=== PATIENT | male | born 1955 | race Caucasian/White ===

== ENCOUNTER 2018-10-23 21:26 | Inpatient (IN) ==
[~2018-10-23 21:26] MED LIST: ASPIRIN 300 MG SUPP PR ONE
[2018-10-23] MEDS ORDERED: SODIUM CHLORIDE 0.9% 500 ML IV SCH (21:30)
[2018-10-23] MEDS ORDERED: AMIODARONE / D5W 360 MG/200 ML BAG IV SCH (21:30)
[2018-10-23 21:45] LABS: Basophils # (auto) 0.03 K/uL (0-0.2); Basophils % (auto) 0.2 %; Eosinophils # (auto) 0.11 K/uL (0-0.5); Eosinophils % (auto) 0.8 %; Hematocrit (blood only) 44.5 % (42-52); Hemoglobin 15.4 g/dL (14.0-18.0); Immature Granulocytes # (auto) 0.31 K/uL (0.00-0.02); Immature Granulocytes % (auto) 2.2 %; Lymphocytes # (auto) 3.13 K/uL (1.2-3.4); Lymphocytes % (auto) 22.6 %; Mean Corpuscular Hgb Conc 34.6 g/dL (32-36); Mean Corpuscular Volume 94.5 fL (80-100); Mean Platelet Volume 9.4 fL (7.4-10.4); Monocytes % (auto) 10.8 %; Neutrophils # (auto) 8.78 K/uL (1.4-6.5); Neutrophils % (auto) 63.4 %; Platelet Count 230 K/uL (130-400); RDW Coefficient of Variation 13.5 % (11.5-14.5); Red Blood Count 4.71 M/uL (4.7-6.1); White Blood Count 13.86 K/uL (4.8-10.8)
--- NOTE | 2018-10-23 21:46 | XRay Report ---
XR chest 1V portable CLINICAL HISTORY: 63 years-old Male presenting with Chest pain. TECHNIQUE: Portable upright AP view of the chest was obtained. COMPARISON: 09/18/2013. FINDINGS: Endotracheal tube terminates in the upper thoracic trachea at the level of the clavicular heads. Athe rosclerosis of the aortic arch. Cardiac silhouette normal in size. Calcified granuloma in the left up per lung again noted. Mild prominence of pulmonary vasculature. Vague opacity in the left perihilar r egion suggested. No pleural effusion or pneumothorax. Osseous structures normal. Upper abdomen normal . IMPRESSION: 1. Endotracheal tube positioned at the upper limits of acceptable. 2. Vague left perihilar infiltrate suggested. Attention on follow-up as developing pneumonia is not excluded. Electronically signed by: Natan Le M.D. 10/23/2018 9:45 PM
[2018-10-23 21:53] LABS: iSTAT Creatinine 1.1 mg/dl (0.6-1.3); iSTAT Hemoglobin 15.3 g/dl (14.0-18.0); iSTAT Ionized Calcium 1.13 mmol/l (1.12-1.32); iSTAT Potassium 4.1 mEq/L (3.3-5.0)
[2018-10-23] MEDS ORDERED: HEPARIN (PORCINE) 1000 UNIT/ML 10 ML (CATH LAB USE ONLY) ONE ×2 (21:53→23:26)
[2018-10-23] MEDS ORDERED: fentaNYL citrate 100 MCG/2 ML VIAL ONE ×3 (21:53→23:10)
[2018-10-23] MEDS ORDERED: MIDAZOLAM HCL 1 MG/ML 2ML VIAL ONE ×4 (21:53→23:10)
[2018-10-23 21:54] LABS: Partial Thromboplastin Ratio 0.9; Partial Thromboplastin Time 25.4 Seconds (21.0-31.0); Prothrombin Time 9.9 Seconds (9.0-12.0)
[2018-10-23] MEDS ORDERED: NOREPINEPHRINE BITARTRATE 1 MG/ML 4 ML VIAL (CATH LAB USE ONLY) ONE (22:01)
[2018-10-23 22:02] LABS: Alanine Aminotransferase 236 U/L (12-78); Albumin Level 3.4 gm/dl (3.4-5.0); Aspartate Aminotransferase 295 U/L (15-37); BUN Creatinine Ratio 8.2 (10-20); Blood Urea Nitrogen 11 mg/dl (7-18); Calcium 8.4 mg/dl (8.5-10.1); Carbon Dioxide 23 mmol/L (21-32); Chloride 108 mmol/L (98-107); Est GFR (African American) 65.9; Est GFR (Non-African American) 56.9; Glucose 230 mg/dl (70-99); Magnesium 2.2 mg/dl (1.8-2.4); Potassium 4.1 mmol/L (3.5-5.1); Sodium 141 mmol/L (136-145)
--- NOTE | 2018-10-23 22:10 | Emergency Department Note ---
Entered by Fariba Hernandes acting as a scribe for History of Present Illness General Chief complaint: Heart Alert Source: EMS Mode of arrival: EMS Limitations: other (HPI limited secondary to patient's altered mental status.) History of Present Illness Onset (ago): minute(s) ([employer]) Location: chest Pain Consistency: + constant Quality: + constant and + other (cardiac arrest) Treatments prior to arrival: other (4 mg Versed) The patient is a 63 year old male who presents to the ED with EMS complaining that he's in cardiac arrest, noting that it began [employer]. Per EMS, the patient was at work, and he "slumped over." EMS notes that he coworkers gave him 3 shocks of an AED and a bystander did CPR. EMS reports that, upon arrival, EMS defibrillated him once more. EMS notes that he was given 4mg of Versed [employer]. They note a history of asthma, stating that he had Azelastine and ProAir on him [employer]. EMS notes that he quit smoking one week ago. HPI limited secondary to patient's altered mental status. Home Medications Home Medications Medication Instructions Recorded Confirmed Type Ibuprofen Tab (ADVIL) 400 - 600 mg PO Q6H PRN #0 tab 06/28/13 History Allergies Allergy/AdvReac Type Severity Reaction Status Date / Time No Known Allergies Allergy Unverified 10/17/12 16:35 Past Med/Surg History Medical History Asthma High cholesterol (Chronic) Back pain (Acute) Back strain (Acute) Laceration of lower extremity (Acute) Social History Communication Ability: Effective Feels Safe at Home: Yes Smoking Status: Unknown if ever smoked Review of Systems See HPI for pertinent positives & negatives. Other (HPI limited secondary to patient's altered mental status.) Physical Exam Vital Signs Vital Signs - 24 hr 10/23/18 21:19 10/23/18 21:32 10/23/18 21:40 Temperature 36.3 C L Temperature Source Axillary Sepsis Action Taken by Nursing No Action Required End-Tidal CO2 17 20 Pulse Rate 90 96 H 95 H Pulse Rate from SpO2 Sensor 93 H 95 H Respiratory Rate 20 Blood Pressure 133/72 133/72 Blood Pressure Mean 92 92 Pulse Oximetry 100 100 Oxygen Delivery Method Ambu-Bag Oxygen Flow Rate 15 10/23/18 21:43 10/23/18 21:46 10/23/18 21:50 Temperature Temperature Source Sepsis Action Taken by Nursing End-Tidal CO2 20 21 22 Pulse Rate 90 85 82 Pulse Rate from SpO2 Sensor 90 83 83 Respiratory Rate Blood Pressure 112/73 116/57 L Blood Pressure Mean 86 76 Pulse Oximetry 100 100 100 Oxygen Delivery Method Oxygen Flow Rate 10/23/18 21:51 Temperature Temperature Source Sepsis Action Taken by Nursing End-Tidal CO2 26 Pulse Rate 83 Pulse Rate from SpO2 Sensor 83 Respiratory Rate Blood Pressure 104/57 L Blood Pressure Mean 72 Pulse Oximetry 100 Oxygen Delivery Method Oxygen Flow Rate GENERAL: Patient is intubated. He does not follow commands. EYES: The conjunctivae are clear. Pupils are mid size and reactive to light bilaterally. EARS, NOSE, MOUTH AND THROAT: Endotracheal tube was noted. NECK: The neck is nontender and supple. RESPIRATORY: No spontaneous respirations were noted. Patient is being bagged via endotracheal tube. Lung sounds are diminished throughout. CARDIOVASCULAR: Regular rate and rhythm was noted to auscultation. No definite murmur was noted. GASTROINTESTINAL: The abdomen is soft. Bowel sounds are present in all quadrants. Abdomen is nontender. MUSCULOSKELETAL/EXTREMITIES: There is no evidence of gross deformity. Full range of motion is noted in the hips and shoulders. SKIN: There is no obvious evidence of any rash. Pulses were symmetric. There is no significant pedal edema. NEUROLOGIC: GCS 6 E(1) V(1) M(4)-intubated Course 2125: The patient was evaluated in room B01. A complete history and physical exam was performed. 2141: I spoke with Dr. Haleigh Ryan, [facility] hospitalist, about the patients case. She will further evaluate the patient. 2144: I spoke with Dr. Tucker, [facility] pet crematory worker, about the patients case. 2152: I spoke with the patients family. They reported that he still smokes cigarettes. Consultations Consultation #1: I spoke with Dr. Haleigh Ryan, [facility] hospitalist, about the patients case. She will further evaluate the patient. Time: 21:42 Consultation #2: I spoke with Dr. Tucker, [facility] pet crematory worker, about the patients case. Time: 21:45 Administered Medications Amiodarone HCl/Dextrose (Nexterone / D5w) 360 mg in 200 mls @ 33.333 mls/hr IV .Q6H [facility] Stop: 10/24/18 03:29 Last Admin: 10/23/18 21:35 Dose: 1 mg/min, 33.3 mls/hr Documented by: [id number] Cosigned by: [id number] Discontinued Medications Aspirin (Aspirin) 300 mg UT ONE ONE Stop: 10/23/18 21:19 Last Admin: 10/23/18 21:30 Dose: 300 mg Documented by: [id number] Sodium Chloride (Nss) 500 mls @ 999 mls/hr IV .Q31M [facility] Stop: 10/23/18 22:00 Last Admin: 10/23/18 21:45 Dose: 999 mls/hr Documented by: [id number] Medical Decision Making Differential Diagnosis Etiologies such as shingles, musculoskeletal pain, pericarditis, myocarditis, cardiac ischemia, pericardial tamponade, pneumonia, pneumothorax, pleural effusion, hemothorax, pleurisy, aortic pathology, pulmonary embolism, intra- abdominal process, as well as others were considered. Medical Records Attestation: I reviewed the patient's medical records. Home Medications Current Medication List: was personally reviewed by me Laboratory Data Attestation: I reviewed the patient's lab results. Result diagrams: 10/23/18 21:36 10/23/18 21:36 Lab Results 10/23/18 10/23/18 10/23/18 Range/Units 21:36 21:36 21:36 WBC 13.86 H (4.8-10.8) K/uL RBC 4.71 (4.7-6.1) M/uL Hgb 15.4 (14.0-18.0) g/dL POC Hgb (14.0-18.0) g/dl Hct 44.5 (42-52) % POC Hct (42-52) % MCV 94.5 (80-100) fL MCH 32.7 (25-34) pg MCHC 34.6 (32-36) g/dL RDW Std Deviation 47.0 H (36.4-46.3) fL RDW Coeff of Anh 13.5 (11.5-14.5) % Plt Count 230 (130-400) K/uL MPV 9.4 (7.4-10.4) fL Immature Gran % (Auto) 2.2 % Neut % (Auto) 63.4 % Lymph % (Auto) 22.6 % [place] % (Auto) 10.8 % Eos % (Auto) 0.8 % Baso % (Auto) 0.2 % Immature Gran # (Auto) 0.31 H (0.00-0.02) K/uL Neut # (Auto) 8.78 H (1.4-6.5) K/uL Lymph # (Auto) 3.13 (1.2-3.4) K/uL [place] # (Auto) 1.50 H (0.11-0.59) K/uL Eos # (Auto) 0.11 (0-0.5) K/uL Baso # (Auto) 0.03 (0-0.2) K/uL PT 9.9 (9.0-12.0) Seconds INR 1.0 (0.9-1.1) APTT 25.4 (21.0-31.0) Seconds PTT Ratio 0.9 Activ Coag Time Kaolin (94-140) SECONDS POC pH (7.35-7.45) POC pCO2 (35-46) mmHg POC pO2 (80-95) mmHg POC HCO3 (19-24) gino/L POC Base Excess (-9-1.8) gino/L POC ABG O2 Sat (90-95) % POC Sodium (135-144) mEq/L Sodium 141 (136-145) mmol/L POC Potassium (3.3-5.0) mEq/L Potassium 4.1 (3.5-5.1) mmol/L POC Chloride (101-112) mEq/L Chloride 108 H (98-107) mmol/L Carbon Dioxide 23 (21-32) mmol/L POC Total CO2 (24-31) mEq/l Anion Gap 11.0 (3-11) POC Anion Gap (16-25) mmol/L POC BUN (7-18) mg/dl BUN 11 (7-18) mg/dl Creatinine 1.33 (0.6-1.4) mg/dl POC Creatinine (0.6-1.3) mg/dl Est Cr Clr Drug Dosing Not Reportable Est GFR ( Amer) 65.9 Est GFR (Non-Af Amer) 56.9 BUN/Creatinine Ratio 8.2 L (10-20) Glucose 230 H (70-99) mg/dl POC Glucose (other) (70-99) mg/dl Calcium 8.4 L (8.5-10.1) mg/dl POC Ioniz Calcium Jai (1.12-1.32) mmol/l Magnesium 2.2 (1.8-2.4) mg/dl Total Bilirubin 0.4 (0.2-1) mg/dl AST 295 H (15-37) U/L ALT 236 H (12-78) U/L Alkaline Phosphatase 86 (45-117) U/L Total Creatine Kinase 612 H (39-308) U/L CK-MB (CK-2) 50.6 H (0.5-3.6) ng/ml CK/CKMB % Calc 8.3 H (0-3.0) POC Troponin I (0-0.045) ng/ml Troponin I 9.410 H* (0-0.045) ng/ml Total Protein 6.8 (6.4-8.2) gm/dl Albumin 3.4 (3.4-5.0) gm/dl Globulin 3.4 (2.5-4.0) gm/dl Albumin/Globulin Ratio 1.0 (0.9-2) Lipase 160 (73-393) U/L TSH 7.800 H (0.300-4.500) uIu/ml Free T4 0.99 (0.8-1.6) ng/dl 10/23/18 10/23/18 10/23/18 Range/Units 21:39 21:39 22:27 WBC (4.8-10.8) K/uL RBC (4.7-6.1) M/uL Hgb (14.0-18.0) g/dL POC Hgb 15.3 (14.0-18.0) g/dl Hct (42-52) % POC Hct 45 (42-52) % MCV (80-100) fL MCH (25-34) pg MCHC (32-36) g/dL RDW Std Deviation (36.4-46.3) fL RDW Coeff of Anh (11.5-14.5) % Plt Count (130-400) K/uL MPV (7.4-10.4) fL Immature Gran % (Auto) % Neut % (Auto) % Lymph % (Auto) % [place] % (Auto) % Eos % (Auto) % Baso % (Auto) % Immature Gran # (Auto) (0.00-0.02) K/uL Neut # (Auto) (1.4-6.5) K/uL Lymph # (Auto) (1.2-3.4) K/uL [place] # (Auto) (0.11-0.59) K/uL Eos # (Auto) (0-0.5) K/uL Baso # (Auto) (0-0.2) K/uL PT (9.0-12.0) Seconds INR (0.9-1.1) APTT (21.0-31.0) Seconds PTT Ratio Activ Coag Time Kaolin 252 H (94-140) SECONDS POC pH (7.35-7.45) POC pCO2 (35-46) mmHg POC pO2 (80-95) mmHg POC HCO3 (19-24) gino/L POC Base Excess (-9-1.8) gino/L POC ABG O2 Sat (90-95) % POC Sodium 140 (135-144) mEq/L Sodium (136-145) mmol/L POC Potassium 4.1 (3.3-5.0) mEq/L Potassium (3.5-5.1) mmol/L POC Chloride 103 (101-112) mEq/L Chloride (98-107) mmol/L Carbon Dioxide (21-32) mmol/L POC Total CO2 22 L (24-31) mEq/l Anion Gap (3-11) POC Anion Gap 20.0 (16-25) mmol/L POC BUN 10 (7-18) mg/dl BUN (7-18) mg/dl Creatinine (0.6-1.4) mg/dl POC Creatinine 1.1 (0.6-1.3) mg/dl Est Cr Clr Drug Dosing Est GFR ( Amer) Est GFR (Non-Af Amer) BUN/Creatinine Ratio (10-20) Glucose (70-99) mg/dl POC Glucose (other) 236 H (70-99) mg/dl Calcium (8.5-10.1) mg/dl POC Ioniz Calcium Jai 1.13 (1.12-1.32) mmol/l Magnesium (1.8-2.4) mg/dl Total Bilirubin (0.2-1) mg/dl AST (15-37) U/L ALT (12-78) U/L Alkaline Phosphatase (45-117) U/L Total Creatine Kinase (39-308) U/L CK-MB (CK-2) (0.5-3.6) ng/ml CK/CKMB % Calc (0-3.0) POC Troponin I 6.01 H (0-0.045) ng/ml Troponin I (0-0.045) ng/ml Total Protein (6.4-8.2) gm/dl Albumin (3.4-5.0) gm/dl Globulin (2.5-4.0) gm/dl Albumin/Globulin Ratio (0.9-2) Lipase (73-393) U/L TSH (0.300-4.500) uIu/ml Free T4 (0.8-1.6) ng/dl 10/23/18 10/23/18 10/23/18 Range/Units 22:27 22:57 22:57 WBC (4.8-10.8) K/uL RBC (4.7-6.1) M/uL Hgb (14.0-18.0) g/dL POC Hgb (14.0-18.0) g/dl Hct (42-52) % POC Hct (42-52) % MCV (80-100) fL MCH (25-34) pg MCHC (32-36) g/dL RDW Std Deviation (36.4-46.3) fL RDW Coeff of Anh (11.5-14.5) % Plt Count (130-400) K/uL MPV (7.4-10.4) fL Immature Gran % (Auto) % Neut % (Auto) % Lymph % (Auto) % [place] % (Auto) % Eos % (Auto) % Baso % (Auto) % Immature Gran # (Auto) (0.00-0.02) K/uL Neut # (Auto) (1.4-6.5) K/uL Lymph # (Auto) (1.2-3.4) K/uL [place] # (Auto) (0.11-0.59) K/uL Eos # (Auto) (0-0.5) K/uL Baso # (Auto) (0-0.2) K/uL PT (9.0-12.0) Seconds INR (0.9-1.1) APTT (21.0-31.0) Seconds PTT Ratio Activ Coag Time Kaolin 208 H (94-140) SECONDS POC pH 7.23 L 7.35 (7.35-7.45) POC pCO2 45 41 (35-46) mmHg POC pO2 289 H 310 H (80-95) mmHg POC HCO3 19 23 (19-24) gino/L POC Base Excess -9.0 -3.0 (-9-1.8) gino/L POC ABG O2 Sat 100.0 H 100.0 H (90-95) % POC Sodium (135-144) mEq/L Sodium (136-145) mmol/L POC Potassium (3.3-5.0) mEq/L Potassium (3.5-5.1) mmol/L POC Chloride (101-112) mEq/L Chloride (98-107) mmol/L Carbon Dioxide (21-32) mmol/L POC Total CO2 20 L 24 (24-31) mEq/l Anion Gap (3-11) POC Anion Gap (16-25) mmol/L POC BUN (7-18) mg/dl BUN (7-18) mg/dl Creatinine (0.6-1.4) mg/dl POC Creatinine (0.6-1.3) mg/dl Est Cr Clr Drug Dosing Est GFR ( Amer) Est GFR (Non-Af Amer) BUN/Creatinine Ratio (10-20) Glucose (70-99) mg/dl POC Glucose (other) (70-99) mg/dl Calcium (8.5-10.1) mg/dl POC Ioniz Calcium Jai (1.12-1.32) mmol/l Magnesium (1.8-2.4) mg/dl Total Bilirubin (0.2-1) mg/dl AST (15-37) U/L ALT (12-78) U/L Alkaline Phosphatase (45-117) U/L Total Creatine Kinase (39-308) U/L CK-MB (CK-2) (0.5-3.6) ng/ml CK/CKMB % Calc (0-3.0) POC Troponin I (0-0.045) ng/ml Troponin I (0-0.045) ng/ml Total Protein (6.4-8.2) gm/dl Albumin (3.4-5.0) gm/dl Globulin (2.5-4.0) gm/dl Albumin/Globulin Ratio (0.9-2) Lipase (73-393) U/L TSH (0.300-4.500) uIu/ml Free T4 (0.8-1.6) ng/dl Imaging Data Radiologist's Impression: Radiology results as stated below per my review and the radiologist's interpretation: XR chest 1V portable CLINICAL HISTORY: 63 years-old Male presenting with Chest pain. TECHNIQUE: Portable upright AP view of the chest was obtained. COMPARISON: 09/18/2013. FINDINGS: Endotracheal tube terminates in the upper thoracic trachea at the level of the clavicular heads. Atherosclerosis of the aortic arch. Cardiac silhouette normal in size. Calcified granuloma in the left upper lung again noted. Mild prominence of pulmonary vasculature. Vague opacity in the left perihilar region suggested. No pleural effusion or pneumothorax. Osseous structures normal. Upper abdomen normal. IMPRESSION: 1. Endotracheal tube positioned at the upper limits of acceptable. 2. Vague left perihilar infiltrate suggested. Attention on follow-up as developing pneumonia is not excluded. Electronically signed by: Natan Le M.D. 10/23/2018 9:45 PM ECG Data Attestation: I personally reviewed and interpreted this ECG as follows: Indication: SOB/dyspnea Rate (beats per minute): 95 Rhythm: normal sinus Findings: + ST depression (inferior and lateral, consistent with inferior posterior VA) and + ST elevation (Inferior) Additional Comments: Pre hospital EKG: Sinus tachycardic, 102 beats per minute. Anterior and lateral ST depression noted. Inferior ST elevation. Likely inferior posterior VA. No previous for comparison. Blood Pressure Blood Pressure Findings: Low blood pressure Blood Pressure Disposition: further management by hospitalist MARILOU Narrative The patient is a 63-year-old male who presented to the emergency department after a cardiac arrest. The patient was at work when he started to have agonal respirations. This was recognized as a cardiac arrest by the patient's coworkers. He was immediately hooked up to the AED and 911 was called. The patient was received 3 shocks by the AED. He also received another shock with the BLS unit arrived. When the ALS unit arrived the patient was in an organized rhythm with tachycardia. He was noted to have a blood pressure as well as strong pulses in his extremities. At that time I was notified by the prehospital personnel because the patient had signs of STEMI on EKG. Heart alert was called at that time. Via the prehospital notification I did order amiodarone. The patient also received Versed because he was somewhat agitated and was not tolerating the intubation. The patient arrived in the emergency department. His initial twelve-lead EKG appeared to show a continuation of the STEMI. The patient received aspirin in the emergency department as well as continued amiodarone therapy. The patient received IV fluids. I discussed his case with the on-call insurance underwriter sales. He presented to the emergency department immediately. I discussed the patient's condition with his significant other as well as his daughter. I also discussed his case with the on-call [place] Hospitalist. They have agreed to evaluate the patient for further management and disposition after cardiac catheterization. The patient was not made a code arctic initially because he was showing some signs of higher brain activity. It is possible the patient may be a candidate for code Arctic after cardiac catheterization. I will defer this decision to the admitting team. Impression & Plan Cardiac arrest, Ventricular dysrhythmia, Respiratory arrest, Myocardial infarction Critical Care Time I have personally spent 35 minutes of critical care time in the direct management of this patient. This includes bedside care, interpretation of diagnostic studies, and testing, discussion with consultants, patient, and family members, and other required patient management activities. This 35 minutes is in excess of all separately billable procedures. Critical Care Time: Yes Total Critical Care Time: 35 Discharge Plan Visit Data *Final* Discharge Date/Time: 10/23/18 22:15 Chief Complaint: Heart Alert ED Provider: Germán Roman Discharge Problem: Cardiac arrest, Ventricular dysrhythmia, Respiratory arrest, Myocardial infarction Patient Disposition: Admitted As Inpatient Discharge Instructions Interventions: ED Discharge Assessment Last Done: 10/23/18 21:56 The scribe's documentation has been prepared under my direction and personally reviewed by me in its entirety. I confirm that the note above accurately reflects all work, treatment, procedures, and medical decision making performed by me.
[2018-10-23 22:17] LABS: Alkaline Phosphatase 86 U/L (45-117); Bilirubin,Total 0.4 mg/dl (0.2-1); Creatine Kinase 612 U/L (39-308); Creatine Kinase MB 50.6 ng/ml (0.5-3.6); Globulin 3.4 gm/dl (2.5-4.0); Total Protein 6.8 gm/dl (6.4-8.2)
[2018-10-23 22:30] LABS: T4 Free Thyroxine 0.99 ng/dl (0.8-1.6)
[2018-10-23] MEDS ORDERED: ICU PROTOCOL FOR HYPERGLYCEMIA PRN (23:12)
[2018-10-23 23:17] LABS: iSTAT Arterial Blood Gas HCO3 23 meg/L (19-24); iSTAT Arterial Blood Gas pCO2 41 mmHg (35-46); iSTAT Arterial Blood Gas pH 7.35 (7.35-7.45); iSTAT Carbon Dioxide 24 mEq/l (24-31)
[2018-10-23 23:17] LABS: iSTAT Arterial Blood Gas HCO3 19 meg/L (19-24); iSTAT Arterial Blood Gas pCO2 45 mmHg (35-46); iSTAT Arterial Blood Gas pH 7.23 (7.35-7.45); iSTAT Carbon Dioxide 20 mEq/l (24-31)
[2018-10-23] MEDS ORDERED: TICAGRELOR 90 MG TAB PO ONE (23:25)
[2018-10-23] MEDS ORDERED: NiCARDipine HCL INJ 2.5 MG/ML 10 ML AMP ONE (23:26)
[2018-10-23] MEDS ORDERED: SODIUM CHLORIDE 0.9% 1000ML 1,000 ML IV SCH (23:30)
--- NOTE | 2018-10-23 23:46 | Cardiology Consultation ---
Date of Consultation October 23, 2018 Assessment & Plan (1) Cardiac arrest: 2. Posterior STEMI/occluded distal circumflex 3. Mild non-culprit coronary artery disease Patient now post primary PCI for posterior STEMI with single drug-eluting stent placed from distal circumflex into OM 3. Post procedure hemodynamically and electrically stable. Nonpurposeful movements, not following commands. Admit to ICU Head CT pending, cooling catheter placed for therapeutic hypothermia Continue amiodarone infusion Trend troponin until peak, echocardiogram in the a.m. Load with 180 mg of ticagrelor when OG tube in place Continue DAPT for 1 year Start high intensity statin Start low-dose beta-jayshree as BP allows We will continue to follow. History of Present Illness Attending Physician: Filiberto Tucker MD History of Present Illness 63-year-old man without significant past medical history brought emergently to [facility] ED after cardiac arrest. Per report patient had witnessed arrest with bystander CPR and AED administered almost immediately. Reportedly had 3 AED shocks and 1 additional shock with BLS before ROSC. Remained unresponsive and was intubated by paramedics on arrival. Started on sedatives for nonpurposeful movement. EKG in the field showed subtle inferior ST elevations with ST depressions in V2 through V4. Heart alert activated from the field. Initially hypertensive upon arrival. Remained electrically stable on amiodarone in the ED. EKG again showed subtle inferior ST elevations and was taken emergently for cardiac cath. Patient found to have an occluded distal circumflex. Received a single drug- eluting stent from distal circumflex into OM 3 with good angiographic result. Remained hemodynamically stable off vasopressors. Nonpurposeful movement and continued on fentanyl/Versed. Cooling catheter placed via right common femoral vein. Allergies Allergy/AdvReac Type Severity Reaction Status Date / Time No Known Allergies Allergy Unverified 10/17/12 16:35 Home Medications Home Medications Medication Instructions Recorded Confirmed Type Ibuprofen Tab (ADVIL) 400 - 600 mg PO Q6H PRN #0 tab 06/28/13 History Patient History Medical History Asthma High cholesterol (Chronic) Back pain (Acute) Back strain (Acute) Laceration of lower extremity (Acute) No significant past surgical history Family History Other No significant family history Social History Preferred Language: German Communication Ability: Unable Beliefs That Will Affect Care: None Current Living Situation: Spouse Other Information That Helps Us Care for You: No Feels Safe at Home: Yes Smoking Status: Unknown if ever smoked Hx Alcohol Use: No Hx Substance Use: No Review of Systems Review of Systems: Unobtainable due to endotracheal tube Physical Exam Physical Exam: General: Intubated, sedated HEENT: Sclerae anicteric, mucous membranes moist Lungs: Clear to auscultation bilaterally, no rhonchi or wheezes Cardiac: Regular rate and rhythm, no murmurs. Abdomen: Soft, nontender, nondistended, positive bowel sounds. Extremities: Warm, well perfused, no edema. 2+ radial pulses Skin: No rashes or lesions. Neuro: Responds to pain, pupils equal and reactive, Otherwise nonpurposeful mo vements Results & Data Vital Signs (Past 12 Hours) Vital Signs Temp Pulse Resp BP Pulse Ox 10/23/18 21:51 83 104/57 L 100 10/23/18 21:50 82 100 10/23/18 21:46 85 116/57 L 100 10/23/18 21:43 90 112/73 100 10/23/18 21:40 95 H 10/23/18 21:32 96 H 133/72 100 10/23/18 21:19 36.3 C L 90 20 133/72 100
--- NOTE | 2018-10-23 23:58 | Cardiac Catheterization ---
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 Moderate caliber first diagonal without significant disease. Circumflex -30- 40% mid segment disease, 100% acute distal segment occlusion. Large OM1 without significant disease. RCA -dominant, moderate caliber, 50-60% eccentric mid RCA focal stenosis, distal luminal irregularities, very small PDA LVEDP -15 -- PCI -- Antithrombotic therapy: Heparin Procedure: Left main cannulated with EBU 3.5 guide Caustics Loader 50 wire passed across distal circumflex lesion into small left PLB Distal circumflex lesion predilated with 2.5 compliant balloon Whisper wire navigated into moderate caliber OM 3 Ostium of OM 3 dilated with 2.0 balloon Dilated distal circumflex and OM 3 stented with 2.5 x 18 mm Estrada drug-eluting stent Stent post-dilated with stent balloon IC vasodilators administered for spasm Post procedure CARMELITA 3 flow, stent well expanded with minimal residual stenosis and no apparent cardiac complications. Arterial Closure: TR band Summary: 1. Out of hospital cardiac arrest 2. Posterior STEMI/Occluded distal circumflex 3. Moderate non-culprit coronary artery disease -50 to 60% mid RCA 40% mid LAD 4. Normal intracardiac filling pressure 5. Successful PCI of distal circumflex and OM 3 with single drug-eluting stent (2.5 x 18 mm [place]). Recommendations: Admit to ICU for continued monitoring Targeted temperature management Load with ticagrelor 180 mg in ICU Continue dual-antiplatelet therapy for at least 1 year. 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 Cardiac Status Clinical evaluation leading to the procedure CAD Presenation: STEMI Anginal Classification: CCS IV Heart Failure: No Cardiogenic Shock within 24 Hours: No Cardiac Arrest within 24 Hours: Yes Imaging Studies Past 6 Months: No Stress Studies Past 6 Months: No Diagnostic Physicians Name: Filiberto Tucker MD Status: Emergency Closure Device Percutaneous Entry Location: Radial Closure Device: Radial Band Recommendations: PCI without planned CABG PCI Indication: Immediate PCI for STEMI First Noted: First EKG Lesion Segment Name: distal circumflex Culprit Artery: Yes Stenosis Prior to Rx (%): 100 Chronic Total Occlusion: No IVUS: No FFR: No Pre-Procedure CARMELITA Flow: 0 Previously Treated Lesion: No Lesion Complexity: Non-High/Non-C Lesion Length (mm): 12 Thrombus Present: Yes Bifurcation Lesion: Yes Guidewire Across Lesion: Stenosis Post-Procedure (%): 0 Post-Procedure CARMELITA Flow: 3 Devices(s) Deployed: Yes Yes Intraprocedure Events Significant Disection: No Perforation: No
[2018-10-24] MEDS ORDERED: PROPOFOL IV EMULSION 10 MG/ML 100 ML VIAL IV ONE (00:05)
[2018-10-24] MEDS ORDERED: ICU PROTOCOL FOR HYPERGLYCEMIA PRN (00:09)
[2018-10-24] MEDS ORDERED: PIPERACILL/TAZOBAC CONSULT ACTIVE PRN (00:10)
[2018-10-24] MEDS ORDERED: VANCOMYCIN CONSULT ACTIVE PRN (00:10)
[2018-10-24] MEDS: MIDAZOLAM HCL 125 MG/250 ML BAG IV SCH ×2 (00:30→23:04)
[2018-10-24] MEDS: fentaNYL DRIP 1,250 MCG/250 ML BAG IV SCH ×4 (00:30→23:04)
[2018-10-24] MEDS ORDERED: PIPERACILLIN/TAZOBACTAM 3.375 GM in DEXTROSE 5% 100 ML IV ONE (00:30)
[2018-10-24] MEDS ORDERED: VANCOMYCIN HCL 2,000 MG in SODIUM CHLORIDE 0.9% 500 ML IV ONE (00:30)
--- NOTE | 2018-10-24 00:43 | History & Physical Report ---
Date of Service October 24, 2018 Assessment & Plan (1) Cardiac arrest: 63yo male with history of HLP, Asthma presenting s/p cardiac arrest with ROSC, cath with occlusion of circumflex s/p KALA placement presently intubated/sedated and on cooling protocol 1. Neuro: patient with some decorticate posturing noted in ER and after cardiac cath. CT head negative. Presently intubated, sedated, not following commands. CT head with no acute intracranial abnormalities. Concern for anoxia given recent arrest -Cooling per protocol -Sedation and pain control -Paralyze if shivering continues 2. Pulm: Intubated and sedated. Adequate oxygenation and ventilation on current ventilator settings. History of asthma, patient not presently on medications. Active smoker. -CXR in AM -Nebs PRN 3. CV: s/p cardiac arrest with CPR and ROSC. S/p cardiac catheterization with placement of KALA to Cx. Bradycardia -Continue Amiodarone -Continue ASA -Continue Atorvastatin -Continue Brillinta -Dopamine 5mcg for bradycardia. Monitor for arrhythmia 4. GI: THIERNO -Protonix for prophylaxis while intubated 5. : [place] in place. Renal function intact, electrolytes and metabolic profile acceptable -Continue to monitor 6. Heme - patient with leukocytosis, most likely reactive. Patient with large amount of vomit, coarse breath sounds 7. ID - afebrile. Thick discharge from ETT -Empiric Vanc and Zosyn 8. Endocrine - HOMA (2) Asthma: (3) High cholesterol: History of Present Illness Chief Complaint: Cardiac arrest Primary Care Provider: Santiago Alcazar MD Luis Rudolph is a 63yo C male with history of HLP, asthma presenting as code heart. Per chart, patient was at work when he became blue and unresponsive, witnessed cardiac arrest. CPR was initiated in the field and patient was administered AED shock almost immediately with two subsequent shocks. EMS arrived and delivered an additional shock with ROSC. EKG with inferior ST elev ations and ST depressions in V2-V4. Patient intubated in the field by paramedics and sedated. Patient was transported to [facility] as a "Code Heart" and was taken to the lab aide upon arrival where he was found to have 100% occlusion of the distal circumflex. He had placement of KALA to distal circumflex to OM3. Patient following commands initially. Had cooling catheter placed via right CFV. Allergies Allergy/AdvReac Type Severity Reaction Status Date / Time No Known Allergies Allergy Unverified 10/17/12 16:35 Home Medications Home Medications Medication Instructions Recorded Confirmed Type Ibuprofen Tab (ADVIL) 400 - 600 mg PO Q6H PRN #0 tab 06/28/13 History Past Med/Surg History Medical History Asthma High cholesterol (Chronic) Back pain (Acute) Back strain (Acute) Laceration of lower extremity (Acute) No significant past surgical history Family History Other No significant family history Social History Preferred Language: Congolese Communication Ability: Effective Beliefs That Will Affect Care: None Current Living Situation: Spouse Other Information That Helps Us Care for You: No Feels Safe at Home: Yes Smoking Status: Unknown if ever smoked Hx Alcohol Use: No Hx Substance Use: No Review of Systems Review of Systems: Unobtainable due to endotracheal tube Physical Exam Physical Exam: General: patient intubated and sedated Skin: warm, dry, intact, no rashes or lesions HEENT: NC/AT, left pupil slightly larger, round/reactive, anicteric sclera, conjunctiva without injection, external ear normal to inspection and nontender, nares patent, moist mucus membranes, ETT in place, trachea midline, no LAD, no thyromegaly, no JVD Heart: +S1/S2, regular, tachycardic, no m/r/g Lungs: equal air entry bilaterally, no rales/rhonchi/wheezes Abd: +BS, soft, NT/ND, no masses/organomegaly/ascites Ext: warm, 2+ pulses in UE/LE bilaterally, no clubbing/cyanosis or edema Neuro: sedated, shivering, decorticate posturing noted on return from lab aide Results & Data Vital Signs (Past 12 Hours) Vital Signs Temp Pulse Resp BP Pulse Ox 10/23/18 23:40 98 H 16 100 10/23/18 23:35 87 31 H 94 10/23/18 21:51 83 104/57 L 100 10/23/18 21:50 82 100 10/23/18 21:46 85 116/57 L 100 10/23/18 21:43 90 112/73 100 10/23/18 21:40 95 H 10/23/18 21:32 96 H 133/72 100 10/23/18 21:19 36.3 C L 90 20 133/72 100 Laboratory Results Lab Results 10/23/18 10/23/18 10/23/18 Range/Units 21:36 21:36 21:36 WBC 13.86 H (4.8-10.8) K/uL RBC 4.71 (4.7-6.1) M/uL Hgb 15.4 (14.0-18.0) g/dL POC Hgb (14.0-18.0) g/dl Hct 44.5 (42-52) % POC Hct (42-52) % MCV 94.5 (80-100) fL MCH 32.7 (25-34) pg MCHC 34.6 (32-36) g/dL RDW Std Deviation 47.0 H (36.4-46.3) fL RDW Coeff of Anh 13.5 (11.5-14.5) % Plt Count 230 (130-400) K/uL MPV 9.4 (7.4-10.4) fL Immature Gran % (Auto) 2.2 % Neut % (Auto) 63.4 % Lymph % (Auto) 22.6 % [place] % (Auto) 10.8 % Eos % (Auto) 0.8 % Baso % (Auto) 0.2 % Immature Gran # (Auto) 0.31 H (0.00-0.02) K/uL Neut # (Auto) 8.78 H (1.4-6.5) K/uL Lymph # (Auto) 3.13 (1.2-3.4) K/uL [place] # (Auto) 1.50 H (0.11-0.59) K/uL Eos # (Auto) 0.11 (0-0.5) K/uL Baso # (Auto) 0.03 (0-0.2) K/uL PT 9.9 (9.0-12.0) Seconds INR 1.0 (0.9-1.1) APTT 25.4 (21.0-31.0) Seconds PTT Ratio 0.9 Activ Coag Time Kaolin (94-140) SECONDS POC pH (7.35-7.45) POC pCO2 (35-46) mmHg POC pO2 (80-95) mmHg POC HCO3 (19-24) gino/L POC Base Excess (-9-1.8) gino/L POC ABG O2 Sat (90-95) % POC Sodium (135-144) mEq/L Sodium 141 (136-145) mmol/L POC Potassium (3.3-5.0) mEq/L Potassium 4.1 (3.5-5.1) mmol/L POC Chloride (101-112) mEq/L Chloride 108 H (98-107) mmol/L Carbon Dioxide 23 (21-32) mmol/L POC Total CO2 (24-31) mEq/l Anion Gap 11.0 (3-11) POC Anion Gap (16-25) mmol/L POC BUN (7-18) mg/dl BUN 11 (7-18) mg/dl Creatinine 1.33 (0.6-1.4) mg/dl POC Creatinine (0.6-1.3) mg/dl Est Cr Clr Drug Dosing Not Reportable Est GFR ( Amer) 65.9 Est GFR (Non-Af Amer) 56.9 BUN/Creatinine Ratio 8.2 L (10-20) Glucose 230 H (70-99) mg/dl POC Glucose (other) (70-99) mg/dl Calcium 8.4 L (8.5-10.1) mg/dl POC Ioniz Calcium Jai (1.12-1.32) mmol/l Magnesium 2.2 (1.8-2.4) mg/dl Total Bilirubin 0.4 (0.2-1) mg/dl AST 295 H (15-37) U/L ALT 236 H (12-78) U/L Alkaline Phosphatase 86 (45-117) U/L Total Creatine Kinase 612 H (39-308) U/L CK-MB (CK-2) 50.6 H (0.5-3.6) ng/ml CK/CKMB % Calc 8.3 H (0-3.0) POC Troponin I (0-0.045) ng/ml Troponin I 9.410 H* (0-0.045) ng/ml Total Protein 6.8 (6.4-8.2) gm/dl Albumin 3.4 (3.4-5.0) gm/dl Globulin 3.4 (2.5-4.0) gm/dl Albumin/Globulin Ratio 1.0 (0.9-2) Lipase 160 (73-393) U/L TSH 7.800 H (0.300-4.500) uIu/ml Free T4 0.99 (0.8-1.6) ng/dl 10/23/18 10/23/18 10/23/18 Range/Units 21:39 21:39 22:27 WBC (4.8-10.8) K/uL RBC (4.7-6.1) M/uL Hgb (14.0-18.0) g/dL POC Hgb 15.3 (14.0-18.0) g/dl Hct (42-52) % POC Hct 45 (42-52) % MCV (80-100) fL MCH (25-34) pg MCHC (32-36) g/dL RDW Std Deviation (36.4-46.3) fL RDW Coeff of Anh (11.5-14.5) % Plt Count (130-400) K/uL MPV (7.4-10.4) fL Immature Gran % (Auto) % Neut % (Auto) % Lymph % (Auto) % [place] % (Auto) % Eos % (Auto) % Baso % (Auto) % Immature Gran # (Auto) (0.00-0.02) K/uL Neut # (Auto) (1.4-6.5) K/uL Lymph # (Auto) (1.2-3.4) K/uL [place] # (Auto) (0.11-0.59) K/uL Eos # (Auto) (0-0.5) K/uL Baso # (Auto) (0-0.2) K/uL PT (9.0-12.0) Seconds INR (0.9-1.1) APTT (21.0-31.0) Seconds PTT Ratio Activ Coag Time Kaolin 252 H (94-140) SECONDS POC pH (7.35-7.45) POC pCO2 (35-46) mmHg POC pO2 (80-95) mmHg POC HCO3 (19-24) gino/L POC Base Excess (-9-1.8) gino/L POC ABG O2 Sat (90-95) % POC Sodium 140 (135-144) mEq/L Sodium (136-145) mmol/L POC Potassium 4.1 (3.3-5.0) mEq/L Potassium (3.5-5.1) mmol/L POC Chloride 103 (101-112) mEq/L Chloride (98-107) mmol/L Carbon Dioxide (21-32) mmol/L POC Total CO2 22 L (24-31) mEq/l Anion Gap (3-11) POC Anion Gap 20.0 (16-25) mmol/L POC BUN 10 (7-18) mg/dl BUN (7-18) mg/dl Creatinine (0.6-1.4) mg/dl POC Creatinine 1.1 (0.6-1.3) mg/dl Est Cr Clr Drug Dosing Est GFR ( Amer) Est GFR (Non-Af Amer) BUN/Creatinine Ratio (10-20) Glucose (70-99) mg/dl POC Glucose (other) 236 H (70-99) mg/dl Calcium (8.5-10.1) mg/dl POC Ioniz Calcium Jai 1.13 (1.12-1.32) mmol/l Magnesium (1.8-2.4) mg/dl Total Bilirubin (0.2-1) mg/dl AST (15-37) U/L ALT (12-78) U/L Alkaline Phosphatase (45-117) U/L Total Creatine Kinase (39-308) U/L CK-MB (CK-2) (0.5-3.6) ng/ml CK/CKMB % Calc (0-3.0) POC Troponin I 6.01 H (0-0.045) ng/ml Troponin I (0-0.045) ng/ml Total Protein (6.4-8.2) gm/dl Albumin (3.4-5.0) gm/dl Globulin (2.5-4.0) gm/dl Albumin/Globulin Ratio (0.9-2) Lipase (73-393) U/L TSH (0.300-4.500) uIu/ml Free T4 (0.8-1.6) ng/dl 10/23/18 10/23/18 10/23/18 Range/Units 22:27 22:57 22:57 WBC (4.8-10.8) K/uL RBC (4.7-6.1) M/uL Hgb (14.0-18.0) g/dL POC Hgb (14.0-18.0) g/dl Hct (42-52) % POC Hct (42-52) % MCV (80-100) fL MCH (25-34) pg MCHC (32-36) g/dL RDW Std Deviation (36.4-46.3) fL RDW Coeff of Anh (11.5-14.5) % Plt Count (130-400) K/uL MPV (7.4-10.4) fL Immature Gran % (Auto) % Neut % (Auto) % Lymph % (Auto) % [place] % (Auto) % Eos % (Auto) % Baso % (Auto) % Immature Gran # (Auto) (0.00-0.02) K/uL Neut # (Auto) (1.4-6.5) K/uL Lymph # (Auto) (1.2-3.4) K/uL [place] # (Auto) (0.11-0.59) K/uL Eos # (Auto) (0-0.5) K/uL Baso # (Auto) (0-0.2) K/uL PT (9.0-12.0) Seconds INR (0.9-1.1) APTT (21.0-31.0) Seconds PTT Ratio Activ Coag Time Kaolin 208 H (94-140) SECONDS POC pH 7.23 L 7.35 (7.35-7.45) POC pCO2 45 41 (35-46) mmHg POC pO2 289 H 310 H (80-95) mmHg POC HCO3 19 23 (19-24) gino/L POC Base Excess -9.0 -3.0 (-9-1.8) gino/L POC ABG O2 Sat 100.0 H 100.0 H (90-95) % POC Sodium (135-144) mEq/L Sodium (136-145) mmol/L POC Potassium (3.3-5.0) mEq/L Potassium (3.5-5.1) mmol/L POC Chloride (101-112) mEq/L Chloride (98-107) mmol/L Carbon Dioxide (21-32) mmol/L POC Total CO2 20 L 24 (24-31) mEq/l Anion Gap (3-11) POC Anion Gap (16-25) mmol/L POC BUN (7-18) mg/dl BUN (7-18) mg/dl Creatinine (0.6-1.4) mg/dl POC Creatinine (0.6-1.3) mg/dl Est Cr Clr Drug Dosing Est GFR ( Amer) Est GFR (Non-Af Amer) BUN/Creatinine Ratio (10-20) Glucose (70-99) mg/dl POC Glucose (other) (70-99) mg/dl Calcium (8.5-10.1) mg/dl POC Ioniz Calcium Jai (1.12-1.32) mmol/l Magnesium (1.8-2.4) mg/dl Total Bilirubin (0.2-1) mg/dl AST (15-37) U/L ALT (12-78) U/L Alkaline Phosphatase (45-117) U/L Total Creatine Kinase (39-308) U/L CK-MB (CK-2) (0.5-3.6) ng/ml CK/CKMB % Calc (0-3.0) POC Troponin I (0-0.045) ng/ml Troponin I (0-0.045) ng/ml Total Protein (6.4-8.2) gm/dl Albumin (3.4-5.0) gm/dl Globulin (2.5-4.0) gm/dl Albumin/Globulin Ratio (0.9-2) Lipase (73-393) U/L TSH (0.300-4.500) uIu/ml Free T4 (0.8-1.6) ng/dl Diagnostic Findings CT Head - no acute intracranial abnormality Code Status & VTE Plan Code Status FULL VTE Prophylaxis Plan VTE Prophylaxis will be ordered: Yes Critical Care Time Critical Care Time: Yes Total Critical Care Time: 75
[2018-10-24 01:26] LABS: iSTAT Arterial Blood Gas HCO3 21 meg/L (19-24); iSTAT Arterial Blood Gas pCO2 45 mmHg (35-46); iSTAT Arterial Blood Gas pH 7.28 (7.35-7.45); iSTAT Carbon Dioxide 22 mEq/l (24-31); iSTAT FiO2 60 %; iSTAT Site Art Line
[2018-10-24] MEDS: CISATRACURIUM BESYLATE 40 MG in 0.9 % SODIUM CHLORIDE 80 ML IV SCH ×2 (01:37→05:10)
[2018-10-24] MEDS ORDERED: TICAGRELOR 90 MG TAB PO ONE (02:30)
[2018-10-24] MEDS: AMIODARONE / D5W 360 MG/200 ML BAG IV SCH ×3 (03:10→07:24)
[2018-10-24] MEDS ORDERED: DOPamine 400MG / 250ML D5W IV ONE (03:44)
[2018-10-24] MEDS ORDERED: DOPAMINE / D5W 400 MG/250 ML BAG IV SCH (03:45)
[2018-10-24 03:50] LABS: Partial Thromboplastin Time 28.1 Seconds (21.0-31.0); Prothrombin Time 10.3 Seconds (9.0-12.0)
[2018-10-24] MEDS ORDERED: ALBUTEROL 0.083% NEBU SOLN 3 ML VIAL INH PRN (04:25)
[2018-10-24 05:15] LABS: Basophils # (auto) 0.01 K/uL (0-0.2); Basophils % (auto) 0.1 %; Eosinophils # (auto) 0.01 K/uL (0-0.5); Eosinophils % (auto) 0.1 %; Hematocrit (blood only) 44.5 % (42-52); Hemoglobin 15.6 g/dL (14.0-18.0); Immature Granulocytes % (auto) 0.6 %; Lymphocytes # (auto) 0.83 K/uL (1.2-3.4); Mean Corpuscular Hgb Conc 35.1 g/dL (32-36); Mean Corpuscular Volume 92.7 fL (80-100); Mean Platelet Volume 9.4 fL (7.4-10.4); Monocytes # (auto) 1.48 K/uL (0.11-0.59); Monocytes % (auto) 8.8 %; Neutrophils # (auto) 14.33 K/uL (1.4-6.5); Neutrophils % (auto) 85.4 %; Platelet Count 175 K/uL (130-400); RDW Coefficient of Variation 13.6 % (11.5-14.5); RDW Standard Deviation 46.8 fL (36.4-46.3); White Blood Count 16.76 K/uL (4.8-10.8)
[2018-10-24] MEDS ORDERED: MODERATE STRESS LEVEL ONE (05:38)
[2018-10-24] MEDS ORDERED: INSULIN REGULAR 250 UNITS in SODIUM CHLORIDE 0.9% 247.5 ML IV SCH (05:45)
[2018-10-24] MEDS ORDERED: GLUCAGON FOR INJ 1 MG VIAL IM PRN (06:00)
[2018-10-24] MEDS ORDERED: NovoLIN-R BOLUS FROM BAG IV ONE (06:00)
[2018-10-24] MEDS ORDERED: CARBOHYDRATES FOR HYPOGLYCEMIA PO PRN (06:00)
[2018-10-24] MEDS ORDERED: GLUCOSE 10 TABS/TUBE PO PRN (06:00)
[2018-10-24] MEDS ORDERED: GLUCOSE 40% GEL 15 GM TUBE PO PRN (06:00)
[2018-10-24 06:10] LABS: BUN Creatinine Ratio 12.3 (10-20); Creatinine Clr Calc Pharmacy 86.1 ml/min; Est GFR (African American) 106.2; Est GFR (Non-African American) 91.6; Magnesium 2.1 mg/dl (1.8-2.4); Potassium 4.3 mmol/L (3.5-5.1); Troponin I 58.2 ng/ml (0-0.045)
[2018-10-24] MEDS: PIPERACILLIN/TAZOBACTAM 3.375 GM in DEXTROSE 5% 100 ML IV SCH ×3 (06:10→21:34)
--- NOTE | 2018-10-24 06:26 | Critical Care Consultation ---
Date of Consultation October 24, 2018 Assessment & Plan (1) Cardiac arrest: Reason Critically Ill: 63-year-old male status post cardiac arrest with return of spontaneous circulation PLAN: Neuro: Therapeutic hypothermia protocol -Achieved goal temp at 5 AM October 24 Resp: Acute respiratory failure secondary to cardiac arrest -Wean ventilator as tolerated Tobacco smoker Possible aspiration pneumonitis -Minimal vent settings CV: Cardiac arrest Status post cardiac stenting Coronary artery disease Hyperlipidemia -Brilinta, metoprolol Fluids/Renal: Mild hyperchloremia -Accurate I's and O's ID: IV Zosyn for possible aspiration GI/Nutrition: N.p.o. Heme: Leukocytosis DVT prophylaxis: Lovenox Endocrine: ICU hyperglycemia protocol Blood sugars within normal limits Vascular access: Arterial line, therapeutic hypothermia catheter Code Status: Full code I discussed the case on multidisciplinary rounds I updated the family. I have personally spent 45 minutes of critical care time in the direct management of this patient. This is a life/limb threatening event. This includes time spent evaluating patient, direct bedside care, chart review, placing orders, interpretation of diagnostic studies, discussion with consultants, patient, and/or family members regarding treatment decisions, as well as other required patient management activities. This time is exclusive of all separately billable procedures, and teaching time and separate from and in addition to any other critical care service time. Present on Admission?: No (2) Asthma: Present on Admission?: Yes (3) High cholesterol: Present on Admission?: Yes (4) Smoker: Present on Admission?: Yes (5) Hypothermia, induced: Present on Admission?: No (6) CAD (coronary artery disease), [place] coronary artery: Present on Admission?: Yes (7) S/P cardiac catheterization: Present on Admission?: No (8) Stented coronary artery: Present on Admission?: No History of Present Illness Attending Physician: Natali Ryan DO History is obtained from prior records. 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 Patient ultimately went to cardiac [employer] and had PCI. Patient was started on cooling catheter for greater than 30 minutes of unresponsiveness not following complex commands. He has had no overnight events. Allergies Allergy/AdvReac Type Severity Reaction Status Date / Time No Known Allergies Allergy Unverified 10/17/12 16:35 Home Medications Home Medications Medication Instructions Recorded Confirmed Type Ibuprofen Tab (ADVIL) 400 - 600 mg PO Q6H PRN #0 tab 06/28/13 History Patient History Medical History Asthma Back pain (Acute) Back strain (Acute) Laceration of lower extremity (Acute) No significant past surgical history Family History Other No significant family history Social History Preferred Language: Amharic Communication Ability: Unable Beliefs That Will Affect Care: None Current Living Situation: Spouse Other Information That Helps Us Care for You: No Feels Safe at Home: Yes Smoking Status: Unknown if ever smoked Hx Alcohol Use: No Hx Substance Use: No Review of Systems Review of Systems: Unobtainable due to endotracheal tube Physical Exam Physical Exam: General: Middle-age male appears his stated age I have reviewed the recorded vital signs Neurological: RASS score: 4, GCS 3 TP under neuromuscular blockade, Moves all 4 extremities, Psychological: Unable to follow commands secondary to neuromuscular blockade Eyes: Pupils are equal, round and reactive to light, anicteric sclera. S ymmetrical lids. HENT: Oropharynx obscured by endotracheal tube, mucous membranes are moist. Neck: Supple. Symmetric. trachea midline. No thyromegaly. Cardiovascular: Normal peripheral perfusion. Distal pulses and capillary refill intact. No JVD. Respiratory: Respirations are non-labored, no accessory muscle use. Breath sounds are equal. Gastrointestinal: Soft. Non-distended. Lymphatic: No cervical lymphadenopathy. Musculoskeletal: No deformity. No clubbing nor cyanosis. Results & Data Vital Signs (Past 12 Hours) Vital Signs Temp Temp Pulse Pulse Resp BP BP 10/24/18 06:00 32.5 C L 52 L 16 10/24/18 05:35 49 L 10/24/18 05:00 32.6 C L 51 L 16 10/24/18 04:00 33.6 C L 58 L 10/24/18 03:00 35.2 C L 52 L 10/24/18 02:00 36.9 C 77 18 10/24/18 01:45 89 32 H 10/24/18 01:00 37.1 C 94 H 31 H 10/23/18 23:40 98 H 16 10/23/18 23:35 87 31 H 10/23/18 23:30 36.8 C 88 32 H 156/64 H 10/23/18 21:51 83 104/57 L 10/23/18 21:50 82 10/23/18 21:46 85 116/57 L 10/23/18 21:43 90 112/73 10/23/18 21:40 95 H 10/23/18 21:32 96 H 133/72 10/23/18 21:19 36.3 C L 90 20 133/72 BP BP BP Pulse Ox 10/24/18 06:00 161/60 H 150/68 H 100 10/24/18 05:35 97 10/24/18 05:00 160/63 H 133/67 100 10/24/18 04:00 169/82 H 151/71 H 100 10/24/18 03:00 152/66 H 137/71 100 10/24/18 02:00 134/62 134/75 100 10/24/18 01:45 94 10/24/18 01:00 118/79 193/74 H 97 10/23/18 23:40 100 10/23/18 23:35 94 10/23/18 23:30 97 10/23/18 21:51 100 10/23/18 21:50 100 10/23/18 21:46 100 10/23/18 21:43 100 10/23/18 21:40 10/23/18 21:32 100 10/23/18 21:19 100 Laboratory Results 10/24/18 10/24/18 10/24/18 Range/Units 19:55 19:42 19:42 WBC (4.8-10.8) K/uL RBC (4.7-6.1) M/uL Hgb (14.0-18.0) g/dL POC Hgb (14.0-18.0) g/dl Hct (42-52) % POC Hct (42-52) % MCV (80-100) fL MCH (25-34) pg MCHC (32-36) g/dL RDW Std Deviation (36.4-46.3) fL RDW Coeff of Anh (11.5-14.5) % Plt Count (130-400) K/uL MPV (7.4-10.4) fL Immature Gran % (Auto) % Neut % (Auto) % Lymph % (Auto) % Kern % (Auto) % Eos % (Auto) % Baso % (Auto) % Immature Gran # (Auto) (0.00-0.02) K/uL Neut # (Auto) (1.4-6.5) K/uL Lymph # (Auto) (1.2-3.4) K/uL Kern # (Auto) (0.11-0.59) K/uL Eos # (Auto) (0-0.5) K/uL Baso # (Auto) (0-0.2) K/uL PT 10.3 (9.0-12.0) Seconds INR 1.0 (0.9-1.1) APTT 31.7 H (21.0-31.0) Seconds PTT Ratio 1.2 Activ Coag Time Kaolin (94-140) SECONDS Sample Site POC pH (7.35-7.45) POC pCO2 (35-46) mmHg POC pO2 (80-95) mmHg POC HCO3 (19-24) gino/L POC Base Excess (-9-1.8) gino/L POC ABG O2 Sat (90-95) % Doroteo Test O2 Delivery Device POC O2 Rate Minute Ventilation POC FiO2 % Tidal Volume PEEP POC Sodium (135-144) mEq/L Sodium (136-145) mmol/L POC Potassium (3.3-5.0) mEq/L Potassium (3.5-5.1) mmol/L POC Chloride (101-112) mEq/L Chloride (98-107) mmol/L Carbon Dioxide (21-32) mmol/L POC Total CO2 (24-31) mEq/l Anion Gap (3-11) POC Anion Gap (16-25) mmol/L POC BUN (7-18) mg/dl BUN (7-18) mg/dl Creatinine (0.6-1.4) mg/dl POC Creatinine (0.6-1.3) mg/dl Est Cr Clr Drug Dosing Est GFR ( Amer) Est GFR (Non-Af Amer) BUN/Creatinine Ratio (10-20) Glucose (70-99) mg/dl POC Glucose (70-99) POC Glucose (other) 94 (70-99) mg/dl Estimat Average Glucose mg/dl Hemoglobin A1c (4.5-5.6) % Lactate (0.4-2.0) mmol/L Calcium (8.5-10.1) mg/dl POC Ioniz Calcium Jai (1.12-1.32) mmol/l Ionized Calcium (1.12-1.32) mmol/L Magnesium (1.8-2.4) mg/dl Total Bilirubin (0.2-1) mg/dl AST (15-37) U/L ALT (12-78) U/L Alkaline Phosphatase (45-117) U/L Total Creatine Kinase (39-308) U/L CK-MB (CK-2) (0.5-3.6) ng/ml CK/CKMB % Calc (0-3.0) POC Troponin I (0-0.045) ng/ml Troponin I (0-0.045) ng/ml Total Protein (6.4-8.2) gm/dl Albumin (3.4-5.0) gm/dl Globulin (2.5-4.0) gm/dl Albumin/Globulin Ratio (0.9-2) Triglycerides (0-150) mg/dl Cholesterol (0-200) mg/dl LDL Cholesterol, Calc mg/dl VLDL Cholesterol, Calc mg/dl HDL Cholesterol mg/dl Cholesterol/HDL Ratio Lipase (73-393) U/L TSH (0.300-4.500) uIu/ml Free T4 (0.8-1.6) ng/dl Urine Color Urine Appearance (Clear) Urine pH (4.5-7.5) Ur Specific [place] (1.000-1.030) Urine Protein (Negative) Urine Glucose (UA) (Negative) Urine Ketones (Negative) Urine Blood (Negative) Urine Nitrite (Negative) Urine Bilirubin (Negative) Urine Urobilinogen (Negative) Ur Leukocyte Esterase (Negative) Urine WBC (Auto) (0-5) /hpf Urine RBC (Auto) (0-4) /hpf U Hyaline Cast (Auto) (0-5) /lpf U Epithel Cells (Auto) (0-5) /lpf Urine Bacteria (Auto) (Negative) Nasal Screen MRSA (PCR) (Negative) Hepatitis C Ab Screen (Neg) 10/24/18 10/24/18 10/24/18 Range/Units 19:42 16:53 15:38 WBC (4.8-10.8) K/uL RBC (4.7-6.1) M/uL Hgb (14.0-18.0) g/dL POC Hgb (14.0-18.0) g/dl Hct (42-52) % POC Hct (42-52) % MCV (80-100) fL MCH (25-34) pg MCHC (32-36) g/dL RDW Std Deviation (36.4-46.3) fL RDW Coeff of Anh (11.5-14.5) % Plt Count (130-400) K/uL MPV (7.4-10.4) fL Immature Gran % (Auto) % Neut % (Auto) % Lymph % (Auto) % Kern % (Auto) % Eos % (Auto) % Baso % (Auto) % Immature Gran # (Auto) (0.00-0.02) K/uL Neut # (Auto) (1.4-6.5) K/uL Lymph # (Auto) (1.2-3.4) K/uL Kern # (Auto) (0.11-0.59) K/uL Eos # (Auto) (0-0.5) K/uL Baso # (Auto) (0-0.2) K/uL PT (9.0-12.0) Seconds INR (0.9-1.1) APTT (21.0-31.0) Seconds PTT Ratio Activ Coag Time Kaolin (94-140) SECONDS Sample Site Art Line POC pH 7.25 L (7.35-7.45) POC pCO2 52 H (35-46) mmHg POC pO2 160 H (80-95) mmHg POC HCO3 23 (19-24) gino/L POC Base Excess -4.0 (-9-1.8) gino/L POC ABG O2 Sat 99.0 H (90-95) % Doroteo Test NA O2 Delivery Device Ventilator POC O2 Rate 16 Minute Ventilation 12.1 POC FiO2 % Tidal Volume 500 PEEP 5 POC Sodium (135-144) mEq/L Sodium 141 (136-145) mmol/L POC Potassium (3.3-5.0) mEq/L Potassium (3.5-5.1) mmol/L POC Chloride (101-112) mEq/L Chloride 111 H (98-107) mmol/L Carbon Dioxide 23 (21-32) mmol/L POC Total CO2 24 (24-31) mEq/l Anion Gap 7.0 (3-11) POC Anion Gap (16-25) mmol/L POC BUN (7-18) mg/dl BUN 15 (7-18) mg/dl Creatinine 1.15 (0.6-1.4) mg/dl POC Creatinine (0.6-1.3) mg/dl Est Cr Clr Drug Dosing 66.6 Est GFR ( Amer) 78.6 Est GFR (Non-Af Amer) 67.8 BUN/Creatinine Ratio 13.3 (10-20) Glucose 91 (70-99) mg/dl POC Glucose (70-99) POC Glucose (other) (70-99) mg/dl Estimat Average Glucose mg/dl Hemoglobin A1c (4.5-5.6) % Lactate (0.4-2.0) mmol/L Calcium 8.1 L (8.5-10.1) mg/dl POC Ioniz Calcium Jai (1.12-1.32) mmol/l Ionized Calcium 1.04 L (1.12-1.32) mmol/L Magnesium (1.8-2.4) mg/dl Total Bilirubin (0.2-1) mg/dl AST (15-37) U/L ALT (12-78) U/L Alkaline Phosphatase (45-117) U/L Total Creatine Kinase (39-308) U/L CK-MB (CK-2) (0.5-3.6) ng/ml CK/CKMB % Calc (0-3.0) POC Troponin I (0-0.045) ng/ml Troponin I (0-0.045) ng/ml Total Protein (6.4-8.2) gm/dl Albumin (3.4-5.0) gm/dl Globulin (2.5-4.0) gm/dl Albumin/Globulin Ratio (0.9-2) Triglycerides (0-150) mg/dl Cholesterol (0-200) mg/dl LDL Cholesterol, Calc mg/dl VLDL Cholesterol, Calc mg/dl HDL Cholesterol mg/dl Cholesterol/HDL Ratio Lipase (73-393) U/L TSH (0.300-4.500) uIu/ml Free T4 (0.8-1.6) ng/dl Urine Color Urine Appearance (Clear) Urine pH (4.5-7.5) Ur Specific [place] (1.000-1.030) Urine Protein (Negative) Urine Glucose (UA) (Negative) Urine Ketones (Negative) Urine Blood (Negative) Urine Nitrite (Negative) Urine Bilirubin (Negative) Urine Urobilinogen (Negative) Ur Leukocyte Esterase (Negative) Urine WBC (Auto) (0-5) /hpf Urine RBC (Auto) (0-4) /hpf U Hyaline Cast (Auto) (0-5) /lpf U Epithel Cells (Auto) (0-5) /lpf Urine Bacteria (Auto) (Negative) Nasal Screen MRSA (PCR) (Negative) Hepatitis C Ab Screen (Neg) 10/24/18 10/24/18 10/24/18 Range/Units 15:38 13:24 13:18 WBC (4.8-10.8) K/uL RBC (4.7-6.1) M/uL Hgb (14.0-18.0) g/dL POC Hgb (14.0-18.0) g/dl Hct (42-52) % POC Hct (42-52) % MCV (80-100) fL MCH (25-34) pg MCHC (32-36) g/dL RDW Std Deviation (36.4-46.3) fL RDW Coeff of Anh (11.5-14.5) % Plt Count (130-400) K/uL MPV (7.4-10.4) fL Immature Gran % (Auto) % Neut % (Auto) % Lymph % (Auto) % Kern % (Auto) % Eos % (Auto) % Baso % (Auto) % Immature Gran # (Auto) (0.00-0.02) K/uL Neut # (Auto) (1.4-6.5) K/uL Lymph # (Auto) (1.2-3.4) K/uL Kern # (Auto) (0.11-0.59) K/uL Eos # (Auto) (0-0.5) K/uL Baso # (Auto) (0-0.2) K/uL PT (9.0-12.0) Seconds INR (0.9-1.1) APTT (21.0-31.0) Seconds PTT Ratio Activ Coag Time Kaolin (94-140) SECONDS Sample Site Art Line POC pH 7.28 L (7.35-7.45) POC pCO2 51 H (35-46) mmHg POC pO2 196 H (80-95) mmHg POC HCO3 24 (19-24) gino/L POC Base Excess -3.0 (-9-1.8) gino/L POC ABG O2 Sat 100.0 H (90-95) % Doroteo Test NA O2 Delivery Device Ventilator POC O2 Rate 16 Minute Ventilation 9.8 POC FiO2 60 % Tidal Volume 500 PEEP 5 POC Sodium (135-144) mEq/L Sodium (136-145) mmol/L POC Potassium (3.3-5.0) mEq/L Potassium (3.5-5.1) mmol/L POC Chloride (101-112) mEq/L Chloride (98-107) mmol/L Carbon Dioxide (21-32) mmol/L POC Total CO2 25 (24-31) mEq/l Anion Gap (3-11) POC Anion Gap (16-25) mmol/L POC BUN (7-18) mg/dl BUN (7-18) mg/dl Creatinine (0.6-1.4) mg/dl POC Creatinine (0.6-1.3) mg/dl Est Cr Clr Drug Dosing Est GFR ( Amer) Est GFR (Non-Af Amer) BUN/Creatinine Ratio (10-20) Glucose (70-99) mg/dl POC Glucose (70-99) POC Glucose (other) 80 (70-99) mg/dl Estimat Average Glucose mg/dl Hemoglobin A1c (4.5-5.6) % Lactate 0.9 (0.4-2.0) mmol/L Calcium (8.5-10.1) mg/dl POC Ioniz Calcium Jai (1.12-1.32) mmol/l Ionized Calcium (1.12-1.32) mmol/L Magnesium (1.8-2.4) mg/dl Total Bilirubin (0.2-1) mg/dl AST (15-37) U/L ALT (12-78) U/L Alkaline Phosphatase (45-117) U/L Total Creatine Kinase (39-308) U/L CK-MB (CK-2) (0.5-3.6) ng/ml CK/CKMB % Calc (0-3.0) POC Troponin I (0-0.045) ng/ml Troponin I (0-0.045) ng/ml Total Protein (6.4-8.2) gm/dl Albumin (3.4-5.0) gm/dl Globulin (2.5-4.0) gm/dl Albumin/Globulin Ratio (0.9-2) Triglycerides (0-150) mg/dl Cholesterol (0-200) mg/dl LDL Cholesterol, Calc mg/dl VLDL Cholesterol, Calc mg/dl HDL Cholesterol mg/dl Cholesterol/HDL Ratio Lipase (73-393) U/L TSH (0.300-4.500) uIu/ml Free T4 (0.8-1.6) ng/dl Urine Color Urine Appearance (Clear) Urine pH (4.5-7.5) Ur Specific [place] (1.000-1.030) Urine Protein (Negative) Urine Glucose (UA) (Negative) Urine Ketones (Negative) Urine Blood (Negative) Urine Nitrite (Negative) Urine Bilirubin (Negative) Urine Urobilinogen (Negative) Ur Leukocyte Esterase (Negative) Urine WBC (Auto) (0-5) /hpf Urine RBC (Auto) (0-4) /hpf U Hyaline Cast (Auto) (0-5) /lpf U Epithel Cells (Auto) (0-5) /lpf Urine Bacteria (Auto) (Negative) Nasal Screen MRSA (PCR) (Negative) Hepatitis C Ab Screen (Neg) 10/24/18 10/24/18 10/24/18 Range/Units 13:02 12:29 12:25 WBC (4.8-10.8) K/uL RBC (4.7-6.1) M/uL Hgb (14.0-18.0) g/dL POC Hgb (14.0-18.0) g/dl Hct (42-52) % POC Hct (42-52) % MCV (80-100) fL MCH (25-34) pg MCHC (32-36) g/dL RDW Std Deviation (36.4-46.3) fL RDW Coeff of Anh (11.5-14.5) % Plt Count (130-400) K/uL MPV (7.4-10.4) fL Immature Gran % (Auto) % Neut % (Auto) % Lymph % (Auto) % Kern % (Auto) % Eos % (Auto) % Baso % (Auto) % Immature Gran # (Auto) (0.00-0.02) K/uL Neut # (Auto) (1.4-6.5) K/uL Lymph # (Auto) (1.2-3.4) K/uL Kern # (Auto) (0.11-0.59) K/uL Eos # (Auto) (0-0.5) K/uL Baso # (Auto) (0-0.2) K/uL PT (9.0-12.0) Seconds INR (0.9-1.1) APTT (21.0-31.0) Seconds PTT Ratio Activ Coag Time Kaolin (94-140) SECONDS Sample Site POC pH (7.35-7.45) POC pCO2 (35-46) mmHg POC pO2 (80-95) mmHg POC HCO3 (19-24) gino/L POC Base Excess (-9-1.8) gino/L POC ABG O2 Sat (90-95) % Doroteo Test O2 Delivery Device POC O2 Rate Minute Ventilation POC FiO2 % Tidal Volume PEEP POC Sodium (135-144) mEq/L Sodium (136-145) mmol/L POC Potassium (3.3-5.0) mEq/L Potassium (3.5-5.1) mmol/L POC Chloride (101-112) mEq/L Chloride (98-107) mmol/L Carbon Dioxide (21-32) mmol/L POC Total CO2 (24-31) mEq/l Anion Gap (3-11) POC Anion Gap (16-25) mmol/L POC BUN (7-18) mg/dl BUN (7-18) mg/dl Creatinine (0.6-1.4) mg/dl POC Creatinine (0.6-1.3) mg/dl Est Cr Clr Drug Dosing Est GFR ( Amer) Est GFR (Non-Af Amer) BUN/Creatinine Ratio (10-20) Glucose (70-99) mg/dl POC Glucose 72 81 79 (70-99) POC Glucose (other) (70-99) mg/dl Estimat Average Glucose mg/dl Hemoglobin A1c (4.5-5.6) % Lactate (0.4-2.0) mmol/L Calcium (8.5-10.1) mg/dl POC Ioniz Calcium Jai (1.12-1.32) mmol/l Ionized Calcium (1.12-1.32) mmol/L Magnesium (1.8-2.4) mg/dl Total Bilirubin (0.2-1) mg/dl AST (15-37) U/L ALT (12-78) U/L Alkaline Phosphatase (45-117) U/L Total Creatine Kinase (39-308) U/L CK-MB (CK-2) (0.5-3.6) ng/ml CK/CKMB % Calc (0-3.0) POC Troponin I (0-0.045) ng/ml Troponin I (0-0.045) ng/ml Total Protein (6.4-8.2) gm/dl Albumin (3.4-5.0) gm/dl Globulin (2.5-4.0) gm/dl Albumin/Globulin Ratio (0.9-2) Triglycerides (0-150) mg/dl Cholesterol (0-200) mg/dl LDL Cholesterol, Calc mg/dl VLDL Cholesterol, Calc mg/dl HDL Cholesterol mg/dl Cholesterol/HDL Ratio Lipase (73-393) U/L TSH (0.300-4.500) uIu/ml Free T4 (0.8-1.6) ng/dl Urine Color Urine Appearance (Clear) Urine pH (4.5-7.5) Ur Specific [place] (1.000-1.030) Urine Protein (Negative) Urine Glucose (UA) (Negative) Urine Ketones (Negative) Urine Blood (Negative) Urine Nitrite (Negative) Urine Bilirubin (Negative) Urine Urobilinogen (Negative) Ur Leukocyte Esterase (Negative) Urine WBC (Auto) (0-5) /hpf Urine RBC (Auto) (0-4) /hpf U Hyaline Cast (Auto) (0-5) /lpf U Epithel Cells (Auto) (0-5) /lpf Urine Bacteria (Auto) (Negative) Nasal Screen MRSA (PCR) (Negative) Hepatitis C Ab Screen (Neg) 10/24/18 10/24/18 10/24/18 Range/Units 12:22 12:05 11:14 WBC (4.8-10.8) K/uL RBC (4.7-6.1) M/uL Hgb (14.0-18.0) g/dL POC Hgb (14.0-18.0) g/dl Hct (42-52) % POC Hct (42-52) % MCV (80-100) fL MCH (25-34) pg MCHC (32-36) g/dL RDW Std Deviation (36.4-46.3) fL RDW Coeff of Anh (11.5-14.5) % Plt Count (130-400) K/uL MPV (7.4-10.4) fL Immature Gran % (Auto) % Neut % (Auto) % Lymph % (Auto) % [place]ern % (Auto) % Eos % (Auto) % Baso % (Auto) % Immature Gran # (Auto) (0.00-0.02) K/uL Neut # (Auto) (1.4-6.5) K/uL Lymph # (Auto) (1.2-3.4) K/uL Kern # (Auto) (0.11-0.59) K/uL Eos # (Auto) (0-0.5) K/uL Baso # (Auto) (0-0.2) K/uL PT (9.0-12.0) Seconds INR (0.9-1.1) APTT (21.0-31.0) Seconds PTT Ratio Activ Coag Time Kaolin (94-140) SECONDS Sample Site POC pH (7.35-7.45) POC pCO2 (35-46) mmHg POC pO2 (80-95) mmHg POC HCO3 (19-24) gino/L POC Base Excess (-9-1.8) gino/L POC ABG O2 Sat (90-95) % Doroteo Test O2 Delivery Device POC O2 Rate Minute Ventilation POC FiO2 % Tidal Volume PEEP POC Sodium (135-144) mEq/L Sodium 140 (136-145) mmol/L POC Potassium (3.3-5.0) mEq/L Potassium 3.9 (3.5-5.1) mmol/L POC Chloride (101-112) mEq/L Chloride 111 H (98-107) mmol/L Carbon Dioxide 23 (21-32) mmol/L POC Total CO2 (24-31) mEq/l Anion Gap 6.0 (3-11) POC Anion Gap (16-25) mmol/L POC BUN (7-18) mg/dl BUN 12 (7-18) mg/dl Creatinine 1.07 (0.6-1.4) mg/dl POC Creatinine (0.6-1.3) mg/dl Est Cr Clr Drug Dosing 71.6 Est GFR ( Amer) 85.8 Est GFR (Non-Af Amer) 74.0 BUN/Creatinine Ratio 11.0 (10-20) Glucose 116 H (70-99) mg/dl POC Glucose 60 L* 95 (70-99) POC Glucose (other) (70-99) mg/dl Estimat Average Glucose mg/dl Hemoglobin A1c (4.5-5.6) % Lactate (0.4-2.0) mmol/L Calcium 8.2 L (8.5-10.1) mg/dl POC Ioniz Calcium Jai (1.12-1.32) mmol/l Ionized Calcium (1.12-1.32) mmol/L Magnesium 2.3 (1.8-2.4) mg/dl Total Bilirubin (0.2-1) mg/dl AST (15-37) U/L ALT (12-78) U/L Alkaline Phosphatase (45-117) U/L Total Creatine Kinase (39-308) U/L CK-MB (CK-2) (0.5-3.6) ng/ml CK/CKMB % Calc (0-3.0) POC Troponin I (0-0.045) ng/ml Troponin I 31.700 H* (0-0.045) ng/ml Total Protein (6.4-8.2) gm/dl Albumin (3.4-5.0) gm/dl Globulin (2.5-4.0) gm/dl Albumin/Globulin Ratio (0.9-2) Triglycerides (0-150) mg/dl Cholesterol (0-200) mg/dl LDL Cholesterol, Calc mg/dl VLDL Cholesterol, Calc mg/dl HDL Cholesterol mg/dl Cholesterol/HDL Ratio Lipase (73-393) U/L TSH (0.300-4.500) uIu/ml Free T4 (0.8-1.6) ng/dl Urine Color Urine Appearance (Clear) Urine pH (4.5-7.5) Ur Specific [place] (1.000-1.030) Urine Protein (Negative) Urine Glucose (UA) (Negative) Urine Ketones (Negative) Urine Blood (Negative) Urine Nitrite (Negative) Urine Bilirubin (Negative) Urine Urobilinogen (Negative) Ur Leukocyte Esterase (Negative) Urine WBC (Auto) (0-5) /hpf Urine RBC (Auto) (0-4) /hpf U Hyaline Cast (Auto) (0-5) /lpf U Epithel Cells (Auto) (0-5) /lpf Urine Bacteria (Auto) (Negative) Nasal Screen MRSA (PCR) (Negative) Hepatitis C Ab Screen (Neg) 10/24/18 10/24/18 10/24/18 Range/Units 11:00 10:02 09:15 WBC (4.8-10.8) K/uL RBC (4.7-6.1) M/uL Hgb (14.0-18.0) g/dL POC Hgb (14.0-18.0) g/dl Hct (42-52) % POC Hct (42-52) % MCV (80-100) fL MCH (25-34) pg MCHC (32-36) g/dL RDW Std Deviation (36.4-46.3) fL RDW Coeff of Anh (11.5-14.5) % Plt Count (130-400) K/uL MPV (7.4-10.4) fL Immature Gran % (Auto) % Neut % (Auto) % Lymph % (Auto) % Kern % (Auto) % Eos % (Auto) % Baso % (Auto) % Immature Gran # (Auto) (0.00-0.02) K/uL Neut # (Auto) (1.4-6.5) K/uL Lymph # (Auto) (1.2-3.4) K/uL Kern # (Auto) (0.11-0.59) K/uL Eos # (Auto) (0-0.5) K/uL Baso # (Auto) (0-0.2) K/uL PT (9.0-12.0) Seconds INR (0.9-1.1) APTT (21.0-31.0) Seconds PTT Ratio Activ Coag Time Kaolin (94-140) SECONDS Sample Site POC pH (7.35-7.45) POC pCO2 (35-46) mmHg POC pO2 (80-95) mmHg POC HCO3 (19-24) gino/L POC Base Excess (-9-1.8) gino/L POC ABG O2 Sat (90-95) % Doroteo Test O2 Delivery Device POC O2 Rate Minute Ventilation POC FiO2 % Tidal Volume PEEP POC Sodium (135-144) mEq/L Sodium (136-145) mmol/L POC Potassium (3.3-5.0) mEq/L Potassium (3.5-5.1) mmol/L POC Chloride (101-112) mEq/L Chloride (98-107) mmol/L Carbon Dioxide (21-32) mmol/L POC Total CO2 (24-31) mEq/l Anion Gap (3-11) POC Anion Gap (16-25) mmol/L POC BUN (7-18) mg/dl BUN (7-18) mg/dl Creatinine (0.6-1.4) mg/dl POC Creatinine (0.6-1.3) mg/dl Est Cr Clr Drug Dosing Est GFR ( Amer) Est GFR (Non-Af Amer) BUN/Creatinine Ratio (10-20) Glucose (70-99) mg/dl POC Glucose (70-99) POC Glucose (other) 140 H 180 H (70-99) mg/dl Estimat Average Glucose mg/dl Hemoglobin A1c (4.5-5.6) % Lactate (0.4-2.0) mmol/L Calcium (8.5-10.1) mg/dl POC Ioniz Calcium Jai (1.12-1.32) mmol/l Ionized Calcium (1.12-1.32) mmol/L Magnesium (1.8-2.4) mg/dl Total Bilirubin (0.2-1) mg/dl AST (15-37) U/L ALT (12-78) U/L Alkaline Phosphatase (45-117) U/L Total Creatine Kinase (39-308) U/L CK-MB (CK-2) (0.5-3.6) ng/ml CK/CKMB % Calc (0-3.0) POC Troponin I (0-0.045) ng/ml Troponin I (0-0.045) ng/ml Total Protein (6.4-8.2) gm/dl Albumin (3.4-5.0) gm/dl Globulin (2.5-4.0) gm/dl Albumin/Globulin Ratio (0.9-2) Triglycerides (0-150) mg/dl Cholesterol (0-200) mg/dl LDL Cholesterol, Calc mg/dl VLDL Cholesterol, Calc mg/dl HDL Cholesterol mg/dl Cholesterol/HDL Ratio Lipase (73-393) U/L TSH (0.300-4.500) uIu/ml Free T4 (0.8-1.6) ng/dl Urine Color Yellow Urine Appearance Clear (Clear) Urine pH 6.5 (4.5-7.5) Ur Specific [place] 1.021 (1.000-1.030) Urine Protein Negative (Negative) Urine Glucose (UA) 3+ H (Negative) Urine Ketones Trace H (Negative) Urine Blood 2+ H (Negative) Urine Nitrite Negative (Negative) Urine Bilirubin Negative (Negative) Urine Urobilinogen Negative (Negative) Ur Leukocyte Esterase Negative (Negative) Urine WBC (Auto) 1-5 (0-5) /hpf Urine RBC (Auto) 5-10 H (0-4) /hpf U Hyaline Cast (Auto) 0 (0-5) /lpf U Epithel Cells (Auto) 5-10 H (0-5) /lpf Urine Bacteria (Auto) Negative (Negative) Nasal Screen MRSA (PCR) (Negative) Hepatitis C Ab Screen (Neg) 10/24/18 10/24/18 10/24/18 Range/Units 09:13 09:13 09:04 WBC (4.8-10.8) K/uL RBC (4.7-6.1) M/uL Hgb (14.0-18.0) g/dL POC Hgb (14.0-18.0) g/dl Hct (42-52) % POC Hct (42-52) % MCV (80-100) fL MCH (25-34) pg MCHC (32-36) g/dL RDW Std Deviation (36.4-46.3) fL RDW Coeff of Anh (11.5-14.5) % Plt Count (130-400) K/uL MPV (7.4-10.4) fL Immature Gran % (Auto) % Neut % (Auto) % Lymph % (Auto) % Kern % (Auto) % Eos % (Auto) % Baso % (Auto) % Immature Gran # (Auto) (0.00-0.02) K/uL Neut # (Auto) (1.4-6.5) K/uL Lymph # (Auto) (1.2-3.4) K/uL Kern # (Auto) (0.11-0.59) K/uL Eos # (Auto) (0-0.5) K/uL Baso # (Auto) (0-0.2) K/uL PT 10.1 (9.0-12.0) Seconds INR 1.0 (0.9-1.1) APTT 28.4 (21.0-31.0) Seconds PTT Ratio 1.0 Activ Coag Time Kaolin (94-140) SECONDS Sample Site POC pH (7.35-7.45) POC pCO2 (35-46) mmHg POC pO2 (80-95) mmHg POC HCO3 (19-24) gino/L POC Base Excess (-9-1.8) gino/L POC ABG O2 Sat (90-95) % [place] Test O2 Delivery Device POC O2 Rate Minute Ventilation POC FiO2 % Tidal Volume PEEP POC Sodium (135-144) mEq/L Sodium (136-145) mmol/L POC Potassium (3.3-5.0) mEq/L Potassium (3.5-5.1) mmol/L POC Chloride (101-112) mEq/L Chloride (98-107) mmol/L Carbon Dioxide (21-32) mmol/L POC Total CO2 (24-31) mEq/l Anion Gap (3-11) POC Anion Gap (16-25) mmol/L POC BUN (7-18) mg/dl BUN (7-18) mg/dl Creatinine (0.6-1.4) mg/dl POC Creatinine (0.6-1.3) mg/dl Est Cr Clr Drug Dosing Est GFR ( Amer) Est GFR (Non-Af Amer) BUN/Creatinine Ratio (10-20) Glucose (70-99) mg/dl POC Glucose (70-99) POC Glucose (other) 191 H (70-99) mg/dl Estimat Average Glucose mg/dl Hemoglobin A1c (4.5-5.6) % Lactate (0.4-2.0) mmol/L Calcium (8.5-10.1) mg/dl POC Ioniz Calcium Jai (1.12-1.32) mmol/l Ionized Calcium 1.04 L (1.12-1.32) mmol/L Magnesium (1.8-2.4) mg/dl Total Bilirubin (0.2-1) mg/dl AST (15-37) U/L ALT (12-78) U/L Alkaline Phosphatase (45-117) U/L Total Creatine Kinase (39-308) U/L CK-MB (CK-2) (0.5-3.6) ng/ml CK/CKMB % Calc (0-3.0) POC Troponin I (0-0.045) ng/ml Troponin I (0-0.045) ng/ml Total Protein (6.4-8.2) gm/dl Albumin (3.4-5.0) gm/dl Globulin (2.5-4.0) gm/dl Albumin/Globulin Ratio (0.9-2) Triglycerides (0-150) mg/dl Cholesterol (0-200) mg/dl LDL Cholesterol, Calc mg/dl VLDL Cholesterol, Calc mg/dl HDL Cholesterol mg/dl Cholesterol/HDL Ratio Lipase (73-393) U/L TSH (0.300-4.500) uIu/ml Free T4 (0.8-1.6) ng/dl Urine Color Urine Appearance (Clear) Urine pH (4.5-7.5) Ur Specific [place] (1.000-1.030) Urine Protein (Negative) Urine Glucose (UA) (Negative) Urine Ketones (Negative) Urine Blood (Negative) Urine Nitrite (Negative) Urine Bilirubin (Negative) Urine Urobilinogen (Negative) Ur Leukocyte Esterase (Negative) Urine WBC (Auto) (0-5) /hpf Urine RBC (Auto) (0-4) /hpf U Hyaline Cast (Auto) (0-5) /lpf U Epithel Cells (Auto) (0-5) /lpf Urine Bacteria (Auto) (Negative) Nasal Screen MRSA (PCR) (Negative) Hepatitis C Ab Screen (Neg) 10/24/18 10/24/18 10/24/18 Range/Units 08:05 07:15 06:14 WBC (4.8-10.8) K/uL RBC (4.7-6.1) M/uL Hgb (14.0-18.0) g/dL POC Hgb (14.0-18.0) g/dl Hct (42-52) % POC Hct (42-52) % MCV (80-100) fL MCH (25-34) pg MCHC (32-36) g/dL RDW Std Deviation (36.4-46.3) fL RDW Coeff of Anh (11.5-14.5) % Plt Count (130-400) K/uL MPV (7.4-10.4) fL Immature Gran % (Auto) % Neut % (Auto) % Lymph % (Auto) % Kern % (Auto) % Eos % (Auto) % Baso % (Auto) % Immature Gran # (Auto) (0.00-0.02) K/uL Neut # (Auto) (1.4-6.5) K/uL Lymph # (Auto) (1.2-3.4) K/uL Kern # (Auto) (0.11-0.59) K/uL Eos # (Auto) (0-0.5) K/uL Baso # (Auto) (0-0.2) K/uL PT (9.0-12.0) Seconds INR (0.9-1.1) APTT (21.0-31.0) Seconds PTT Ratio Activ Coag Time Kaolin (94-140) SECONDS Sample Site Art Line POC pH 7.29 L (7.35-7.45) POC pCO2 42 (35-46) mmHg POC pO2 88 (80-95) mmHg POC HCO3 20 (19-24) gino/L POC Base Excess -7.0 (-9-1.8) gino/L POC ABG O2 Sat 96.0 H (90-95) % Doroteo Test NA O2 Delivery Device Ventilator POC O2 Rate 16 Minute Ventilation 8.9 POC FiO2 60 % Tidal Volume 500 PEEP 5 POC Sodium (135-144) mEq/L Sodium (136-145) mmol/L POC Potassium (3.3-5.0) mEq/L Potassium (3.5-5.1) mmol/L POC Chloride (101-112) mEq/L Chloride (98-107) mmol/L Carbon Dioxide (21-32) mmol/L POC Total CO2 21 L (24-31) mEq/l Anion Gap (3-11) POC Anion Gap (16-25) mmol/L POC BUN (7-18) mg/dl BUN (7-18) mg/dl Creatinine (0.6-1.4) mg/dl POC Creatinine (0.6-1.3) mg/dl Est Cr Clr Drug Dosing Est GFR ( Amer) Est GFR (Non-Af Amer) BUN/Creatinine Ratio (10-20) Glucose (70-99) mg/dl POC Glucose (70-99) POC Glucose (other) 190 H 197 H (70-99) mg/dl Estimat Average Glucose mg/dl Hemoglobin A1c (4.5-5.6) % Lactate (0.4-2.0) mmol/L Calcium (8.5-10.1) mg/dl POC Ioniz Calcium Jai (1.12-1.32) mmol/l Ionized Calcium (1.12-1.32) mmol/L Magnesium (1.8-2.4) mg/dl Total Bilirubin (0.2-1) mg/dl AST (15-37) U/L ALT (12-78) U/L Alkaline Phosphatase (45-117) U/L Total Creatine Kinase (39-308) U/L CK-MB (CK-2) (0.5-3.6) ng/ml CK/CKMB % Calc (0-3.0) POC Troponin I (0-0.045) ng/ml Troponin I (0-0.045) ng/ml Total Protein (6.4-8.2) gm/dl Albumin (3.4-5.0) gm/dl Globulin (2.5-4.0) gm/dl Albumin/Globulin Ratio (0.9-2) Triglycerides (0-150) mg/dl Cholesterol (0-200) mg/dl LDL Cholesterol, Calc mg/dl VLDL Cholesterol, Calc mg/dl HDL Cholesterol mg/dl Cholesterol/HDL Ratio Lipase (73-393) U/L TSH (0.300-4.500) uIu/ml Free T4 (0.8-1.6) ng/dl Urine Color Urine Appearance (Clear) Urine pH (4.5-7.5) Ur Specific [place] (1.000-1.030) Urine Protein (Negative) Urine Glucose (UA) (Negative) Urine Ketones (Negative) Urine Blood (Negative) Urine Nitrite (Negative) Urine Bilirubin (Negative) Urine Urobilinogen (Negative) Ur Leukocyte Esterase (Negative) Urine WBC (Auto) (0-5) /hpf Urine RBC (Auto) (0-4) /hpf U Hyaline Cast (Auto) (0-5) /lpf U Epithel Cells (Auto) (0-5) /lpf Urine Bacteria (Auto) (Negative) Nasal Screen MRSA (PCR) (Negative) Hepatitis C Ab Screen (Neg) 10/24/18 10/24/18 10/24/18 Range/Units 05:31 05:03 05:03 WBC (4.8-10.8) K/uL RBC (4.7-6.1) M/uL Hgb (14.0-18.0) g/dL POC Hgb (14.0-18.0) g/dl Hct (42-52) % POC Hct (42-52) % MCV (80-100) fL MCH (25-34) pg MCHC (32-36) g/dL RDW Std Deviation (36.4-46.3) fL RDW Coeff of Anh (11.5-14.5) % Plt Count (130-400) K/uL MPV (7.4-10.4) fL Immature Gran % (Auto) % Neut % (Auto) % Lymph % (Auto) % Kern % (Auto) % Eos % (Auto) % Baso % (Auto) % Immature Gran # (Auto) (0.00-0.02) K/uL Neut # (Auto) (1.4-6.5) K/uL Lymph # (Auto) (1.2-3.4) K/uL Kern # (Auto) (0.11-0.59) K/uL Eos # (Auto) (0-0.5) K/uL Baso # (Auto) (0-0.2) K/uL PT (9.0-12.0) Seconds INR (0.9-1.1) APTT (21.0-31.0) Seconds PTT Ratio Activ Coag Time Kaolin (94-140) SECONDS Sample Site POC pH (7.35-7.45) POC pCO2 (35-46) mmHg POC pO2 (80-95) mmHg POC HCO3 (19-24) gino/L POC Base Excess (-9-1.8) gino/L POC ABG O2 Sat (90-95) % Doroteo Test O2 Delivery Device POC O2 Rate Minute Ventilation POC FiO2 % Tidal Volume PEEP POC Sodium (135-144) mEq/L Sodium 139 (136-145) mmol/L POC Potassium (3.3-5.0) mEq/L Potassium 4.3 (3.5-5.1) mmol/L POC Chloride (101-112) mEq/L Chloride 110 H (98-107) mmol/L Carbon Dioxide 23 (21-32) mmol/L POC Total CO2 (24-31) mEq/l Anion Gap 6.0 (3-11) POC Anion Gap (16-25) mmol/L POC BUN (7-18) mg/dl BUN 11 (7-18) mg/dl Creatinine 0.89 D (0.6-1.4) mg/dl POC Creatinine (0.6-1.3) mg/dl Est Cr Clr Drug Dosing 86.1 Est GFR ( Amer) 106.2 Est GFR (Non-Af Amer) 91.6 BUN/Creatinine Ratio 12.3 (10-20) Glucose 203 H (70-99) mg/dl POC Glucose (70-99) POC Glucose (other) 214 H (70-99) mg/dl Estimat Average Glucose mg/dl Hemoglobin A1c (4.5-5.6) % Lactate (0.4-2.0) mmol/L Calcium 8.0 L (8.5-10.1) mg/dl POC Ioniz Calcium Jai (1.12-1.32) mmol/l Ionized Calcium (1.12-1.32) mmol/L Magnesium 2.1 (1.8-2.4) mg/dl Total Bilirubin (0.2-1) mg/dl AST (15-37) U/L ALT (12-78) U/L Alkaline Phosphatase (45-117) U/L Total Creatine Kinase (39-308) U/L CK-MB (CK-2) (0.5-3.6) ng/ml CK/CKMB % Calc (0-3.0) POC Troponin I (0-0.045) ng/ml Troponin I 58.200 H* (0-0.045) ng/ml Total Protein (6.4-8.2) gm/dl Albumin (3.4-5.0) gm/dl Globulin (2.5-4.0) gm/dl Albumin/Globulin Ratio (0.9-2) Triglycerides 80 (0-150) mg/dl Cholesterol 193 (0-200) mg/dl LDL Cholesterol, Calc 131 mg/dl VLDL Cholesterol, Calc 16 mg/dl HDL Cholesterol 46 mg/dl Cholesterol/HDL Ratio 4 Lipase (73-393) U/L TSH (0.300-4.500) uIu/ml Free T4 (0.8-1.6) ng/dl Urine Color Urine Appearance (Clear) Urine pH (4.5-7.5) Ur Specific [place] (1.000-1.030) Urine Protein (Negative) Urine Glucose (UA) (Negative) Urine Ketones (Negative) Urine Blood (Negative) Urine Nitrite (Negative) Urine Bilirubin (Negative) Urine Urobilinogen (Negative) Ur Leukocyte Esterase (Negative) Urine WBC (Auto) (0-5) /hpf Urine RBC (Auto) (0-4) /hpf U Hyaline Cast (Auto) (0-5) /lpf U Epithel Cells (Auto) (0-5) /lpf Urine Bacteria (Auto) (Negative) Nasal Screen MRSA (PCR) (Negative) Hepatitis C Ab Screen Neg (Neg) 10/24/18 10/24/18 10/24/18 Range/Units 05:03 05:03 03:22 WBC 16.76 H (4.8-10.8) K/uL RBC 4.80 (4.7-6.1) M/uL Hgb 15.6 (14.0-18.0) g/dL POC Hgb (14.0-18.0) g/dl Hct 44.5 (42-52) % POC Hct (42-52) % MCV 92.7 (80-100) fL MCH 32.5 (25-34) pg MCHC 35.1 (32-36) g/dL RDW Std Deviation 46.8 H (36.4-46.3) fL RDW Coeff of Anh 13.6 (11.5-14.5) % Plt Count 175 (130-400) K/uL MPV 9.4 (7.4-10.4) fL Immature Gran % (Auto) 0.6 % Neut % (Auto) 85.4 % Lymph % (Auto) 5.0 % Kern % (Auto) 8.8 % Eos % (Auto) 0.1 % Baso % (Auto) 0.1 % Immature Gran # (Auto) 0.10 H (0.00-0.02) K/uL Neut # (Auto) 14.33 H (1.4-6.5) K/uL Lymph # (Auto) 0.83 L (1.2-3.4) K/uL Kern # (Auto) 1.48 H (0.11-0.59) K/uL Eos # (Auto) 0.01 (0-0.5) K/uL Baso # (Auto) 0.01 (0-0.2) K/uL PT (9.0-12.0) Seconds INR (0.9-1.1) APTT (21.0-31.0) Seconds PTT Ratio Activ Coag Time Kaolin (94-140) SECONDS Sample Site POC pH (7.35-7.45) POC pCO2 (35-46) mmHg POC pO2 (80-95) mmHg POC HCO3 (19-24) gino/L POC Base Excess (-9-1.8) gino/L POC ABG O2 Sat (90-95) % Doroteo Test O2 Delivery Device POC O2 Rate Minute Ventilation POC FiO2 % Tidal Volume PEEP POC Sodium (135-144) mEq/L Sodium (136-145) mmol/L POC Potassium (3.3-5.0) mEq/L Potassium (3.5-5.1) mmol/L POC Chloride (101-112) mEq/L Chloride (98-107) mmol/L Carbon Dioxide (21-32) mmol/L POC Total CO2 (24-31) mEq/l Anion Gap (3-11) POC Anion Gap (16-25) mmol/L POC BUN (7-18) mg/dl BUN (7-18) mg/dl Creatinine (0.6-1.4) mg/dl POC Creatinine (0.6-1.3) mg/dl Est Cr Clr Drug Dosing Est GFR ( Amer) Est GFR (Non-Af Amer) BUN/Creatinine Ratio (10-20) Glucose (70-99) mg/dl POC Glucose (70-99) POC Glucose (other) (70-99) mg/dl Estimat Average Glucose 120 mg/dl Hemoglobin A1c 5.8 H (4.5-5.6) % Lactate (0.4-2.0) mmol/L Calcium (8.5-10.1) mg/dl POC Ioniz Calcium Jai (1.12-1.32) mmol/l Ionized Calcium 1.03 L (1.12-1.32) mmol/L Magnesium (1.8-2.4) mg/dl Total Bilirubin (0.2-1) mg/dl AST (15-37) U/L ALT (12-78) U/L Alkaline Phosphatase (45-117) U/L Total Creatine Kinase (39-308) U/L CK-MB (CK-2) (0.5-3.6) ng/ml CK/CKMB % Calc (0-3.0) POC Troponin I (0-0.045) ng/ml Troponin I (0-0.045) ng/ml Total Protein (6.4-8.2) gm/dl Albumin (3.4-5.0) gm/dl Globulin (2.5-4.0) gm/dl Albumin/Globulin Ratio (0.9-2) Triglycerides (0-150) mg/dl Cholesterol (0-200) mg/dl LDL Cholesterol, Calc mg/dl VLDL Cholesterol, Calc mg/dl HDL Cholesterol mg/dl Cholesterol/HDL Ratio Lipase (73-393) U/L TSH (0.300-4.500) uIu/ml Free T4 (0.8-1.6) ng/dl Urine Color Urine Appearance (Clear) Urine pH (4.5-7.5) Ur Specific [place] (1.000-1.030) Urine Protein (Negative) Urine Glucose (UA) (Negative) Urine Ketones (Negative) Urine Blood (Negative) Urine Nitrite (Negative) Urine Bilirubin (Negative) Urine Urobilinogen (Negative) Ur Leukocyte Esterase (Negative) Urine WBC (Auto) (0-5) /hpf Urine RBC (Auto) (0-4) /hpf U Hyaline Cast (Auto) (0-5) /lpf U Epithel Cells (Auto) (0-5) /lpf Urine Bacteria (Auto) (Negative) Nasal Screen MRSA (PCR) (Negative) Hepatitis C Ab Screen (Neg) 10/24/18 10/24/18 10/24/18 Range/Units 03:22 03:10 01:12 WBC (4.8-10.8) K/uL RBC (4.7-6.1) M/uL Hgb (14.0-18.0) g/dL POC Hgb (14.0-18.0) g/dl Hct (42-52) % POC Hct (42-52) % MCV (80-100) fL MCH (25-34) pg MCHC (32-36) g/dL RDW Std Deviation (36.4-46.3) fL RDW Coeff of Anh (11.5-14.5) % Plt Count (130-400) K/uL MPV (7.4-10.4) fL Immature Gran % (Auto) % Neut % (Auto) % Lymph % (Auto) % Kern % (Auto) % Eos % (Auto) % Baso % (Auto) % Immature Gran # (Auto) (0.00-0.02) K/uL Neut # (Auto) (1.4-6.5) K/uL Lymph # (Auto) (1.2-3.4) K/uL Kern # (Auto) (0.11-0.59) K/uL Eos # (Auto) (0-0.5) K/uL Baso # (Auto) (0-0.2) K/uL PT 10.3 (9.0-12.0) Seconds INR 1.0 (0.9-1.1) APTT 28.1 (21.0-31.0) Seconds PTT Ratio 1.0 Activ Coag Time Kaolin (94-140) SECONDS Sample Site Art Line POC pH 7.28 L (7.35-7.45) POC pCO2 45 (35-46) mmHg POC pO2 75 L (80-95) mmHg POC HCO3 21 (19-24) gino/L POC Base Excess -6.0 (-9-1.8) gino/L POC ABG O2 Sat 93.0 (90-95) % Doroteo Test NA O2 Delivery Device Ventilator POC O2 Rate 16 Minute Ventilation 28.0 POC FiO2 60 % Tidal Volume 500 PEEP 5 POC Sodium (135-144) mEq/L Sodium (136-145) mmol/L POC Potassium (3.3-5.0) mEq/L Potassium (3.5-5.1) mmol/L POC Chloride (101-112) mEq/L Chloride (98-107) mmol/L Carbon Dioxide (21-32) mmol/L POC Total CO2 22 L (24-31) mEq/l Anion Gap (3-11) POC Anion Gap (16-25) mmol/L POC BUN (7-18) mg/dl BUN (7-18) mg/dl Creatinine (0.6-1.4) mg/dl POC Creatinine (0.6-1.3) mg/dl Est Cr Clr Drug Dosing Est GFR ( Amer) Est GFR (Non-Af Amer) BUN/Creatinine Ratio (10-20) Glucose (70-99) mg/dl POC Glucose (70-99) POC Glucose (other) (70-99) mg/dl Estimat Average Glucose mg/dl Hemoglobin A1c (4.5-5.6) % Lactate (0.4-2.0) mmol/L Calcium (8.5-10.1) mg/dl POC Ioniz Calcium Jai (1.12-1.32) mmol/l Ionized Calcium (1.12-1.32) mmol/L Magnesium (1.8-2.4) mg/dl Total Bilirubin (0.2-1) mg/dl AST (15-37) U/L ALT (12-78) U/L Alkaline Phosphatase (45-117) U/L Total Creatine Kinase (39-308) U/L CK-MB (CK-2) (0.5-3.6) ng/ml CK/CKMB % Calc (0-3.0) POC Troponin I (0-0.045) ng/ml Troponin I (0-0.045) ng/ml Total Protein (6.4-8.2) gm/dl Albumin (3.4-5.0) gm/dl Globulin (2.5-4.0) gm/dl Albumin/Globulin Ratio (0.9-2) Triglycerides (0-150) mg/dl Cholesterol (0-200) mg/dl LDL Cholesterol, Calc mg/dl VLDL Cholesterol, Calc mg/dl HDL Cholesterol mg/dl Cholesterol/HDL Ratio Lipase (73-393) U/L TSH (0.300-4.500) uIu/ml Free T4 (0.8-1.6) ng/dl Urine Color Urine Appearance (Clear) Urine pH (4.5-7.5) Ur Specific [place] (1.000-1.030) Urine Protein (Negative) Urine Glucose (UA) (Negative) Urine Ketones (Negative) Urine Blood (Negative) Urine Nitrite (Negative) Urine Bilirubin (Negative) Urine Urobilinogen (Negative) Ur Leukocyte Esterase (Negative) Urine WBC (Auto) (0-5) /hpf Urine RBC (Auto) (0-4) /hpf U Hyaline Cast (Auto) (0-5) /lpf U Epithel Cells (Auto) (0-5) /lpf Urine Bacteria (Auto) (Negative) Nasal Screen MRSA (PCR) Negative (Negative) Hepatitis C Ab Screen (Neg) 10/23/18 10/23/18 10/23/18 Range/Units 22:57 22:57 22:27 WBC (4.8-10.8) K/uL RBC (4.7-6.1) M/uL Hgb (14.0-18.0) g/dL POC Hgb (14.0-18.0) g/dl Hct (42-52) % POC Hct (42-52) % MCV (80-100) fL MCH (25-34) pg MCHC (32-36) g/dL RDW Std Deviation (36.4-46.3) fL RDW Coeff of Anh (11.5-14.5) % Plt Count (130-400) K/uL MPV (7.4-10.4) fL Immature Gran % (Auto) % Neut % (Auto) % Lymph % (Auto) % Kern % (Auto) % Eos % (Auto) % Baso % (Auto) % Immature Gran # (Auto) (0.00-0.02) K/uL Neut # (Auto) (1.4-6.5) K/uL Lymph # (Auto) (1.2-3.4) K/uL Kern # (Auto) (0.11-0.59) K/uL Eos # (Auto) (0-0.5) K/uL Baso # (Auto) (0-0.2) K/uL PT (9.0-12.0) Seconds INR (0.9-1.1) APTT (21.0-31.0) Seconds PTT Ratio Activ Coag Time Kaolin 208 H (94-140) SECONDS Sample Site POC pH 7.35 7.23 L (7.35-7.45) POC pCO2 41 45 (35-46) mmHg POC pO2 310 H 289 H (80-95) mmHg POC HCO3 23 19 (19-24) gino/L POC Base Excess -3.0 -9.0 (-9-1.8) gino/L POC ABG O2 Sat 100.0 H 100.0 H (90-95) % Doroteo Test O2 Delivery Device POC O2 Rate Minute Ventilation POC FiO2 % Tidal Volume PEEP POC Sodium (135-144) mEq/L Sodium (136-145) mmol/L POC Potassium (3.3-5.0) mEq/L Potassium (3.5-5.1) mmol/L POC Chloride (101-112) mEq/L Chloride (98-107) mmol/L Carbon Dioxide (21-32) mmol/L POC Total CO2 24 20 L (24-31) mEq/l Anion Gap (3-11) POC Anion Gap (16-25) mmol/L POC BUN (7-18) mg/dl BUN (7-18) mg/dl Creatinine (0.6-1.4) mg/dl POC Creatinine (0.6-1.3) mg/dl Est Cr Clr Drug Dosing Est GFR ( Amer) Est GFR (Non-Af Amer) BUN/Creatinine Ratio (10-20) Glucose (70-99) mg/dl POC Glucose (70-99) POC Glucose (other) (70-99) mg/dl Estimat Average Glucose mg/dl Hemoglobin A1c (4.5-5.6) % Lactate (0.4-2.0) mmol/L Calcium (8.5-10.1) mg/dl POC Ioniz Calcium Jai (1.12-1.32) mmol/l Ionized Calcium (1.12-1.32) mmol/L Magnesium (1.8-2.4) mg/dl Total Bilirubin (0.2-1) mg/dl AST (15-37) U/L ALT (12-78) U/L Alkaline Phosphatase (45-117) U/L Total Creatine Kinase (39-308) U/L CK-MB (CK-2) (0.5-3.6) ng/ml CK/CKMB % Calc (0-3.0) POC Troponin I (0-0.045) ng/ml Troponin I (0-0.045) ng/ml Total Protein (6.4-8.2) gm/dl Albumin (3.4-5.0) gm/dl Globulin (2.5-4.0) gm/dl Albumin/Globulin Ratio (0.9-2) Triglycerides (0-150) mg/dl Cholesterol (0-200) mg/dl LDL Cholesterol, Calc mg/dl VLDL Cholesterol, Calc mg/dl HDL Cholesterol mg/dl Cholesterol/HDL Ratio Lipase (73-393) U/L TSH (0.300-4.500) uIu/ml Free T4 (0.8-1.6) ng/dl Urine Color Urine Appearance (Clear) Urine pH (4.5-7.5) Ur Specific [place] (1.000-1.030) Urine Protein (Negative) Urine Glucose (UA) (Negative) Urine Ketones (Negative) Urine Blood (Negative) Urine Nitrite (Negative) Urine Bilirubin (Negative) Urine Urobilinogen (Negative) Ur Leukocyte Esterase (Negative) Urine WBC (Auto) (0-5) /hpf Urine RBC (Auto) (0-4) /hpf U Hyaline Cast (Auto) (0-5) /lpf U Epithel Cells (Auto) (0-5) /lpf Urine Bacteria (Auto) (Negative) Nasal Screen MRSA (PCR) (Negative) Hepatitis C Ab Screen (Neg) 10/23/18 10/23/18 10/23/18 Range/Units 22:27 21:39 21:39 WBC (4.8-10.8) K/uL RBC (4.7-6.1) M/uL Hgb (14.0-18.0) g/dL POC Hgb 15.3 (14.0-18.0) g/dl Hct (42-52) % POC Hct 45 (42-52) % MCV (80-100) fL MCH (25-34) pg MCHC (32-36) g/dL RDW Std Deviation (36.4-46.3) fL RDW Coeff of Anh (11.5-14.5) % Plt Count (130-400) K/uL MPV (7.4-10.4) fL Immature Gran % (Auto) % Neut % (Auto) % Lymph % (Auto) % Kern % (Auto) % Eos % (Auto) % Baso % (Auto) % Immature Gran # (Auto) (0.00-0.02) K/uL Neut # (Auto) (1.4-6.5) K/uL Lymph # (Auto) (1.2-3.4) K/uL Kern # (Auto) (0.11-0.59) K/uL Eos # (Auto) (0-0.5) K/uL Baso # (Auto) (0-0.2) K/uL PT (9.0-12.0) Seconds INR (0.9-1.1) APTT (21.0-31.0) Seconds PTT Ratio Activ Coag Time Kaolin 252 H (94-140) SECONDS Sample Site POC pH (7.35-7.45) POC pCO2 (35-46) mmHg POC pO2 (80-95) mmHg POC HCO3 (19-24) gino/L POC Base Excess (-9-1.8) gino/L POC ABG O2 Sat (90-95) % Doroteo Test O2 Delivery Device POC O2 Rate Minute Ventilation POC FiO2 % Tidal Volume PEEP POC Sodium 140 (135-144) mEq/L Sodium (136-145) mmol/L POC Potassium 4.1 (3.3-5.0) mEq/L Potassium (3.5-5.1) mmol/L POC Chloride 103 (101-112) mEq/L Chloride (98-107) mmol/L Carbon Dioxide (21-32) mmol/L POC Total CO2 22 L (24-31) mEq/l Anion Gap (3-11) POC Anion Gap 20.0 (16-25) mmol/L POC BUN 10 (7-18) mg/dl BUN (7-18) mg/dl Creatinine (0.6-1.4) mg/dl POC Creatinine 1.1 (0.6-1.3) mg/dl Est Cr Clr Drug Dosing Est GFR ( Amer) Est GFR (Non-Af Amer) BUN/Creatinine Ratio (10-20) Glucose (70-99) mg/dl POC Glucose (70-99) POC Glucose (other) 236 H (70-99) mg/dl Estimat Average Glucose mg/dl Hemoglobin A1c (4.5-5.6) % Lactate (0.4-2.0) mmol/L Calcium (8.5-10.1) mg/dl POC Ioniz Calcium Jai 1.13 (1.12-1.32) mmol/l Ionized Calcium (1.12-1.32) mmol/L Magnesium (1.8-2.4) mg/dl Total Bilirubin (0.2-1) mg/dl AST (15-37) U/L ALT (12-78) U/L Alkaline Phosphatase (45-117) U/L Total Creatine Kinase (39-308) U/L CK-MB (CK-2) (0.5-3.6) ng/ml CK/CKMB % Calc (0-3.0) POC Troponin I 6.01 H (0-0.045) ng/ml Troponin I (0-0.045) ng/ml Total Protein (6.4-8.2) gm/dl Albumin (3.4-5.0) gm/dl Globulin (2.5-4.0) gm/dl Albumin/Globulin Ratio (0.9-2) Triglycerides (0-150) mg/dl Cholesterol (0-200) mg/dl LDL Cholesterol, Calc mg/dl VLDL Cholesterol, Calc mg/dl HDL Cholesterol mg/dl Cholesterol/HDL Ratio Lipase (73-393) U/L TSH (0.300-4.500) uIu/ml Free T4 (0.8-1.6) ng/dl Urine Color Urine Appearance (Clear) Urine pH (4.5-7.5) Ur Specific [place] (1.000-1.030) Urine Protein (Negative) Urine Glucose (UA) (Negative) Urine Ketones (Negative) Urine Blood (Negative) Urine Nitrite (Negative) Urine Bilirubin (Negative) Urine Urobilinogen (Negative) Ur Leukocyte Esterase (Negative) Urine WBC (Auto) (0-5) /hpf Urine RBC (Auto) (0-4) /hpf U Hyaline Cast (Auto) (0-5) /lpf U Epithel Cells (Auto) (0-5) /lpf Urine Bacteria (Auto) (Negative) Nasal Screen MRSA (PCR) (Negative) Hepatitis C Ab Screen (Neg) 10/23/18 10/23/18 10/23/18 Range/Units 21:36 21:36 21:36 WBC 13.86 H (4.8-10.8) K/uL RBC 4.71 (4.7-6.1) M/uL Hgb 15.4 (14.0-18.0) g/dL POC Hgb (14.0-18.0) g/dl Hct 44.5 (42-52) % POC Hct (42-52) % MCV 94.5 (80-100) fL MCH 32.7 (25-34) pg MCHC 34.6 (32-36) g/dL RDW Std Deviation 47.0 H (36.4-46.3) fL RDW Coeff of Anh 13.5 (11.5-14.5) % Plt Count 230 (130-400) K/uL MPV 9.4 (7.4-10.4) fL Immature Gran % (Auto) 2.2 % Neut % (Auto) 63.4 % Lymph % (Auto) 22.6 % Kern % (Auto) 10.8 % Eos % (Auto) 0.8 % Baso % (Auto) 0.2 % Immature Gran # (Auto) 0.31 H (0.00-0.02) K/uL Neut # (Auto) 8.78 H (1.4-6.5) K/uL Lymph # (Auto) 3.13 (1.2-3.4) K/uL Kern # (Auto) 1.50 H (0.11-0.59) K/uL Eos # (Auto) 0.11 (0-0.5) K/uL Baso # (Auto) 0.03 (0-0.2) K/uL PT 9.9 (9.0-12.0) Seconds INR 1.0 (0.9-1.1) APTT 25.4 (21.0-31.0) Seconds PTT Ratio 0.9 Activ Coag Time Kaolin (94-140) SECONDS Sample Site POC pH (7.35-7.45) POC pCO2 (35-46) mmHg POC pO2 (80-95) mmHg POC HCO3 (19-24) gino/L POC Base Excess (-9-1.8) gino/L POC ABG O2 Sat (90-95) % [place] Test O2 Delivery Device POC O2 Rate Minute Ventilation POC FiO2 % Tidal Volume PEEP POC Sodium (135-144) mEq/L Sodium 141 (136-145) mmol/L POC Potassium (3.3-5.0) mEq/L Potassium 4.1 (3.5-5.1) mmol/L POC Chloride (101-112) mEq/L Chloride 108 H (98-107) mmol/L Carbon Dioxide 23 (21-32) mmol/L POC Total CO2 (24-31) mEq/l Anion Gap 11.0 (3-11) POC Anion Gap (16-25) mmol/L POC BUN (7-18) mg/dl BUN 11 (7-18) mg/dl Creatinine 1.33 (0.6-1.4) mg/dl POC Creatinine (0.6-1.3) mg/dl Est Cr Clr Drug Dosing Not Reportable Est GFR ( Amer) 65.9 Est GFR (Non-Af Amer) 56.9 BUN/Creatinine Ratio 8.2 L (10-20) Glucose 230 H (70-99) mg/dl POC Glucose (70-99) POC Glucose (other) (70-99) mg/dl Estimat Average Glucose mg/dl Hemoglobin A1c (4.5-5.6) % Lactate (0.4-2.0) mmol/L Calcium 8.4 L (8.5-10.1) mg/dl POC Ioniz Calcium Jai (1.12-1.32) mmol/l Ionized Calcium (1.12-1.32) mmol/L Magnesium 2.2 (1.8-2.4) mg/dl Total Bilirubin 0.4 (0.2-1) mg/dl AST 295 H (15-37) U/L ALT 236 H (12-78) U/L Alkaline Phosphatase 86 (45-117) U/L Total Creatine Kinase 612 H (39-308) U/L CK-MB (CK-2) 50.6 H (0.5-3.6) ng/ml CK/CKMB % Calc 8.3 H (0-3.0) POC Troponin I (0-0.045) ng/ml Troponin I 9.410 H* (0-0.045) ng/ml Total Protein 6.8 (6.4-8.2) gm/dl Albumin 3.4 (3.4-5.0) gm/dl Globulin 3.4 (2.5-4.0) gm/dl Albumin/Globulin Ratio 1.0 (0.9-2) Triglycerides (0-150) mg/dl Cholesterol (0-200) mg/dl LDL Cholesterol, Calc mg/dl VLDL Cholesterol, Calc mg/dl HDL Cholesterol mg/dl Cholesterol/HDL Ratio Lipase 160 (73-393) U/L TSH 7.800 H (0.300-4.500) uIu/ml Free T4 0.99 (0.8-1.6) ng/dl Urine Color Urine Appearance (Clear) Urine pH (4.5-7.5) Ur Specific [place] (1.000-1.030) Urine Protein (Negative) Urine Glucose (UA) (Negative) Urine Ketones (Negative) Urine Blood (Negative) Urine Nitrite (Negative) Urine Bilirubin (Negative) Urine Urobilinogen (Negative) Ur Leukocyte Esterase (Negative) Urine WBC (Auto) (0-5) /hpf Urine RBC (Auto) (0-4) /hpf U Hyaline Cast (Auto) (0-5) /lpf U Epithel Cells (Auto) (0-5) /lpf Urine Bacteria (Auto) (Negative) Nasal Screen MRSA (PCR) (Negative) Hepatitis C Ab Screen (Neg) Diagnostic Findings I have reviewed the chest x-ray dated November 23, 2018 8 AM Critical Care Time Critical Care Time: Yes Total Critical Care Time: 45
[2018-10-24 06:28] LABS: iSTAT Arterial Blood Gas HCO3 20 meg/L (19-24); iSTAT Arterial Blood Gas pCO2 42 mmHg (35-46); iSTAT Arterial Blood Gas pH 7.29 (7.35-7.45); iSTAT Carbon Dioxide 21 mEq/l (24-31); iSTAT FiO2 60 %; iSTAT Site Art Line
[2018-10-24 06:29] LABS: Estimated Average Glucose 120 mg/dl; Hemoglobin A1C 5.8 % (4.5-5.6)
--- NOTE | 2018-10-24 07:06 | CT Scan Report ---
CT SCAN OF THE BRAIN WITHOUT IV CONTRAST CLINICAL HISTORY: Unresponsive. Status post cardiac arrest. COMPARISON STUDY: No priors. TECHNIQUE: Unenhanced axial CT scan of the brain is performed from the vertex to the skull base. A d ose lowering technique was utilized adhering to the principles of ALARA. There is residual IV contras t throughout the intracranial vasculature. CT DOSE: 614.27 mGy.cm FINDINGS: Brain parenchyma: The brain parenchyma is normal in appearance. There is no hemorrhage, mass effect, or evidence of acute territorial ischemia by CT criteria. Note that the presence of residual IV contr ast degraded assessment for hemorrhage. De La Garza-white matter differentiation is preserved. No extra-axia l fluid collection is seen. Ventricles, sulci, cisterns: Normal in configuration. Intracranial vasculature: There is atherosclerotic calcification of the cavernous carotid and vertebr al arteries. Calvarium: Unremarkable. Sinuses and mastoids: Trace mucosal thickening is seen within the maxillary antra, the frontal sinuse s, and the sphenoid sinuses. Moderate mucosal thickening is noted throughout the ethmoid sinuses. The mastoid air cells are well pneumatized. Layering fluid is noted in the pharynx. Orbits: The bony orbits are grossly intact. IMPRESSION: There is no hemorrhage, mass effect, or evidence of acute territorial ischemia by CT agusto nassar. Electronically signed by: Nicholas Pinto M.D. 10/24/2018 7:04 AM
--- NOTE | 2018-10-24 08:23 | XRay Report ---
XR chest 1V portable HISTORY: intubation COMPARISON: Chest 10/23/2018. FINDINGS: The endotracheal tube terminates 6.6 cm from the ovidio. Nasogastric tube terminate below t he diaphragm. The tip is not included on this study. No pneumothorax. No pleural effusions. The right lung is clear. Left basilar linear densities are noted. The left upper lung zone remains clear. Slig ht volume loss within the left hemithorax. IMPRESSION: 1. Satisfactory support line placement. 2. Left lower lobe densities with slight volume loss within the left hemithorax. This may represent p artial collapse of the left lower lobe. Follow-up recommended. Electronically signed by: Tyron Lynch M.D. 10/24/2018 8:22 AM
--- NOTE | 2018-10-24 08:35 | Hospitalist Progress Note ---
Date of Service October 24, 2018 Assessment & Plan (1) Cardiac arrest: This patient is a 63yo male with history of HLP, Asthma presenting s/p cardiac arrest with ROSC, cath with occlusion of circumflex s/p KALA placement presently intubated/sedated and continues on cooling protocol 1. Neuro: patient with some decorticate posturing noted in ER and after cardiac cath. CT head negative. Presently intubated, sedated, not following commands. CT head with no acute intracranial abnormalities. Concern for anoxia given recent arrest -Continue cooling per protocol and will begin rewarming at 0500 tomorrow -Continue sedation and pain control 2. Pulm: Intubated and sedated. Adequate oxygenation and ventilation on current ventilator settings. History of asthma, patient not presently on medications. Active smoker. -CXR with possible left lower lobe collapse Oxygenating well on FiO2 40 -Nebs PRN -Follow chest x-ray Continue albuterol nebs as needed -On Zosyn in case of aspiration pneumonia 3. CV: s/p cardiac arrest with CPR and ROSC. S/p cardiac catheterization with placement of KALA to Cx. Bradycardia improved but remains somewhat due to cooling - Amiodarone has been discontinued -Continue ASA -Continue Atorvastatin, LDL 131 -Continue Brillinta -With lower blood pressures and decreased urine output today, started on levo fed -Appreciate groundman management, appreciate cardiology management Echocardiogram with preserved LV function, severe hypokinesis of inferolateral wall 4. GI: THIERNO -Pepcid twice daily IV for prophylaxis while intubated 5. : Victoria in place urine output decreasing. Renal function intact, electrolytes and metabolic profile acceptable -Continue to monitor 6. Heme - patient with leukocytosis, most likely reactive but could be aspiration pneumonia. Patient with large amount of vomit, coarse breath sounds -Continue Zosyn as above -Follow CBC 7. ID - afebrile. Thick discharge from ETT previously -Continue empiric Zosyn -Follow blood cultures-no growth to date 8. Endocrine -on ICU hyperglycemia protocol, insulin as needed, hemoglobin A1c 5.8% DVT prophylaxis-Lovenox 40 mg SQ daily Disposition-remain in ICU (2) Asthma: (3) High cholesterol: Subjective Patient sedated, intubated, and in cooling protocol. RN reports urine output dropped off this afternoon and Levophed was started for low blood pressures. Review of Systems Review of Systems: Unobtainable due to endotracheal tube and Unobtainable due to reduced consciousness Physical Exam Constitutional: WD/WN, vitals as above (Sedated, intubated) + ill appearing ENMT: Ears: no external ear abnormality Neck: trachea midline, no thyromegaly Respiratory: Auscultation: lungs clear to auscultation bilaterally Intubated on ventilator Cardiovascular: RRR, no murmur, no edema Musculoskeletal: Extremities: extremities normal to inspection; no cyanosis and no clubbing Skin: no rashes, warm and dry Neurologic: + not awake Results & Data Vital Signs (Past 12 Hours) Vital Signs Temp Temp Pulse Pulse Resp BP BP 10/24/18 08:00 32.6 C L 49 L 16 10/24/18 07:35 48 L 16 10/24/18 07:00 32.5 C L 49 L 16 10/24/18 06:00 32.5 C L 52 L 16 10/24/18 05:35 49 L 16 10/24/18 05:00 32.6 C L 51 L 16 10/24/18 04:00 33.6 C L 58 L 16 10/24/18 03:00 35.2 C L 52 L 16 10/24/18 02:00 36.9 C 77 18 10/24/18 01:45 89 32 H 10/24/18 01:00 37.1 C 94 H 31 H 10/23/18 23:40 98 H 16 10/23/18 23:35 87 31 H 10/23/18 23:30 36.8 C 88 32 H 156/64 H 10/23/18 21:51 83 104/57 L 10/23/18 21:50 82 10/23/18 21:46 85 116/57 L 10/23/18 21:43 90 112/73 10/23/18 21:40 95 H 10/23/18 21:32 96 H 133/72 10/23/18 21:19 36.3 C L 90 20 133/72 BP BP BP Pulse Ox 10/24/18 08:00 145/57 H 123/61 97 10/24/18 07:35 97 10/24/18 07:00 141/57 H 140/67 100 10/24/18 06:00 161/60 H 150/68 H 100 10/24/18 05:35 97 10/24/18 05:00 160/63 H 133/67 100 10/24/18 04:00 169/82 H 151/71 H 100 10/24/18 03:00 152/66 H 137/71 100 10/24/18 02:00 134/62 134/75 100 10/24/18 01:45 94 10/24/18 01:00 118/79 193/74 H 97 10/23/18 23:40 100 10/23/18 23:35 94 10/23/18 23:30 97 10/23/18 21:51 100 10/23/18 21:50 10/23/18 21:46 100 10/23/18 21:43 10/23/18 21:40 10/23/18 21:32 100 10/23/18 21:19 100 Laboratory Results 10/24/18 10/24/18 10/24/18 Range/Units 19:42 19:42 19:42 WBC (4.8-10.8) K/uL RBC (4.7-6.1) M/uL Hgb (14.0-18.0) g/dL POC Hgb (14.0-18.0) g/dl Hct (42-52) % POC Hct (42-52) % MCV (80-100) fL MCH (25-34) pg MCHC (32-36) g/dL RDW Std Deviation (36.4-46.3) fL RDW Coeff of Anh (11.5-14.5) % Plt Count (130-400) K/uL MPV (7.4-10.4) fL Immature Gran % (Auto) % Neut % (Auto) % Lymph % (Auto) % [facility] % (Auto) % Eos % (Auto) % Baso % (Auto) % Immature Gran # (Auto) (0.00-0.02) K/uL Neut # (Auto) (1.4-6.5) K/uL Lymph # (Auto) (1.2-3.4) K/uL [facility] # (Auto) (0.11-0.59) K/uL Eos # (Auto) (0-0.5) K/uL Baso # (Auto) (0-0.2) K/uL PT 10.3 (9.0-12.0) Seconds INR 1.0 (0.9-1.1) APTT 31.7 H (21.0-31.0) Seconds PTT Ratio 1.2 Activ Coag Time Kaolin (94-140) SECONDS Sample Site POC pH (7.35-7.45) POC pCO2 (35-46) mmHg POC pO2 (80-95) mmHg POC HCO3 (19-24) gino/L POC Base Excess (-9-1.8) gino/L POC ABG O2 Sat (90-95) % Doroteo Test O2 Delivery Device POC O2 Rate Minute Ventilation POC FiO2 % Tidal Volume PEEP POC Sodium (135-144) mEq/L Sodium 141 (136-145) mmol/L POC Potassium (3.3-5.0) mEq/L Potassium (3.5-5.1) mmol/L POC Chloride (101-112) mEq/L Chloride 111 H (98-107) mmol/L Carbon Dioxide 23 (21-32) mmol/L POC Total CO2 (24-31) mEq/l Anion Gap 7.0 (3-11) POC Anion Gap (16-25) mmol/L POC BUN (7-18) mg/dl BUN 15 (7-18) mg/dl Creatinine 1.15 (0.6-1.4) mg/dl POC Creatinine (0.6-1.3) mg/dl Est Cr Clr Drug Dosing 66.6 Est GFR ( Amer) 78.6 Est GFR (Non-Af Amer) 67.8 BUN/Creatinine Ratio 13.3 (10-20) Glucose 91 (70-99) mg/dl POC Glucose (70-99) POC Glucose (other) (70-99) mg/dl Estimat Average Glucose mg/dl Hemoglobin A1c (4.5-5.6) % Lactate (0.4-2.0) mmol/L Calcium 8.1 L (8.5-10.1) mg/dl POC Ioniz Calcium Jai (1.12-1.32) mmol/l Ionized Calcium (1.12-1.32) mmol/L Magnesium (1.8-2.4) mg/dl Total Bilirubin (0.2-1) mg/dl AST (15-37) U/L ALT (12-78) U/L Alkaline Phosphatase (45-117) U/L Total Creatine Kinase (39-308) U/L CK-MB (CK-2) (0.5-3.6) ng/ml CK/CKMB % Calc (0-3.0) POC Troponin I (0-0.045) ng/ml Troponin I (0-0.045) ng/ml Total Protein (6.4-8.2) gm/dl Albumin (3.4-5.0) gm/dl Globulin (2.5-4.0) gm/dl Albumin/Globulin Ratio (0.9-2) Triglycerides (0-150) mg/dl Cholesterol (0-200) mg/dl LDL Cholesterol, Calc mg/dl VLDL Cholesterol, Calc mg/dl HDL Cholesterol mg/dl Cholesterol/HDL Ratio Lipase (73-393) U/L TSH (0.300-4.500) uIu/ml Free T4 (0.8-1.6) ng/dl Urine Color Urine Appearance (Clear) Urine pH (4.5-7.5) Ur Specific [place] (1.000-1.030) Urine Protein (Negative) Urine Glucose (UA) (Negative) Urine Ketones (Negative) Urine Blood (Negative) Urine Nitrite (Negative) Urine Bilirubin (Negative) Urine Urobilinogen (Negative) Ur Leukocyte Esterase (Negative) Urine WBC (Auto) (0-5) /hpf Urine RBC (Auto) (0-4) /hpf U Hyaline Cast (Auto) (0-5) /lpf U Epithel Cells (Auto) (0-5) /lpf Urine Bacteria (Auto) (Negative) Nasal Screen MRSA (PCR) (Negative) Hepatitis C Ab Screen (Neg) 10/24/18 10/24/18 10/24/18 Range/Units 16:53 15:38 15:38 WBC (4.8-10.8) K/uL RBC (4.7-6.1) M/uL Hgb (14.0-18.0) g/dL POC Hgb (14.0-18.0) g/dl Hct (42-52) % POC Hct (42-52) % MCV (80-100) fL MCH (25-34) pg MCHC (32-36) g/dL RDW Std Deviation (36.4-46.3) fL RDW Coeff of Anh (11.5-14.5) % Plt Count (130-400) K/uL MPV (7.4-10.4) fL Immature Gran % (Auto) % Neut % (Auto) % Lymph % (Auto) % [facility] % (Auto) % Eos % (Auto) % Baso % (Auto) % Immature Gran # (Auto) (0.00-0.02) K/uL Neut # (Auto) (1.4-6.5) K/uL Lymph # (Auto) (1.2-3.4) K/uL [facility] # (Auto) (0.11-0.59) K/uL Eos # (Auto) (0-0.5) K/uL Baso # (Auto) (0-0.2) K/uL PT (9.0-12.0) Seconds INR (0.9-1.1) APTT (21.0-31.0) Seconds PTT Ratio Activ Coag Time Kaolin (94-140) SECONDS Sample Site Art Line POC pH 7.25 L (7.35-7.45) POC pCO2 52 H (35-46) mmHg POC pO2 160 H (80-95) mmHg POC HCO3 23 (19-24) gino/L POC Base Excess -4.0 (-9-1.8) gino/L POC ABG O2 Sat 99.0 H (90-95) % Doroteo Test NA O2 Delivery Device Ventilator POC O2 Rate 16 Minute Ventilation 12.1 POC FiO2 % Tidal Volume 500 PEEP 5 POC Sodium (135-144) mEq/L Sodium (136-145) mmol/L POC Potassium (3.3-5.0) mEq/L Potassium (3.5-5.1) mmol/L POC Chloride (101-112) mEq/L Chloride (98-107) mmol/L Carbon Dioxide (21-32) mmol/L POC Total CO2 24 (24-31) mEq/l Anion Gap (3-11) POC Anion Gap (16-25) mmol/L POC BUN (7-18) mg/dl BUN (7-18) mg/dl Creatinine (0.6-1.4) mg/dl POC Creatinine (0.6-1.3) mg/dl Est Cr Clr Drug Dosing Est GFR ( Amer) Est GFR (Non-Af Amer) BUN/Creatinine Ratio (10-20) Glucose (70-99) mg/dl POC Glucose (70-99) POC Glucose (other) (70-99) mg/dl Estimat Average Glucose mg/dl Hemoglobin A1c (4.5-5.6) % Lactate 0.9 (0.4-2.0) mmol/L Calcium (8.5-10.1) mg/dl POC Ioniz Calcium Jai (1.12-1.32) mmol/l Ionized Calcium 1.04 L (1.12-1.32) mmol/L Magnesium (1.8-2.4) mg/dl Total Bilirubin (0.2-1) mg/dl AST (15-37) U/L ALT (12-78) U/L Alkaline Phosphatase (45-117) U/L Total Creatine Kinase (39-308) U/L CK-MB (CK-2) (0.5-3.6) ng/ml CK/CKMB % Calc (0-3.0) POC Troponin I (0-0.045) ng/ml Troponin I (0-0.045) ng/ml Total Protein (6.4-8.2) gm/dl Albumin (3.4-5.0) gm/dl Globulin (2.5-4.0) gm/dl Albumin/Globulin Ratio (0.9-2) Triglycerides (0-150) mg/dl Cholesterol (0-200) mg/dl LDL Cholesterol, Calc mg/dl VLDL Cholesterol, Calc mg/dl HDL Cholesterol mg/dl Cholesterol/HDL Ratio Lipase (73-393) U/L TSH (0.300-4.500) uIu/ml Free T4 (0.8-1.6) ng/dl Urine Color Urine Appearance (Clear) Urine pH (4.5-7.5) Ur Specific [place] (1.000-1.030) Urine Protein (Negative) Urine Glucose (UA) (Negative) Urine Ketones (Negative) Urine Blood (Negative) Urine Nitrite (Negative) Urine Bilirubin (Negative) Urine Urobilinogen (Negative) Ur Leukocyte Esterase (Negative) Urine WBC (Auto) (0-5) /hpf Urine RBC (Auto) (0-4) /hpf U Hyaline Cast (Auto) (0-5) /lpf U Epithel Cells (Auto) (0-5) /lpf Urine Bacteria (Auto) (Negative) Nasal Screen MRSA (PCR) (Negative) Hepatitis C Ab Screen (Neg) 10/24/18 10/24/18 10/24/18 Range/Units 13:24 13:18 13:02 WBC (4.8-10.8) K/uL RBC (4.7-6.1) M/uL Hgb (14.0-18.0) g/dL POC Hgb (14.0-18.0) g/dl Hct (42-52) % POC Hct (42-52) % MCV (80-100) fL MCH (25-34) pg MCHC (32-36) g/dL RDW Std Deviation (36.4-46.3) fL RDW Coeff of Anh (11.5-14.5) % Plt Count (130-400) K/uL MPV (7.4-10.4) fL Immature Gran % (Auto) % Neut % (Auto) % Lymph % (Auto) % [facility] % (Auto) % Eos % (Auto) % Baso % (Auto) % Immature Gran # (Auto) (0.00-0.02) K/uL Neut # (Auto) (1.4-6.5) K/uL Lymph # (Auto) (1.2-3.4) K/uL [facility] # (Auto) (0.11-0.59) K/uL Eos # (Auto) (0-0.5) K/uL Baso # (Auto) (0-0.2) K/uL PT (9.0-12.0) Seconds INR (0.9-1.1) APTT (21.0-31.0) Seconds PTT Ratio Activ Coag Time Kaolin (94-140) SECONDS Sample Site Art Line POC pH 7.28 L (7.35-7.45) POC pCO2 51 H (35-46) mmHg POC pO2 196 H (80-95) mmHg POC HCO3 24 (19-24) gino/L POC Base Excess -3.0 (-9-1.8) gino/L POC ABG O2 Sat 100.0 H (90-95) % Doroteo Test NA O2 Delivery Device Ventilator POC O2 Rate 16 Minute Ventilation 9.8 POC FiO2 60 % Tidal Volume 500 PEEP 5 POC Sodium (135-144) mEq/L Sodium (136-145) mmol/L POC Potassium (3.3-5.0) mEq/L Potassium (3.5-5.1) mmol/L POC Chloride (101-112) mEq/L Chloride (98-107) mmol/L Carbon Dioxide (21-32) mmol/L POC Total CO2 25 (24-31) mEq/l Anion Gap (3-11) POC Anion Gap (16-25) mmol/L POC BUN (7-18) mg/dl BUN (7-18) mg/dl Creatinine (0.6-1.4) mg/dl POC Creatinine (0.6-1.3) mg/dl Est Cr Clr Drug Dosing Est GFR ( Amer) Est GFR (Non-Af Amer) BUN/Creatinine Ratio (10-20) Glucose (70-99) mg/dl POC Glucose 72 (70-99) POC Glucose (other) 80 (70-99) mg/dl Estimat Average Glucose mg/dl Hemoglobin A1c (4.5-5.6) % Lactate (0.4-2.0) mmol/L Calcium (8.5-10.1) mg/dl POC Ioniz Calcium Jai (1.12-1.32) mmol/l Ionized Calcium (1.12-1.32) mmol/L Magnesium (1.8-2.4) mg/dl Total Bilirubin (0.2-1) mg/dl AST (15-37) U/L ALT (12-78) U/L Alkaline Phosphatase (45-117) U/L Total Creatine Kinase (39-308) U/L CK-MB (CK-2) (0.5-3.6) ng/ml CK/CKMB % Calc (0-3.0) POC Troponin I (0-0.045) ng/ml Troponin I (0-0.045) ng/ml Total Protein (6.4-8.2) gm/dl Albumin (3.4-5.0) gm/dl Globulin (2.5-4.0) gm/dl Albumin/Globulin Ratio (0.9-2) Triglycerides (0-150) mg/dl Cholesterol (0-200) mg/dl LDL Cholesterol, Calc mg/dl VLDL Cholesterol, Calc mg/dl HDL Cholesterol mg/dl Cholesterol/HDL Ratio Lipase (73-393) U/L TSH (0.300-4.500) uIu/ml Free T4 (0.8-1.6) ng/dl Urine Color Urine Appearance (Clear) Urine pH (4.5-7.5) Ur Specific [place] (1.000-1.030) Urine Protein (Negative) Urine Glucose (UA) (Negative) Urine Ketones (Negative) Urine Blood (Negative) Urine Nitrite (Negative) Urine Bilirubin (Negative) Urine Urobilinogen (Negative) Ur Leukocyte Esterase (Negative) Urine WBC (Auto) (0-5) /hpf Urine RBC (Auto) (0-4) /hpf U Hyaline Cast (Auto) (0-5) /lpf U Epithel Cells (Auto) (0-5) /lpf Urine Bacteria (Auto) (Negative) Nasal Screen MRSA (PCR) (Negative) Hepatitis C Ab Screen (Neg) 10/24/18 10/24/18 10/24/18 Range/Units 12:29 12:25 12:22 WBC (4.8-10.8) K/uL RBC (4.7-6.1) M/uL Hgb (14.0-18.0) g/dL POC Hgb (14.0-18.0) g/dl Hct (42-52) % POC Hct (42-52) % MCV (80-100) fL MCH (25-34) pg MCHC (32-36) g/dL RDW Std Deviation (36.4-46.3) fL RDW Coeff of Anh (11.5-14.5) % Plt Count (130-400) K/uL MPV (7.4-10.4) fL Immature Gran % (Auto) % Neut % (Auto) % Lymph % (Auto) % [facility] % (Auto) % Eos % (Auto) % Baso % (Auto) % Immature Gran # (Auto) (0.00-0.02) K/uL Neut # (Auto) (1.4-6.5) K/uL Lymph # (Auto) (1.2-3.4) K/uL [facility] # (Auto) (0.11-0.59) K/uL Eos # (Auto) (0-0.5) K/uL Baso # (Auto) (0-0.2) K/uL PT (9.0-12.0) Seconds INR (0.9-1.1) APTT (21.0-31.0) Seconds PTT Ratio Activ Coag Time Kaolin (94-140) SECONDS Sample Site POC pH (7.35-7.45) POC pCO2 (35-46) mmHg POC pO2 (80-95) mmHg POC HCO3 (19-24) gino/L POC Base Excess (-9-1.8) gino/L POC ABG O2 Sat (90-95) % Doroteo Test O2 Delivery Device POC O2 Rate Minute Ventilation POC FiO2 % Tidal Volume PEEP POC Sodium (135-144) mEq/L Sodium (136-145) mmol/L POC Potassium (3.3-5.0) mEq/L Potassium (3.5-5.1) mmol/L POC Chloride (101-112) mEq/L Chloride (98-107) mmol/L Carbon Dioxide (21-32) mmol/L POC Total CO2 (24-31) mEq/l Anion Gap (3-11) POC Anion Gap (16-25) mmol/L POC BUN (7-18) mg/dl BUN (7-18) mg/dl Creatinine (0.6-1.4) mg/dl POC Creatinine (0.6-1.3) mg/dl Est Cr Clr Drug Dosing Est GFR ( Amer) Est GFR (Non-Af Amer) BUN/Creatinine Ratio (10-20) Glucose (70-99) mg/dl POC Glucose 81 79 60 L* (70-99) POC Glucose (other) (70-99) mg/dl Estimat Average Glucose mg/dl Hemoglobin A1c (4.5-5.6) % Lactate (0.4-2.0) mmol/L Calcium (8.5-10.1) mg/dl POC Ioniz Calcium Jai (1.12-1.32) mmol/l Ionized Calcium (1.12-1.32) mmol/L Magnesium (1.8-2.4) mg/dl Total Bilirubin (0.2-1) mg/dl AST (15-37) U/L ALT (12-78) U/L Alkaline Phosphatase (45-117) U/L Total Creatine Kinase (39-308) U/L CK-MB (CK-2) (0.5-3.6) ng/ml CK/CKMB % Calc (0-3.0) POC Troponin I (0-0.045) ng/ml Troponin I (0-0.045) ng/ml Total Protein (6.4-8.2) gm/dl Albumin (3.4-5.0) gm/dl Globulin (2.5-4.0) gm/dl Albumin/Globulin Ratio (0.9-2) Triglycerides (0-150) mg/dl Cholesterol (0-200) mg/dl LDL Cholesterol, Calc mg/dl VLDL Cholesterol, Calc mg/dl HDL Cholesterol mg/dl Cholesterol/HDL Ratio Lipase (73-393) U/L TSH (0.300-4.500) uIu/ml Free T4 (0.8-1.6) ng/dl Urine Color Urine Appearance (Clear) Urine pH (4.5-7.5) Ur Specific [place] (1.000-1.030) Urine Protein (Negative) Urine Glucose (UA) (Negative) Urine Ketones (Negative) Urine Blood (Negative) Urine Nitrite (Negative) Urine Bilirubin (Negative) Urine Urobilinogen (Negative) Ur Leukocyte Esterase (Negative) Urine WBC (Auto) (0-5) /hpf Urine RBC (Auto) (0-4) /hpf U Hyaline Cast (Auto) (0-5) /lpf U Epithel Cells (Auto) (0-5) /lpf Urine Bacteria (Auto) (Negative) Nasal Screen MRSA (PCR) (Negative) Hepatitis C Ab Screen (Neg) 10/24/18 10/24/18 10/24/18 Range/Units 12:05 11:14 11:00 WBC (4.8-10.8) K/uL RBC (4.7-6.1) M/uL Hgb (14.0-18.0) g/dL POC Hgb (14.0-18.0) g/dl Hct (42-52) % POC Hct (42-52) % MCV (80-100) fL MCH (25-34) pg MCHC (32-36) g/dL RDW Std Deviation (36.4-46.3) fL RDW Coeff of Anh (11.5-14.5) % Plt Count (130-400) K/uL MPV (7.4-10.4) fL Immature Gran % (Auto) % Neut % (Auto) % Lymph % (Auto) % [facility] % (Auto) % Eos % (Auto) % Baso % (Auto) % Immature Gran # (Auto) (0.00-0.02) K/uL Neut # (Auto) (1.4-6.5) K/uL Lymph # (Auto) (1.2-3.4) K/uL [facility] # (Auto) (0.11-0.59) K/uL Eos # (Auto) (0-0.5) K/uL Baso # (Auto) (0-0.2) K/uL PT (9.0-12.0) Seconds INR (0.9-1.1) APTT (21.0-31.0) Seconds PTT Ratio Activ Coag Time Kaolin (94-140) SECONDS Sample Site POC pH (7.35-7.45) POC pCO2 (35-46) mmHg POC pO2 (80-95) mmHg POC HCO3 (19-24) gino/L POC Base Excess (-9-1.8) gino/L POC ABG O2 Sat (90-95) % Doroteo Test O2 Delivery Device POC O2 Rate Minute Ventilation POC FiO2 % Tidal Volume PEEP POC Sodium (135-144) mEq/L Sodium 140 (136-145) mmol/L POC Potassium (3.3-5.0) mEq/L Potassium 3.9 (3.5-5.1) mmol/L POC Chloride (101-112) mEq/L Chloride 111 H (98-107) mmol/L Carbon Dioxide 23 (21-32) mmol/L POC Total CO2 (24-31) mEq/l Anion Gap 6.0 (3-11) POC Anion Gap (16-25) mmol/L POC BUN (7-18) mg/dl BUN 12 (7-18) mg/dl Creatinine 1.07 (0.6-1.4) mg/dl POC Creatinine (0.6-1.3) mg/dl Est Cr Clr Drug Dosing 71.6 Est GFR ( Amer) 85.8 Est GFR (Non-Af Amer) 74.0 BUN/Creatinine Ratio 11.0 (10-20) Glucose 116 H (70-99) mg/dl POC Glucose 95 (70-99) POC Glucose (other) 140 H (70-99) mg/dl Estimat Average Glucose mg/dl Hemoglobin A1c (4.5-5.6) % Lactate (0.4-2.0) mmol/L Calcium 8.2 L (8.5-10.1) mg/dl POC Ioniz Calcium Jai (1.12-1.32) mmol/l Ionized Calcium (1.12-1.32) mmol/L Magnesium 2.3 (1.8-2.4) mg/dl Total Bilirubin (0.2-1) mg/dl AST (15-37) U/L ALT (12-78) U/L Alkaline Phosphatase (45-117) U/L Total Creatine Kinase (39-308) U/L CK-MB (CK-2) (0.5-3.6) ng/ml CK/CKMB % Calc (0-3.0) POC Troponin I (0-0.045) ng/ml Troponin I 31.700 H* (0-0.045) ng/ml Total Protein (6.4-8.2) gm/dl Albumin (3.4-5.0) gm/dl Globulin (2.5-4.0) gm/dl Albumin/Globulin Ratio (0.9-2) Triglycerides (0-150) mg/dl Cholesterol (0-200) mg/dl LDL Cholesterol, Calc mg/dl VLDL Cholesterol, Calc mg/dl HDL Cholesterol mg/dl Cholesterol/HDL Ratio Lipase (73-393) U/L TSH (0.300-4.500) uIu/ml Free T4 (0.8-1.6) ng/dl Urine Color Urine Appearance (Clear) Urine pH (4.5-7.5) Ur Specific [place] (1.000-1.030) Urine Protein (Negative) Urine Glucose (UA) (Negative) Urine Ketones (Negative) Urine Blood (Negative) Urine Nitrite (Negative) Urine Bilirubin (Negative) Urine Urobilinogen (Negative) Ur Leukocyte Esterase (Negative) Urine WBC (Auto) (0-5) /hpf Urine RBC (Auto) (0-4) /hpf U Hyaline Cast (Auto) (0-5) /lpf U Epithel Cells (Auto) (0-5) /lpf Urine Bacteria (Auto) (Negative) Nasal Screen MRSA (PCR) (Negative) Hepatitis C Ab Screen (Neg) 10/24/18 10/24/18 10/24/18 Range/Units 10:02 09:15 09:13 WBC (4.8-10.8) K/uL RBC (4.7-6.1) M/uL Hgb (14.0-18.0) g/dL POC Hgb (14.0-18.0) g/dl Hct (42-52) % POC Hct (42-52) % MCV (80-100) fL MCH (25-34) pg MCHC (32-36) g/dL RDW Std Deviation (36.4-46.3) fL RDW Coeff of Anh (11.5-14.5) % Plt Count (130-400) K/uL MPV (7.4-10.4) fL Immature Gran % (Auto) % Neut % (Auto) % Lymph % (Auto) % [facility] % (Auto) % Eos % (Auto) % Baso % (Auto) % Immature Gran # (Auto) (0.00-0.02) K/uL Neut # (Auto) (1.4-6.5) K/uL Lymph # (Auto) (1.2-3.4) K/uL [facility] # (Auto) (0.11-0.59) K/uL Eos # (Auto) (0-0.5) K/uL Baso # (Auto) (0-0.2) K/uL PT (9.0-12.0) Seconds INR (0.9-1.1) APTT (21.0-31.0) Seconds PTT Ratio Activ Coag Time Kaolin (94-140) SECONDS Sample Site POC pH (7.35-7.45) POC pCO2 (35-46) mmHg POC pO2 (80-95) mmHg POC HCO3 (19-24) gino/L POC Base Excess (-9-1.8) gino/L POC ABG O2 Sat (90-95) % Doroteo Test O2 Delivery Device POC O2 Rate Minute Ventilation POC FiO2 % Tidal Volume PEEP POC Sodium (135-144) mEq/L Sodium (136-145) mmol/L POC Potassium (3.3-5.0) mEq/L Potassium (3.5-5.1) mmol/L POC Chloride (101-112) mEq/L Chloride (98-107) mmol/L Carbon Dioxide (21-32) mmol/L POC Total CO2 (24-31) mEq/l Anion Gap (3-11) POC Anion Gap (16-25) mmol/L POC BUN (7-18) mg/dl BUN (7-18) mg/dl Creatinine (0.6-1.4) mg/dl POC Creatinine (0.6-1.3) mg/dl Est Cr Clr Drug Dosing Est GFR ( Amer) Est GFR (Non-Af Amer) BUN/Creatinine Ratio (10-20) Glucose (70-99) mg/dl POC Glucose (70-99) POC Glucose (other) 180 H (70-99) mg/dl Estimat Average Glucose mg/dl Hemoglobin A1c (4.5-5.6) % Lactate (0.4-2.0) mmol/L Calcium (8.5-10.1) mg/dl POC Ioniz Calcium Jai (1.12-1.32) mmol/l Ionized Calcium 1.04 L (1.12-1.32) mmol/L Magnesium (1.8-2.4) mg/dl Total Bilirubin (0.2-1) mg/dl AST (15-37) U/L ALT (12-78) U/L Alkaline Phosphatase (45-117) U/L Total Creatine Kinase (39-308) U/L CK-MB (CK-2) (0.5-3.6) ng/ml CK/CKMB % Calc (0-3.0) POC Troponin I (0-0.045) ng/ml Troponin I (0-0.045) ng/ml Total Protein (6.4-8.2) gm/dl Albumin (3.4-5.0) gm/dl Globulin (2.5-4.0) gm/dl Albumin/Globulin Ratio (0.9-2) Triglycerides (0-150) mg/dl Cholesterol (0-200) mg/dl LDL Cholesterol, Calc mg/dl VLDL Cholesterol, Calc mg/dl HDL Cholesterol mg/dl Cholesterol/HDL Ratio Lipase (73-393) U/L TSH (0.300-4.500) uIu/ml Free T4 (0.8-1.6) ng/dl Urine Color Yellow Urine Appearance Clear (Clear) Urine pH 6.5 (4.5-7.5) Ur Specific [place] 1.021 (1.000-1.030) Urine Protein Negative (Negative) Urine Glucose (UA) 3+ H (Negative) Urine Ketones Trace H (Negative) Urine Blood 2+ H (Negative) Urine Nitrite Negative (Negative) Urine Bilirubin Negative (Negative) Urine Urobilinogen Negative (Negative) Ur Leukocyte Esterase Negative (Negative) Urine WBC (Auto) 1-5 (0-5) /hpf Urine RBC (Auto) 5-10 H (0-4) /hpf U Hyaline Cast (Auto) 0 (0-5) /lpf U Epithel Cells (Auto) 5-10 H (0-5) /lpf Urine Bacteria (Auto) Negative (Negative) Nasal Screen MRSA (PCR) (Negative) Hepatitis C Ab Screen (Neg) 10/24/18 10/24/18 10/24/18 Range/Units 09:13 09:04 08:05 WBC (4.8-10.8) K/uL RBC (4.7-6.1) M/uL Hgb (14.0-18.0) g/dL POC Hgb (14.0-18.0) g/dl Hct (42-52) % POC Hct (42-52) % MCV (80-100) fL MCH (25-34) pg MCHC (32-36) g/dL RDW Std Deviation (36.4-46.3) fL RDW Coeff of Anh (11.5-14.5) % Plt Count (130-400) K/uL MPV (7.4-10.4) fL Immature Gran % (Auto) % Neut % (Auto) % Lymph % (Auto) % [facility] % (Auto) % Eos % (Auto) % Baso % (Auto) % Immature Gran # (Auto) (0.00-0.02) K/uL Neut # (Auto) (1.4-6.5) K/uL Lymph # (Auto) (1.2-3.4) K/uL [facility] # (Auto) (0.11-0.59) K/uL Eos # (Auto) (0-0.5) K/uL Baso # (Auto) (0-0.2) K/uL PT 10.1 (9.0-12.0) Seconds INR 1.0 (0.9-1.1) APTT 28.4 (21.0-31.0) Seconds PTT Ratio 1.0 Activ Coag Time Kaolin (94-140) SECONDS Sample Site POC pH (7.35-7.45) POC pCO2 (35-46) mmHg POC pO2 (80-95) mmHg POC HCO3 (19-24) gino/L POC Base Excess (-9-1.8) gino/L POC ABG O2 Sat (90-95) % [place]o Test O2 Delivery Device POC O2 Rate Minute Ventilation POC FiO2 % [place] Volume PEEP POC Sodium (135-144) mEq/L Sodium (136-145) mmol/L POC Potassium (3.3-5.0) mEq/L Potassium (3.5-5.1) mmol/L POC Chloride (101-112) mEq/L Chloride (98-107) mmol/L Carbon Dioxide (21-32) mmol/L POC Total CO2 (24-31) mEq/l Anion Gap (3-11) POC Anion Gap (16-25) mmol/L POC BUN (7-18) mg/dl BUN (7-18) mg/dl Creatinine (0.6-1.4) mg/dl POC Creatinine (0.6-1.3) mg/dl Est Cr Clr Drug Dosing Est GFR ( Amer) Est GFR (Non-Af Amer) BUN/Creatinine Ratio (10-20) Glucose (70-99) mg/dl POC Glucose (70-99) POC Glucose (other) 191 H 190 H (70-99) mg/dl Estimat Average Glucose mg/dl Hemoglobin A1c (4.5-5.6) % Lactate (0.4-2.0) mmol/L Calcium (8.5-10.1) mg/dl POC Ioniz Calcium Jai (1.12-1.32) mmol/l Ionized Calcium (1.12-1.32) mmol/L Magnesium (1.8-2.4) mg/dl Total Bilirubin (0.2-1) mg/dl AST (15-37) U/L ALT (12-78) U/L Alkaline Phosphatase (45-117) U/L Total Creatine Kinase (39-308) U/L CK-MB (CK-2) (0.5-3.6) ng/ml CK/CKMB % Calc (0-3.0) POC Troponin I (0-0.045) ng/ml Troponin I (0-0.045) ng/ml Total Protein (6.4-8.2) gm/dl Albumin (3.4-5.0) gm/dl Globulin (2.5-4.0) gm/dl Albumin/Globulin Ratio (0.9-2) Triglycerides (0-150) mg/dl Cholesterol (0-200) mg/dl LDL Cholesterol, Calc mg/dl VLDL Cholesterol, Calc mg/dl HDL Cholesterol mg/dl Cholesterol/HDL Ratio Lipase (73-393) U/L TSH (0.300-4.500) uIu/ml Free T4 (0.8-1.6) ng/dl Urine Color Urine Appearance (Clear) Urine pH (4.5-7.5) Ur Specific [place] (1.000-1.030) Urine Protein (Negative) Urine Glucose (UA) (Negative) Urine Ketones (Negative) Urine Blood (Negative) Urine Nitrite (Negative) Urine Bilirubin (Negative) Urine Urobilinogen (Negative) Ur Leukocyte Esterase (Negative) Urine WBC (Auto) (0-5) /hpf Urine RBC (Auto) (0-4) /hpf U Hyaline Cast (Auto) (0-5) /lpf U Epithel Cells (Auto) (0-5) /lpf Urine Bacteria (Auto) (Negative) Nasal Screen MRSA (PCR) (Negative) Hepatitis C Ab Screen (Neg) 10/24/18 10/24/18 10/24/18 Range/Units 07:15 06:14 05:31 WBC (4.8-10.8) K/uL RBC (4.7-6.1) M/uL Hgb (14.0-18.0) g/dL POC Hgb (14.0-18.0) g/dl Hct (42-52) % POC Hct (42-52) % MCV (80-100) fL MCH (25-34) pg MCHC (32-36) g/dL RDW Std Deviation (36.4-46.3) fL RDW Coeff of Anh (11.5-14.5) % Plt Count (130-400) K/uL MPV (7.4-10.4) fL Immature Gran % (Auto) % Neut % (Auto) % Lymph % (Auto) % [facility] % (Auto) % Eos % (Auto) % Baso % (Auto) % Immature Gran # (Auto) (0.00-0.02) K/uL Neut # (Auto) (1.4-6.5) K/uL Lymph # (Auto) (1.2-3.4) K/uL [facility] # (Auto) (0.11-0.59) K/uL Eos # (Auto) (0-0.5) K/uL Baso # (Auto) (0-0.2) K/uL PT (9.0-12.0) Seconds INR (0.9-1.1) APTT (21.0-31.0) Seconds PTT Ratio Activ Coag Time Kaolin (94-140) SECONDS Sample Site Art Line POC pH 7.29 L (7.35-7.45) POC pCO2 42 (35-46) mmHg POC pO2 88 (80-95) mmHg POC HCO3 20 (19-24) gino/L POC Base Excess -7.0 (-9-1.8) gino/L POC ABG O2 Sat 96.0 H (90-95) % Doroteo Test NA O2 Delivery Device Ventilator POC O2 Rate 16 Minute Ventilation 8.9 POC FiO2 60 % Tidal Volume 500 PEEP 5 POC Sodium (135-144) mEq/L Sodium (136-145) mmol/L POC Potassium (3.3-5.0) mEq/L Potassium (3.5-5.1) mmol/L POC Chloride (101-112) mEq/L Chloride (98-107) mmol/L Carbon Dioxide (21-32) mmol/L POC Total CO2 21 L (24-31) mEq/l Anion Gap (3-11) POC Anion Gap (16-25) mmol/L POC BUN (7-18) mg/dl BUN (7-18) mg/dl Creatinine (0.6-1.4) mg/dl POC Creatinine (0.6-1.3) mg/dl Est Cr Clr Drug Dosing Est GFR ( Amer) Est GFR (Non-Af Amer) BUN/Creatinine Ratio (10-20) Glucose (70-99) mg/dl POC Glucose (70-99) POC Glucose (other) 197 H 214 H (70-99) mg/dl Estimat Average Glucose mg/dl Hemoglobin A1c (4.5-5.6) % Lactate (0.4-2.0) mmol/L Calcium (8.5-10.1) mg/dl POC Ioniz Calcium Jai (1.12-1.32) mmol/l Ionized Calcium (1.12-1.32) mmol/L Magnesium (1.8-2.4) mg/dl Total Bilirubin (0.2-1) mg/dl AST (15-37) U/L ALT (12-78) U/L Alkaline Phosphatase (45-117) U/L Total Creatine Kinase (39-308) U/L CK-MB (CK-2) (0.5-3.6) ng/ml CK/CKMB % Calc (0-3.0) POC Troponin I (0-0.045) ng/ml Troponin I (0-0.045) ng/ml Total Protein (6.4-8.2) gm/dl Albumin (3.4-5.0) gm/dl Globulin (2.5-4.0) gm/dl Albumin/Globulin Ratio (0.9-2) Triglycerides (0-150) mg/dl Cholesterol (0-200) mg/dl LDL Cholesterol, Calc mg/dl VLDL Cholesterol, Calc mg/dl HDL Cholesterol mg/dl Cholesterol/HDL Ratio Lipase (73-393) U/L TSH (0.300-4.500) uIu/ml Free T4 (0.8-1.6) ng/dl Urine Color Urine Appearance (Clear) Urine pH (4.5-7.5) Ur Specific [place] (1.000-1.030) Urine Protein (Negative) Urine Glucose (UA) (Negative) Urine Ketones (Negative) Urine Blood (Negative) Urine Nitrite (Negative) Urine Bilirubin (Negative) Urine Urobilinogen (Negative) Ur Leukocyte Esterase (Negative) Urine WBC (Auto) (0-5) /hpf Urine RBC (Auto) (0-4) /hpf U Hyaline Cast (Auto) (0-5) /lpf U Epithel Cells (Auto) (0-5) /lpf Urine Bacteria (Auto) (Negative) Nasal Screen MRSA (PCR) (Negative) Hepatitis C Ab Screen (Neg) 10/24/18 10/24/18 10/24/18 Range/Units 05:03 05:03 05:03 WBC (4.8-10.8) K/uL RBC (4.7-6.1) M/uL Hgb (14.0-18.0) g/dL POC Hgb (14.0-18.0) g/dl Hct (42-52) % POC Hct (42-52) % MCV (80-100) fL MCH (25-34) pg MCHC (32-36) g/dL RDW Std Deviation (36.4-46.3) fL RDW Coeff of Anh (11.5-14.5) % Plt Count (130-400) K/uL MPV (7.4-10.4) fL Immature Gran % (Auto) % Neut % (Auto) % Lymph % (Auto) % [facility] % (Auto) % Eos % (Auto) % Baso % (Auto) % Immature Gran # (Auto) (0.00-0.02) K/uL Neut # (Auto) (1.4-6.5) K/uL Lymph # (Auto) (1.2-3.4) K/uL [facility] # (Auto) (0.11-0.59) K/uL Eos # (Auto) (0-0.5) K/uL Baso # (Auto) (0-0.2) K/uL PT (9.0-12.0) Seconds INR (0.9-1.1) APTT (21.0-31.0) Seconds PTT Ratio Activ Coag Time Kaolin (94-140) SECONDS Sample Site POC pH (7.35-7.45) POC pCO2 (35-46) mmHg POC pO2 (80-95) mmHg POC HCO3 (19-24) gino/L POC Base Excess (-9-1.8) gino/L POC ABG O2 Sat (90-95) % [place] Test O2 Delivery Device POC O2 Rate Minute Ventilation POC FiO2 % Tidal Volume PEEP POC Sodium (135-144) mEq/L Sodium 139 (136-145) mmol/L POC Potassium (3.3-5.0) mEq/L Potassium 4.3 (3.5-5.1) mmol/L POC Chloride (101-112) mEq/L Chloride 110 H (98-107) mmol/L Carbon Dioxide 23 (21-32) mmol/L POC Total CO2 (24-31) mEq/l Anion Gap 6.0 (3-11) POC Anion Gap (16-25) mmol/L POC BUN (7-18) mg/dl BUN 11 (7-18) mg/dl Creatinine 0.89 D (0.6-1.4) mg/dl POC Creatinine (0.6-1.3) mg/dl Est Cr Clr Drug Dosing 86.1 Est GFR ( Amer) 106.2 Est GFR (Non-Af Amer) 91.6 BUN/Creatinine Ratio 12.3 (10-20) Glucose 203 H (70-99) mg/dl POC Glucose (70-99) POC Glucose (other) (70-99) mg/dl Estimat Average Glucose 120 mg/dl Hemoglobin A1c 5.8 H (4.5-5.6) % Lactate (0.4-2.0) mmol/L Calcium 8.0 L (8.5-10.1) mg/dl POC Ioniz Calcium Jai (1.12-1.32) mmol/l Ionized Calcium (1.12-1.32) mmol/L Magnesium 2.1 (1.8-2.4) mg/dl Total Bilirubin (0.2-1) mg/dl AST (15-37) U/L ALT (12-78) U/L Alkaline Phosphatase (45-117) U/L Total Creatine Kinase (39-308) U/L CK-MB (CK-2) (0.5-3.6) ng/ml CK/CKMB % Calc (0-3.0) POC Troponin I (0-0.045) ng/ml Troponin I 58.200 H* (0-0.045) ng/ml Total Protein (6.4-8.2) gm/dl Albumin (3.4-5.0) gm/dl Globulin (2.5-4.0) gm/dl Albumin/Globulin Ratio (0.9-2) Triglycerides 80 (0-150) mg/dl Cholesterol 193 (0-200) mg/dl LDL Cholesterol, Calc 131 mg/dl VLDL Cholesterol, Calc 16 mg/dl HDL Cholesterol 46 mg/dl Cholesterol/HDL Ratio 4 Lipase (73-393) U/L TSH (0.300-4.500) uIu/ml Free T4 (0.8-1.6) ng/dl Urine Color Urine Appearance (Clear) Urine pH (4.5-7.5) Ur Specific [place] (1.000-1.030) Urine Protein (Negative) Urine Glucose (UA) (Negative) Urine Ketones (Negative) Urine Blood (Negative) Urine Nitrite (Negative) Urine Bilirubin (Negative) Urine Urobilinogen (Negative) Ur Leukocyte Esterase (Negative) Urine WBC (Auto) (0-5) /hpf Urine RBC (Auto) (0-4) /hpf U Hyaline Cast (Auto) (0-5) /lpf U Epithel Cells (Auto) (0-5) /lpf Urine Bacteria (Auto) (Negative) Nasal Screen MRSA (PCR) (Negative) Hepatitis C Ab Screen Neg (Neg) 10/24/18 10/24/18 10/24/18 Range/Units 05:03 03:22 03:22 WBC 16.76 H (4.8-10.8) K/uL RBC 4.80 (4.7-6.1) M/uL Hgb 15.6 (14.0-18.0) g/dL POC Hgb (14.0-18.0) g/dl Hct 44.5 (42-52) % POC Hct (42-52) % MCV 92.7 (80-100) fL MCH 32.5 (25-34) pg MCHC 35.1 (32-36) g/dL RDW Std Deviation 46.8 H (36.4-46.3) fL RDW Coeff of Anh 13.6 (11.5-14.5) % Plt Count 175 (130-400) K/uL MPV 9.4 (7.4-10.4) fL Immature Gran % (Auto) 0.6 % Neut % (Auto) 85.4 % Lymph % (Auto) 5.0 % [facility] % (Auto) 8.8 % Eos % (Auto) 0.1 % Baso % (Auto) 0.1 % Immature Gran # (Auto) 0.10 H (0.00-0.02) K/uL Neut # (Auto) 14.33 H (1.4-6.5) K/uL Lymph # (Auto) 0.83 L (1.2-3.4) K/uL [facility] # (Auto) 1.48 H (0.11-0.59) K/uL Eos # (Auto) 0.01 (0-0.5) K/uL Baso # (Auto) 0.01 (0-0.2) K/uL PT 10.3 (9.0-12.0) Seconds INR 1.0 (0.9-1.1) APTT 28.1 (21.0-31.0) Seconds PTT Ratio 1.0 Activ Coag Time Kaolin (94-140) SECONDS Sample Site POC pH (7.35-7.45) POC pCO2 (35-46) mmHg POC pO2 (80-95) mmHg POC HCO3 (19-24) gino/L POC Base Excess (-9-1.8) gino/L POC ABG O2 Sat (90-95) % [place] Test O2 Delivery Device POC O2 Rate Minute Ventilation POC FiO2 % [place]idal Volume PEEP POC Sodium (135-144) mEq/L Sodium (136-145) mmol/L POC Potassium (3.3-5.0) mEq/L Potassium (3.5-5.1) mmol/L POC Chloride (101-112) mEq/L Chloride (98-107) mmol/L Carbon Dioxide (21-32) mmol/L POC Total CO2 (24-31) mEq/l Anion Gap (3-11) POC Anion Gap (16-25) mmol/L POC BUN (7-18) mg/dl BUN (7-18) mg/dl Creatinine (0.6-1.4) mg/dl POC Creatinine (0.6-1.3) mg/dl Est Cr Clr Drug Dosing Est GFR ( Amer) Est GFR (Non-Af Amer) BUN/Creatinine Ratio (10-20) Glucose (70-99) mg/dl POC Glucose (70-99) POC Glucose (other) (70-99) mg/dl Estimat Average Glucose mg/dl Hemoglobin A1c (4.5-5.6) % Lactate (0.4-2.0) mmol/L Calcium (8.5-10.1) mg/dl POC Ioniz Calcium Jai (1.12-1.32) mmol/l Ionized Calcium 1.03 L (1.12-1.32) mmol/L Magnesium (1.8-2.4) mg/dl Total Bilirubin (0.2-1) mg/dl AST (15-37) U/L ALT (12-78) U/L Alkaline Phosphatase (45-117) U/L Total Creatine Kinase (39-308) U/L CK-MB (CK-2) (0.5-3.6) ng/ml CK/CKMB % Calc (0-3.0) POC Troponin I (0-0.045) ng/ml Troponin I (0-0.045) ng/ml Total Protein (6.4-8.2) gm/dl Albumin (3.4-5.0) gm/dl Globulin (2.5-4.0) gm/dl Albumin/Globulin Ratio (0.9-2) Triglycerides (0-150) mg/dl Cholesterol (0-200) mg/dl LDL Cholesterol, Calc mg/dl VLDL Cholesterol, Calc mg/dl HDL Cholesterol mg/dl Cholesterol/HDL Ratio Lipase (73-393) U/L TSH (0.300-4.500) uIu/ml Free T4 (0.8-1.6) ng/dl Urine Color Urine Appearance (Clear) Urine pH (4.5-7.5) Ur Specific [place] (1.000-1.030) Urine Protein (Negative) Urine Glucose (UA) (Negative) Urine Ketones (Negative) Urine Blood (Negative) Urine Nitrite (Negative) Urine Bilirubin (Negative) Urine Urobilinogen (Negative) Ur Leukocyte Esterase (Negative) Urine WBC (Auto) (0-5) /hpf Urine RBC (Auto) (0-4) /hpf U Hyaline Cast (Auto) (0-5) /lpf U Epithel Cells (Auto) (0-5) /lpf Urine Bacteria (Auto) (Negative) Nasal Screen MRSA (PCR) (Negative) Hepatitis C Ab Screen (Neg) 10/24/18 10/24/18 10/23/18 Range/Units 03:10 01:12 22:57 WBC (4.8-10.8) K/uL RBC (4.7-6.1) M/uL Hgb (14.0-18.0) g/dL POC Hgb (14.0-18.0) g/dl Hct (42-52) % POC Hct (42-52) % MCV (80-100) fL MCH (25-34) pg MCHC (32-36) g/dL RDW Std Deviation (36.4-46.3) fL RDW Coeff of Anh (11.5-14.5) % Plt Count (130-400) K/uL MPV (7.4-10.4) fL Immature Gran % (Auto) % Neut % (Auto) % Lymph % (Auto) % [facility] % (Auto) % Eos % (Auto) % Baso % (Auto) % Immature Gran # (Auto) (0.00-0.02) K/uL Neut # (Auto) (1.4-6.5) K/uL Lymph # (Auto) (1.2-3.4) K/uL [facility] # (Auto) (0.11-0.59) K/uL Eos # (Auto) (0-0.5) K/uL Baso # (Auto) (0-0.2) K/uL PT (9.0-12.0) Seconds INR (0.9-1.1) APTT (21.0-31.0) Seconds PTT Ratio Activ Coag Time Kaolin (94-140) SECONDS Sample Site Art Line POC pH 7.28 L 7.35 (7.35-7.45) POC pCO2 45 41 (35-46) mmHg POC pO2 75 L 310 H (80-95) mmHg POC HCO3 21 23 (19-24) gino/L POC Base Excess -6.0 -3.0 (-9-1.8) gino/L POC ABG O2 Sat 93.0 100.0 H (90-95) % [place] Test NA O2 Delivery Device Ventilator POC O2 Rate 16 Minute Ventilation 28.0 POC FiO2 60 % [place] Volume 500 PEEP 5 POC Sodium (135-144) mEq/L Sodium (136-145) mmol/L POC Potassium (3.3-5.0) mEq/L Potassium (3.5-5.1) mmol/L POC Chloride (101-112) mEq/L Chloride (98-107) mmol/L Carbon Dioxide (21-32) mmol/L POC Total CO2 22 L 24 (24-31) mEq/l Anion Gap (3-11) POC Anion Gap (16-25) mmol/L POC BUN (7-18) mg/dl BUN (7-18) mg/dl Creatinine (0.6-1.4) mg/dl POC Creatinine (0.6-1.3) mg/dl Est Cr Clr Drug Dosing Est GFR ( Amer) Est GFR (Non-Af Amer) BUN/Creatinine Ratio (10-20) Glucose (70-99) mg/dl POC Glucose (70-99) POC Glucose (other) (70-99) mg/dl Estimat Average Glucose mg/dl Hemoglobin A1c (4.5-5.6) % Lactate (0.4-2.0) mmol/L Calcium (8.5-10.1) mg/dl POC Ioniz Calcium Jai (1.12-1.32) mmol/l Ionized Calcium (1.12-1.32) mmol/L Magnesium (1.8-2.4) mg/dl Total Bilirubin (0.2-1) mg/dl AST (15-37) U/L ALT (12-78) U/L Alkaline Phosphatase (45-117) U/L Total Creatine Kinase (39-308) U/L CK-MB (CK-2) (0.5-3.6) ng/ml CK/CKMB % Calc (0-3.0) POC Troponin I (0-0.045) ng/ml Troponin I (0-0.045) ng/ml Total Protein (6.4-8.2) gm/dl Albumin (3.4-5.0) gm/dl Globulin (2.5-4.0) gm/dl Albumin/Globulin Ratio (0.9-2) Triglycerides (0-150) mg/dl Cholesterol (0-200) mg/dl LDL Cholesterol, Calc mg/dl VLDL Cholesterol, Calc mg/dl HDL Cholesterol mg/dl Cholesterol/HDL Ratio Lipase (73-393) U/L TSH (0.300-4.500) uIu/ml Free T4 (0.8-1.6) ng/dl Urine Color Urine Appearance (Clear) Urine pH (4.5-7.5) Ur Specific [place] (1.000-1.030) Urine Protein (Negative) Urine Glucose (UA) (Negative) Urine Ketones (Negative) Urine Blood (Negative) Urine Nitrite (Negative) Urine Bilirubin (Negative) Urine Urobilinogen (Negative) Ur Leukocyte Esterase (Negative) Urine WBC (Auto) (0-5) /hpf Urine RBC (Auto) (0-4) /hpf U Hyaline Cast (Auto) (0-5) /lpf U Epithel Cells (Auto) (0-5) /lpf Urine Bacteria (Auto) (Negative) Nasal Screen MRSA (PCR) Negative (Negative) Hepatitis C Ab Screen (Neg) 10/23/18 10/23/18 10/23/18 Range/Units 22:57 22:27 22:27 WBC (4.8-10.8) K/uL RBC (4.7-6.1) M/uL Hgb (14.0-18.0) g/dL POC Hgb (14.0-18.0) g/dl Hct (42-52) % POC Hct (42-52) % MCV (80-100) fL MCH (25-34) pg MCHC (32-36) g/dL RDW Std Deviation (36.4-46.3) fL RDW Coeff of Anh (11.5-14.5) % Plt Count (130-400) K/uL MPV (7.4-10.4) fL Immature Gran % (Auto) % Neut % (Auto) % Lymph % (Auto) % [facility] % (Auto) % Eos % (Auto) % Baso % (Auto) % Immature Gran # (Auto) (0.00-0.02) K/uL Neut # (Auto) (1.4-6.5) K/uL Lymph # (Auto) (1.2-3.4) K/uL [facility] # (Auto) (0.11-0.59) K/uL Eos # (Auto) (0-0.5) K/uL Baso # (Auto) (0-0.2) K/uL PT (9.0-12.0) Seconds INR (0.9-1.1) APTT (21.0-31.0) Seconds PTT Ratio Activ Coag Time Kaolin 208 H 252 H (94-140) SECONDS Sample Site POC pH 7.23 L (7.35-7.45) POC pCO2 45 (35-46) mmHg POC pO2 289 H (80-95) mmHg POC HCO3 19 (19-24) gino/L POC Base Excess -9.0 (-9-1.8) gino/L POC ABG O2 Sat 100.0 H (90-95) % [place] Test O2 Delivery Device POC O2 Rate Minute Ventilation POC FiO2 % Tidal Volume PEEP POC Sodium (135-144) mEq/L Sodium (136-145) mmol/L POC Potassium (3.3-5.0) mEq/L Potassium (3.5-5.1) mmol/L POC Chloride (101-112) mEq/L Chloride (98-107) mmol/L Carbon Dioxide (21-32) mmol/L POC Total CO2 20 L (24-31) mEq/l Anion Gap (3-11) POC Anion Gap (16-25) mmol/L POC BUN (7-18) mg/dl BUN (7-18) mg/dl Creatinine (0.6-1.4) mg/dl POC Creatinine (0.6-1.3) mg/dl Est Cr Clr Drug Dosing Est GFR ( Amer) Est GFR (Non-Af Amer) BUN/Creatinine Ratio (10-20) Glucose (70-99) mg/dl POC Glucose (70-99) POC Glucose (other) (70-99) mg/dl Estimat Average Glucose mg/dl Hemoglobin A1c (4.5-5.6) % Lactate (0.4-2.0) mmol/L Calcium (8.5-10.1) mg/dl POC Ioniz Calcium Jai (1.12-1.32) mmol/l Ionized Calcium (1.12-1.32) mmol/L Magnesium (1.8-2.4) mg/dl Total Bilirubin (0.2-1) mg/dl AST (15-37) U/L ALT (12-78) U/L Alkaline Phosphatase (45-117) U/L Total Creatine Kinase (39-308) U/L CK-MB (CK-2) (0.5-3.6) ng/ml CK/CKMB % Calc (0-3.0) POC Troponin I (0-0.045) ng/ml Troponin I (0-0.045) ng/ml Total Protein (6.4-8.2) gm/dl Albumin (3.4-5.0) gm/dl Globulin (2.5-4.0) gm/dl Albumin/Globulin Ratio (0.9-2) Triglycerides (0-150) mg/dl Cholesterol (0-200) mg/dl LDL Cholesterol, Calc mg/dl VLDL Cholesterol, Calc mg/dl HDL Cholesterol mg/dl Cholesterol/HDL Ratio Lipase (73-393) U/L TSH (0.300-4.500) uIu/ml Free T4 (0.8-1.6) ng/dl Urine Color Urine Appearance (Clear) Urine pH (4.5-7.5) Ur Specific [place] (1.000-1.030) Urine Protein (Negative) Urine Glucose (UA) (Negative) Urine Ketones (Negative) Urine Blood (Negative) Urine Nitrite (Negative) Urine Bilirubin (Negative) Urine Urobilinogen (Negative) Ur Leukocyte Esterase (Negative) Urine WBC (Auto) (0-5) /hpf Urine RBC (Auto) (0-4) /hpf U Hyaline Cast (Auto) (0-5) /lpf U Epithel Cells (Auto) (0-5) /lpf Urine Bacteria (Auto) (Negative) Nasal Screen MRSA (PCR) (Negative) Hepatitis C Ab Screen (Neg) 10/23/18 10/23/18 10/23/18 Range/Units 21:39 21:39 21:36 WBC (4.8-10.8) K/uL RBC (4.7-6.1) M/uL Hgb (14.0-18.0) g/dL POC Hgb 15.3 (14.0-18.0) g/dl Hct (42-52) % POC Hct 45 (42-52) % MCV (80-100) fL MCH (25-34) pg MCHC (32-36) g/dL RDW Std Deviation (36.4-46.3) fL RDW Coeff of Anh (11.5-14.5) % Plt Count (130-400) K/uL MPV (7.4-10.4) fL Immature Gran % (Auto) % Neut % (Auto) % Lymph % (Auto) % [facility] % (Auto) % Eos % (Auto) % Baso % (Auto) % Immature Gran # (Auto) (0.00-0.02) K/uL Neut # (Auto) (1.4-6.5) K/uL Lymph # (Auto) (1.2-3.4) K/uL [facility] # (Auto) (0.11-0.59) K/uL Eos # (Auto) (0-0.5) K/uL Baso # (Auto) (0-0.2) K/uL PT (9.0-12.0) Seconds INR (0.9-1.1) APTT (21.0-31.0) Seconds PTT Ratio Activ Coag Time Kaolin (94-140) SECONDS Sample Site POC pH (7.35-7.45) POC pCO2 (35-46) mmHg POC pO2 (80-95) mmHg POC HCO3 (19-24) gino/L POC Base Excess (-9-1.8) gino/L POC ABG O2 Sat (90-95) % [place] Test O2 Delivery Device POC O2 Rate Minute Ventilation POC FiO2 % [place]idal Volume PEEP POC Sodium 140 (135-144) mEq/L Sodium 141 (136-145) mmol/L POC Potassium 4.1 (3.3-5.0) mEq/L Potassium 4.1 (3.5-5.1) mmol/L POC Chloride 103 (101-112) mEq/L Chloride 108 H (98-107) mmol/L Carbon Dioxide 23 (21-32) mmol/L POC Total CO2 22 L (24-31) mEq/l Anion Gap 11.0 (3-11) POC Anion Gap 20.0 (16-25) mmol/L POC BUN 10 (7-18) mg/dl BUN 11 (7-18) mg/dl Creatinine 1.33 (0.6-1.4) mg/dl POC Creatinine 1.1 (0.6-1.3) mg/dl Est Cr Clr Drug Dosing Not Reportable Est GFR ( Amer) 65.9 Est GFR (Non-Af Amer) 56.9 BUN/Creatinine Ratio 8.2 L (10-20) Glucose 230 H (70-99) mg/dl POC Glucose (70-99) POC Glucose (other) 236 H (70-99) mg/dl Estimat Average Glucose mg/dl Hemoglobin A1c (4.5-5.6) % Lactate (0.4-2.0) mmol/L Calcium 8.4 L (8.5-10.1) mg/dl POC Ioniz Calcium Jai 1.13 (1.12-1.32) mmol/l Ionized Calcium (1.12-1.32) mmol/L Magnesium 2.2 (1.8-2.4) mg/dl Total Bilirubin 0.4 (0.2-1) mg/dl AST 295 H (15-37) U/L ALT 236 H (12-78) U/L Alkaline Phosphatase 86 (45-117) U/L Total Creatine Kinase 612 H (39-308) U/L CK-MB (CK-2) 50.6 H (0.5-3.6) ng/ml CK/CKMB % Calc 8.3 H (0-3.0) POC Troponin I 6.01 H (0-0.045) ng/ml Troponin I 9.410 H* (0-0.045) ng/ml Total Protein 6.8 (6.4-8.2) gm/dl Albumin 3.4 (3.4-5.0) gm/dl Globulin 3.4 (2.5-4.0) gm/dl Albumin/Globulin Ratio 1.0 (0.9-2) Triglycerides (0-150) mg/dl Cholesterol (0-200) mg/dl LDL Cholesterol, Calc mg/dl VLDL Cholesterol, Calc mg/dl HDL Cholesterol mg/dl Cholesterol/HDL Ratio Lipase 160 (73-393) U/L TSH 7.800 H (0.300-4.500) uIu/ml Free T4 0.99 (0.8-1.6) ng/dl Urine Color Urine Appearance (Clear) Urine pH (4.5-7.5) Ur Specific [place] (1.000-1.030) Urine Protein (Negative) Urine Glucose (UA) (Negative) Urine Ketones (Negative) Urine Blood (Negative) Urine Nitrite (Negative) Urine Bilirubin (Negative) Urine Urobilinogen (Negative) Ur Leukocyte Esterase (Negative) Urine WBC (Auto) (0-5) /hpf Urine RBC (Auto) (0-4) /hpf U Hyaline Cast (Auto) (0-5) /lpf U Epithel Cells (Auto) (0-5) /lpf Urine Bacteria (Auto) (Negative) Nasal Screen MRSA (PCR) (Negative) Hepatitis C Ab Screen (Neg) 10/23/18 10/23/18 Range/Units 21:36 21:36 WBC 13.86 H (4.8-10.8) K/uL RBC 4.71 (4.7-6.1) M/uL Hgb 15.4 (14.0-18.0) g/dL POC Hgb (14.0-18.0) g/dl Hct 44.5 (42-52) % POC Hct (42-52) % MCV 94.5 (80-100) fL MCH 32.7 (25-34) pg MCHC 34.6 (32-36) g/dL RDW Std Deviation 47.0 H (36.4-46.3) fL RDW Coeff of Anh 13.5 (11.5-14.5) % Plt Count 230 (130-400) K/uL MPV 9.4 (7.4-10.4) fL Immature Gran % (Auto) 2.2 % Neut % (Auto) 63.4 % Lymph % (Auto) 22.6 % [facility] % (Auto) 10.8 % Eos % (Auto) 0.8 % Baso % (Auto) 0.2 % Immature Gran # (Auto) 0.31 H (0.00-0.02) K/uL Neut # (Auto) 8.78 H (1.4-6.5) K/uL Lymph # (Auto) 3.13 (1.2-3.4) K/uL [facility] # (Auto) 1.50 H (0.11-0.59) K/uL Eos # (Auto) 0.11 (0-0.5) K/uL Baso # (Auto) 0.03 (0-0.2) K/uL PT 9.9 (9.0-12.0) Seconds INR 1.0 (0.9-1.1) APTT 25.4 (21.0-31.0) Seconds PTT Ratio 0.9 Activ Coag Time Kaolin (94-140) SECONDS Sample Site POC pH (7.35-7.45) POC pCO2 (35-46) mmHg POC pO2 (80-95) mmHg POC HCO3 (19-24) gino/L POC Base Excess (-9-1.8) gino/L POC ABG O2 Sat (90-95) % [place] Test O2 Delivery Device POC O2 Rate Minute Ventilation POC FiO2 % [place] Volume PEEP POC Sodium (135-144) mEq/L Sodium (136-145) mmol/L POC Potassium (3.3-5.0) mEq/L Potassium (3.5-5.1) mmol/L POC Chloride (101-112) mEq/L Chloride (98-107) mmol/L Carbon Dioxide (21-32) mmol/L POC Total CO2 (24-31) mEq/l Anion Gap (3-11) POC Anion Gap (16-25) mmol/L POC BUN (7-18) mg/dl BUN (7-18) mg/dl Creatinine (0.6-1.4) mg/dl POC Creatinine (0.6-1.3) mg/dl Est Cr Clr Drug Dosing Est GFR ( Amer) Est GFR (Non-Af Amer) BUN/Creatinine Ratio (10-20) Glucose (70-99) mg/dl POC Glucose (70-99) POC Glucose (other) (70-99) mg/dl Estimat Average Glucose mg/dl Hemoglobin A1c (4.5-5.6) % Lactate (0.4-2.0) mmol/L Calcium (8.5-10.1) mg/dl POC Ioniz Calcium Jai (1.12-1.32) mmol/l Ionized Calcium (1.12-1.32) mmol/L Magnesium (1.8-2.4) mg/dl Total Bilirubin (0.2-1) mg/dl AST (15-37) U/L ALT (12-78) U/L Alkaline Phosphatase (45-117) U/L Total Creatine Kinase (39-308) U/L CK-MB (CK-2) (0.5-3.6) ng/ml CK/CKMB % Calc (0-3.0) POC Troponin I (0-0.045) ng/ml Troponin I (0-0.045) ng/ml Total Protein (6.4-8.2) gm/dl Albumin (3.4-5.0) gm/dl Globulin (2.5-4.0) gm/dl Albumin/Globulin Ratio (0.9-2) Triglycerides (0-150) mg/dl Cholesterol (0-200) mg/dl LDL Cholesterol, Calc mg/dl VLDL Cholesterol, Calc mg/dl HDL Cholesterol mg/dl Cholesterol/HDL Ratio Lipase (73-393) U/L TSH (0.300-4.500) uIu/ml Free T4 (0.8-1.6) ng/dl Urine Color Urine Appearance (Clear) Urine pH (4.5-7.5) Ur Specific [place] (1.000-1.030) Urine Protein (Negative) Urine Glucose (UA) (Negative) Urine Ketones (Negative) Urine Blood (Negative) Urine Nitrite (Negative) Urine Bilirubin (Negative) Urine Urobilinogen (Negative) Ur Leukocyte Esterase (Negative) Urine WBC (Auto) (0-5) /hpf Urine RBC (Auto) (0-4) /hpf U Hyaline Cast (Auto) (0-5) /lpf U Epithel Cells (Auto) (0-5) /lpf Urine Bacteria (Auto) (Negative) Nasal Screen MRSA (PCR) (Negative) Hepatitis C Ab Screen (Neg) Diagnostic Findings XR chest 1V portable HISTORY: intubation COMPARISON: Chest 10/23/2018. FINDINGS: The endotracheal tube terminates 6.6 cm from the ovidio. Nasogastric tube terminate below the diaphragm. The tip is not included on this study. No pneumothorax. No pleural effusions. The right lung is clear. Left basilar linear densities are noted. The left upper lung zone remains clear. Slight volume loss within the left hemithorax. IMPRESSION: 1. Satisfactory support line placement. 2. Left lower lobe densities with slight volume loss within the left hemithorax. This may represent partial collapse of the left lower lobe. Follow-up recommended.
[2018-10-24] MEDS ORDERED: ASPIRIN 81 MG ECTAB PO SCH (09:00)
[2018-10-24] MEDS ORDERED: PANTOprazole 40 MG TAB PO SCH (09:00)
[2018-10-24] MEDS: ASPIRIN 81 MG CHEW PO SCH (09:23)
[2018-10-24] MEDS: ATORVASTATIN 40 MG TAB PO SCH (09:24)
[2018-10-24] MEDS: INSULIN ASPART 100 UNITS/ML 3 ML PEN SC SCH ×3 (09:24→13:29)
[2018-10-24] MEDS: TICAGRELOR 90 MG TAB PO SCH ×2 (09:31→21:35)
[2018-10-24] MEDS: ENOXAPARIN INJ 40 MG/0.4 ML SYR SQ SCH (09:40)
[2018-10-24 09:50] LABS: Appearance Urine Clear (Clear); Bacteria Urine Automated Negative (Negative); Bilirubin Urine Negative (Negative); Blood Urine 2+ (Negative); Cast Urine Automated 0 /lpf (0-5); Color Urine Yellow; Glucose Urine UA 3+ (Negative); Ketones Urine Trace (Negative); Leukocyte Esterase Urine Negative (Negative); Nitrite Urine Negative (Negative); Protein Urine Negative (Negative); Specific Gravity Urine 1.021 (1.000-1.030); Urobilinogen Urine Negative (Negative); pH Urine 6.5 (4.5-7.5)
[2018-10-24 10:00] LABS: Partial Thromboplastin Time 28.4 Seconds (21.0-31.0); Prothrombin Time 10.1 Seconds (9.0-12.0)
[2018-10-24] MEDS ORDERED: PANTOprazole 40 MG in SYRINGE 0 ML IV SCH (11:00)
[2018-10-24 11:47] LABS: Calcium 8.2 mg/dl (8.5-10.1); Creatinine Clr Calc Pharmacy 71.6 ml/min; Est GFR (African American) 85.8; Magnesium 2.3 mg/dl (1.8-2.4); Potassium 3.9 mmol/L (3.5-5.1)
[2018-10-24 11:56] LABS: Troponin I 31.7 ng/ml (0-0.045)
[2018-10-24] MEDS ORDERED: MEPERIDINE HCL 25 MG/ML CARP IV ONE (12:11)
[2018-10-24] MEDS ORDERED: MEPERIDINE HCL 25 MG/ML CARP ONE (12:16)
[2018-10-24] MEDS: DEXTROSE 50% 50 ML SYRINGE IV PRN (13:27)
[2018-10-24 13:31] LABS: iSTAT Arterial Blood Gas HCO3 24 meg/L (19-24); iSTAT Arterial Blood Gas pCO2 51 mmHg (35-46); iSTAT Arterial Blood Gas pH 7.28 (7.35-7.45); iSTAT Carbon Dioxide 25 mEq/l (24-31); iSTAT FiO2 60 %; iSTAT Site Art Line
[2018-10-24] MEDS: NOREPINEPHRINE BIT INJ 8 MG in DEXTROSE 5% 500 ML IV SCH (15:06)
--- NOTE | 2018-10-24 17:01 | Cardiology Progress Note ---
Date of Service October 24, 2018 Assessment & Plan (1) Cardiac arrest: 2. Posterior STEMI/occluded distal circumflex 3. Mild to moderate non-culprit coronary artery disease 4. Preserved LV function with inferolateral wall motion abnormality 5. Sinus/junctional bradycardia Hemodynamically stable on minimal vasopressors while targeted temperature management ongoing Electrically stable No signs of heart failure on exam, borderline CVP Renal function stable with good urine output Troponin has peaked and LV function preserved on echo. From a cardiac standpoint continued supportive care during therapeutic hypothermia. Continue DAPT with aspirin, Brilinta. On high intensity statin. Start low-dose beta-jayshree when BP allows. Subjective - Continued therapeutic hypothermia - Sinus bradycardia/junctional escape rhythm overnight started on dopamine - paralytics overnight, since discontinued. - Dopamine weaned off this morning. Mild relative hypotension and started on levophed - no tachyarrhythmias on tele - troponin peaked at 58 - Preserved LV function echo with inferolateral hypokinesis Review of Systems Review of Systems: Unobtainable due to endotracheal tube Physical Exam Physical Exam: General: Intubated, sedated, paralyzed HEENT: Sclerae anicteric Lungs: Clear to auscultation bilaterally, no rales or wheezes Cardiac: Regular rate and rhythm, no murmurs. Abdomen: Soft, nontender, nondistended Extremities: No edema. Right radial artery access site without ecchymosis/hematoma and pulse intact. Cooling catheter, arterial line without erythema/ecchymosis Skin: No rashes or lesions. Results & Data Vital Signs (Past 12 Hours) Vital Signs Temp Pulse Resp BP BP BP Pulse Ox 10/24/18 15:54 64 18 100 10/24/18 15:00 32.8 C L 66 17 81/51 L 103/55 L 100 10/24/18 14:00 32.8 C L 67 17 83/52 L 110/62 100 10/24/18 13:25 70 18 99 10/24/18 13:00 32.7 C L 72 20 80/57 L 105/72 100 10/24/18 12:02 108/99 100 10/24/18 12:00 32.9 C L 77 20 89/53 L 108/99 100 10/24/18 11:00 32.7 C L 65 20 124/52 L 124/68 98 10/24/18 10:51 62 18 100 10/24/18 10:00 32.6 C L 44 L 16 127/50 L 119/60 100 10/24/18 09:00 32.5 C L 47 L 16 149/57 H 139/68 98 10/24/18 08:00 32.6 C L 49 L 16 145/57 H 123/61 97 10/24/18 07:35 48 L 16 97 10/24/18 07:00 32.5 C L 49 L 16 141/57 H 140/67 100 10/24/18 06:00 32.5 C L 52 L 16 161/60 H 150/68 H 100 10/24/18 05:35 49 L 16 97 10/24/18 05:00 32.6 C L 51 L 16 160/63 H 133/67 100
[2018-10-24 17:08] LABS: iSTAT Arterial Blood Gas HCO3 23 meg/L (19-24); iSTAT Arterial Blood Gas pCO2 52 mmHg (35-46); iSTAT Arterial Blood Gas pH 7.25 (7.35-7.45); iSTAT Carbon Dioxide 24 mEq/l (24-31); iSTAT Site Art Line
[2018-10-24 20:05] LABS: Partial Thromboplastin Ratio 1.2; Partial Thromboplastin Time 31.7 Seconds (21.0-31.0); Prothrombin Time 10.3 Seconds (9.0-12.0)
[2018-10-24 20:23] LABS: BUN Creatinine Ratio 13.3 (10-20); Calcium 8.1 mg/dl (8.5-10.1); Creatinine Clr Calc Pharmacy 66.6 ml/min; Est GFR (African American) 78.6; Est GFR (Non-African American) 67.8
[2018-10-24 21:26] LABS: Potassium 4.8 mmol/L (3.5-5.1)
[2018-10-25 02:22] LABS: iSTAT Arterial Blood Gas HCO3 21 meg/L (19-24); iSTAT Arterial Blood Gas pCO2 45 mmHg (35-46); iSTAT Arterial Blood Gas pH 7.28 (7.35-7.45); iSTAT Carbon Dioxide 23 mEq/l (24-31); iSTAT Site Art Line
[2018-10-25 02:26] LABS: Partial Thromboplastin Ratio 1.1; Partial Thromboplastin Time 30.2 Seconds (21.0-31.0); Prothrombin Time 10.3 Seconds (9.0-12.0)
[2018-10-25 02:29] LABS: BUN Creatinine Ratio 15.4 (10-20); Creatinine Clr Calc Pharmacy 63.8 ml/min; Est GFR (African American) 74.7; Est GFR (Non-African American) 64.4; Magnesium 1.9 mg/dl (1.8-2.4)
[2018-10-25] MEDS: PIPERACILLIN/TAZOBACTAM 3.375 GM in DEXTROSE 5% 100 ML IV SCH ×3 (05:27→21:29)
--- NOTE | 2018-10-25 05:43 | Critical Care Progress Note ---
Date of Service October 25, 2018 Assessment & Plan (1) Cardiac arrest: Reason Critically Ill: 63-year-old male status post cardiac arrest with return of spontaneous circulation PLAN: Neuro: Therapeutic hypothermia protocol -Achieved goal temp at 5 AM October 24 - Finished rewarming at 5 pm tonight - Will possibly get brain imaging tomorrow to evaluate for any ischemic damage. - Will continue to monitor mental status and try to wean ventilatory support as tolerated. Resp: Acute respiratory failure secondary to cardiac arrest -Wean ventilator as tolerated Tobacco smoker Possible aspiration pneumonitis -Minimal vent settings will try to extubate tomorrow CV: Cardiac arrest Status post cardiac stenting Coronary artery disease Hyperlipidemia -Brilinta, metoprolol Echo with preserved ejection fraction Still requiring pressor use norepi at .05 microgram per kg per minute, will wean as tolerated: weaned to off Will continue to check EKG's and clinical status. Fluids/Renal: Mild hyperchloremia -Accurate I's and O's ID: IV Zosyn for possible aspiration GI/Nutrition: peptamen at [facility] Heme: Leukocytosis On ticagrelor and aspirin No evidence of bleeding, hemoglobin stable Will recheck CBC tomorrow DVT prophylaxis: Lovenox Endocrine: ICU hyperglycemia protocol Blood sugars within normal limits Vascular access: Arterial line, therapeutic hypothermia catheter Code Status: Full code Supervising Physician Co-Signing Physician Notes Dr. Marcelo was resident physician during care of patient. I separately evaluated patient for [place] portions of the history and the exam. I was present during the critical portion of medical decision making, and I discussed the case with the resident. I generally agree with the findings and plan. I have personally spent 40 minutes of critical care time in the direct management of this patient. This is a life/limb threatening event. This includes time spent evaluating patient, direct bedside care, chart review, placing orders, interpretation of diagnostic studies, discussion with consultants, patient, and/or family members regarding treatment decisions, as well as other required patient management activities. This time is exclusive of all separately billable procedures, and teaching time and separate from and in addition to any other critical care service time. attempt to wean and extubate tomorrow MRI this evening Subjective Mr. Rudolhp remains sedated and intubated. He will finish his rewarming at 5 pm this afternoon. No family currently present Review of Systems Review of Systems: Unobtainable due to cognitive status and Unobtainable due to endotracheal tube Physical Exam Constitutional: + ill appearing (intubated and nonresponsive) and comfortable; no acute distress and + uncooperative ENMT: Ears: no external ear abnormality Neck: trachea midline, no thyromegaly Respiratory: Auscultation: lungs clear to auscultation bilaterally Intubated On ventilator Cardiovascular: RRR, no murmur, no edema Gastrointestinal (Abdomen): Percussion/Palpation: abdomen soft Musculoskeletal: Extremities: extremities normal to inspection; no cyanosis and no clubbing Skin: no rashes, warm and dry Neurologic: + not awake Results & Data Vital Signs (Past 12 Hours) Vital Signs Temp Temp Pulse Resp BP BP Pulse Ox 10/25/18 05:00 32.8 C L 32.8 C L 62 22 88/48 L 112/61 97 10/25/18 04:00 32.9 C L 32.9 C L 60 22 88/41 L 101/64 97 10/25/18 03:00 33.6 C L 33.6 C L 70 22 91/48 L 112/74 97 10/25/18 02:00 34.1 C L 34.1 C L 79 102/51 L 118/72 99 10/25/18 01:00 34 C L 34 C L 82 22 115/54 L 141/65 H 99 10/25/18 00:52 82 23 97 10/25/18 00:00 33.7 C L 33.8 C L 74 24 100/48 L 119/73 98 10/24/18 23:00 33.4 C L 33.4 C L 67 21 94/47 L 114/79 95 10/24/18 22:30 65 21 98 10/24/18 22:00 33.3 C L 33.3 C L 65 21 87/46 L 119/59 L 97 10/24/18 21:00 33 C L 33 C L 65 97/55 L 123/74 97 10/24/18 20:00 32.9 C L 33 C L 63 19 89/48 L 118/66 99 10/24/18 19:30 62 18 98 10/24/18 19:00 32.8 C L 32.9 C L 61 21 87/53 L 112/70 100 10/24/18 18:00 32.9 C L 32.9 C L 59 L 18 83/51 L 104/68 95 Critical Care Time Critical Care Time: Yes Total Critical Care Time: 40 Resident Activity Tracking Resident Involvement: Resident Care Provided Care Provided: Adult [facility] Medicine
[2018-10-25] MEDS: fentaNYL DRIP 1,250 MCG/250 ML BAG IV SCH ×2 (07:46→16:14)
[2018-10-25] MEDS: ASPIRIN 81 MG CHEW PO SCH (07:47)
[2018-10-25] MEDS: FAMOTIDINE 20 MG in SYRINGE 3 ML IV SCH ×2 (07:47→21:29)
[2018-10-25] MEDS: ATORVASTATIN 40 MG TAB PO SCH (07:48)
[2018-10-25] MEDS: TICAGRELOR 90 MG TAB PO SCH ×2 (07:48→21:23)
[2018-10-25] MEDS: ENOXAPARIN INJ 40 MG/0.4 ML SYR SQ SCH (07:49)
[2018-10-25 08:15] LABS: iSTAT Arterial Blood Gas HCO3 21 meg/L (19-24); iSTAT Arterial Blood Gas pCO2 46 mmHg (35-46); iSTAT Arterial Blood Gas pH 7.26 (7.35-7.45); iSTAT Carbon Dioxide 22 mEq/l (24-31); iSTAT Site Art Line
[2018-10-25 08:39] LABS: Partial Thromboplastin Ratio 1.2; Partial Thromboplastin Time 33.1 Seconds (21.0-31.0); Prothrombin Time 10.5 Seconds (9.0-12.0)
[2018-10-25 09:02] LABS: BUN Creatinine Ratio 19.4 (10-20); Calcium 8.3 mg/dl (8.5-10.1); Creatinine Clr Calc Pharmacy 70.9 ml/min; Est GFR (African American) 84.8; Est GFR (Non-African American) 73.2; Potassium 3.4 mmol/L (3.5-5.1)
--- NOTE | 2018-10-25 11:41 | Cardiology Progress Note ---
Date of Service October 25, 2018 Assessment & Plan (1) Cardiac arrest: He underwent hypothermia protocol and is currently being Re warmed. Cardiac arrest likely secondary to ventricular arrhythmia in the setting of circumflex STEMI. Renal function remains good. Hopefully neurologic function i s intact. Continue to monitor closely. No ventricular arrhythmia noted overnight or so far today. (2) STEMI (ST elevation myocardial infarction): LV systolic function remains normal with inferolateral wall motion abnormality on echo. He is status post circumflex PCI. Continue aspirin 81 mg daily indefinitely. Continue Brilinta. Continue high-intensity statin therapy. (3) CAD (coronary artery disease), [place] coronary artery: Continue medical therapy following PCI of circumflex. Continue aspirin 81 mg daily indefinitely. Continue Brilinta for at least 1 year. Continue high- intensity statin therapy. Beta-jayshree recommended if/when blood pressure and heart rate improve and he is able to be weaned from pressor support. Would also consider DOUGLAS-inhibitor if blood pressure allows in the future. (4) Stented coronary artery: Anti-platelet therapy as above. (5) Dyslipidemia, goal to be determined: Continue high-intensity statin therapy. LDL was elevated and he now has documented CAD. (6) Disposition: Cardiology will continue to follow. Plan of care communicated with Dr. Vann of the primary hospitalist service. Subjective He remains sedated and intubated on mechanical ventilation. Norepinephrine has been weaned in remains on low dose, 0.05 micrograms/kilogram per minute. He has begun the rewarming process and is on pace to be completed with this process by approximately 5:00 p.m. this afternoon. His is present at the bedside. We discussed his cardiac issues, presentation, and overall plan of care. Review of systems: Unobtainable due to sedated, intubated state. Physical Exam Physical Exam: Gen.: No acute distress. Sedated on mechanical ventilator. Neck: No appreciable JVD. Cardiac: Regular. Normal S1-S2. No murmurs, rubs, or gallops. Pulmonary: Clear to auscultation bilaterally without wheezes, rales, or rhonchi. Abdomen: Soft, nontender, nondistended, with hypoactive bowel sounds. No bruits noted. Extremities: No edema or cyanosis. Right radial cath site is clean, dry, and intact without erythema or discharge. 1+ right radial pulse. Results & Data Vital Signs (Past 12 Hours) Vital Signs Temp Temp Pulse Resp BP BP Pulse Ox 10/25/18 11:00 33.7 C L 33.7 C L 60 87/41 L 104/66 98 10/25/18 10:00 33.5 C L 33.5 C L 59 L 16 82/42 L 102/63 99 10/25/18 09:00 33.2 C L 33.2 C L 58 L 16 82/43 L 109/69 97 10/25/18 08:23 63 16 98 10/25/18 08:00 59 L 19 87/45 L 111/67 10/25/18 07:00 62 22 85/46 L 110/69 97 10/25/18 06:00 32.5 C L 32.5 C L 60 22 87/47 L 109/73 97 10/25/18 05:12 62 22 96 10/25/18 05:00 32.8 C L 32.8 C L 62 22 88/48 L 112/61 97 10/25/18 04:00 32.9 C L 32.9 C L 60 22 88/41 L 101/64 97 10/25/18 03:00 33.6 C L 33.6 C L 70 22 91/48 L 112/74 97 10/25/18 02:00 34.1 C L 34.1 C L 79 102/51 L 118/72 99 10/25/18 01:00 34 C L 34 C L 82 22 115/54 L 141/65 H 99 10/25/18 00:52 82 23 97 10/25/18 00:00 33.7 C L 33.8 C L 74 24 100/48 L 119/73 98 Intake & Output 10/23/18 10/24/18 10/25/18 10/26/18 06:59 06:59 06:59 06:59 Intake Total 1575.076 / 0411.624 6817.729 / 2068.729 554.113 / 554.113 Output Total 1265 / 1465 1717 / 1717 145 / 145 Balance 310.076 / 110.076 351.729 / 351.729 409.113 / 409.113 Weight 75 kg 74.8 kg Laboratory Results Laboratory Results - last 24 hr 0610/24/18 10/24/18 11:14 12:05 12:22 PT INR APTT PTT Ratio Sample Site POC pH POC pCO2 POC pO2 POC HCO3 POC Total CO2 POC Base Excess POC ABG O2 Sat [place] Test O2 Delivery Device POC O2 Rate Minute Ventilation POC FiO2 Tidal Volume PEEP Sodium 140 Potassium 3.9 Chloride 111 H Carbon Dioxide 23 Anion Gap 6.0 BUN 12 Creatinine 1.07 Est Cr Clr Drug Dosing 71.6 Est GFR ( Amer) 85.8 Est GFR (Non-Af Amer) 74.0 BUN/Creatinine Ratio 11.0 Glucose 116 H POC Glucose 95 60 L* POC Glucose (other) Lactate Calcium 8.2 L Ionized Calcium Magnesium 2.3 Troponin I 31.700 H* Specimen Hemolysis Blood Type Antibody Screen 10/24/18 10/24/18 10/24/18 12:25 12:29 13:02 PT INR APTT PTT Ratio Sample Site POC pH POC pCO2 POC pO2 POC HCO3 POC Total CO2 POC Base Excess POC ABG O2 Sat [place] Test O2 Delivery Device POC O2 Rate Minute Ventilation POC FiO2 Tidal Volume PEEP Sodium Potassium Chloride Carbon Dioxide Anion Gap BUN Creatinine Est Cr Clr Drug Dosing Est GFR ( Amer) Est GFR (Non-Af Amer) BUN/Creatinine Ratio Glucose POC Glucose 79 81 72 POC Glucose (other) Lactate Calcium Ionized Calcium Magnesium Troponin I Specimen Hemolysis Blood Type Antibody Screen 10/24/18 10/24/18 10/24/18 13:18 13:24 15:38 PT INR APTT PTT Ratio Sample Site Art Line POC pH 7.28 L POC pCO2 51 H POC pO2 196 H POC HCO3 24 POC Total CO2 25 POC Base Excess -3.0 POC ABG O2 Sat 100.0 H [place] Test NA O2 Delivery Device Ventilator POC O2 Rate 16 Minute Ventilation 9.8 POC FiO2 60 Tidal Volume 500 PEEP 5 Sodium Potassium Chloride Carbon Dioxide Anion Gap BUN Creatinine Est Cr Clr Drug Dosing Est GFR ( Amer) Est GFR (Non-Af Amer) BUN/Creatinine Ratio Glucose POC Glucose POC Glucose (other) 80 Lactate 0.9 Calcium Ionized Calcium Magnesium Troponin I Specimen Hemolysis Blood Type Antibody Screen 10/24/18 10/24/18 10/24/18 15:38 16:53 19:42 PT INR APTT PTT Ratio Sample Site Art Line POC pH 7.25 L POC pCO2 52 H POC pO2 160 H POC HCO3 23 POC Total CO2 24 POC Base Excess -4.0 POC ABG O2 Sat 99.0 H [place] Test NA O2 Delivery Device Ventilator POC O2 Rate 16 Minute Ventilation 12.1 POC FiO2 Tidal Volume 500 PEEP 5 Sodium 141 Potassium Chloride 111 H Carbon Dioxide 23 Anion Gap 7.0 BUN 15 Creatinine 1.15 Est Cr Clr Drug Dosing 66.6 Est GFR ( Amer) 78.6 Est GFR (Non-Af Amer) 67.8 BUN/Creatinine Ratio 13.3 Glucose 91 POC Glucose POC Glucose (other) Lactate Calcium 8.1 L Ionized Calcium 1.04 L Magnesium Troponin I Specimen Hemolysis Blood Type Antibody Screen 10/24/18 10/24/18 10/24/18 19:42 19:42 19:55 PT 10.3 INR 1.0 APTT 31.7 H PTT Ratio 1.2 Sample Site POC pH POC pCO2 POC pO2 POC HCO3 POC Total CO2 POC Base Excess POC ABG O2 Sat [place] Test O2 Delivery Device POC O2 Rate Minute Ventilation POC FiO2 Tidal Volume PEEP Sodium Potassium Chloride Carbon Dioxide Anion Gap BUN Creatinine Est Cr Clr Drug Dosing Est GFR ( Amer) Est GFR (Non-Af Amer) BUN/Creatinine Ratio Glucose POC Glucose POC Glucose (other) 94 Lactate Calcium Ionized Calcium Magnesium Troponin I Specimen Hemolysis Blood Type Antibody Screen 10/24/18 10/24/18 10/25/18 20:59 22:01 00:13 PT INR APTT PTT Ratio Sample Site POC pH POC pCO2 POC pO2 POC HCO3 POC Total CO2 POC Base Excess POC ABG O2 Sat [place] Test O2 Delivery Device POC O2 Rate Minute Ventilation POC FiO2 Tidal Volume PEEP Sodium Potassium 4.8 D Chloride Carbon Dioxide Anion Gap BUN Creatinine Est Cr Clr Drug Dosing Est GFR ( Amer) Est GFR (Non-Af Amer) BUN/Creatinine Ratio Glucose POC Glucose POC Glucose (other) 87 Lactate Calcium Ionized Calcium Magnesium 2.0 Troponin I Specimen Hemolysis Blood Type B Positive Antibody Screen NEGATIVE 10/25/18 10/25/18 10/25/18 01:51 01:51 01:51 PT 10.3 INR 1.0 APTT 30.2 PTT Ratio 1.1 Sample Site POC pH POC pCO2 POC pO2 POC HCO3 POC Total CO2 POC Base Excess POC ABG O2 Sat [place] Test O2 Delivery Device POC O2 Rate Minute Ventilation POC FiO2 Tidal Volume PEEP Sodium 140 Potassium 4.0 D Chloride 108 H Carbon Dioxide 24 Anion Gap 8.0 BUN 18 Creatinine 1.20 Est Cr Clr Drug Dosing 63.8 Est GFR ( Amer) 74.7 Est GFR (Non-Af Amer) 64.4 BUN/Creatinine Ratio 15.4 Glucose 82 POC Glucose POC Glucose (other) Lactate Calcium 8.0 L Ionized Calcium 1.01 L Magnesium 1.9 Troponin I Specimen Hemolysis Blood Type Antibody Screen 10/25/18 10/25/18 10/25/18 02:09 05:24 07:55 PT INR APTT PTT Ratio Sample Site Art Line Art Line POC pH 7.28 L 7.26 L POC pCO2 45 46 POC pO2 123 H 99 H POC HCO3 21 21 POC Total CO2 23 L 22 L POC Base Excess -6.0 -6.0 POC ABG O2 Sat 98.0 H 97.0 H [place] Test NA NA O2 Delivery Device Ventilator Ventilator POC O2 Rate 22 16 Minute Ventilation 14.4 9 POC FiO2 Tidal Volume 500 500 PEEP 5 5 Sodium Potassium Chloride Carbon Dioxide Anion Gap BUN Creatinine Est Cr Clr Drug Dosing Est GFR ( Amer) Est GFR (Non-Af Amer) BUN/Creatinine Ratio Glucose POC Glucose POC Glucose (other) 96 Lactate Calcium Ionized Calcium Magnesium Troponin I Specimen Hemolysis Blood Type Antibody Screen 10/25/18 10/25/18 10/25/18 08:01 08:08 08:08 PT 10.5 INR 1.0 APTT 33.1 H PTT Ratio 1.2 Sample Site POC pH POC pCO2 POC pO2 POC HCO3 POC Total CO2 POC Base Excess POC ABG O2 Sat [place] Test O2 Delivery Device POC O2 Rate Minute Ventilation POC FiO2 Tidal Volume PEEP Sodium 141 Potassium 3.4 L Chloride 108 H Carbon Dioxide 22 Anion Gap 11.0 BUN 21 H Creatinine 1.08 Est Cr Clr Drug Dosing 70.9 Est GFR ( Amer) 84.8 Est GFR (Non-Af Amer) 73.2 BUN/Creatinine Ratio 19.4 Glucose 103 H POC Glucose POC Glucose (other) 105 H Lactate Calcium 8.3 L Ionized Calcium Magnesium 2.0 Troponin I Specimen Hemolysis Blood Type Antibody Screen 10/25/18 08:08 PT INR APTT PTT Ratio Sample Site POC pH POC pCO2 POC pO2 POC HCO3 POC Total CO2 POC Base Excess POC ABG O2 Sat [place] Test O2 Delivery Device POC O2 Rate Minute Ventilation POC FiO2 Tidal Volume PEEP Sodium Potassium Chloride Carbon Dioxide Anion Gap BUN Creatinine Est Cr Clr Drug Dosing Est GFR ( Amer) Est GFR (Non-Af Amer) BUN/Creatinine Ratio Glucose POC Glucose POC Glucose (other) Lactate Calcium Ionized Calcium 1.07 L Magnesium Troponin I Specimen Hemolysis Blood Type Antibody Screen Diagnostic Findings Telemetry personally reviewed: Sinus rhythm. No ventricular arrhythmia. ECGs personally reviewed: ECG 10/25/2018 at 12:17 a.m.: Artifact. Sinus rhythm 80 bpm. Prolonged QT. ECG 10/25/2018 at 4:31 a.m.: Sinus rhythm 62 bpm. Prolonged QT. ECG 10/25/2018 at 7:45 a.m.: Sinus rhythm with first-degree AV block. Prolonged QT. Medications Administered Current Inpatient Medications Albuterol (Ventolin 0.083% 2.5mg/3ml) 2.5 mg INH Q2H PRN PRN Reason: SOB/WHEEZE Stop: 11/23/18 04:24 Aspirin (Aspirin Chew) 81 mg PO [facility] Stop: 11/23/18 08:59 Last Admin: 10/25/18 07:47 Dose: 81 mg Documented by: Atorvastatin Calcium (Lipitor) 80 mg PO [facility] Stop: 11/23/18 08:59 Last Admin: 10/25/18 07:48 Dose: 80 mg Documented by: Dextrose (Dextrose 50%) 25 - 50 ml IV UD PRN; Protocol PRN Reason: Hypoglycemia Protocol Stop: 11/23/18 05:59 Last Admin: 10/24/18 13:27 Dose: 25 ml Documented by: Enoxaparin Sodium (Lovenox) 40 mg SQ [facility] Stop: 11/23/18 08:59 Last Admin: 10/25/18 07:49 Dose: 40 mg Documented by: Glucagon (Glucagen) 1 mg IM UD PRN; Protocol PRN Reason: Hypoglycemia Protocol Stop: 11/23/18 05:59 Glucose (Glucose 40%) 15 - 30 gm PO UD PRN; Protocol PRN Reason: Hypoglycemia Protocol Stop: 11/23/18 05:59 Glucose (Dex4 Glucose) 4 - 8 tabs PO UD PRN; Protocol PRN Reason: Hypoglycemia Protocol Stop: 11/23/18 05:59 Fentanyl Citrate (Fentanyl Drip) 1,250 mcg in 250 mls @ 30 mls/hr IV .[id number] [facility]; Protocol Stop: 11/07/18 00:14 Last Admin: 10/25/18 07:46 Dose: 150 mcg/hr, 30 mls/hr Documented by: Piperacillin Sod/Tazobactam (Sod 3.375 gm/ Dextrose) 115 mls @ 28.75 mls/hr IV Q8H [facility]; Protocol Stop: 10/31/18 05:59 Last Infusion: 10/25/18 09:30 Dose: Infused Documented by: Midazolam HCl (Versed) 125 mg in 250 mls @ 20 mls/hr IV .[id number] [facility]; Protocol Stop: 11/23/18 00:14 Last Titration: 10/25/18 07:16 Dose: 10 mg/hr, 20 mls/hr Documented by: Cisatracurium Besylate 40 mg/ (Sodium Chloride) 100 mls @ 0 mls/hr IV .Q0M [facility]; Protocol Stop: 11/23/18 01:29 Last Titration: 10/24/18 09:30 Dose: 0 mcg/kg/min, 0 mls/hr Documented by: Dopamine HCl/Dextrose (Dopamine / D5w) 400 mg in 250 mls @ 0 mls/hr IV .Q0M [facility]; Protocol Stop: 11/23/18 03:44 Last Titration: 10/24/18 11:10 Dose: 0 mcg/kg/min, 0 mls/hr Documented by: Norepinephrine Bitartrate 8 mg (/ Dextrose) 508 mls @ 14.29 mls/hr IV .Q24H [facility]; Protocol Stop: 11/23/18 14:44 Last Titration: 10/25/18 07:16 Dose: 0.05 mcg/kg/min, 14.3 mls/hr Documented by: Famotidine 20 mg/ Syringe 5 mls @ 2.5 mls/min IV BID [facility] Stop: 11/24/18 08:59 Last Admin: 10/25/18 07:47 Dose: 2.5 mls/min Documented by: Miscellaneous (Icu Protocol For Hyperglycemia) 1 ea N/A PRN PRN; Protocol PRN Reason: Hyperglycemia Protocol Stop: 10/25/18 23:11 Miscellaneous (Carbohydrates For Hypoglycemia) 15 - 30 gm PO PRN PRN PRN Reason: Hypoglycemia Treatment Stop: 11/23/18 05:59 Miscellaneous Information (Consult) 1 ea N/A UD PRN PRN Reason: Consult Stop: 11/23/18 00:09 Ticagrelor (Brilinta) 90 mg PO BID [facility] Stop: 11/23/18 10:29 Last Admin: 10/25/18 07:48 Dose: 90 mg Documented by:
[2018-10-25] MEDS: MIDAZOLAM HCL 125 MG/250 ML BAG IV SCH (11:58)
[2018-10-25 14:34] LABS: Potassium 3.7 mmol/L (3.5-5.1)
[2018-10-25 14:37] LABS: BUN Creatinine Ratio 16.9 (10-20); Creatinine Clr Calc Pharmacy 69.6 ml/min; Est GFR (African American) 82.9; Est GFR (Non-African American) 71.6; Magnesium 1.9 mg/dl (1.8-2.4)
[2018-10-25 14:40] LABS: INR 1.1 (0.9-1.1); Partial Thromboplastin Ratio 1.5; Partial Thromboplastin Time 40.2 Seconds (21.0-31.0); Prothrombin Time 10.8 Seconds (9.0-12.0)
--- NOTE | 2018-10-25 15:45 | Hospitalist Progress Note ---
Date of Service October 25, 2018 Assessment & Plan (1) Cardiac arrest: This patient is a 63yo male with history of HLP, Asthma presenting s/p cardiac arrest with ROSC, cath with occlusion of circumflex s/p KALA placement presently intubated/sedated and continues on cooling protocol 1. Neuro: patient with some decorticate posturing noted in ER and after cardiac cath. CT head negative. Presently intubated, not following commands. CT head with no acute intracranial abnormalities. Concern for anoxia given recent arrest continue sedation with Fentanyl, Versed, paralytic -completed cooling per protocol rewarming started at 0500 today 2. Pulm: Intubated and sedated. Adequate oxygenation and ventilation on current ventilator settings. History of asthma, patient not presently on medications. Active smoker. -CXR with possible left lower lobe collapse continues to oxygenate well on FiO2 40 -Nebs PRN -Follow chest x-ray Continue albuterol nebs as needed -On Zosyn in case of aspiration pneumonia 3. CV: s/p cardiac arrest with CPR and ROSC. S/p cardiac catheterization with placement of KALA to Cx. Bradycardia improved but remains somewhat due to cooling - Amiodarone has been discontinued -Continue ASA -Continue Atorvastatin, LDL 131 -Continue Brillinta -With lower blood pressures, continue on Levophed, Dopamine added -Appreciate welt cutter management, appreciate cardiology management Echocardiogram with preserved LV function, severe hypokinesis of inferolateral wall per cardiology, would want to add beta jayshree once blood pressure allows 4. GI: THIERNO -Pepcid twice daily IV for prophylaxis while intubated 5. : Victoria in place, Cr and electrolytes stable - repeat BMP tomorrow 6. Heme - patient with leukocytosis, most likely reactive but could be aspiration pneumonia. Patient with large amount of vomit, coarse breath sounds -Continue Zosyn as above - was kept cool and rewarming just began so unsure if he would have been febrile or not 7. ID - afebrile. Thick discharge from ETT previously -Continue empiric Zosyn -Follow blood cultures-no growth to date 8. Endocrine -on ICU hyperglycemia protocol, insulin as needed, hemoglobin A1c 5.8% DVT prophylaxis-Lovenox 40 mg SQ daily Disposition-remain in ICU (2) Asthma: (3) High cholesterol: (4) Dyslipidemia, goal to be determined: (5) STEMI (ST elevation myocardial infarction): (6) Stented coronary artery: (7) Hypothermia, induced: (8) Smoker: Subjective patient remains intubated, sedated rewarming process started this morning at 5am could not complete a review of systems discussed with patient's RN, no major issues over night reviewed labs, Cr and electrolytes stable Review of Systems Review of Systems: Unobtainable due to endotracheal tube and Unobtainable due to reduced consciousness Physical Exam Constitutional: + ill appearing, + altered mental status (sedated on vent) and + mechanically ventilated Neck: trachea midline, no thyromegaly Respiratory: normal respiratory effort, lungs clear to auscultation Cardiovascular: RRR, no murmur, no edema Gastrointestinal (Abdomen): normal bowel sounds, soft, nontender, no hepatosplenomegaly Musculoskeletal: Head/Neck/Chest: normocephalic and head atraumatic Extremities: extremities normal to inspection; no cyanosis and no clubbing Skin: no rashes, warm and dry Neurologic: could not complete a full neurologic evaluation Lymphatic: no cervical or axillary lymphadenopathy Results & Data Vital Signs (Past 12 Hours) Vital Signs Temp Temp Pulse Resp BP BP Pulse Ox 10/25/18 15:00 34.7 C L 34.7 C L 62 16 92/45 L 120/64 95 10/25/18 14:00 34.2 C L 34.2 C L 68 16 99/47 L 108/67 98 10/25/18 13:45 70 15 98 10/25/18 13:00 34.2 C L 34.2 C L 68 16 93/45 L 112/68 98 10/25/18 12:00 33.9 C L 33.9 C L 63 16 87/44 L 108/69 98 10/25/18 11:42 61 16 96 10/25/18 11:00 33.7 C L 33.7 C L 60 87/41 L 104/66 98 10/25/18 10:00 33.5 C L 33.5 C L 59 L 16 82/42 L 102/63 99 10/25/18 09:00 33.2 C L 33.2 C L 58 L 16 82/43 L 109/69 97 10/25/18 08:23 63 16 98 10/25/18 08:00 59 L 19 87/45 L 111/67 10/25/18 07:00 62 22 85/46 L 110/69 97 10/25/18 06:00 32.5 C L 32.5 C L 60 22 87/47 L 109/73 97 10/25/18 05:12 62 22 96 10/25/18 05:00 32.8 C L 32.8 C L 62 22 88/48 L 112/61 97 10/25/18 04:00 32.9 C L 32.9 C L 60 22 88/41 L 101/64 97 Laboratory Results Laboratory Results - last 24 hr 10/24/18 10/24/18 10/24/18 12:22 12:25 12:29 PT INR APTT PTT Ratio Sample Site POC pH POC pCO2 POC pO2 POC HCO3 POC Total CO2 POC Base Excess POC ABG O2 Sat Doroteo Test O2 Delivery Device POC O2 Rate Minute Ventilation Tidal Volume PEEP Sodium Potassium Chloride Carbon Dioxide Anion Gap BUN Creatinine Est Cr Clr Drug Dosing Est GFR ( Amer) Est GFR (Non-Af Amer) BUN/Creatinine Ratio Glucose POC Glucose 60 L* 79 81 POC Glucose (other) Lactate Calcium Ionized Calcium Magnesium Specimen Hemolysis Blood Type Antibody Screen 10/24/18 10/24/18 10/24/18 13:02 15:38 15:38 PT INR APTT PTT Ratio Sample Site POC pH POC pCO2 POC pO2 POC HCO3 POC Total CO2 POC Base Excess POC ABG O2 Sat Doroteo Test O2 Delivery Device POC O2 Rate Minute Ventilation Tidal Volume PEEP Sodium Potassium Chloride Carbon Dioxide Anion Gap BUN Creatinine Est Cr Clr Drug Dosing Est GFR ( Amer) Est GFR (Non-Af Amer) BUN/Creatinine Ratio Glucose POC Glucose 72 POC Glucose (other) Lactate 0.9 Calcium Ionized Calcium 1.04 L Magnesium Specimen Hemolysis Blood Type Antibody Screen 10/24/18 10/24/18 10/24/18 16:53 19:42 19:42 PT 10.3 INR 1.0 APTT 31.7 H PTT Ratio 1.2 Sample Site Art Line POC pH 7.25 L POC pCO2 52 H POC pO2 160 H POC HCO3 23 POC Total CO2 24 POC Base Excess -4.0 POC ABG O2 Sat 99.0 H Doroteo Test NA O2 Delivery Device Ventilator POC O2 Rate 16 Minute Ventilation 12.1 Tidal Volume 500 PEEP 5 Sodium 141 Potassium Chloride 111 H Carbon Dioxide 23 Anion Gap 7.0 BUN 15 Creatinine 1.15 Est Cr Clr Drug Dosing 66.6 Est GFR ( Amer) 78.6 Est GFR (Non-Af Amer) 67.8 BUN/Creatinine Ratio 13.3 Glucose 91 POC Glucose POC Glucose (other) Lactate Calcium 8.1 L Ionized Calcium Magnesium Specimen Hemolysis Blood Type Antibody Screen 10/24/18 10/24/18 10/24/18 19:42 19:55 20:59 PT INR APTT PTT Ratio Sample Site POC pH POC pCO2 POC pO2 POC HCO3 POC Total CO2 POC Base Excess POC ABG O2 Sat Doroteo Test O2 Delivery Device POC O2 Rate Minute Ventilation Tidal Volume PEEP Sodium Potassium 4.8 D Chloride Carbon Dioxide Anion Gap BUN Creatinine Est Cr Clr Drug Dosing Est GFR ( Amer) Est GFR (Non-Af Amer) BUN/Creatinine Ratio Glucose POC Glucose POC Glucose (other) 94 Lactate Calcium Ionized Calcium Magnesium 2.0 Specimen Hemolysis Blood Type Antibody Screen 10/24/18 10/25/18 10/25/18 22:01 00:13 01:51 PT 10.3 INR 1.0 APTT 30.2 PTT Ratio 1.1 Sample Site POC pH POC pCO2 POC pO2 POC HCO3 POC Total CO2 POC Base Excess POC ABG O2 Sat Doroteo Test O2 Delivery Device POC O2 Rate Minute Ventilation Tidal Volume PEEP Sodium Potassium Chloride Carbon Dioxide Anion Gap BUN Creatinine Est Cr Clr Drug Dosing Est GFR ( Amer) Est GFR (Non-Af Amer) BUN/Creatinine Ratio Glucose POC Glucose POC Glucose (other) 87 Lactate Calcium Ionized Calcium Magnesium Specimen Hemolysis Blood Type B Positive Antibody Screen NEGATIVE 10/25/18 10/25/18 10/25/18 01:51 01:51 02:09 PT INR APTT PTT Ratio Sample Site Art Line POC pH 7.28 L POC pCO2 45 POC pO2 123 H POC HCO3 21 POC Total CO2 23 L POC Base Excess -6.0 POC ABG O2 Sat 98.0 H Doroteo Test NA O2 Delivery Device Ventilator POC O2 Rate 22 Minute Ventilation 14.4 Tidal Volume 500 PEEP 5 Sodium 140 Potassium 4.0 D Chloride 108 H Carbon Dioxide 24 Anion Gap 8.0 BUN 18 Creatinine 1.20 Est Cr Clr Drug Dosing 63.8 Est GFR ( Amer) 74.7 Est GFR (Non-Af Amer) 64.4 BUN/Creatinine Ratio 15.4 Glucose 82 POC Glucose POC Glucose (other) Lactate Calcium 8.0 L Ionized Calcium 1.01 L Magnesium 1.9 Specimen Hemolysis Blood Type Antibody Screen 10/25/18 10/25/18 10/25/18 05:24 07:55 08:01 PT INR APTT PTT Ratio Sample Site Art Line POC pH 7.26 L POC pCO2 46 POC pO2 99 H POC HCO3 21 POC Total CO2 22 L POC Base Excess -6.0 POC ABG O2 Sat 97.0 H Doroteo Test NA O2 Delivery Device Ventilator POC O2 Rate 16 Minute Ventilation 9 Tidal Volume 500 PEEP 5 Sodium Potassium Chloride Carbon Dioxide Anion Gap BUN Creatinine Est Cr Clr Drug Dosing Est GFR ( Amer) Est GFR (Non-Af Amer) BUN/Creatinine Ratio Glucose POC Glucose POC Glucose (other) 96 105 H Lactate Calcium Ionized Calcium Magnesium Specimen Hemolysis Blood Type Antibody Screen 10/25/18 10/25/18 10/25/18 08:08 08:08 08:08 PT 10.5 INR 1.0 APTT 33.1 H PTT Ratio 1.2 Sample Site POC pH POC pCO2 POC pO2 POC HCO3 POC Total CO2 POC Base Excess POC ABG O2 Sat Doroteo Test O2 Delivery Device POC O2 Rate Minute Ventilation Tidal Volume PEEP Sodium 141 Potassium 3.4 L Chloride 108 H Carbon Dioxide 22 Anion Gap 11.0 BUN 21 H Creatinine 1.08 Est Cr Clr Drug Dosing 70.9 Est GFR ( Amer) 84.8 Est GFR (Non-Af Amer) 73.2 BUN/Creatinine Ratio 19.4 Glucose 103 H POC Glucose POC Glucose (other) Lactate Calcium 8.3 L Ionized Calcium 1.07 L Magnesium 2.0 Specimen Hemolysis Blood Type Antibody Screen 10/25/18 10/25/18 10/25/18 12:14 13:53 13:53 PT 10.8 INR 1.1 APTT 40.2 H PTT Ratio 1.5 Sample Site POC pH POC pCO2 POC pO2 POC HCO3 POC Total CO2 POC Base Excess POC ABG O2 Sat Doroteo Test O2 Delivery Device POC O2 Rate Minute Ventilation Tidal Volume PEEP Sodium 140 Potassium 3.7 Chloride 109 H Carbon Dioxide 26 Anion Gap 5.0 BUN 19 H Creatinine 1.10 Est Cr Clr Drug Dosing 69.6 Est GFR ( Amer) 82.9 Est GFR (Non-Af Amer) 71.6 BUN/Creatinine Ratio 16.9 Glucose 95 POC Glucose POC Glucose (other) 107 H Lactate Calcium 8.0 L Ionized Calcium Magnesium 1.9 Specimen Hemolysis Blood Type Antibody Screen 10/25/18 13:53 PT INR APTT PTT Ratio Sample Site POC pH POC pCO2 POC pO2 POC HCO3 POC Total CO2 POC Base Excess POC ABG O2 Sat [place]oteo Test O2 Delivery Device POC O2 Rate Minute Ventilation Tidal Volume PEEP Sodium Potassium Chloride Carbon Dioxide Anion Gap BUN Creatinine Est Cr Clr Drug Dosing Est GFR ( Amer) Est GFR (Non-Af Amer) BUN/Creatinine Ratio Glucose POC Glucose POC Glucose (other) Lactate Calcium Ionized Calcium 1.08 L Magnesium Specimen Hemolysis Blood Type Antibody Screen Medications Administered Current Inpatient Medications Albuterol (Ventolin 0.083% 2.5mg/3ml) 2.5 mg INH Q2H PRN PRN Reason: SOB/WHEEZE Stop: 11/23/18 04:24 Aspirin (Aspirin Chew) 81 mg PO [facility] Stop: 11/23/18 08:59 Last Admin: 10/25/18 07:47 Dose: 81 mg Documented by: Atorvastatin Calcium (Lipitor) 80 mg PO [facility] Stop: 11/23/18 08:59 Last Admin: 10/25/18 07:48 Dose: 80 mg Documented by: Dextrose (Dextrose 50%) 25 - 50 ml IV UD PRN; Protocol PRN Reason: Hypoglycemia Protocol Stop: 11/23/18 05:59 Last Admin: 10/24/18 13:27 Dose: 25 ml Documented by: Enoxaparin Sodium (Lovenox) 40 mg SQ [facility] Stop: 11/23/18 08:59 Last Admin: 10/25/18 07:49 Dose: 40 mg Documented by: Glucagon (Glucagen) 1 mg IM UD PRN; Protocol PRN Reason: Hypoglycemia Protocol Stop: 11/23/18 05:59 Glucose (Glucose 40%) 15 - 30 gm PO UD PRN; Protocol PRN Reason: Hypoglycemia Protocol Stop: 11/23/18 05:59 Glucose (Dex4 Glucose) 4 - 8 tabs PO UD PRN; Protocol PRN Reason: Hypoglycemia Protocol Stop: 11/23/18 05:59 Fentanyl Citrate (Fentanyl Drip) 1,250 mcg in 250 mls @ 30 mls/hr IV .[id number] [facility]; Protocol Stop: 11/07/18 00:14 Last Admin: 10/25/18 07:46 Dose: 150 mcg/hr, 30 mls/hr Documented by: Piperacillin Sod/Tazobactam (Sod 3.375 gm/ Dextrose) 115 mls @ 28.75 mls/hr IV Q8H [facility]; Protocol Stop: 10/31/18 05:59 Last Admin: 10/25/18 14:18 Dose: 28.8 mls/hr Documented by: Midazolam HCl (Versed) 125 mg in 250 mls @ 20 mls/hr IV .[id number] [facility]; Protocol Stop: 11/23/18 00:14 Last Admin: 10/25/18 11:58 Dose: 10 mg/hr, 20 mls/hr Documented by: Cisatracurium Besylate 40 mg/ (Sodium Chloride) 100 mls @ 0 mls/hr IV .Q0M [facility]; Protocol Stop: 11/23/18 01:29 Last Titration: 10/24/18 09:30 Dose: 0 mcg/kg/min, 0 mls/hr Documented by: Dopamine HCl/Dextrose (Dopamine / D5w) 400 mg in 250 mls @ 0 mls/hr IV .Q0M [facility]; Protocol Stop: 11/23/18 03:44 Last Titration: 10/24/18 11:10 Dose: 0 mcg/kg/min, 0 mls/hr Documented by: Norepinephrine Bitartrate 8 mg (/ Dextrose) 508 mls @ 14.29 mls/hr IV .Q24H [facility]; Protocol Stop: 11/23/18 14:44 Last Titration: 10/25/18 07:16 Dose: 0.05 mcg/kg/min, 14.3 mls/hr Documented by: Famotidine 20 mg/ Syringe 5 mls @ 2.5 mls/min IV BID [facility] Stop: 11/24/18 08:59 Last Admin: 10/25/18 07:47 Dose: 2.5 mls/min Documented by: Miscellaneous ([facility] Protocol For Hyperglycemia) 1 ea N/A PRN PRN; Protocol PRN Reason: Hyperglycemia Protocol Stop: 10/25/18 23:11 Miscellaneous (Carbohydrates For Hypoglycemia) 15 - 30 gm PO PRN PRN PRN Reason: Hypoglycemia Treatment Stop: 11/23/18 05:59 Miscellaneous Information (Consult) 1 ea N/A UD PRN PRN Reason: Consult Stop: 11/23/18 00:09 Ticagrelor (Brilinta) 90 mg PO BID [facility] Stop: 11/23/18 10:29 Last Admin: 10/25/18 07:48 Dose: 90 mg Documented by:
[2018-10-25] MEDS: NOREPINEPHRINE BIT INJ 8 MG in DEXTROSE 5% 500 ML IV SCH (16:14)
[2018-10-25 16:33] LABS: iSTAT Arterial Blood Gas HCO3 22 meg/L (19-24); iSTAT Arterial Blood Gas pCO2 45 mmHg (35-46); iSTAT Carbon Dioxide 23 mEq/l (24-31); iSTAT Site Art Line
[2018-10-25] MEDS ORDERED: MEPERIDINE HCL 25 MG/ML CARP IV PRN (18:01)
[2018-10-25] MEDS: DEXTROSE 50% 50 ML SYRINGE IV PRN ×2 (19:46→23:58)
[2018-10-25 20:38] LABS: Partial Thromboplastin Ratio 1.3; Prothrombin Time 10.5 Seconds (9.0-12.0)
[2018-10-25 20:42] LABS: BUN Creatinine Ratio 16.9 (10-20); Creatinine Clr Calc Pharmacy 64.9 ml/min; Est GFR (African American) 76.2; Est GFR (Non-African American) 65.7; Magnesium 1.9 mg/dl (1.8-2.4)
--- NOTE | 2018-10-25 21:16 | XRay Report ---
XR chest 1V portable CLINICAL HISTORY: 63 years-old Male presenting with Concern for pneumonia. TECHNIQUE: Portable upright AP view of the chest was obtained. COMPARISON: 10/24/2018. FINDINGS: Endotracheal tube terminates in the mid thoracic trachea over 6 cm from the ovidio. Nasogastric tube descends below the diaphragm. Atherosclerosis of aortic arch. Cardiac silhouette top normal in size. Left retrocardiac opacity suggested. No large effusion or pneumothorax. Osseous structures normal. IMPRESSION: 1. Appropriately positioned tubes. 2. Left lower lobe atelectasis suggested. Continued follow-up recommended. This may relate to mucous plugging. Electronically signed by: Natan Le M.D. 10/25/2018 9:15 PM
[2018-10-25] MEDS: PEPTAMEN 1.5 CAL 1,000 ML BAG PO SCH (21:25)
[2018-10-25] MEDS: METOPROLOL TARTRATE 25 MG TAB PO SCH (21:39)
[2018-10-26] MEDS: fentaNYL DRIP 1,250 MCG/250 ML BAG IV SCH (01:08)
[2018-10-26] MEDS: MIDAZOLAM HCL 125 MG/250 ML BAG IV SCH (01:09)
[2018-10-26 04:50] LABS: Basophils # (auto) 0.02 K/uL (0-0.2); Basophils % (auto) 0.1 %; Eosinophils # (auto) 0.05 K/uL (0-0.5); Eosinophils % (auto) 0.4 %; Hematocrit (blood only) 39.7 % (42-52); Hemoglobin 13.6 g/dL (14.0-18.0); Immature Granulocytes # (auto) 0.03 K/uL (0.00-0.02); Immature Granulocytes % (auto) 0.2 %; Lymphocytes # (auto) 1.45 K/uL (1.2-3.4); Lymphocytes % (auto) 10.4 %; Mean Corpuscular Hgb Conc 34.3 g/dL (32-36); Mean Corpuscular Volume 93.6 fL (80-100); Mean Platelet Volume 9.9 fL (7.4-10.4); Monocytes # (auto) 0.93 K/uL (0.11-0.59); Monocytes % (auto) 6.7 %; Neutrophils % (auto) 82.2 %; Platelet Count 155 K/uL (130-400); RDW Coefficient of Variation 14.1 % (11.5-14.5); RDW Standard Deviation 48.5 fL (36.4-46.3); Red Blood Count 4.24 M/uL (4.7-6.1); White Blood Count 13.88 K/uL (4.8-10.8)
[2018-10-26 04:55] LABS: HCO3 ABG 22 mmol/L (19-24); Oxygen Saturation ABG 95.6 % (90-95); PCO2 ABG 44 mmHg (35-46); PO2 ABG 82 mm/Hg (80-95); pH ABG 7.33 (7.35-7.45)
[2018-10-26 04:56] LABS: Allen Test Pos (Pos)
[2018-10-26 04:59] LABS: Prothrombin Time 10.7 Seconds (9.0-12.0)
[2018-10-26 05:14] LABS: Albumin Level 2.7 gm/dl (3.4-5.0); BUN Creatinine Ratio 18.9 (10-20); Calcium 7.9 mg/dl (8.5-10.1); Creatinine Clr Calc Pharmacy 72.3 ml/min; Est GFR (African American) 86.8; Est GFR (Non-African American) 74.8; Potassium 4.2 mmol/L (3.5-5.1)
[2018-10-26 05:17] LABS: Albumin Globulin Ratio 0.8 (0.9-2); Bilirubin,Total 0.5 mg/dl (0.2-1); Globulin 3.3 gm/dl (2.5-4.0)
[2018-10-26] MEDS: PIPERACILLIN/TAZOBACTAM 3.375 GM in DEXTROSE 5% 100 ML IV SCH (05:54)
--- NOTE | 2018-10-26 06:58 | XRay Report ---
XR chest 1V portable HISTORY: 63 years-old Male Cardiac Arrest acute cardiac arrest COMPARISON: Chest radiograph 10/25/2018 TECHNIQUE: Portable AP view of the chest FINDINGS: Endotracheal tube overlies the midline, 6.6 cm superior to the ovidio. Enteric tube courses below the diaphragm outside the [id number]. Cardiomediastinal and hilar silhouettes appear unchanged. Calci fication the thoracic aortic arch. No pneumothorax, large pleural effusion or overt pulmonary edema. Slightly progressed subsegmental bibasilar opacities. Degenerative changes of the shoulders and spine . Calcified granuloma of the left upper lung. IMPRESSION: 1. Stable positioning of endotracheal and enteric tubes. 2. No pneumothorax. 3. Slightly progressed subsegmental bibasilar opacities suggestive of probable atelectasis. The above report was generated using voice recognition software. It may contain grammatical, syntax o r spelling errors. Electronically signed by: Freddy Donnelly M.D. 10/26/2018 6:57 AM
[2018-10-26] MEDS: ASPIRIN 81 MG CHEW PO SCH (07:43)
[2018-10-26] MEDS: METOPROLOL TARTRATE 25 MG TAB PO SCH ×2 (07:43→19:25)
[2018-10-26] MEDS: ATORVASTATIN 40 MG TAB PO SCH (07:43)
[2018-10-26] MEDS: TICAGRELOR 90 MG TAB PO SCH ×2 (07:43→19:26)
[2018-10-26] MEDS: ENOXAPARIN INJ 40 MG/0.4 ML SYR SQ SCH (07:44)
[2018-10-26] MEDS: FAMOTIDINE 20 MG in SYRINGE 3 ML IV SCH ×2 (07:45→19:26)
--- NOTE | 2018-10-26 09:28 | Procedure Note ---
EEG Procedure Note Date of Service October 26, 2018 Start / End Times Start Time: 702 End Time: [address] Marcelo History Patient is a 63-year-old post cardiac arrest, in the Re warming phase is code acrtic. Home Medication List Home Medications Medication Instructions Recorded Confirmed Type Ibuprofen Tab (ADVIL) 400 - 600 mg PO Q6H PRN #0 tab 06/28/13 History Inpatient Medication List Aspirin ([facility]in Chew) [facility] [place] [facility] [place]: 11/23/18 08:59 Last Admin: 10/26/18 07:43 Dose: 81 mg Documented by: [id number] Admin: 10/25/18 07:47 Dose: 81 mg Documented by: [id number] Admin: 10/24/18 09:23 Dose: 81 mg Documented by: [id number] Atorvastatin Calcium (Lipitor) [address] [facility] Stop: 11/23/18 08:59 Last Admin: 10/26/18 07:43 Dose: 80 mg Documented by: [id number] Admin: 10/25/18 07:48 Dose: 80 mg Documented by: [id number] Admin: 10/24/18 09:24 Dose: 80 mg Documented by: [id number] Dextrose (Dextrose 50%) 25 - 50 ml IV UD PRN; Protocol PRN Reason: Hypoglycemia Protocol Stop: 11/23/18 05:59 Last Admin: 10/25/18 23:58 Dose: 25 ml Documented by: [id number] Admin: 10/25/18 19:46 Dose: 25 ml Documented by: [id number] Admin: 10/24/18 13:27 Dose: 25 ml Documented by: [id number] Enoxaparin Sodium (Lovenox) 40 mg [facility] [place]: 11/23/18 08:59 Last Admin: 10/26/18 07:44 Dose: 40 mg Documented by: [id number] Admin: 10/25/18 07:49 Dose: 40 mg Documented by: [id number] Admin: 10/24/18 09:40 Dose: 40 mg Documented by: [id number] Enteral Nutritional Formula (Peptamen 1.5) 1,000 ml PO UD [facility]; Protocol Stop: 11/24/18 20:59 Last Admin: 10/25/18 21:25 Dose: 1,000 ml Documented by: [id number] Fentanyl Citrate (Fentanyl Drip) 1,250 mcg in 250 mls @ 0 mls/hr IV .Q0M [facility]; Protocol Stop: 11/07/18 00:14 Last Titration: 10/26/18 08:03 Dose: 0 mcg/hr, 0 mls/hr Documented by: [id number] Titration: 10/26/18 07:42 Dose: 50 mcg/hr, 10 mls/hr Documented by: [id number] Titration: 10/26/18 06:00 Dose: 100 mcg/hr, 20 mls/hr Documented by: [id number] Titration: 10/26/18 05:00 Dose: 125 mcg/hr, 25 mls/hr Documented by: [id number] Admin: 10/26/18 01:08 Dose: 150 mcg/hr, 30 mls/hr Documented by: [id number] Cosigned by: [id number] Titration: 10/26/18 00:34 Dose: 150 mcg/hr, 30 mls/hr Documented by: [id number] Cosigned by: [id number] Admin: 10/25/18 16:14 Dose: 150 mcg/hr, 30 mls/hr Documented by: [id number] Cosigned by: [id number] Titration: 10/25/18 16:06 Dose: 150 mcg/hr, 30 mls/hr Documented by: [id number] Cosigned by: [id number] Admin: 10/25/18 07:46 Dose: 150 mcg/hr, 30 mls/hr Documented by: [id number] Cosigned by: [id number] Titration: 10/25/18 07:39 Dose: 150 mcg/hr, 30 mls/hr Documented by: [id number] Cosigned by: [id number] Titration: 10/25/18 07:16 Dose: 150 mcg/hr, 30 mls/hr Documented by: [id number] Cosigned by: [id number] Titration: 10/25/18 00:30 Dose: 150 mcg/hr, 30 mls/hr Documented by: [id number] Admin: 10/24/18 23:04 Dose: 125 mcg/hr, 25 mls/hr Documented by: [id number] Cosigned by: [id number] Titration: 10/24/18 22:27 Dose: 125 mcg/hr, 25 mls/hr Documented by: [id number] Cosigned by: [id number] Titration: 10/24/18 21:00 Dose: 125 mcg/hr, 25 mls/hr Documented by: [id number] Titration: 10/24/18 19:13 Dose: 100 mcg/hr, 20 mls/hr Documented by: [id number] Cosigned by: [id number] Titration: 10/24/18 16:43 Dose: 100 mcg/hr, 20 mls/hr Documented by: [id number] Titration: 10/24/18 16:00 Dose: 125 mcg/hr, 25 mls/hr Documented by: [id number] Admin: 10/24/18 13:29 Dose: Not Given Documented by: [id number] Admin: 10/24/18 12:19 Dose: 150 mcg/hr, 30 mls/hr Documented by: [id number] Cosigned by: [id number] Titration: 10/24/18 12:19 Dose: 125 mcg/hr, 25 mls/hr Documented by: [id number] Cosigned by: [id number] Titration: 10/24/18 11:30 Dose: 125 mcg/hr, 25 mls/hr Documented by: [id number] Cosigned by: [id number] Titration: 10/24/18 06:59 Dose: 100 mcg/hr, 20 mls/hr Documented by: [id number] Cosigned by: [id number] Titration: 10/24/18 04:00 Dose: 75 mcg/hr, 15 mls/hr Documented by: [id number] Titration: 10/24/18 01:42 Dose: 100 mcg/hr, 20 mls/hr Documented by: [id number] Admin: 10/24/18 00:30 Dose: 50 mcg/hr, 10 mls/hr Documented by: [id number] Cosigned by: [id number] Piperacillin Sod/Tazobactam (Sod 3.375 gm/ Dextrose) 115 mls @ 28.75 mls/hr IV Q8H [facility]; Protocol Stop: 10/31/18 05:59 Last Admin: 10/26/18 05:54 Dose: 28.8 mls/hr Documented by: [id number] Infusion: 10/26/18 01:30 Dose: 0 mls/hr Documented by: [id number] Admin: 10/25/18 21:29 Dose: 28.8 mls/hr Documented by: [id number] Infusion: 10/25/18 18:23 Dose: 0 mls/hr Documented by: [id number] Admin: 10/25/18 14:18 Dose: 28.8 mls/hr Documented by: [id number] Infusion: 10/25/18 09:30 Dose: 0 mls/hr Documented by: [id number] Admin: 10/25/18 05:27 Dose: 28.8 mls/hr Documented by: [id number] Infusion: 10/25/18 01:34 Dose: 0 mls/hr Documented by: [id number] Admin: 10/24/18 21:34 Dose: 28.8 mls/hr Documented by: [id number] Infusion: 10/24/18 17:11 Dose: 0 mls/hr Documented by: [id number] Admin: 10/24/18 13:31 Dose: 28.8 mls/hr Documented by: [id number] Infusion: 10/24/18 09:40 Dose: 0 mls/hr Documented by: [id number] Admin: 10/24/18 06:10 Dose: 28.8 mls/hr Documented by: [id number] Midazolam HCl (Versed) 125 mg in 250 mls @ 0 mls/hr IV .Q0M [facility]; Protocol Stop: 11/23/18 00:14 Last Titration: 10/26/18 08:03 Dose: 0 mg/hr, 0 mls/hr Documented by: [id number] Titration: 10/26/18 06:00 Dose: 6 mg/hr, 12 mls/hr Documented by: [id number] Titration: 10/26/18 05:00 Dose: 8 mg/hr, 16 mls/hr Documented by: [id number] Admin: 10/26/18 01:09 Dose: 10 mg/hr, 20 mls/hr Documented by: [id number] Cosigned by: [id number] Titration: 10/26/18 00:28 Dose: 10 mg/hr, 20 mls/hr Documented by: [id number] Cosigned by: [id number] Admin: 10/25/18 11:58 Dose: 10 mg/hr, 20 mls/hr Documented by: [id number] Cosigned by: [id number] Titration: 10/25/18 11:52 Dose: 10 mg/hr, 20 mls/hr Documented by: [id number] Cosigned by: [id number] Titration: 10/25/18 07:16 Dose: 10 mg/hr, 20 mls/hr Documented by: [id number] Cosigned by: [id number] Titration: 10/25/18 00:30 Dose: 10 mg/hr, 20 mls/hr Documented by: [id number] Admin: 10/24/18 23:04 Dose: 8 mg/hr, 16 mls/hr Documented by: [id number] Cosigned by: [id number] Titration: 10/24/18 23:04 Dose: 8 mg/hr, 16 mls/hr Documented by: [id number] Cosigned by: [id number] Titration: 10/24/18 21:00 Dose: 8 mg/hr, 16 mls/hr Documented by: [id number] Titration: 10/24/18 19:13 Dose: 6 mg/hr, 12 mls/hr Documented by: [id number] Cosigned by: [id number] Titration: 10/24/18 12:35 Dose: 6 mg/hr, 12 mls/hr Documented by: [id number] Titration: 10/24/18 11:15 Dose: 5 mg/hr, 10 mls/hr Documented by: [id number] Titration: 10/24/18 06:59 Dose: 4 mg/hr, 8 mls/hr Documented by: [id number] Cosigned by: [id number] Titration: 10/24/18 04:00 Dose: 3 mg/hr, 6 mls/hr Documented by: [id number] Titration: 10/24/18 01:42 Dose: 4 mg/hr, 8 mls/hr Documented by: [id number] Titration: 10/24/18 00:42 Dose: 2 mg/hr, 4 mls/hr Documented by: [id number] Admin: 10/24/18 00:30 Dose: 1 mg/hr, 2 mls/hr Documented by: [id number] Cosigned by: [id number] Cisatracurium Besylate 40 mg/ (Sodium Chloride) 100 mls @ 0 mls/hr IV .Q0M [facility]; Protocol Stop: 11/23/18 01:29 Last Titration: 10/24/18 09:30 Dose: 0 mcg/kg/min, 0 mls/hr Documented by: [id number] Titration: 10/24/18 06:59 Dose: 1 mcg/kg/min, 12.5 mls/hr Documented by: [id number] Cosigned by: [id number] Admin: 10/24/18 05:10 Dose: 2 mcg/kg/min, 25.1 mls/hr Documented by: [id number] Cosigned by: [id number] Titration: 10/24/18 04:54 Dose: 2.5 mcg/kg/min, 31.4 mls/hr Documented by: [id number] Cosigned by: [id number] Titration: 10/24/18 04:00 Dose: 2.5 mcg/kg/min, 31.4 mls/hr Documented by: [id number] Titration: 10/24/18 02:54 Dose: 3 mcg/kg/min, 37.6 mls/hr Documented by: [id number] Titration: 10/24/18 02:22 Dose: 2.5 mcg/kg/min, 31.4 mls/hr Documented by: [id number] Titration: 10/24/18 02:00 Dose: 2 mcg/kg/min, 25.1 mls/hr Documented by: [id number] Admin: 10/24/18 01:37 Dose: 1 mcg/kg/min, 12.5 mls/hr Documented by: [id number] Cosigned by: [id number] Dopamine HCl/Dextrose (Dopamine / D5w) 400 mg in 250 mls @ 0 mls/hr IV .Q0M [facility]; Protocol Stop: 11/23/18 03:44 Last Titration: 10/24/18 11:10 Dose: 0 mcg/kg/min, 0 mls/hr Documented by: [id number] Titration: 10/24/18 10:45 Dose: 2.5 mcg/kg/min, 7.8 mls/hr Documented by: [id number] Titration: 10/24/18 10:09 Dose: 5 mcg/kg/min, 15.7 mls/hr Documented by: [id number] Titration: 10/24/18 09:25 Dose: 7.5 mcg/kg/min, 23.5 mls/hr Documented by: [id number] Titration: 10/24/18 08:10 Dose: 10 mcg/kg/min, 31.4 mls/hr Documented by: [id number] Titration: 10/24/18 06:59 Dose: 7.5 mcg/kg/min, 23.5 mls/hr Documented by: [id number] Cosigned by: [id number] Titration: 10/24/18 05:11 Dose: 7.5 mcg/kg/min, 23.5 mls/hr Documented by: [id number] Admin: 10/24/18 03:51 Dose: 5 mcg/kg/min, 15.7 mls/hr Documented by: [id number] Cosigned by: [id number] Norepinephrine Bitartrate 8 mg (/ Dextrose) 508 mls @ 14.29 mls/hr IV .Q24H [facility]; Protocol Stop: 11/23/18 14:44 Last Admin: 10/25/18 16:14 Dose: 0.05 mcg/kg/min, 14.3 mls/hr Documented by: [id number] Cosigned by: [id number] Titration: 10/25/18 16:14 Dose: 0.05 mcg/kg/min, 14.3 mls/hr Documented by: [id number] Cosigned by: [id number] Titration: 10/25/18 07:16 Dose: 0.05 mcg/kg/min, 14.3 mls/hr Documented by: [id number] Cosigned by: [id number] Titration: 10/25/18 01:00 Dose: 0.05 mcg/kg/min, 14.3 mls/hr Documented by: [id number] Titration: 10/24/18 19:13 Dose: 0.07 mcg/kg/min, 20 mls/hr Documented by: [id number] Cosigned by: [id number] Titration: 10/24/18 17:11 Dose: 0.07 mcg/kg/min, 20 mls/hr Documented by: [id number] Admin: 10/24/18 15:06 Dose: 0.05 mcg/kg/min, 14.3 mls/hr Documented by: [id number] Cosigned by: [id number] Famotidine 20 mg/ Syringe 5 mls @ 2.5 mls/min IV BID [facility] Stop: 11/24/18 08:59 Last Admin: 10/26/18 07:45 Dose: 2.5 mls/min Documented by: [id number] Admin: 10/25/18 21:29 Dose: 2.5 mls/min Documented by: [id number] Admin: 10/25/18 07:47 Dose: 2.5 mls/min Documented by: [id number] Meperidine HCl (Demerol) 25 mg IV Q6H PRN PRN Reason: SHIVERING Stop: 11/08/18 18:00 Last Admin: 10/25/18 18:13 Dose: 25 mg Documented by: [id number] Metoprolol Tartrate (Lopressor) 25 mg PO BID [facility] Stop: 11/24/18 20:59 Last Admin: 10/26/18 07:43 Dose: 25 mg Documented by: [id number] Admin: 10/25/18 21:39 Dose: 25 mg Documented by: [id number] Ticagrelor (Brilinta) 90 mg PO BID [facility] Stop: 11/23/18 10:29 Last Admin: 10/26/18 07:43 Dose: 90 mg Documented by: [id number] Admin: 10/25/18 21:23 Dose: 90 mg Documented by: [id number] Admin: 10/25/18 07:48 Dose: 90 mg Documented by: [id number] Admin: 10/24/18 21:35 Dose: 90 mg Documented by: [id number] Admin: 10/24/18 09:31 Dose: 90 mg Documented by: [id number] Discontinued Medications Aspirin (Aspirin) 300 mg IA ONE ONE Stop: 10/23/18 21:19 Last Admin: 10/23/18 21:30 Dose: 300 mg Documented by: [id number] Dopamine HCl/Dextrose (Dopamine / D5w) Confirm Administered Dose 400 mg IV .STK- MED ONE Stop: 10/24/18 03:45 Last Admin: 10/24/18 03:52 Dose: Not Given Documented by: [id number] Fentanyl Citrate (Fentanyl Citrate) Confirm Administered Dose 100 mcg .ROUTE .STK-MED ONE Stop: 10/23/18 21:54 Last Admin: 10/24/18 00:32 Dose: Not Given Documented by: [id number] Fentanyl Citrate (Fentanyl Citrate) Confirm Administered Dose 100 mcg .ROUTE .STK-MED ONE Stop: 10/23/18 22:49 Last Admin: 10/24/18 00:33 Dose: Not Given Documented by: [id number] Fentanyl Citrate (Fentanyl Citrate) Confirm Administered Dose 100 mcg .ROUTE .STK-MED ONE Stop: 10/23/18 23:11 Last Admin: 10/24/18 00:33 Dose: Not Given Documented by: [id number] Heparin Sodium (Porcine) (Heparin Iv Bolus ([place] Use Only)) Confirm Administered Dose 10,000 units .ROUTE .STK-MED ONE Stop: 10/23/18 21:54 Last Admin: 10/24/18 00:32 Dose: Not Given Documented by: [id number] Heparin Sodium (Porcine) (Heparin Iv Bolus ([place] Use Only)) Confirm Administered Dose 10,000 units .ROUTE .STK-MED ONE Stop: 10/23/18 23:27 Last Admin: 10/24/18 00:33 Dose: Not Given Documented by: [id number] Amiodarone HCl/Dextrose (Nexterone / D5w) 360 mg in 200 mls @ 33.333 mls/hr IV .Q6H [facility] Stop: 10/24/18 03:29 Last Infusion: 10/24/18 07:31 Dose: 0 mg/min, 0 mls/hr Documented by: [id number] Cosigned by: [id number] Admin: 10/23/18 21:35 Dose: 1 mg/min, 33.3 mls/hr Documented by: [id number] Cosigned by: [id number] Sodium Chloride (Nss) 500 mls @ 999 mls/hr IV .Q31M [facility] Stop: 10/23/18 22:00 Last Infusion: 10/23/18 23:00 Dose: 0 mls/hr Documented by: [id number] Admin: 10/23/18 21:45 Dose: 999 mls/hr Documented by: [id number] Amiodarone HCl/Dextrose (Nexterone / D5w) 360 mg in 200 mls @ 33.333 mls/hr IV .Q6H [facility] Stop: 11/22/18 02:59 Last Infusion: 10/24/18 10:10 Dose: 0 mg/min, 0 mls/hr Documented by: [id number] Cosigned by: [id number] Admin: 10/24/18 07:24 Dose: Not Given Documented by: [id number] Admin: 10/24/18 07:24 Dose: Not Given Documented by: [id number] Admin: 10/24/18 07:24 Dose: Not Given Documented by: [id number] Admin: 10/24/18 07:23 Dose: Not Given Documented by: [id number] Admin: 10/24/18 07:23 Dose: Not Given Documented by: [id number] Infusion: 10/24/18 06:59 Dose: 0 mg/min, 0 mls/hr Documented by: [id number] Cosigned by: [id number] Infusion: 10/24/18 05:09 Dose: 0 mg/min, 0 mls/hr Documented by: [id number] Cosigned by: [id number] Admin: 10/24/18 03:10 Dose: 1 mg/min, 33.3 mls/hr Documented by: [id number] Cosigned by: [id number] Sodium Chloride (Nss 1000ml) 1,000 mls @ 100 mls/hr IV .Q10H [facility] Stop: 10/24/18 09:29 Last Admin: 10/24/18 02:55 Dose: Not Given Documented by: [id number] Vancomycin HCl 2,000 mg/ (Sodium Chloride) 540 mls @ 200 mls/hr IV ONE ONE; Protocol Stop: 10/24/18 03:11 Last Infusion: 10/24/18 04:20 Dose: 0 mls/hr Documented by: [id number] Admin: 10/24/18 01:36 Dose: 200 mls/hr Documented by: [id number] Piperacillin Sod/Tazobactam (Sod 3.375 gm/ Dextrose) 115 mls @ 230 mls/hr IV NOW ONE; Protocol Stop: 10/24/18 00:59 Last Infusion: 10/24/18 02:05 Dose: 0 mls/hr Documented by: [id number] Admin: 10/24/18 01:35 Dose: 230 mls/hr Documented by: [id number] Pantoprazole Sodium 40 mg/ (Syringe) 10 mls @ 5 mls/min IV DAILY@1100 [facility] Stop: 11/23/18 10:59 Last Admin: 10/24/18 09:31 Dose: 5 mls/min Documented by: [id number] Insulin Human Regular 250 (units/ Sodium Chloride) 250 mls @ 0 mls/hr IV .Q0M [facility]; Protocol Stop: 11/23/18 05:44 Last Titration: 10/24/18 14:00 Dose: 0 units/hr, 0 mls/hr Documented by: [id number] Cosigned by: [id number] Titration: 10/24/18 12:00 Dose: 0 units/hr, 0 mls/hr Documented by: [id number] Cosigned by: [id number] Titration: 10/24/18 11:00 Dose: 2 units/hr, 2 mls/hr Documented by: [id number] Cosigned by: [id number] Titration: 10/24/18 10:00 Dose: 2.5 units/hr, 2.5 mls/hr Documented by: [id number] Cosigned by: [id number] Titration: 10/24/18 09:30 Dose: 2.5 units/hr, 2.5 mls/hr Documented by: [id number] Cosigned by: [id number] Titration: 10/24/18 06:59 Dose: 2.1 units/hr, 2.1 mls/hr Documented by: [id number] Cosigned by: [id number] Admin: 10/24/18 06:09 Dose: 2.1 units/hr, 2.1 mls/hr Documented by: [id number] Cosigned by: [id number] Insulin Aspart (Novolog Flexpen) 0 units [facility] Stop: 11/23/18 08:59 Last Admin: 10/24/18 13:29 Dose: Not Given Documented by: [id number] Cosigned by: [id number] Admin: 10/24/18 10:10 Dose: Not Given Documented by: [id number] Cosigned by: [id number] Admin: 10/24/18 09:24 Dose: Not Given Documented by: [id number] Cosigned by: [id number] Insulin Human Regular (Novolin R Bolus From Bag) 2 units IV ONE ONE Stop: 10/24/18 06:01 Last Admin: 10/24/18 06:10 Dose: 2 units Documented by: [id number] Cosigned by: [id number] Meperidine HCl (Demerol) Confirm Administered Dose 25 mg .ROUTE .STK-MED ONE Stop: 10/24/18 12:17 Last Admin: 10/24/18 12:32 Dose: 25 mg Documented by: [id number] Midazolam HCl (Versed) Confirm Administered Dose 2 mg .ROUTE .STK-MED ONE Stop: 10/23/18 21:54 Last Admin: 10/24/18 00:32 Dose: Not Given Documented by: [id number] Midazolam HCl (Versed) Confirm Administered Dose 2 mg .ROUTE .STK-MED ONE Stop: 10/23/18 22:03 Last Admin: 10/24/18 00:32 Dose: Not Given Documented by: [id number] Midazolam HCl (Versed) Confirm Administered Dose 2 mg .ROUTE .STK-MED ONE Stop: 10/23/18 22:49 Last Admin: 10/24/18 00:33 Dose: Not Given Documented by: [id number] Midazolam HCl (Versed) Confirm Administered Dose 2 mg .ROUTE .STK-MED ONE Stop: 10/23/18 23:11 Last Admin: 10/24/18 00:33 Dose: Not Given Documented by: [id number] Nicardipine HCl (Cardene) Confirm Administered Dose 25 mg .ROUTE .STK-MED ONE Stop: 10/23/18 23:27 Last Admin: 10/24/18 00:33 Dose: Not Given Documented by: [id number] Norepinephrine Bitartrate (Levophed ([place] Use Only)) Confirm Administered Dose 8 mg .ROUTE .STK-MED ONE Stop: 10/23/18 22:02 Last Admin: 10/24/18 00:32 Dose: Not Given Documented by: [id number] Propofol (Diprivan) Confirm Administered Dose 1,000 mg IV .STK-MED ONE Stop: 10/24/18 00:06 Last Admin: 10/24/18 03:11 Dose: Not Given Documented by: [id number] Ticagrelor (Brilinta) 180 mg PO ONE ONE Stop: 10/23/18 23:26 Last Admin: 10/24/18 02:29 Dose: 180 mg Documented by: [id number] Ticagrelor (Brilinta) Confirm Administered Dose 180 mg PO .STK-MED ONE Stop: 10/24/18 02:31 Last Admin: 10/24/18 03:11 Dose: Not Given Documented by: [id number] Description This is a 21 electrode EEG with a single channel dedicated to limited EKG. The electrodes were placed in accordance with the International 10-20 system. Interpretation The predominant background activity consists of an irregular 5-6 Hz activity, of up to 30 mV in amplitude,seen symmetrically distributed over the posterior head regions bilaterally, spreading anteriorly into all head regions.. This activity had no attenuation with alerting procedures. Photic stimulation was not performed. Hyperventilation was not performed in this bedside ICU EEG. A moderate amount of muscle artifact activity contaminated the recording, and during interpretation from time to time diffusely in various head regions but not to any significant degree overall. Throughout the waking portion of the recording, no focal abnormalities or potentially epileptogenic discharges were seen. In summary, this EEG was abnormal showing relatively low amplitude moderately slow activity diffusely in all head regions. There were no potentially epileptogenic discharges or focal abnormalities seen. Clinical Correlation The abscence of potentially epileptogenic activity does not exclude a seizure disorder, since interictally, EEGs can be normal. Clinical correlation is required. Background activity is moderately slowed, in general, consistent with a moderate encephalopathy, which could be due to a wide variety of causes, including hypoxic.
--- NOTE | 2018-10-26 11:31 | Critical Care Progress Note ---
Date of Service October 26, 2018 Assessment & Plan (1) Cardiac arrest: Reason Critically Ill: 63-year-old male status post cardiac arrest with return of spontaneous circulation PLAN: Neuro: Therapeutic hypothermia protocol: Completed 24 hours and rewarming phase -Intermittently following complex commands Resp: Acute respiratory failure secondary to cardiac arrest -weaning ventilator -Transition to SIMV Tobacco smoker Possible aspiration pneumonitis -Anticipate extubation next 24 hours CV: Cardiac arrest Status post cardiac stenting Coronary artery disease Hyperlipidemia -Brilinta, metoprolol Echo with preserved ejection fraction Off vasoactive's greater than 24 hours Fluids/Renal: Increasing tube feeding -Goal 60 mL continuous ID: Discontinuing Zosyn today Heme: Leukocytosis On ticagrelor and aspirin No evidence of bleeding, hemoglobin stable DVT prophylaxis: Lovenox Endocrine: ICU hyperglycemia protocol Blood sugars within normal limits Vascular access: Arterial line, therapeutic hypothermia catheter Code Status: Full code Holding MRI today, patient continuing to improve, I feel it more prudent to hold sedation then obtain neuroimaging at this time. I have personally spent 40 minutes of critical care time in the direct management of this patient. This is a life/limb threatening event. This includes time spent evaluating patient, direct bedside care, chart review, placing orders, interpretation of diagnostic studies, discussion with consultants, patient, and/or family members regarding treatment decisions, as well as other required patient management activities. This time is exclusive of all separately billable procedures, and teaching time and separate from and in addition to any other critical care service time. Subjective No overnight events Review of Systems Review of Systems: Unobtainable due to endotracheal tube Physical Exam Physical Exam: General: Glascow Coma Scale: Eyes: 4, Verbal 1T, Motor 6, Total 11 T Intermittently following commands Skin: Warm, dry, Head: Atraumatic Ears, nose, mouth and throat: airway obscured by endotracheal tube Cardiovascular: Normal peripheral perfusion Respiratory: no respiratory distress Gastrointestinal: Non distended Musculoskeletal: No deformity Results & Data Vital Signs (Past 12 Hours) Vital Signs Temp Temp Temp Pulse Pulse Resp BP 10/26/18 10:29 74 10 L 10/26/18 10:00 37.1 C 70 16 115/51 L 10/26/18 08:00 37.1 C 83 16 106/50 L 10/26/18 07:58 90 18 10/26/18 06:00 37.1 C 90 16 110/49 L 10/26/18 05:48 87 18 10/26/18 05:00 37.1 C 87 18 107/47 L 10/26/18 04:00 37.1 C 91 H 17 105/48 L 10/26/18 03:00 37.1 C 91 H 16 104/48 L 10/26/18 02:30 92 H 18 10/26/18 02:00 37.1 C 90 18 110/48 L 10/26/18 01:00 37.2 C 89 18 109/50 L 10/26/18 00:00 37 C 37 C 88 17 105/48 L 10/25/18 23:43 90 19 BP Pulse Ox 10/26/18 10:29 97 10/26/18 10:00 148/74 H 97 10/26/18 08:00 126/78 98 10/26/18 07:58 97 10/26/18 06:00 117/79 96 10/26/18 05:48 96 10/26/18 05:00 126/78 96 10/26/18 04:00 109/73 96 10/26/18 03:00 122/72 96 10/26/18 02:30 96 10/26/18 02:00 119/74 96 10/26/18 01:00 125/72 96 10/26/18 00:00 110/74 94 10/25/18 23:43 95 Laboratory Results 10/26/18 10/26/18 10/26/18 Range/Units 04:38 04:38 04:38 WBC 13.88 H (4.8-10.8) K/uL RBC 4.24 L (4.7-6.1) M/uL Hgb 13.6 L (14.0-18.0) g/dL Hct 39.7 L (42-52) % MCV 93.6 (80-100) fL MCH 32.1 (25-34) pg MCHC 34.3 (32-36) g/dL RDW Std Deviation 48.5 H (36.4-46.3) fL RDW Coeff of Ahn 14.1 (11.5-14.5) % Plt Count 155 (130-400) K/uL MPV 9.9 (7.4-10.4) fL Immature Gran % (Auto) 0.2 % Neut % (Auto) 82.2 % Lymph % (Auto) 10.4 % Dickson % (Auto) 6.7 % Eos % (Auto) 0.4 % Baso % (Auto) 0.1 % Immature Gran # (Auto) 0.03 H (0.00-0.02) K/uL Neut # (Auto) 11.40 H (1.4-6.5) K/uL Lymph # (Auto) 1.45 (1.2-3.4) K/uL Dickson # (Auto) 0.93 H (0.11-0.59) K/uL Eos # (Auto) 0.05 (0-0.5) K/uL Baso # (Auto) 0.02 (0-0.2) K/uL PT (9.0-12.0) Seconds INR (0.9-1.1) APTT (21.0-31.0) Seconds PTT Ratio Sample Site POC pH (7.35-7.45) POC pCO2 (35-46) mmHg POC pO2 (80-95) mmHg POC HCO3 (19-24) gino/L POC Total CO2 (24-31) mEq/l POC Base Excess (-9-1.8) gino/L ABG pH 7.33 L (7.35-7.45) ABG pCO2 44 (35-46) mmHg ABG pO2 82 (80-95) mm/Hg ABG HCO3 22 (19-24) mmol/L POC ABG O2 Sat (90-95) % ABG O2 Saturation 95.6 H (90-95) % ABG Base Excess -3.7 (-9-1.8) mEq/L [place] Test Pos Barometric Pressure 736.5 mm/Hg Oxygen Given FiO2 35% O2 Delivery Device POC O2 Rate Minute Ventilation Tidal Volume PEEP Sodium 139 (136-145) mmol/L Potassium 4.2 (3.5-5.1) mmol/L Chloride 110 H (98-107) mmol/L Carbon Dioxide 23 (21-32) mmol/L Anion Gap 6.0 (3-11) BUN 20 H (7-18) mg/dl Creatinine 1.06 (0.6-1.4) mg/dl Est Cr Clr Drug Dosing 72.3 ml/min Est GFR ( Amer) 86.8 Est GFR (Non-Af Amer) 74.8 BUN/Creatinine Ratio 18.9 (10-20) Glucose 76 (70-99) mg/dl POC Glucose (70-99) POC Glucose (other) (70-99) mg/dl Calcium 7.9 L (8.5-10.1) mg/dl Ionized Calcium (1.12-1.32) mmol/L Magnesium (1.8-2.4) mg/dl Total Bilirubin 0.5 (0.2-1) mg/dl AST 178 H (15-37) U/L ALT 136 H (12-78) U/L Alkaline Phosphatase 65 (45-117) U/L Total Protein 6.0 L (6.4-8.2) gm/dl Albumin 2.7 L (3.4-5.0) gm/dl Globulin 3.3 (2.5-4.0) gm/dl Albumin/Globulin Ratio 0.8 L (0.9-2) 10/26/18 10/26/18 10/26/18 Range/Units 04:38 04:08 00:16 WBC (4.8-10.8) K/uL RBC (4.7-6.1) M/uL Hgb (14.0-18.0) g/dL Hct (42-52) % MCV (80-100) fL MCH (25-34) pg MCHC (32-36) g/dL RDW Std Deviation (36.4-46.3) fL RDW Coeff of Anh (11.5-14.5) % Plt Count (130-400) K/uL MPV (7.4-10.4) fL Immature Gran % (Auto) % Neut % (Auto) % Lymph % (Auto) % Dickson % (Auto) % Eos % (Auto) % Baso % (Auto) % Immature Gran # (Auto) (0.00-0.02) K/uL Neut # (Auto) (1.4-6.5) K/uL Lymph # (Auto) (1.2-3.4) K/uL Dickson # (Auto) (0.11-0.59) K/uL Eos # (Auto) (0-0.5) K/uL Baso # (Auto) (0-0.2) K/uL PT 10.7 (9.0-12.0) Seconds INR 1.0 (0.9-1.1) APTT (21.0-31.0) Seconds PTT Ratio Sample Site POC pH (7.35-7.45) POC pCO2 (35-46) mmHg POC pO2 (80-95) mmHg POC HCO3 (19-24) gino/L POC Total CO2 (24-31) mEq/l POC Base Excess (-9-1.8) gino/L ABG pH (7.35-7.45) ABG pCO2 (35-46) mmHg ABG pO2 (80-95) mm/Hg ABG HCO3 (19-24) mmol/L POC ABG O2 Sat (90-95) % ABG O2 Saturation (90-95) % ABG Base Excess (-9-1.8) mEq/L [place] Test Barometric Pressure mm/Hg Oxygen Given O2 Delivery Device POC O2 Rate Minute Ventilation Tidal Volume PEEP Sodium (136-145) mmol/L Potassium (3.5-5.1) mmol/L Chloride (98-107) mmol/L Carbon Dioxide (21-32) mmol/L Anion Gap (3-11) BUN (7-18) mg/dl Creatinine (0.6-1.4) mg/dl Est Cr Clr Drug Dosing ml/min Est GFR ( Amer) Est GFR (Non-Af Amer) BUN/Creatinine Ratio (10-20) Glucose (70-99) mg/dl POC Glucose 82 120 H (70-99) POC Glucose (other) (70-99) mg/dl Calcium (8.5-10.1) mg/dl Ionized Calcium (1.12-1.32) mmol/L Magnesium (1.8-2.4) mg/dl Total Bilirubin (0.2-1) mg/dl AST (15-37) U/L ALT (12-78) U/L Alkaline Phosphatase (45-117) U/L Total Protein (6.4-8.2) gm/dl Albumin (3.4-5.0) gm/dl Globulin (2.5-4.0) gm/dl Albumin/Globulin Ratio (0.9-2) 10/26/18 10/25/18 10/25/18 Range/Units 00:14 23:55 23:53 WBC (4.8-10.8) K/uL RBC (4.7-6.1) M/uL Hgb (14.0-18.0) g/dL Hct (42-52) % MCV (80-100) fL MCH (25-34) pg MCHC (32-36) g/dL RDW Std Deviation (36.4-46.3) fL RDW Coeff of Anh (11.5-14.5) % Plt Count (130-400) K/uL MPV (7.4-10.4) fL Immature Gran % (Auto) % Neut % (Auto) % Lymph % (Auto) % Dickson % (Auto) % Eos % (Auto) % Baso % (Auto) % Immature Gran # (Auto) (0.00-0.02) K/uL Neut # (Auto) (1.4-6.5) K/uL Lymph # (Auto) (1.2-3.4) K/uL Dickson # (Auto) (0.11-0.59) K/uL Eos # (Auto) (0-0.5) K/uL Baso # (Auto) (0-0.2) K/uL PT (9.0-12.0) Seconds INR (0.9-1.1) APTT (21.0-31.0) Seconds PTT Ratio Sample Site POC pH (7.35-7.45) POC pCO2 (35-46) mmHg POC pO2 (80-95) mmHg POC HCO3 (19-24) gino/L POC Total CO2 (24-31) mEq/l POC Base Excess (-9-1.8) gino/L ABG pH (7.35-7.45) ABG pCO2 (35-46) mmHg ABG pO2 (80-95) mm/Hg ABG HCO3 (19-24) mmol/L POC ABG O2 Sat (90-95) % ABG O2 Saturation (90-95) % ABG Base Excess (-9-1.8) mEq/L [place] Test Barometric Pressure mm/Hg Oxygen Given O2 Delivery Device POC O2 Rate Minute Ventilation Tidal Volume PEEP Sodium (136-145) mmol/L Potassium (3.5-5.1) mmol/L Chloride (98-107) mmol/L Carbon Dioxide (21-32) mmol/L Anion Gap (3-11) BUN (7-18) mg/dl Creatinine (0.6-1.4) mg/dl Est Cr Clr Drug Dosing ml/min Est GFR ( Amer) Est GFR (Non-Af Amer) BUN/Creatinine Ratio (10-20) Glucose (70-99) mg/dl POC Glucose 57 L* 68 L* 38 L* (70-99) POC Glucose (other) (70-99) mg/dl Calcium (8.5-10.1) mg/dl Ionized Calcium (1.12-1.32) mmol/L Magnesium (1.8-2.4) mg/dl Total Bilirubin (0.2-1) mg/dl AST (15-37) U/L ALT (12-78) U/L Alkaline Phosphatase (45-117) U/L Total Protein (6.4-8.2) gm/dl Albumin (3.4-5.0) gm/dl Globulin (2.5-4.0) gm/dl Albumin/Globulin Ratio (0.9-2) 10/25/18 10/25/18 10/25/18 Range/Units 20:03 19:56 19:56 WBC (4.8-10.8) K/uL RBC (4.7-6.1) M/uL Hgb (14.0-18.0) g/dL Hct (42-52) % MCV (80-100) fL MCH (25-34) pg MCHC (32-36) g/dL RDW Std Deviation (36.4-46.3) fL RDW Coeff of Anh (11.5-14.5) % Plt Count (130-400) K/uL MPV (7.4-10.4) fL Immature Gran % (Auto) % Neut % (Auto) % Lymph % (Auto) % Dickson % (Auto) % Eos % (Auto) % Baso % (Auto) % Immature Gran # (Auto) (0.00-0.02) K/uL Neut # (Auto) (1.4-6.5) K/uL Lymph # (Auto) (1.2-3.4) K/uL Dickson # (Auto) (0.11-0.59) K/uL Eos # (Auto) (0-0.5) K/uL Baso # (Auto) (0-0.2) K/uL PT (9.0-12.0) Seconds INR (0.9-1.1) APTT (21.0-31.0) Seconds PTT Ratio Sample Site POC pH (7.35-7.45) POC pCO2 (35-46) mmHg POC pO2 (80-95) mmHg POC HCO3 (19-24) gino/L POC Total CO2 (24-31) mEq/l POC Base Excess (-9-1.8) gino/L ABG pH (7.35-7.45) ABG pCO2 (35-46) mmHg ABG pO2 (80-95) mm/Hg ABG HCO3 (19-24) mmol/L POC ABG O2 Sat (90-95) % ABG O2 Saturation (90-95) % ABG Base Excess (-9-1.8) mEq/L [place] Test Barometric Pressure mm/Hg Oxygen Given O2 Delivery Device POC O2 Rate Minute Ventilation Tidal Volume PEEP Sodium 139 (136-145) mmol/L Potassium 4.0 (3.5-5.1) mmol/L Chloride 107 (98-107) mmol/L Carbon Dioxide 25 (21-32) mmol/L Anion Gap 7.0 (3-11) BUN 20 H (7-18) mg/dl Creatinine 1.18 (0.6-1.4) mg/dl Est Cr Clr Drug Dosing 64.9 ml/min Est GFR ( Amer) 76.2 Est GFR (Non-Af Amer) 65.7 BUN/Creatinine Ratio 16.9 (10-20) Glucose 138 H (70-99) mg/dl POC Glucose 73 (70-99) POC Glucose (other) (70-99) mg/dl Calcium 8.0 L (8.5-10.1) mg/dl Ionized Calcium 1.11 L (1.12-1.32) mmol/L Magnesium 1.9 (1.8-2.4) mg/dl Total Bilirubin (0.2-1) mg/dl AST (15-37) U/L ALT (12-78) U/L Alkaline Phosphatase (45-117) U/L Total Protein (6.4-8.2) gm/dl Albumin (3.4-5.0) gm/dl Globulin (2.5-4.0) gm/dl Albumin/Globulin Ratio (0.9-2) 10/25/18 10/25/18 10/25/18 Range/Units 19:56 19:43 19:42 WBC (4.8-10.8) K/uL RBC (4.7-6.1) M/uL Hgb (14.0-18.0) g/dL Hct (42-52) % MCV (80-100) fL MCH (25-34) pg MCHC (32-36) g/dL RDW Std Deviation (36.4-46.3) fL RDW Coeff of Anh (11.5-14.5) % Plt Count (130-400) K/uL MPV (7.4-10.4) fL Immature Gran % (Auto) % Neut % (Auto) % Lymph % (Auto) % Dickson % (Auto) % Eos % (Auto) % Baso % (Auto) % Immature Gran # (Auto) (0.00-0.02) K/uL Neut # (Auto) (1.4-6.5) K/uL Lymph # (Auto) (1.2-3.4) K/uL Dickson # (Auto) (0.11-0.59) K/uL Eos # (Auto) (0-0.5) K/uL Baso # (Auto) (0-0.2) K/uL PT 10.5 (9.0-12.0) Seconds INR 1.0 (0.9-1.1) APTT 34.0 H (21.0-31.0) Seconds PTT Ratio 1.3 Sample Site POC pH (7.35-7.45) POC pCO2 (35-46) mmHg POC pO2 (80-95) mmHg POC HCO3 (19-24) gino/L POC Total CO2 (24-31) mEq/l POC Base Excess (-9-1.8) gino/L ABG pH (7.35-7.45) ABG pCO2 (35-46) mmHg ABG pO2 (80-95) mm/Hg ABG HCO3 (19-24) mmol/L POC ABG O2 Sat (90-95) % ABG O2 Saturation (90-95) % ABG Base Excess (-9-1.8) mEq/L [place] Test Barometric Pressure mm/Hg Oxygen Given O2 Delivery Device POC O2 Rate Minute Ventilation Tidal Volume PEEP Sodium (136-145) mmol/L Potassium (3.5-5.1) mmol/L Chloride (98-107) mmol/L Carbon Dioxide (21-32) mmol/L Anion Gap (3-11) BUN (7-18) mg/dl Creatinine (0.6-1.4) mg/dl Est Cr Clr Drug Dosing ml/min Est GFR ( Amer) Est GFR (Non-Af Amer) BUN/Creatinine Ratio (10-20) Glucose (70-99) mg/dl POC Glucose 60 L* 61 L* (70-99) POC Glucose (other) (70-99) mg/dl Calcium (8.5-10.1) mg/dl Ionized Calcium (1.12-1.32) mmol/L Magnesium (1.8-2.4) mg/dl Total Bilirubin (0.2-1) mg/dl AST (15-37) U/L ALT (12-78) U/L Alkaline Phosphatase (45-117) U/L Total Protein (6.4-8.2) gm/dl Albumin (3.4-5.0) gm/dl Globulin (2.5-4.0) gm/dl Albumin/Globulin Ratio (0.9-2) 10/25/18 10/25/18 10/25/18 Range/Units 16:08 16:02 13:53 WBC (4.8-10.8) K/uL RBC (4.7-6.1) M/uL Hgb (14.0-18.0) g/dL Hct (42-52) % MCV (80-100) fL MCH (25-34) pg MCHC (32-36) g/dL RDW Std Deviation (36.4-46.3) fL RDW Coeff of Anh (11.5-14.5) % Plt Count (130-400) K/uL MPV (7.4-10.4) fL Immature Gran % (Auto) % Neut % (Auto) % Lymph % (Auto) % Dickson % (Auto) % Eos % (Auto) % Baso % (Auto) % Immature Gran # (Auto) (0.00-0.02) K/uL Neut # (Auto) (1.4-6.5) K/uL Lymph # (Auto) (1.2-3.4) K/uL Dickson # (Auto) (0.11-0.59) K/uL Eos # (Auto) (0-0.5) K/uL Baso # (Auto) (0-0.2) K/uL PT (9.0-12.0) Seconds INR (0.9-1.1) APTT (21.0-31.0) Seconds PTT Ratio Sample Site Art Line POC pH 7.30 L (7.35-7.45) POC pCO2 45 (35-46) mmHg POC pO2 89 (80-95) mmHg POC HCO3 22 (19-24) gino/L POC Total CO2 23 L (24-31) mEq/l POC Base Excess -5.0 (-9-1.8) gino/L ABG pH (7.35-7.45) ABG pCO2 (35-46) mmHg ABG pO2 (80-95) mm/Hg ABG HCO3 (19-24) mmol/L POC ABG O2 Sat 96.0 H (90-95) % ABG O2 Saturation (90-95) % ABG Base Excess (-9-1.8) mEq/L [place] Test NA Barometric Pressure mm/Hg Oxygen Given O2 Delivery Device Ventilator POC O2 Rate 16 Minute Ventilation 9.1 Tidal Volume 500 PEEP 5 Sodium (136-145) mmol/L Potassium (3.5-5.1) mmol/L Chloride (98-107) mmol/L Carbon Dioxide (21-32) mmol/L Anion Gap (3-11) BUN (7-18) mg/dl Creatinine (0.6-1.4) mg/dl Est Cr Clr Drug Dosing ml/min Est GFR ( Amer) Est GFR (Non-Af Amer) BUN/Creatinine Ratio (10-20) Glucose (70-99) mg/dl POC Glucose (70-99) POC Glucose (other) 95 (70-99) mg/dl Calcium (8.5-10.1) mg/dl Ionized Calcium 1.08 L (1.12-1.32) mmol/L Magnesium (1.8-2.4) mg/dl Total Bilirubin (0.2-1) mg/dl AST (15-37) U/L ALT (12-78) U/L Alkaline Phosphatase (45-117) U/L Total Protein (6.4-8.2) gm/dl Albumin (3.4-5.0) gm/dl Globulin (2.5-4.0) gm/dl Albumin/Globulin Ratio (0.9-2) 10/25/18 10/25/18 10/25/18 Range/Units 13:53 13:53 12:14 WBC (4.8-10.8) K/uL RBC (4.7-6.1) M/uL Hgb (14.0-18.0) g/dL Hct (42-52) % MCV (80-100) fL MCH (25-34) pg MCHC (32-36) g/dL RDW Std Deviation (36.4-46.3) fL RDW Coeff of Anh (11.5-14.5) % Plt Count (130-400) K/uL MPV (7.4-10.4) fL Immature Gran % (Auto) % Neut % (Auto) % Lymph % (Auto) % Dickson % (Auto) % Eos % (Auto) % Baso % (Auto) % Immature Gran # (Auto) (0.00-0.02) K/uL Neut # (Auto) (1.4-6.5) K/uL Lymph # (Auto) (1.2-3.4) K/uL Dickson # (Auto) (0.11-0.59) K/uL Eos # (Auto) (0-0.5) K/uL Baso # (Auto) (0-0.2) K/uL PT 10.8 (9.0-12.0) Seconds INR 1.1 (0.9-1.1) APTT 40.2 H (21.0-31.0) Seconds PTT Ratio 1.5 Sample Site POC pH (7.35-7.45) POC pCO2 (35-46) mmHg POC pO2 (80-95) mmHg POC HCO3 (19-24) gino/L POC Total CO2 (24-31) mEq/l POC Base Excess (-9-1.8) gino/L ABG pH (7.35-7.45) ABG pCO2 (35-46) mmHg ABG pO2 (80-95) mm/Hg ABG HCO3 (19-24) mmol/L POC ABG O2 Sat (90-95) % ABG O2 Saturation (90-95) % ABG Base Excess (-9-1.8) mEq/L [place] Test Barometric Pressure mm/Hg Oxygen Given O2 Delivery Device POC O2 Rate Minute Ventilation Tidal Volume PEEP Sodium 140 (136-145) mmol/L Potassium 3.7 (3.5-5.1) mmol/L Chloride 109 H (98-107) mmol/L Carbon Dioxide 26 (21-32) mmol/L Anion Gap 5.0 (3-11) BUN 19 H (7-18) mg/dl Creatinine 1.10 (0.6-1.4) mg/dl Est Cr Clr Drug Dosing 69.6 ml/min Est GFR ( Amer) 82.9 Est GFR (Non-Af Amer) 71.6 BUN/Creatinine Ratio 16.9 (10-20) Glucose 95 (70-99) mg/dl POC Glucose (70-99) POC Glucose (other) 107 H (70-99) mg/dl Calcium 8.0 L (8.5-10.1) mg/dl Ionized Calcium (1.12-1.32) mmol/L Magnesium 1.9 (1.8-2.4) mg/dl Total Bilirubin (0.2-1) mg/dl AST (15-37) U/L ALT (12-78) U/L Alkaline Phosphatase (45-117) U/L Total Protein (6.4-8.2) gm/dl Albumin (3.4-5.0) gm/dl Globulin (2.5-4.0) gm/dl Albumin/Globulin Ratio (0.9-2) Diagnostic Findings I have reviewed the chest x-ray dated October 26, 2018 Critical Care Time Critical Care Time: Yes Total Critical Care Time: 40
[2018-10-26] MEDS: DEXTROSE 50% 50 ML SYRINGE IV PRN (11:47)
--- NOTE | 2018-10-26 11:51 | Cardiology Progress Note ---
Date of Service October 26, 2018 Assessment & Plan (1) Cardiac arrest: He underwent hypothermia protocol and is now warmed. Cardiac arrest likely secondary to ventricular arrhythmia in the setting of circumflex STEMI. Renal function remains good. Neurologically, he appears to be improving thr oughout the morning. . Continue to monitor closely. No ventricular arrhythmia noted on telemetry. (2) STEMI (ST elevation myocardial infarction): LV systolic function remains normal with inferolateral wall motion abnormality on echo. He is status post circumflex PCI. Continue aspirin 81 mg daily indefinitely. Continue Brilinta. Continue high-intensity statin therapy. Tolerating low-dose beta-jayshree. Can titrate as able. Recommend DOUGLAS- inhibitor within the next day or so if blood pressure remains stable. (3) CAD (coronary artery disease), [place] coronary artery: Continue medical therapy following PCI of circumflex. Continue aspirin 81 mg daily indefinitely. Continue Brilinta for at least 1 year. Continue high- intensity statin therapy. Tolerating low-dose beta-jayshree. Would also consider DOUGLAS-inhibitor if blood pressure allows in the future. (4) Stented coronary artery: Anti-platelet therapy as above. (5) Dyslipidemia, goal to be determined: Continue high-intensity statin therapy. LDL was elevated and he now has documented CAD. (6) Disposition: Cardiology will continue to follow. Overall cardiac planned discussed with , son, and daughter, overall present at the bedside. Subjective Sedation was discontinued earlier today. He has been on metoprolol tartrate since last evening and has been tolerating it well. He is now breathing above the vent at times. He is opening his eyes and squeezing the hands of his family members. Family states that over the past 2 hours, he appears to be more and more awake as time progresses. When asked if he was in pain, he did not shake his head yes or no. He did bring his hand closer to the endotracheal tube. Review of systems: Unobtainable as above. Physical Exam Physical Exam: Gen.: No acute distress. On mechanical ventilator. Opens eyes to verbal stimuli. Neck: No appreciable JVD. Cardiac: Regular. Normal S1-S2. No murmurs, rubs, or gallops. Pulmonary: Clear to auscultation bilaterally without wheezes, rales, or rhonchi. Abdomen: Soft, nontender, nondistended, with hypoactive bowel sounds. No bruits noted. Extremities: No edema or cyanosis. Right radial cath site is clean, dry, and intact without erythema or discharge. 1+ right radial pulse. Neuro: Able to move his fingers on each hand on command. He did not move his toes on command.. Results & Data Vital Signs (Past 12 Hours) Vital Signs Temp Temp Temp Pulse Pulse Resp BP 10/26/18 10:29 74 10 L 10/26/18 10:00 37.1 C 70 16 115/51 L 10/26/18 08:00 37.1 C 83 16 106/50 L 10/26/18 07:58 90 18 10/26/18 06:00 37.1 C 90 16 110/49 L 10/26/18 05:48 87 18 10/26/18 05:00 37.1 C 87 18 107/47 L 10/26/18 04:00 37.1 C 91 H 17 105/48 L 10/26/18 03:00 37.1 C 91 H 16 104/48 L 10/26/18 02:30 92 H 18 10/26/18 02:00 37.1 C 90 18 110/48 L 10/26/18 01:00 37.2 C 89 18 109/50 L 10/26/18 00:00 37 C 37 C 88 17 105/48 L BP Pulse Ox 10/26/18 10:29 97 10/26/18 10:00 148/74 H 97 10/26/18 08:00 126/78 98 10/26/18 07:58 97 10/26/18 06:00 117/79 96 10/26/18 05:48 96 10/26/18 05:00 126/78 96 10/26/18 04:00 109/73 96 10/26/18 03:00 122/72 96 10/26/18 02:30 96 10/26/18 02:00 119/74 96 10/26/18 01:00 125/72 96 10/26/18 00:00 110/74 94 Intake & Output 10/24/18 10/25/18 10/26/18 10/27/18 06:59 06:59 06:59 06:59 Intake Total 1575.076 / 9924.454 6476.729 / 2068.729 2129.183 / 2129.183 177.1 / 177.1 Output Total 1265 / 1465 1717 / 1717 1208 / 1208 Balance 310.076 / 110.076 351.729 / 351.729 921.183 / 921.183 177.1 / 177.1 Weight 75 kg 74.8 kg 75.3 kg 75.3 kg Laboratory Results Laboratory Results - last 24 hr 10/25/18 10/25/18 10/25/18 12:14 13:53 13:53 WBC RBC Hgb Hct MCV MCH MCHC RDW Std Deviation RDW Coeff of Anh Plt Count MPV Immature Gran % (Auto) Neut % (Auto) Lymph % (Auto) [place] % (Auto) Eos % (Auto) Baso % (Auto) Immature Gran # (Auto) Neut # (Auto) Lymph # (Auto) [place] # (Auto) Eos # (Auto) Baso # (Auto) PT 10.8 INR 1.1 APTT 40.2 H PTT Ratio 1.5 Sample Site POC pH POC pCO2 POC pO2 POC HCO3 POC Total CO2 POC Base Excess ABG pH ABG pCO2 ABG pO2 ABG HCO3 POC ABG O2 Sat ABG O2 Saturation ABG Base Excess [place] Test Barometric Pressure Oxygen Given O2 Delivery Device POC O2 Rate Minute Ventilation Tidal Volume PEEP Sodium 140 Potassium 3.7 Chloride 109 H Carbon Dioxide 26 Anion Gap 5.0 BUN 19 H Creatinine 1.10 Est Cr Clr Drug Dosing 69.6 Est GFR ( Amer) 82.9 Est GFR (Non-Af Amer) 71.6 BUN/Creatinine Ratio 16.9 Glucose 95 POC Glucose POC Glucose (other) 107 H Calcium 8.0 L Ionized Calcium Magnesium 1.9 Total Bilirubin AST ALT Alkaline Phosphatase Total Protein Albumin Globulin Albumin/Globulin Ratio 10/25/18 10/25/18 10/25/18 13:53 16:02 16:08 WBC RBC Hgb Hct MCV MCH MCHC RDW Std Deviation RDW Coeff of Anh Plt Count MPV Immature Gran % (Auto) Neut % (Auto) Lymph % (Auto) [place] % (Auto) Eos % (Auto) Baso % (Auto) Immature Gran # (Auto) Neut # (Auto) Lymph # (Auto) [place] # (Auto) Eos # (Auto) Baso # (Auto) PT INR APTT PTT Ratio Sample Site Art Line POC pH 7.30 L POC pCO2 45 POC pO2 89 POC HCO3 22 POC Total CO2 23 L POC Base Excess -5.0 ABG pH ABG pCO2 ABG pO2 ABG HCO3 POC ABG O2 Sat 96.0 H ABG O2 Saturation ABG Base Excess [place] Test NA Barometric Pressure Oxygen Given O2 Delivery Device Ventilator POC O2 Rate 16 Minute Ventilation 9.1 Tidal Volume 500 PEEP 5 Sodium Potassium Chloride Carbon Dioxide Anion Gap BUN Creatinine Est Cr Clr Drug Dosing Est GFR ( Amer) Est GFR (Non-Af Amer) BUN/Creatinine Ratio Glucose POC Glucose POC Glucose (other) 95 Calcium Ionized Calcium 1.08 L Magnesium Total Bilirubin AST ALT Alkaline Phosphatase Total Protein Albumin Globulin Albumin/Globulin Ratio 10/25/18 10/25/18 10/25/18 19:42 19:43 19:56 WBC RBC Hgb Hct MCV MCH MCHC RDW Std Deviation RDW Coeff of Anh Plt Count MPV Immature Gran % (Auto) Neut % (Auto) Lymph % (Auto) [place] % (Auto) Eos % (Auto) Baso % (Auto) Immature Gran # (Auto) Neut # (Auto) Lymph # (Auto) [place] # (Auto) Eos # (Auto) Baso # (Auto) PT 10.5 INR 1.0 APTT 34.0 H PTT Ratio 1.3 Sample Site POC pH POC pCO2 POC pO2 POC HCO3 POC Total CO2 POC Base Excess ABG pH ABG pCO2 ABG pO2 ABG HCO3 POC ABG O2 Sat ABG O2 Saturation ABG Base Excess [place] Test Barometric Pressure Oxygen Given O2 Delivery Device POC O2 Rate Minute Ventilation Tidal Volume PEEP Sodium Potassium Chloride Carbon Dioxide Anion Gap BUN Creatinine Est Cr Clr Drug Dosing Est GFR ( Amer) Est GFR (Non-Af Amer) BUN/Creatinine Ratio Glucose POC Glucose 61 L* 60 L* POC Glucose (other) Calcium Ionized Calcium Magnesium Total Bilirubin AST ALT Alkaline Phosphatase Total Protein Albumin Globulin Albumin/Globulin Ratio 10/25/18 10/25/18 10/25/18 19:56 19:56 20:03 WBC RBC Hgb Hct MCV MCH MCHC RDW Std Deviation RDW Coeff of Anh Plt Count MPV Immature Gran % (Auto) Neut % (Auto) Lymph % (Auto) [place] % (Auto) Eos % (Auto) Baso % (Auto) Immature Gran # (Auto) Neut # (Auto) Lymph # (Auto) [place] # (Auto) Eos # (Auto) Baso # (Auto) PT INR APTT PTT Ratio Sample Site POC pH POC pCO2 POC pO2 POC HCO3 POC Total CO2 POC Base Excess ABG pH ABG pCO2 ABG pO2 ABG HCO3 POC ABG O2 Sat ABG O2 Saturation ABG Base Excess [place] Test Barometric Pressure Oxygen Given O2 Delivery Device POC O2 Rate Minute Ventilation Tidal Volume PEEP Sodium 139 Potassium 4.0 Chloride 107 Carbon Dioxide 25 Anion Gap 7.0 BUN 20 H Creatinine 1.18 Est Cr Clr Drug Dosing 64.9 Est GFR ( Amer) 76.2 Est GFR (Non-Af Amer) 65.7 BUN/Creatinine Ratio 16.9 Glucose 138 H POC Glucose 73 POC Glucose (other) Calcium 8.0 L Ionized Calcium 1.11 L Magnesium 1.9 Total Bilirubin AST ALT Alkaline Phosphatase Total Protein Albumin Globulin Albumin/Globulin Ratio 10/25/18 10/25/18 10/26/18 23:53 23:55 00:14 WBC RBC Hgb Hct MCV MCH MCHC RDW Std Deviation RDW Coeff of Anh Plt Count MPV Immature Gran % (Auto) Neut % (Auto) Lymph % (Auto) [place] % (Auto) Eos % (Auto) Baso % (Auto) Immature Gran # (Auto) Neut # (Auto) Lymph # (Auto) [place] # (Auto) Eos # (Auto) Baso # (Auto) PT INR APTT PTT Ratio Sample Site POC pH POC pCO2 POC pO2 POC HCO3 POC Total CO2 POC Base Excess ABG pH ABG pCO2 ABG pO2 ABG HCO3 POC ABG O2 Sat ABG O2 Saturation ABG Base Excess [place] Test Barometric Pressure Oxygen Given O2 Delivery Device POC O2 Rate Minute Ventilation Tidal Volume PEEP Sodium Potassium Chloride Carbon Dioxide Anion Gap BUN Creatinine Est Cr Clr Drug Dosing Est GFR ( Amer) Est GFR (Non-Af Amer) BUN/Creatinine Ratio Glucose POC Glucose 38 L* 68 L* 57 L* POC Glucose (other) Calcium Ionized Calcium Magnesium Total Bilirubin AST ALT Alkaline Phosphatase Total Protein Albumin Globulin Albumin/Globulin Ratio 10/26/18 10/26/18 10/26/18 00:16 04:08 04:38 WBC RBC Hgb Hct MCV MCH MCHC RDW Std Deviation RDW Coeff of Anh Plt Count MPV Immature Gran % (Auto) Neut % (Auto) Lymph % (Auto) [place] % (Auto) Eos % (Auto) Baso % (Auto) Immature Gran # (Auto) Neut # (Auto) Lymph # (Auto) [place] # (Auto) Eos # (Auto) Baso # (Auto) PT 10.7 INR 1.0 APTT PTT Ratio Sample Site POC pH POC pCO2 POC pO2 POC HCO3 POC Total CO2 POC Base Excess ABG pH ABG pCO2 ABG pO2 ABG HCO3 POC ABG O2 Sat ABG O2 Saturation ABG Base Excess [place] Test Barometric Pressure Oxygen Given O2 Delivery Device POC O2 Rate Minute Ventilation Tidal Volume PEEP Sodium Potassium Chloride Carbon Dioxide Anion Gap BUN Creatinine Est Cr Clr Drug Dosing Est GFR ( Amer) Est GFR (Non-Af Amer) BUN/Creatinine Ratio Glucose POC Glucose 120 H 82 POC Glucose (other) Calcium Ionized Calcium Magnesium Total Bilirubin AST ALT Alkaline Phosphatase Total Protein Albumin Globulin Albumin/Globulin Ratio 10/26/18 10/26/18 10/26/18 04:38 04:38 04:38 WBC 13.88 H RBC 4.24 L Hgb 13.6 L Hct 39.7 L MCV 93.6 MCH 32.1 MCHC 34.3 RDW Std Deviation 48.5 H RDW Coeff of Anh 14.1 Plt Count 155 MPV 9.9 Immature Gran % (Auto) 0.2 Neut % (Auto) 82.2 Lymph % (Auto) 10.4 [place] % (Auto) 6.7 Eos % (Auto) 0.4 Baso % (Auto) 0.1 Immature Gran # (Auto) 0.03 H Neut # (Auto) 11.40 H Lymph # (Auto) 1.45 [place] # (Auto) 0.93 H Eos # (Auto) 0.05 Baso # (Auto) 0.02 PT INR APTT PTT Ratio Sample Site POC pH POC pCO2 POC pO2 POC HCO3 POC Total CO2 POC Base Excess ABG pH 7.33 L ABG pCO2 44 ABG pO2 82 ABG HCO3 22 POC ABG O2 Sat ABG O2 Saturation 95.6 H ABG Base Excess -3.7 [place] Test Pos Barometric Pressure 736.5 Oxygen Given FiO2 35% O2 Delivery Device POC O2 Rate Minute Ventilation Tidal Volume PEEP Sodium 139 Potassium 4.2 Chloride 110 H Carbon Dioxide 23 Anion Gap 6.0 BUN 20 H Creatinine 1.06 Est Cr Clr Drug Dosing 72.3 Est GFR ( Amer) 86.8 Est GFR (Non-Af Amer) 74.8 BUN/Creatinine Ratio 18.9 Glucose 76 POC Glucose POC Glucose (other) Calcium 7.9 L Ionized Calcium Magnesium Total Bilirubin 0.5 AST 178 H ALT 136 H Alkaline Phosphatase 65 Total Protein 6.0 L Albumin 2.7 L Globulin 3.3 Albumin/Globulin Ratio 0.8 L 10/26/18 10/26/18 10/26/18 11:28 11:36 11:37 WBC RBC Hgb Hct MCV MCH MCHC RDW Std Deviation RDW Coeff of Anh Plt Count MPV Immature Gran % (Auto) Neut % (Auto) Lymph % (Auto) [place] % (Auto) Eos % (Auto) Baso % (Auto) Immature Gran # (Auto) Neut # (Auto) Lymph # (Auto) [place] # (Auto) Eos # (Auto) Baso # (Auto) PT INR APTT PTT Ratio Sample Site POC pH POC pCO2 POC pO2 POC HCO3 POC Total CO2 POC Base Excess ABG pH ABG pCO2 ABG pO2 ABG HCO3 POC ABG O2 Sat ABG O2 Saturation ABG Base Excess [place] Test Barometric Pressure Oxygen Given O2 Delivery Device POC O2 Rate Minute Ventilation Tidal Volume PEEP Sodium Potassium Chloride Carbon Dioxide Anion Gap BUN Creatinine Est Cr Clr Drug Dosing Est GFR ( Amer) Est GFR (Non-Af Amer) BUN/Creatinine Ratio Glucose POC Glucose 51 L* 75 70 POC Glucose (other) Calcium Ionized Calcium Magnesium Total Bilirubin AST ALT Alkaline Phosphatase Total Protein Albumin Globulin Albumin/Globulin Ratio Diagnostic Findings Telemetry personally reviewed: No arrhythmia. Medications Administered Current Inpatient Medications Albuterol (Ventolin 0.083% 2.5mg/3ml) 2.5 mg INH Q2H PRN PRN Reason: SOB/WHEEZE Stop: 11/23/18 04:24 Aspirin (Aspirin Chew) 81 mg PO QAM [facility] Stop: 11/23/18 08:59 Last Admin: 10/26/18 07:43 Dose: 81 mg Documented by: Atorvastatin Calcium (Lipitor) 80 mg PO QAM [facility] Stop: 11/23/18 08:59 Last Admin: 10/26/18 07:43 Dose: 80 mg Documented by: Dextrose (Dextrose 50%) 25 - 50 ml IV UD PRN; Protocol PRN Reason: Hypoglycemia Protocol Stop: 11/23/18 05:59 Last Admin: 10/26/18 11:47 Dose: 50 ml Documented by: Enoxaparin S[facility] ([facility]ovenox) [facility] [place]: 11/23/18 08:59 Last Admin: 10/26/18 07:44 Dose: 40 mg Documented by: Enteral Nutritional Formula (Peptamen 1.5) 1,000 ml PO UD [facility]; Protocol Stop: 11/24/18 20:59 Last Admin: 10/25/18 21:25 Dose: 1,000 ml Documented by: Glucagon (Glucagen) 1 mg IM UD PRN; Protocol PRN Reason: Hypoglycemia Protocol Stop: 11/23/18 05:59 Glucose (Glucose 40%) 15 - 30 gm PO UD PRN; Protocol PRN Reason: Hypoglycemia Protocol Stop: 11/23/18 05:59 Glucose (Dex4 Glucose) 4 - 8 tabs PO UD PRN; Protocol PRN Reason: Hypoglycemia Protocol Stop: 11/23/18 05:59 Fentanyl Citrate (Fentanyl Drip) 1,250 mcg in 250 mls @ 0 mls/hr IV .Q0M [facility]; Protocol Stop: 11/07/18 00:14 Last Titration: 10/26/18 08:03 Dose: 0 mcg/hr, 0 mls/hr Documented by: Midazolam HCl (Versed) 125 mg in 250 mls @ 0 mls/hr IV .Q0M [facility]; Protocol Stop: 11/23/18 00:14 Last Titration: 10/26/18 08:03 Dose: 0 mg/hr, 0 mls/hr Documented by: Dopamine HCl/Dextrose (Dopamine / D5w) 400 mg in 250 mls @ 0 mls/hr IV .Q0M [facility]; Protocol Stop: 11/23/18 03:44 Last Titration: 10/24/18 11:10 Dose: 0 mcg/kg/min, 0 mls/hr Documented by: Norepinephrine Bitartrate 8 mg (/ Dextrose) 508 mls @ 0 mls/hr IV .Q0M [facility]; Protocol Stop: 11/23/18 14:44 Last Titration: 10/25/18 17:30 Dose: 0 mcg/kg/min, 0 mls/hr Documented by: Famotidine 20 mg/ Syringe 5 mls @ 2.5 mls/min IV BID [facility] Stop: 11/24/18 08:59 Last Admin: 10/26/18 07:45 Dose: 2.5 mls/min Documented by: Meperidine HCl (Demerol) 25 mg IV Q6H PRN PRN Reason: SHIVERING Stop: 11/08/18 18:00 Last Admin: 10/25/18 18:13 Dose: 25 mg Documented by: Metoprolol Tartrate (Lopressor) 25 mg PO BID [facility] Stop: 11/24/18 20:59 Last Admin: 10/26/18 07:43 Dose: 25 mg Documented by: Miscellaneous (Carbohydrates For Hypoglycemia) 15 - 30 gm PO PRN PRN PRN Reason: Hypoglycemia Treatment Stop: 11/23/18 05:59 Ticagrelor (Brilinta) 90 mg PO BID [facility] Stop: 11/23/18 10:29 Last Admin: 10/26/18 07:43 Dose: 90 mg Documented by:
[2018-10-26] MEDS ORDERED: ACETAMINOPHEN 1,000 MG/100 ML VIAL IV PRN (19:12)
--- NOTE | 2018-10-26 19:46 | Hospitalist Progress Note ---
Date of Service October 26, 2018 Assessment & Plan (1) Cardiac arrest: This patient is a 63yo male with history of HLP, Asthma presenting s/p cardiac arrest with ROSC, cath with occlusion of circumflex s/p KALA placement now status post cooling protocol. 1. Neuro: patient with some decorticate posturing noted in ER and after cardiac cath. CT head negative. Is now extubated and following commands. Concern for anoxia given recent arrest. EEG on 10/26 with moderate encephalopathy, no seizure activity -Now off all sedatives -completed cooling per protocol -Continue to observe for improvement in mental status 2. Pulm: Now extubated on 10/26. Adequate oxygenation on oxygen mask. History of asthma, patient not presently on medications. Active smoker. -CXR with bibasilar atelectasis There was a question of aspiration pneumonia given vomiting upon admission. Does have a low-grade temperature here. -Continue nebs PRN -Follow chest x-ray -On Zosyn in case of aspiration pneumonia -Continue supplemental O2 to keep pulse ox greater than 90% 3. CV: s/p cardiac arrest with CPR and ROSC. S/p cardiac catheterization with placement of KALA to Cx. Bradycardia improved but remains somewhat due to cooling Troponin peaked at 58. Echocardiogram with wall motion abnormality in the infer olateral region with preserved EF. -Continue ASA and can convert to MA if unable to swallow not he is extubated and OG tube is removed -Continue Atorvastatin, LDL 131-if not able to swallow, will have to hold -Continue Brillinta if able to swallow-otherwise, may have to place core safe- would defer to production scheduler on decision for this -Blood pressure is now improved, remains off of dopamine and Levophed -Tolerating metoprolol tartrate 25 mg twice daily, however if not able to swallow not he is extubated, could transition to IV Lopressor-discussed with nursing -Cardiology recommends adding on DOUGLAS inhibitor in the next 1 to 2 days if blood pressure can tolerate -Appreciate production scheduler management, appreciate cardiology management 4. GI: With elevated LFTs AST and ALT only. Likely secondary to cardiac arrest and now improving. -Follow LFTs -Continue Pepcid twice daily IV for prophylaxis -Tube feeds now discontinued with OG tube removed after extubation -Nurses to perform bedside swallow this evening to see if he can safely take clears and pills orally 5. : Victoria in place, Cr and electrolytes remain stable, is making urine - repeat BMP tomorrow 6. Heme - patient with leukocytosis which is improving today down to 13, most likely reactive but could be secondary to aspiration pneumonia. 7. ID -with questionable aspiration pneumonitis. Afebrile except for low-grade temperature here although has been hypothermic purposefully status post cardiac arrest. With thick discharge from ETT previously Patient with large amount of vomit upon admission, coarse breath sounds improved but still remain Chest x-ray with bilateral basilar atelectasis versus pneumonitis With low-grade temperature in the evening of 10/26 Blood cultures no growth to date -Continue Zosyn as above -Acetaminophen as needed for fever -Follow blood cultures-no growth to date 8. Endocrine -on ICU hyperglycemia protocol, insulin as needed, hemoglobin A1c 5.8% With hypoglycemia this morning despite getting tube feeds Received 1 amp of D50 Blood sugars more acceptable later in the day OG tube is now removed and patient has not yet started taking p.o. due to recent extubation -Follow blood sugars DVT prophylaxis-Lovenox 40 mg SQ daily Disposition-remain in ICU (2) STEMI (ST elevation myocardial infarction): (3) Asthma: (4) High cholesterol: (5) Stented coronary artery: (6) Smoker: (7) CAD (coronary artery disease), [place] coronary artery: (8) Aspiration pneumonia: Subjective Patient was just extubated this evening and is following commands but still quite lethargic. He failed a CPAP test earlier today but then was on CPAP for 45 minutes this evening and his ABG was acceptable. He is weaned off pressors since yesterday evening. Review of Systems Review of Systems: Unobtainable due to reduced consciousness Physical Exam Constitutional: WD/WN, vitals as above + lethargic Eyes: PERRL ENMT: Ears: no external ear abnormality Neck: trachea midline, no thyromegaly Respiratory: symmetric chest movement; no labored breathing Auscultation: + rhonchi (A few upper airway rhonchi); no crackles and no wheezes Cardiovascular: RRR, no murmur, no edema Musculoskeletal: Extremities: extremities normal to inspection; no cyanosis and no clubbing Skin: no rashes, warm and dry Neurologic: no focal motor deficits (Following commands, squeezing hands and wiggling toes on command bilaterally) Nonverbal, lethargic but does wake up to verbal stimulus and tactile stimulus Genitourinary: Victoria catheter in place Results & Data Vital Signs (Past 12 Hours) Vital Signs Temp Pulse Pulse Resp BP BP Pulse Ox 10/26/18 16:00 37.8 C H 83 12 115/50 L 129/76 97 10/26/18 14:35 77 10 L 98 10/26/18 14:01 37.1 C 78 12 132/52 L 161/84 H 98 10/26/18 13:33 81 10 L 98 10/26/18 12:00 37.1 C 84 16 110/48 L 157/77 H 98 10/26/18 10:29 74 10 L 97 10/26/18 10:00 37.1 C 70 16 115/51 L 148/74 H 97 10/26/18 08:00 37.1 C 83 16 106/50 L 126/78 98 10/26/18 07:58 90 18 97 Laboratory Results 10/26/18 10/26/18 10/26/18 Range/Units 17:42 15:51 12:09 WBC (4.8-10.8) K/uL RBC (4.7-6.1) M/uL Hgb (14.0-18.0) g/dL Hct (42-52) % MCV (80-100) fL MCH (25-34) pg MCHC (32-36) g/dL RDW Std Deviation (36.4-46.3) fL RDW Coeff of Anh (11.5-14.5) % Plt Count (130-400) K/uL MPV (7.4-10.4) fL Immature Gran % (Auto) % Neut % (Auto) % Lymph % (Auto) % Pickett % (Auto) % Eos % (Auto) % Baso % (Auto) % Immature Gran # (Auto) (0.00-0.02) K/uL Neut # (Auto) (1.4-6.5) K/uL Lymph # (Auto) (1.2-3.4) K/uL Pickett # (Auto) (0.11-0.59) K/uL Eos # (Auto) (0-0.5) K/uL Baso # (Auto) (0-0.2) K/uL PT (9.0-12.0) Seconds INR (0.9-1.1) APTT (21.0-31.0) Seconds PTT Ratio ABG pH (7.35-7.45) ABG pCO2 (35-46) mmHg ABG pO2 (80-95) mm/Hg ABG HCO3 (19-24) mmol/L ABG O2 Saturation (90-95) % ABG Base Excess (-9-1.8) mEq/L Doroteo Test (Pos) Barometric Pressure mm/Hg Oxygen Given Sodium (136-145) mmol/L Potassium (3.5-5.1) mmol/L Chloride (98-107) mmol/L Carbon Dioxide (21-32) mmol/L Anion Gap (3-11) BUN (7-18) mg/dl Creatinine (0.6-1.4) mg/dl Est Cr Clr Drug Dosing ml/min Est GFR ( Amer) Est GFR (Non-Af Amer) BUN/Creatinine Ratio (10-20) Glucose (70-99) mg/dl POC Glucose 78 77 172 H (70-99) Calcium (8.5-10.1) mg/dl Ionized Calcium (1.12-1.32) mmol/L Magnesium (1.8-2.4) mg/dl Total Bilirubin (0.2-1) mg/dl AST (15-37) U/L ALT (12-78) U/L Alkaline Phosphatase (45-117) U/L Total Protein (6.4-8.2) gm/dl Albumin (3.4-5.0) gm/dl Globulin (2.5-4.0) gm/dl Albumin/Globulin Ratio (0.9-2) 10/26/18 10/26/18 10/26/18 Range/Units 11:37 11:36 11:28 WBC (4.8-10.8) K/uL RBC (4.7-6.1) M/uL Hgb (14.0-18.0) g/dL Hct (42-52) % MCV (80-100) fL MCH (25-34) pg MCHC (32-36) g/dL RDW Std Deviation (36.4-46.3) fL RDW Coeff of Anh (11.5-14.5) % Plt Count (130-400) K/uL MPV (7.4-10.4) fL Immature Gran % (Auto) % Neut % (Auto) % Lymph % (Auto) % Pickett % (Auto) % Eos % (Auto) % Baso % (Auto) % Immature Gran # (Auto) (0.00-0.02) K/uL Neut # (Auto) (1.4-6.5) K/uL Lymph # (Auto) (1.2-3.4) K/uL Pickett # (Auto) (0.11-0.59) K/uL Eos # (Auto) (0-0.5) K/uL Baso # (Auto) (0-0.2) K/uL PT (9.0-12.0) Seconds INR (0.9-1.1) APTT (21.0-31.0) Seconds PTT Ratio ABG pH (7.35-7.45) ABG pCO2 (35-46) mmHg ABG pO2 (80-95) mm/Hg ABG HCO3 (19-24) mmol/L ABG O2 Saturation (90-95) % ABG Base Excess (-9-1.8) mEq/L Doroteo Test (Pos) Barometric Pressure mm/Hg Oxygen Given Sodium (136-145) mmol/L Potassium (3.5-5.1) mmol/L Chloride (98-107) mmol/L Carbon Dioxide (21-32) mmol/L Anion Gap (3-11) BUN (7-18) mg/dl Creatinine (0.6-1.4) mg/dl Est Cr Clr Drug Dosing ml/min Est GFR ( Amer) Est GFR (Non-Af Amer) BUN/Creatinine Ratio (10-20) Glucose (70-99) mg/dl POC Glucose 70 75 51 L* (70-99) Calcium (8.5-10.1) mg/dl Ionized Calcium (1.12-1.32) mmol/L Magnesium (1.8-2.4) mg/dl Total Bilirubin (0.2-1) mg/dl AST (15-37) U/L ALT (12-78) U/L Alkaline Phosphatase (45-117) U/L Total Protein (6.4-8.2) gm/dl Albumin (3.4-5.0) gm/dl Globulin (2.5-4.0) gm/dl Albumin/Globulin Ratio (0.9-2) 10/26/18 10/26/18 10/26/18 Range/Units 04:38 04:38 04:38 WBC 13.88 H (4.8-10.8) K/uL RBC 4.24 L (4.7-6.1) M/uL Hgb 13.6 L (14.0-18.0) g/dL Hct 39.7 L (42-52) % MCV 93.6 (80-100) fL MCH 32.1 (25-34) pg MCHC 34.3 (32-36) g/dL RDW Std Deviation 48.5 H (36.4-46.3) fL RDW Coeff of Anh 14.1 (11.5-14.5) % Plt Count 155 (130-400) K/uL MPV 9.9 (7.4-10.4) fL Immature Gran % (Auto) 0.2 % Neut % (Auto) 82.2 % Lymph % (Auto) 10.4 % Pickett % (Auto) 6.7 % Eos % (Auto) 0.4 % Baso % (Auto) 0.1 % Immature Gran # (Auto) 0.03 H (0.00-0.02) K/uL Neut # (Auto) 11.40 H (1.4-6.5) K/uL Lymph # (Auto) 1.45 (1.2-3.4) K/uL Pickett # (Auto) 0.93 H (0.11-0.59) K/uL Eos # (Auto) 0.05 (0-0.5) K/uL Baso # (Auto) 0.02 (0-0.2) K/uL PT (9.0-12.0) Seconds INR (0.9-1.1) APTT (21.0-31.0) Seconds PTT Ratio ABG pH 7.33 L (7.35-7.45) ABG pCO2 44 (35-46) mmHg ABG pO2 82 (80-95) mm/Hg ABG HCO3 22 (19-24) mmol/L ABG O2 Saturation 95.6 H (90-95) % ABG Base Excess -3.7 (-9-1.8) mEq/L Doroteo Test Pos (Pos) Barometric Pressure 736.5 mm/Hg Oxygen Given FiO2 35% Sodium 139 (136-145) mmol/L Potassium 4.2 (3.5-5.1) mmol/L Chloride 110 H (98-107) mmol/L Carbon Dioxide 23 (21-32) mmol/L Anion Gap 6.0 (3-11) BUN 20 H (7-18) mg/dl Creatinine 1.06 (0.6-1.4) mg/dl Est Cr Clr Drug Dosing 72.3 ml/min Est GFR ( Amer) 86.8 Est GFR (Non-Af Amer) 74.8 BUN/Creatinine Ratio 18.9 (10-20) Glucose 76 (70-99) mg/dl POC Glucose (70-99) Calcium 7.9 L (8.5-10.1) mg/dl Ionized Calcium (1.12-1.32) mmol/L Magnesium (1.8-2.4) mg/dl Total Bilirubin 0.5 (0.2-1) mg/dl AST 178 H (15-37) U/L ALT 136 H (12-78) U/L Alkaline Phosphatase 65 (45-117) U/L Total Protein 6.0 L (6.4-8.2) gm/dl Albumin 2.7 L (3.4-5.0) gm/dl Globulin 3.3 (2.5-4.0) gm/dl Albumin/Globulin Ratio 0.8 L (0.9-2) 10/26/18 10/26/18 10/26/18 Range/Units 04:38 04:08 00:16 WBC (4.8-10.8) K/uL RBC (4.7-6.1) M/uL Hgb (14.0-18.0) g/dL Hct (42-52) % MCV (80-100) fL MCH (25-34) pg MCHC (32-36) g/dL RDW Std Deviation (36.4-46.3) fL RDW Coeff of Anh (11.5-14.5) % Plt Count (130-400) K/uL MPV (7.4-10.4) fL Immature Gran % (Auto) % Neut % (Auto) % Lymph % (Auto) % Pickett % (Auto) % Eos % (Auto) % Baso % (Auto) % Immature Gran # (Auto) (0.00-0.02) K/uL Neut # (Auto) (1.4-6.5) K/uL Lymph # (Auto) (1.2-3.4) K/uL Pickett # (Auto) (0.11-0.59) K/uL Eos # (Auto) (0-0.5) K/uL Baso # (Auto) (0-0.2) K/uL PT 10.7 (9.0-12.0) Seconds INR 1.0 (0.9-1.1) APTT (21.0-31.0) Seconds PTT Ratio ABG pH (7.35-7.45) ABG pCO2 (35-46) mmHg ABG pO2 (80-95) mm/Hg ABG HCO3 (19-24) mmol/L ABG O2 Saturation (90-95) % ABG Base Excess (-9-1.8) mEq/L Doroteo Test (Pos) Barometric Pressure mm/Hg Oxygen Given Sodium (136-145) mmol/L Potassium (3.5-5.1) mmol/L Chloride (98-107) mmol/L Carbon Dioxide (21-32) mmol/L Anion Gap (3-11) BUN (7-18) mg/dl Creatinine (0.6-1.4) mg/dl Est Cr Clr Drug Dosing ml/min Est GFR ( Amer) Est GFR (Non-Af Amer) BUN/Creatinine Ratio (10-20) Glucose (70-99) mg/dl POC Glucose 82 120 H (70-99) Calcium (8.5-10.1) mg/dl Ionized Calcium (1.12-1.32) mmol/L Magnesium (1.8-2.4) mg/dl Total Bilirubin (0.2-1) mg/dl AST (15-37) U/L ALT (12-78) U/L Alkaline Phosphatase (45-117) U/L Total Protein (6.4-8.2) gm/dl Albumin (3.4-5.0) gm/dl Globulin (2.5-4.0) gm/dl Albumin/Globulin Ratio (0.9-2) 06/02/0510/25/18 10/25/18 Range/Units 00:14 23:55 23:53 WBC (4.8-10.8) K/uL RBC (4.7-6.1) M/uL Hgb (14.0-18.0) g/dL Hct (42-52) % MCV (80-100) fL MCH (25-34) pg MCHC (32-36) g/dL RDW Std Deviation (36.4-46.3) fL RDW Coeff of Anh (11.5-14.5) % Plt Count (130-400) K/uL MPV (7.4-10.4) fL Immature Gran % (Auto) % Neut % (Auto) % Lymph % (Auto) % Pickett % (Auto) % Eos % (Auto) % Baso % (Auto) % Immature Gran # (Auto) (0.00-0.02) K/uL Neut # (Auto) (1.4-6.5) K/uL Lymph # (Auto) (1.2-3.4) K/uL Pickett # (Auto) (0.11-0.59) K/uL Eos # (Auto) (0-0.5) K/uL Baso # (Auto) (0-0.2) K/uL PT (9.0-12.0) Seconds INR (0.9-1.1) APTT (21.0-31.0) Seconds PTT Ratio ABG pH (7.35-7.45) ABG pCO2 (35-46) mmHg ABG pO2 (80-95) mm/Hg ABG HCO3 (19-24) mmol/L ABG O2 Saturation (90-95) % ABG Base Excess (-9-1.8) mEq/L Doroteo Test (Pos) Barometric Pressure mm/Hg Oxygen Given Sodium (136-145) mmol/L Potassium (3.5-5.1) mmol/L Chloride (98-107) mmol/L Carbon Dioxide (21-32) mmol/L Anion Gap (3-11) BUN (7-18) mg/dl Creatinine (0.6-1.4) mg/dl Est Cr Clr Drug Dosing ml/min Est GFR ( Amer) Est GFR (Non-Af Amer) BUN/Creatinine Ratio (10-20) Glucose (70-99) mg/dl POC Glucose 57 L* 68 L* 38 L* (70-99) Calcium (8.5-10.1) mg/dl Ionized Calcium (1.12-1.32) mmol/L Magnesium (1.8-2.4) mg/dl Total Bilirubin (0.2-1) mg/dl AST (15-37) U/L ALT (12-78) U/L Alkaline Phosphatase (45-117) U/L Total Protein (6.4-8.2) gm/dl Albumin (3.4-5.0) gm/dl Globulin (2.5-4.0) gm/dl Albumin/Globulin Ratio (0.9-2) 10/25/18 10/25/18 10/25/18 Range/Units 20:03 19:56 19:56 WBC (4.8-10.8) K/uL RBC (4.7-6.1) M/uL Hgb (14.0-18.0) g/dL Hct (42-52) % MCV (80-100) fL MCH (25-34) pg MCHC (32-36) g/dL RDW Std Deviation (36.4-46.3) fL RDW Coeff of Anh (11.5-14.5) % Plt Count (130-400) K/uL MPV (7.4-10.4) fL Immature Gran % (Auto) % Neut % (Auto) % Lymph % (Auto) % Pickett % (Auto) % Eos % (Auto) % Baso % (Auto) % Immature Gran # (Auto) (0.00-0.02) K/uL Neut # (Auto) (1.4-6.5) K/uL Lymph # (Auto) (1.2-3.4) K/uL Pickett # (Auto) (0.11-0.59) K/uL Eos # (Auto) (0-0.5) K/uL Baso # (Auto) (0-0.2) K/uL PT (9.0-12.0) Seconds INR (0.9-1.1) APTT (21.0-31.0) Seconds PTT Ratio ABG pH (7.35-7.45) ABG pCO2 (35-46) mmHg ABG pO2 (80-95) mm/Hg ABG HCO3 (19-24) mmol/L ABG O2 Saturation (90-95) % ABG Base Excess (-9-1.8) mEq/L Doroteo Test (Pos) Barometric Pressure mm/Hg Oxygen Given Sodium 139 (136-145) mmol/L Potassium 4.0 (3.5-5.1) mmol/L Chloride 107 (98-107) mmol/L Carbon Dioxide 25 (21-32) mmol/L Anion Gap 7.0 (3-11) BUN 20 H (7-18) mg/dl Creatinine 1.18 (0.6-1.4) mg/dl Est Cr Clr Drug Dosing 64.9 ml/min Est GFR ( Amer) 76.2 Est GFR (Non-Af Amer) 65.7 BUN/Creatinine Ratio 16.9 (10-20) Glucose 138 H (70-99) mg/dl POC Glucose 73 (70-99) Calcium 8.0 L (8.5-10.1) mg/dl Ionized Calcium 1.11 L (1.12-1.32) mmol/L Magnesium 1.9 (1.8-2.4) mg/dl Total Bilirubin (0.2-1) mg/dl AST (15-37) U/L ALT (12-78) U/L Alkaline Phosphatase (45-117) U/L Total Protein (6.4-8.2) gm/dl Albumin (3.4-5.0) gm/dl Globulin (2.5-4.0) gm/dl Albumin/Globulin Ratio (0.9-2) 10/25/18 10/25/18 10/25/18 Range/Units 19:56 19:43 19:42 WBC (4.8-10.8) K/uL RBC (4.7-6.1) M/uL Hgb (14.0-18.0) g/dL Hct (42-52) % MCV (80-100) fL MCH (25-34) pg MCHC (32-36) g/dL RDW Std Deviation (36.4-46.3) fL RDW Coeff of Anh (11.5-14.5) % Plt Count (130-400) K/uL MPV (7.4-10.4) fL Immature Gran % (Auto) % Neut % (Auto) % Lymph % (Auto) % Pickett % (Auto) % Eos % (Auto) % Baso % (Auto) % Immature Gran # (Auto) (0.00-0.02) K/uL Neut # (Auto) (1.4-6.5) K/uL Lymph # (Auto) (1.2-3.4) K/uL Pickett # (Auto) (0.11-0.59) K/uL Eos # (Auto) (0-0.5) K/uL Baso # (Auto) (0-0.2) K/uL PT 10.5 (9.0-12.0) Seconds INR 1.0 (0.9-1.1) APTT 34.0 H (21.0-31.0) Seconds PTT Ratio 1.3 ABG pH (7.35-7.45) ABG pCO2 (35-46) mmHg ABG pO2 (80-95) mm/Hg ABG HCO3 (19-24) mmol/L ABG O2 Saturation (90-95) % ABG Base Excess (-9-1.8) mEq/L Doroteo Test (Pos) Barometric Pressure mm/Hg Oxygen Given Sodium (136-145) mmol/L Potassium (3.5-5.1) mmol/L Chloride (98-107) mmol/L Carbon Dioxide (21-32) mmol/L Anion Gap (3-11) BUN (7-18) mg/dl Creatinine (0.6-1.4) mg/dl Est Cr Clr Drug Dosing ml/min Est GFR ( Amer) Est GFR (Non-Af Amer) BUN/Creatinine Ratio (10-20) Glucose (70-99) mg/dl POC Glucose 60 L* 61 L* (70-99) Calcium (8.5-10.1) mg/dl Ionized Calcium (1.12-1.32) mmol/L Magnesium (1.8-2.4) mg/dl Total Bilirubin (0.2-1) mg/dl AST (15-37) U/L ALT (12-78) U/L Alkaline Phosphatase (45-117) U/L Total Protein (6.4-8.2) gm/dl Albumin (3.4-5.0) gm/dl Globulin (2.5-4.0) gm/dl Albumin/Globulin Ratio (0.9-2) Diagnostic Findings Chest x-ray image personally reviewed by me and agree with the following report: XR chest 1V portable HISTORY: 63 years-old Male Cardiac Arrest acute cardiac arrest COMPARISON: Chest radiograph 10/25/2018 TECHNIQUE: Portable AP view of the chest FINDINGS: Endotracheal tube overlies the midline, 6.6 cm superior to the ovidio. Enteric tube courses below the diaphragm outside the [id number]. Cardiomediastinal and hilar silhouettes appear unchanged. Calcification the thoracic aortic arch. No pneumothorax, large pleural effusion or overt pulmonary edema. Slightly progressed subsegmental bibasilar opacities. Degenerative changes of the shoulders and spine. Calcified granuloma of the left upper lung. IMPRESSION: 1. Stable positioning of endotracheal and enteric tubes. 2. No pneumothorax. 3. Slightly progressed subsegmental bibasilar opacities suggestive of probable atelectasis.
--- NOTE | 2018-10-26 20:43 | XRay Report ---
KUB HISTORY: Status post placement of a feeding tube coresafe feeding tube placement COMPARISON: Chest radiograph of same day FINDINGS: Bowel gas pattern is nonobstructive. There is a catheter noted with distal tip overlying T1 2, possibly within the IVC. A feeding tube is noted with distal tip projected over the left upper gaston drant, likely within the region of the mid gastric lumen. Gas pattern is nonobstructive. No pneumatos is or pneumoperitoneum. No abnormal calcifications. IMPRESSION: Distal tip of feeding tube terminates within the left upper quadrant of the abdomen, likely within th e mid gastric lumen. Electronically signed by: Freddy Donnelly M.D. 10/26/2018 8:40 PM
[2018-10-26] MEDS: PEPTAMEN 1.5 CAL 1,000 ML BAG PO SCH (21:14)
[2018-10-27 05:52] LABS: HCO3 ABG 22 mmol/L (19-24); Oxygen Saturation ABG 94.1 % (90-95); PCO2 ABG 29 mmHg (35-46); PO2 ABG 65 mm/Hg (80-95); pH ABG 7.49 (7.35-7.45)
[2018-10-27 05:54] LABS: Basophils # (auto) 0.01 K/uL (0-0.2); Basophils % (auto) 0.1 %; Eosinophils # (auto) 0.01 K/uL (0-0.5); Eosinophils % (auto) 0.1 %; Hemoglobin 11.8 g/dL (14.0-18.0); Immature Granulocytes # (auto) 0.03 K/uL (0.00-0.02); Immature Granulocytes % (auto) 0.3 %; Lymphocytes # (auto) 0.97 K/uL (1.2-3.4); Lymphocytes % (auto) 10.9 %; Mean Corpuscular Volume 92.4 fL (80-100); Mean Platelet Volume 9.8 fL (7.4-10.4); Neutrophils # (auto) 7.11 K/uL (1.4-6.5); Neutrophils % (auto) 79.6 %; Platelet Count 145 K/uL (130-400); RDW Standard Deviation 47.5 fL (36.4-46.3); Red Blood Count 3.68 M/uL (4.7-6.1); White Blood Count 8.93 K/uL (4.8-10.8)
[2018-10-27 05:59] LABS: Mean Corpuscular Hgb Conc 34.7 g/dL (32-36)
[2018-10-27 06:00] LABS: Allen Test Pos (Pos)
[2018-10-27 06:27] LABS: Albumin Globulin Ratio 0.8 (0.9-2); Albumin Level 2.5 gm/dl (3.4-5.0); BUN Creatinine Ratio 19.9 (10-20); Bilirubin,Total 0.7 mg/dl (0.2-1); Calcium 8.1 mg/dl (8.5-10.1); Creatinine Clr Calc Pharmacy 93.4 ml/min; Est GFR (African American) 109.8; Est GFR (Non-African American) 94.8; Globulin 3.2 gm/dl (2.5-4.0); Potassium 3.3 mmol/L (3.5-5.1); Total Protein 5.7 gm/dl (6.4-8.2)
[2018-10-27] MEDS: fentaNYL DRIP 1,250 MCG/250 ML BAG IV SCH (07:40)
[2018-10-27] MEDS: TICAGRELOR 90 MG TAB PO SCH ×2 (09:33→19:33)
[2018-10-27] MEDS: METOPROLOL TARTRATE 25 MG TAB PO SCH (09:33)
[2018-10-27] MEDS: ENOXAPARIN INJ 40 MG/0.4 ML SYR SQ SCH (09:33)
[2018-10-27] MEDS: ATORVASTATIN 40 MG TAB PO SCH (09:33)
[2018-10-27] MEDS: ASPIRIN 81 MG CHEW PO SCH (09:33)
[2018-10-27] MEDS: FAMOTIDINE 20 MG in SYRINGE 3 ML IV SCH ×2 (09:35→19:32)
[2018-10-27 11:32] LABS: iSTAT Arterial Blood Gas pH 7.34 (7.35-7.45)
[2018-10-27 11:33] LABS: Patient Temperature 37.1; iSTAT Arterial Blood Gas HCO3 20 meg/L (19-24); iSTAT Arterial Blood Gas pCO2 37 mmHg (35-46); iSTAT Carbon Dioxide 21 mEq/l (24-31)
[2018-10-27 11:34] LABS: iSTAT Allen Test Not Performed; iSTAT Sample Type Arterial
[2018-10-27 11:35] LABS: iSTAT FiO2 35 %; iSTAT Site Art Line
[2018-10-27 11:36] LABS: iSTAT SpO2 98
--- NOTE | 2018-10-27 12:36 | Critical Care Progress Note ---
Date of Service October 27, 2018 Assessment & Plan (1) Cardiac arrest: Out of hospital cardiac arrest status post completion of hypothermia protocol and removal of hypothermia catheter. He seems to have mild cognitive deficit hopefully this will resolve over time. Continue PT OT and mobilization. Advance diet as tolerated. Replete potassium (2) STEMI (ST elevation myocardial infarction): Resulting in cardiac arrest status post stenting. Continue Brilinta (3) Asthma: Stable with no evidence of acute exacerbation Subjective Patient was extubated yesterday. Right groin hypothermia catheter, left radial A-line, and Victoria catheter have all been removed. He seems to have some mild residual cognitive deficits. Hemodynamically stable Review of Systems Review of Systems: All systems reviewed & are unremarkable except as noted in HPI & below Physical Exam Constitutional: WD/WN, vitals as above Eyes: PERRL, conjunctivae normal, anicteric sclerae ENMT: external ear and nose normal, oropharynx normal Neck: trachea midline, no thyromegaly Respiratory: normal respiratory effort, lungs clear to auscultation Cardiovascular: RRR, no murmur, no edema Chest (Breasts): Chest: normal inspection of chest Gastrointestinal (Abdomen): normal bowel sounds, soft, nontender, no hepatosplenomegaly Musculoskeletal: no cyanosis or clubbing, extremities motor strength 5/5 Skin: no rashes, warm and dry Neurologic: Nonfocal Results & Data Vital Signs (Past 12 Hours) Vital Signs Temp Pulse Pulse Resp BP BP BP 10/27/18 11:00 84 18 139/77 10/27/18 10:00 76 21 143/80 H 10/27/18 09:00 79 22 10/27/18 08:01 80 21 149/95 H 10/27/18 06:00 37.6 C H 77 18 149/65 H 150/81 H 10/27/18 05:00 79 18 133/65 139/80 10/27/18 04:00 37.5 C 78 18 155/56 H 10/27/18 02:00 37.6 C H 63 15 133/57 L 159/69 H 10/27/18 01:00 73 12 113/50 L 146/69 H Pulse Ox 10/27/18 11:00 91 10/27/18 10:00 92 10/27/18 09:00 92 10/27/18 08:01 96 10/27/18 06:00 98 10/27/18 05:00 97 10/27/18 04:00 100 10/27/18 02:00 96 10/27/18 01:00 97 Laboratory Results 10/27/18 10/27/18 10/27/18 Range/Units 05:37 05:37 05:37 WBC 8.93 RBC 3.68 L Hgb 11.8 L Hct 34.0 L MCV 92.4 MCH 32.1 MCHC 34.7 RDW Std Deviation 47.5 H RDW Coeff of Anh 14.0 Plt Count 145 MPV 9.8 Immature Gran % (Auto) 0.3 Neut % (Auto) 79.6 Lymph % (Auto) 10.9 Delta % (Auto) 9.0 Eos % (Auto) 0.1 Baso % (Auto) 0.1 Immature Gran # (Auto) 0.03 H Neut # (Auto) 7.11 H Lymph # (Auto) 0.97 L Delta # (Auto) 0.80 H Eos # (Auto) 0.01 Baso # (Auto) 0.01 Absolute Nucleated RBC Nucleated RBC % (auto) Neutrophils % (Manual) Band Neutrophils % Lymphocytes % (Manual) Prolymphocyte % Reactive Lymphs % (Man) Monocytes % (Manual) Eosinophils % (Manual) Basophils % (Manual) Metamyelocytes % (Man) Myelocytes % (Man) Promyelocytes % (Man) Blast Cells % (Manual) Plasma Cell % (Manual) Other Cells % Nucleated RBC % Neutrophils # (Manual) Band Neutrophils # Total Absolute Neuts Lymphocytes # (Manual) Prolymphocyte # Reactive Lymphs # Total Abs Lymphocytes Monocytes # (Manual) Eosinophils # (Manual) Basophils # (Manual) Metamyelocytes # (Man) Myelocytes # (Manual) Promyelocytes # (Man) Blast Cells # (Man) Plasma Cell # (Manual) Other Cells # Nucleated RBCs # (Man) Hypersegmented Neuts Hyposegmented Neuts Hypogranular Neuts Large Granular Lymphs # Lrg Granular Lymphs Hairy Cells Smudge Cells Toxic Granulation Toxic Vacuolation Dohle Bodies Ashley Rods Platelet Estimate Hypogranular Platelets Clumped Platelets Giant Platelets Platelet Satelliting RBC Morphology Polychromasia Hypochromasia Poikilocytosis Basophilic Stippling Anisocytosis Microcytosis Macrocytosis Spherocytes Pappenheimer Bodies Sickle Cells Target Cells Tear Drop Cells Ovalocytes Stomatocytes [place] Bodies Echinocytes Acanthocytes (Spur) Rouleaux RBC Agglutinates Schistocytes RBC Morph Comment Sezary Cell Specimen Type Sample Site Patient Temperature POC pH (7.35-7.45) POC pCO2 (35-46) mmHg POC pO2 (80-95) mmHg POC HCO3 (19-24) gino/L POC Total CO2 (24-31) mEq/l POC Base Excess (-9-1.8) gino/L O2 Sat Pulse Oximetry ABG pH 7.49 H (7.35-7.45) ABG pCO2 29 L (35-46) mmHg ABG pO2 65 L (80-95) mm/Hg ABG HCO3 22 (19-24) mmol/L POC ABG O2 Sat (90-95) % ABG O2 Saturation 94.1 (90-95) % ABG Base Excess -0.9 (-9-1.8) mEq/L [place] Test Pos Barometric Pressure 733.4 mm/Hg Oxygen Given 2 L O2 Delivery Device Vent Mode Vent Setting POC FiO2 % End Tidal CO2 PEEP Sodium 140 Potassium 3.3 L D Chloride 109 H Carbon Dioxide 23 Anion Gap 8.0 BUN 16 Creatinine 0.82 Est Cr Clr Drug Dosing 93.4 Est GFR ( Amer) 109.8 Est GFR (Non-Af Amer) 94.8 BUN/Creatinine Ratio 19.9 Glucose 127 H POC Glucose (70-99) Calcium 8.1 L Total Bilirubin 0.7 AST 120 H ALT 99 H Alkaline Phosphatase 58 Total Protein 5.7 L Albumin 2.5 L Globulin 3.2 Albumin/Globulin Ratio 0.8 L 10/27/18 10/27/18 10/27/18 Range/Units 04:54 04:46 04:46 WBC RBC Hgb Hct MCV MCH MCHC RDW Std Deviation RDW Coeff of Anh Plt Count MPV Immature Gran % (Auto) Neut % (Auto) Lymph % (Auto) Delta % (Auto) Eos % (Auto) Baso % (Auto) Immature Gran # (Auto) Neut # (Auto) Lymph # (Auto) Delta # (Auto) Eos # (Auto) Baso # (Auto) Absolute Nucleated RBC Nucleated RBC % (auto) Neutrophils % (Manual) Band Neutrophils % Lymphocytes % (Manual) Prolymphocyte % Reactive Lymphs % (Man) Monocytes % (Manual) Eosinophils % (Manual) Basophils % (Manual) Metamyelocytes % (Man) Myelocytes % (Man) Promyelocytes % (Man) Blast Cells % (Manual) Plasma Cell % (Manual) Other Cells % Nucleated RBC % Neutrophils # (Manual) Band Neutrophils # Total Absolute Neuts Lymphocytes # (Manual) Prolymphocyte # Reactive Lymphs # Total Abs Lymphocytes Monocytes # (Manual) Eosinophils # (Manual) Basophils # (Manual) Metamyelocytes # (Man) Myelocytes # (Manual) Promyelocytes # (Man) Blast Cells # (Man) Plasma Cell # (Manual) Other Cells # Nucleated RBCs # (Man) Hypersegmented Neuts Hyposegmented Neuts Hypogranular Neuts Large Granular Lymphs # Lrg Granular Lymphs Hairy Cells Smudge Cells Toxic Granulation Toxic Vacuolation Dohle Bodies Ashley Rods Platelet Estimate Hypogranular Platelets Clumped Platelets Giant Platelets Platelet Satelliting RBC Morphology Polychromasia Hypochromasia Poikilocytosis Basophilic Stippling Anisocytosis Microcytosis Macrocytosis Spherocytes Pappenheimer Bodies Sickle Cells Target Cells Tear Drop Cells Ovalocytes Stomatocytes [place] Bodies Echinocytes Acanthocytes (Spur) Rouleaux RBC Agglutinates Schistocytes RBC Morph Comment Sezary Cell Specimen Type Sample Site Patient Temperature POC pH (7.35-7.45) POC pCO2 (35-46) mmHg POC pO2 (80-95) mmHg POC HCO3 (19-24) gino/L POC Total CO2 (24-31) mEq/l POC Base Excess (-9-1.8) gino/L O2 Sat Pulse Oximetry ABG pH (7.35-7.45) ABG pCO2 (35-46) mmHg ABG pO2 (80-95) mm/Hg ABG HCO3 (19-24) mmol/L POC ABG O2 Sat (90-95) % ABG O2 Saturation (90-95) % ABG Base Excess (-9-1.8) mEq/L [place] Test Barometric Pressure mm/Hg Oxygen Given O2 Delivery Device Vent Mode Vent Setting POC FiO2 % End Tidal CO2 PEEP Sodium Cancelled Potassium Cancelled Chloride Cancelled Carbon Dioxide Cancelled Anion Gap Cancelled BUN Cancelled Creatinine Cancelled Est Cr Clr Drug Dosing Cancelled Est GFR ( Amer) Cancelled Est GFR (Non-Af Amer) Cancelled BUN/Creatinine Ratio Cancelled Glucose Cancelled POC Glucose 89 (70-99) Calcium Cancelled Total Bilirubin Cancelled AST Cancelled ALT Cancelled Alkaline Phosphatase Cancelled Total Protein Cancelled Albumin Cancelled Globulin Cancelled Albumin/Globulin Ratio Cancelled 10/27/18 10/26/18 10/26/18 Range/Units 04:46 21:11 17:42 WBC Cancelled RBC Cancelled Hgb Cancelled Hct Cancelled MCV Cancelled MCH Cancelled MCHC Cancelled RDW Std Deviation Cancelled RDW Coeff of Anh Cancelled Plt Count Cancelled MPV Cancelled Immature Gran % (Auto) Cancelled Neut % (Auto) Cancelled Lymph % (Auto) Cancelled Delta % (Auto) Cancelled Eos % (Auto) Cancelled Baso % (Auto) Cancelled Immature Gran # (Auto) Cancelled Neut # (Auto) Cancelled Lymph # (Auto) Cancelled Delta # (Auto) Cancelled Eos # (Auto) Cancelled Baso # (Auto) Cancelled Absolute Nucleated RBC Cancelled Nucleated RBC % (auto) Cancelled Neutrophils % (Manual) Cancelled Band Neutrophils % Cancelled Lymphocytes % (Manual) Cancelled Prolymphocyte % Cancelled Reactive Lymphs % (Man) Cancelled Monocytes % (Manual) Cancelled Eosinophils % (Manual) Cancelled Basophils % (Manual) Cancelled Metamyelocytes % (Man) Cancelled Myelocytes % (Man) Cancelled Promyelocytes % (Man) Cancelled Blast Cells % (Manual) Cancelled Plasma Cell % (Manual) Cancelled Other Cells % Cancelled Nucleated RBC % Cancelled Neutrophils # (Manual) Cancelled Band Neutrophils # Cancelled Total Absolute Neuts Cancelled Lymphocytes # (Manual) Cancelled Prolymphocyte # Cancelled Reactive Lymphs # Cancelled Total Abs Lymphocytes Cancelled Monocytes # (Manual) Cancelled Eosinophils # (Manual) Cancelled Basophils # (Manual) Cancelled Metamyelocytes # (Man) Cancelled Myelocytes # (Manual) Cancelled Promyelocytes # (Man) Cancelled Blast Cells # (Man) Cancelled Plasma Cell # (Manual) Cancelled Other Cells # Cancelled Nucleated RBCs # (Man) Cancelled Hypersegmented Neuts Cancelled Hyposegmented Neuts Cancelled Hypogranular Neuts Cancelled Large Granular Lymphs Cancelled # Lrg Granular Lymphs Cancelled Hairy Cells Cancelled Smudge Cells Cancelled Toxic Granulation Cancelled Toxic Vacuolation Cancelled Dohle Bodies Cancelled Ashley Rods Cancelled Platelet Estimate Cancelled Hypogranular Platelets Cancelled Clumped Platelets Cancelled Giant Platelets Cancelled Platelet Satelliting Cancelled RBC Morphology Cancelled Polychromasia Cancelled Hypochromasia Cancelled Poikilocytosis Cancelled Basophilic Stippling Cancelled Anisocytosis Cancelled Microcytosis Cancelled Macrocytosis Cancelled Spherocytes Cancelled Pappenheimer Bodies Cancelled Sickle Cells Cancelled Target Cells Cancelled Tear Drop Cells Cancelled Ovalocytes Cancelled Stomatocytes Cancelled [place] Bodies Cancelled Echinocytes Cancelled Acanthocytes (Spur) Cancelled Rouleaux Cancelled RBC Agglutinates Cancelled Schistocytes Cancelled RBC Morph Comment Cancelled Sezary Cell Cancelled Specimen Type Sample Site Patient Temperature POC pH (7.35-7.45) POC pCO2 (35-46) mmHg POC pO2 (80-95) mmHg POC HCO3 (19-24) gino/L POC Total CO2 (24-31) mEq/l POC Base Excess (-9-1.8) gino/L O2 Sat Pulse Oximetry ABG pH (7.35-7.45) ABG pCO2 (35-46) mmHg ABG pO2 (80-95) mm/Hg ABG HCO3 (19-24) mmol/L POC ABG O2 Sat (90-95) % ABG O2 Saturation (90-95) % ABG Base Excess (-9-1.8) mEq/L [place] Test Barometric Pressure mm/Hg Oxygen Given O2 Delivery Device Vent Mode Vent Setting POC FiO2 % End Tidal CO2 PEEP Sodium Potassium Chloride Carbon Dioxide Anion Gap BUN Creatinine Est Cr Clr Drug Dosing Est GFR ( Amer) Est GFR (Non-Af Amer) BUN/Creatinine Ratio Glucose POC Glucose 96 78 (70-99) Calcium Total Bilirubin AST ALT Alkaline Phosphatase Total Protein Albumin Globulin Albumin/Globulin Ratio 10/26/18 10/26/18 10/26/18 Range/Units 15:51 14:26 12:09 WBC RBC Hgb Hct MCV MCH MCHC RDW Std Deviation RDW Coeff of Anh Plt Count MPV Immature Gran % (Auto) Neut % (Auto) Lymph % (Auto) Delta % (Auto) Eos % (Auto) Baso % (Auto) Immature Gran # (Auto) Neut # (Auto) Lymph # (Auto) Delta # (Auto) Eos # (Auto) Baso # (Auto) Absolute Nucleated RBC Nucleated RBC % (auto) Neutrophils % (Manual) Band Neutrophils % Lymphocytes % (Manual) Prolymphocyte % Reactive Lymphs % (Man) Monocytes % (Manual) Eosinophils % (Manual) Basophils % (Manual) Metamyelocytes % (Man) Myelocytes % (Man) Promyelocytes % (Man) Blast Cells % (Manual) Plasma Cell % (Manual) Other Cells % Nucleated RBC % Neutrophils # (Manual) Band Neutrophils # Total Absolute Neuts Lymphocytes # (Manual) Prolymphocyte # Reactive Lymphs # Total Abs Lymphocytes Monocytes # (Manual) Eosinophils # (Manual) Basophils # (Manual) Metamyelocytes # (Man) Myelocytes # (Manual) Promyelocytes # (Man) Blast Cells # (Man) Plasma Cell # (Manual) Other Cells # Nucleated RBCs # (Man) Hypersegmented Neuts Hyposegmented Neuts Hypogranular Neuts Large Granular Lymphs # Lrg Granular Lymphs Hairy Cells Smudge Cells Toxic Granulation Toxic Vacuolation Dohle Bodies Ashley Rods Platelet Estimate Hypogranular Platelets Clumped Platelets Giant Platelets Platelet Satelliting RBC Morphology Polychromasia Hypochromasia Poikilocytosis Basophilic Stippling Anisocytosis Microcytosis Macrocytosis Spherocytes Pappenheimer Bodies Sickle Cells Target Cells Tear Drop Cells Ovalocytes Stomatocytes [place] Bodies Echinocytes Acanthocytes (Spur) Rouleaux RBC Agglutinates Schistocytes RBC Morph Comment Sezary Cell Specimen Type Arterial Sample Site Art Line Patient Temperature 37.1 POC pH 7.34 L (7.35-7.45) POC pCO2 37 (35-46) mmHg POC pO2 96 H (80-95) mmHg POC HCO3 20 (19-24) gino/L POC Total CO2 21 L (24-31) mEq/l POC Base Excess -6.0 (-9-1.8) gino/L O2 Sat Pulse Oximetry 98 ABG pH (7.35-7.45) ABG pCO2 (35-46) mmHg ABG pO2 (80-95) mm/Hg ABG HCO3 (19-24) mmol/L POC ABG O2 Sat 97.0 H (90-95) % ABG O2 Saturation (90-95) % ABG Base Excess (-9-1.8) mEq/L [place] Test Not Performed Barometric Pressure mm/Hg Oxygen Given O2 Delivery Device Ventilator Vent Mode PSV Vent Setting 5 POC FiO2 35 % End Tidal CO2 36 PEEP 5 Sodium Potassium Chloride Carbon Dioxide Anion Gap BUN Creatinine Est Cr Clr Drug Dosing Est GFR ( Amer) Est GFR (Non-Af Amer) BUN/Creatinine Ratio Glucose POC Glucose 77 172 H (70-99) Calcium Total Bilirubin AST ALT Alkaline Phosphatase Total Protein Albumin Globulin Albumin/Globulin Ratio Medications Administered Home Medications Medication Instructions Recorded Confirmed Last Taken Ibuprofen Tab (ADVIL) 400 - 600 mg PO Q6H PRN #0 tab 06/28/13 Unknown Active Medications Generic Name Dose Route Start Last Admin Trade Name Freq PRN Reason Stop Dose Admin Aspirin 81 mg 10/24/18 09:00 10/27/18 09:33 Aspirin Chew PO 11/23/18 08:59 81 mg QAM HARMAN Administration Atorvastatin Calcium 80 mg 10/24/18 09:00 10/27/18 09:33 Lipitor PO 11/23/18 08:59 80 mg QAM HARMAN Administration Dextrose 25 - 50 ml 10/24/18 06:00 10/26/18 11:47 Dextrose 50% IV 11/23/18 05:59 50 ml UD PRN Administration Hypoglycemia Protocol Protocol Enoxaparin Sodium 40 mg 10/24/18 09:00 10/27/18 09:33 Lovenox SQ 11/23/18 08:59 40 mg QAM HARMAN Administration Famotidine 20 mg/ Syringe 5 mls @ 2.5 mls/min 10/25/18 09:00 10/27/18 09:35 IV 11/24/18 08:59 2.5 mls/min BID HARMAN Administration Acetaminophen 1,000 mg in 100 mls @ 400 mls/hr 10/26/18 19:12 10/26/18 21:50 Ofirmev IV 11/25/18 19:11 Infused Q8H PRN Infusion Fever Metoprolol Tartrate 25 mg 10/25/18 21:00 10/27/18 09:33 Lopressor PO 11/24/18 20:59 25 mg BID HARMAN Administration Ticagrelor 90 mg 10/24/18 10:30 10/27/18 09:33 Brilinta PO 11/23/18 10:29 90 mg BID HARMAN Administration
[2018-10-27] MEDS: POTASSIUM CHLORIDE / WTR 10 MEQ/100 ML PLCT IV SCH ×2 (13:12→14:14)
--- NOTE | 2018-10-27 15:17 | Hospitalist Progress Note ---
Date of Service October 27, 2018 Assessment & Plan (1) Cardiac arrest: This patient is a 63yo male with history of HLP, Asthma presenting s/p cardiac arrest with ROSC, cath with occlusion of circumflex s/p KALA placement now status post cooling protocol. 1. Neuro: patient with some decorticate posturing noted in ER and after cardiac cath. CT head negative. extubated on 10/26, breathing well, no evidence of posturing after sedation removed EEG on 10/26 with moderate encephalopathy, no seizure activity -completed cooling per protocol today he is following commands, oriented to person and place, not time cannot recall recent events, continues to struggle with short term memory no focal neurological deficits on exam 2. Pulm: extubated on 10/26. breathing well on room air today History of asthma, patient not presently on medications. Active smoker. -CXR with bibasilar atelectasis There was a question of aspiration pneumonia given vomiting upon admission. did have a low-grade temperature here. -Continue nebs PRN -Follow chest x-ray -On Zosyn in case of aspiration pneumonia 3. CV: s/p cardiac arrest with CPR and ROSC. S/p cardiac catheterization with placement of KALA to Cx. bradycardia resolved after cooling reversed Troponin peaked at 58. Echocardiogram with wall motion abnormality in the inferolateral region with preserved EF. 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 GI: With elevated LFTs AST and ALT only. Likely secondary to cardiac arrest and now improving. -Follow LFTs, AST and ALT minimally elevated -Continue Pepcid twice daily IV for prophylaxis tolerating liquids today 5. : Mccray in place, Cr and electrolytes remain stable, is making urine - remove mccray today 6. Heme - patient with leukocytosis which is improving today down to 8k, most likely reactive but could be secondary to aspiration pneumonia. 7. ID -with questionable aspiration pneumonitis. low grade fever last night With thick discharge from ETT previously Patient with large amount of vomit upon admission, coarse breath sounds improved but still remain Chest x-ray with bilateral basilar atelectasis versus pneumonitis Blood cultures no growth to date -Continue Zosyn as above -Acetaminophen as needed for fever -Follow blood cultures-no growth to date 8. Endocrine -on ICU hyperglycemia protocol, insulin as needed, hemoglobin A1c 5.8% monitor for hypoglycemia Blood sugars more acceptable later in the day DVT prophylaxis-Lovenox 40 mg SQ daily Disposition-remain in ICU (2) STEMI (ST elevation myocardial infarction): (3) Asthma: (4) High cholesterol: (5) Stented coronary artery: (6) Smoker: (7) CAD (coronary artery disease), bad [place] coronary artery: (8) Aspiration pneumonia: Subjective patient is awake and alert today, following commands and answering appropriately he is oriented to person does not know the date and does not remember recent events family updated at the bedside discussed with cardiology and ICU discussed with RN, patient continues to struggle with short term memory, although he is pleasant and cooperative reviewed labs, CBC stable, K low at 3.3, Cr stable at 0.8, AST and ALT trending down, minimally elevated Review of Systems Review of Systems: All systems reviewed & are unremarkable except as noted in HPI & below Constitutional: + fatigue and + weakness; no fever, no chills and no sweats Respiratory: no cough and no dyspnea Cardiovascular: no chest pain and no palpitations Gastrointestinal: no abdominal pain, no nausea, no vomiting, no constipation and no diarrhea/loose stools Neurologic: + confusion and + memory loss (short term) Physical Exam Constitutional: WD/WN, vitals as above Eyes: PERRL, conjunctivae normal, anicteric sclerae ENMT: external ear and nose normal, oropharynx normal Neck: trachea midline, no thyromegaly Respiratory: normal respiratory effort, lungs clear to auscultation Cardiovascular: RRR, no murmur, no edema Gastrointestinal (Abdomen): normal bowel sounds, soft, nontender, no hepatosplenomegaly Musculoskeletal: Head/Neck/Chest: normocephalic and head atraumatic Extremities: extremities normal to inspection; no cyanosis and no clubbing Skin: no rashes, warm and dry Neurologic: patellar DTR's 2+ bilat, sensation intact and PERRL, EOMI, accommodation nl, no face palsy, no dysarthria + confused Psychiatric: Orientation: alert, oriented to person, oriented to place and cooperative; + not oriented to time Lymphatic: no cervical or axillary lymphadenopathy Results & Data Vital Signs (Past 12 Hours) Vital Signs Temp Pulse Pulse Resp BP BP BP 10/27/18 12:01 37.4 C 73 14 127/87 10/27/18 12:00 77 15 10/27/18 11:00 84 18 139/77 10/27/18 10:00 76 21 143/80 H 10/27/18 09:00 79 22 10/27/18 08:01 80 21 149/95 H 10/27/18 06:00 37.6 C H 77 18 149/65 H 150/81 H 10/27/18 05:00 79 18 133/65 139/80 10/27/18 04:00 37.5 C 78 18 155/56 H Pulse Ox 10/27/18 12:01 94 10/27/18 12:00 94 10/27/18 11:00 91 10/27/18 10:00 92 10/27/18 09:00 92 10/27/18 08:01 96 10/27/18 06:00 98 10/27/18 05:00 97 10/27/18 04:00 100 Laboratory Results Laboratory Results - last 24 hr 10/26/18 10/26/18 10/26/18 12:09 14:26 15:51 WBC RBC Hgb Hct MCV MCH MCHC RDW Std Deviation RDW Coeff of Anh Plt Count MPV Immature Gran % (Auto) Neut % (Auto) Lymph % (Auto) Morrill % (Auto) Eos % (Auto) Baso % (Auto) Immature Gran # (Auto) Neut # (Auto) Lymph # (Auto) Morrill # (Auto) Eos # (Auto) Baso # (Auto) Absolute Nucleated RBC Nucleated RBC % (auto) Neutrophils % (Manual) Band Neutrophils % Lymphocytes % (Manual) Prolymphocyte % Reactive Lymphs % (Man) Monocytes % (Manual) Eosinophils % (Manual) Basophils % (Manual) Metamyelocytes % (Man) Myelocytes % (Man) Promyelocytes % (Man) Blast Cells % (Manual) Plasma Cell % (Manual) Other Cells % Nucleated RBC % Neutrophils # (Manual) Band Neutrophils # Total Absolute Neuts Lymphocytes # (Manual) Prolymphocyte # Reactive Lymphs # Total Abs Lymphocytes Monocytes # (Manual) Eosinophils # (Manual) Basophils # (Manual) Metamyelocytes # (Man) Myelocytes # (Manual) Promyelocytes # (Man) Blast Cells # (Man) Plasma Cell # (Manual) Other Cells # Nucleated RBCs # (Man) Hypersegmented Neuts Hyposegmented Neuts Hypogranular Neuts Large Granular Lymphs # Lrg Granular Lymphs Hairy Cells Smudge Cells Toxic Granulation Toxic Vacuolation Dohle Bodies Ashley Rods Platelet Estimate Hypogranular Platelets Clumped Platelets Giant Platelets Platelet Satelliting RBC Morphology Polychromasia Hypochromasia Poikilocytosis Basophilic Stippling Anisocytosis Microcytosis Macrocytosis Spherocytes Pappenheimer Bodies Sickle Cells Target Cells Tear Drop Cells Ovalocytes Stomatocytes Kang-Gueydan Bodies Echinocytes Acanthocytes (Spur) Rouleaux RBC Agglutinates Schistocytes RBC Morph Comment Sezary Cell Specimen Type Arterial Sample Site Art Line Patient Temperature 37.1 POC pH 7.34 L POC pCO2 37 POC pO2 96 H POC HCO3 20 POC Total CO2 21 L POC Base Excess -6.0 O2 Sat Pulse Oximetry 98 ABG pH ABG pCO2 ABG pO2 ABG HCO3 POC ABG O2 Sat 97.0 H ABG O2 Saturation ABG Base Excess Doroteo Test Not Performed Barometric Pressure Oxygen Given O2 Delivery Device Ventilator Vent Mode PSV Vent Setting 5 POC FiO2 35 End Tidal CO2 36 PEEP 5 Sodium Potassium Chloride Carbon Dioxide Anion Gap BUN Creatinine Est Cr Clr Drug Dosing Est GFR ( Amer) Est GFR (Non-Af Amer) BUN/Creatinine Ratio Glucose POC Glucose 172 H 77 Calcium Total Bilirubin AST ALT Alkaline Phosphatase Total Protein Albumin Globulin Albumin/Globulin Ratio 10/26/18 10/26/18 10/27/18 17:42 21:11 04:46 WBC Cancelled RBC Cancelled Hgb Cancelled Hct Cancelled MCV Cancelled MCH Cancelled MCHC Cancelled RDW Std Deviation Cancelled RDW Coeff of Anh Cancelled Plt Count Cancelled MPV Cancelled Immature Gran % (Auto) Cancelled Neut % (Auto) Cancelled Lymph % (Auto) Cancelled Morrill % (Auto) Cancelled Eos % (Auto) Cancelled Baso % (Auto) Cancelled Immature Gran # (Auto) Cancelled Neut # (Auto) Cancelled Lymph # (Auto) Cancelled Morrill # (Auto) Cancelled Eos # (Auto) Cancelled Baso # (Auto) Cancelled Absolute Nucleated RBC Cancelled Nucleated RBC % (auto) Cancelled Neutrophils % (Manual) Cancelled Band Neutrophils % Cancelled Lymphocytes % (Manual) Cancelled Prolymphocyte % Cancelled Reactive Lymphs % (Man) Cancelled Monocytes % (Manual) Cancelled Eosinophils % (Manual) Cancelled Basophils % (Manual) Cancelled Metamyelocytes % (Man) Cancelled Myelocytes % (Man) Cancelled Promyelocytes % (Man) Cancelled Blast Cells % (Manual) Cancelled Plasma Cell % (Manual) Cancelled Other Cells % Cancelled Nucleated RBC % Cancelled Neutrophils # (Manual) Cancelled Band Neutrophils # Cancelled Total Absolute Neuts Cancelled Lymphocytes # (Manual) Cancelled Prolymphocyte # Cancelled Reactive Lymphs # Cancelled Total Abs Lymphocytes Cancelled Monocytes # (Manual) Cancelled Eosinophils # (Manual) Cancelled Basophils # (Manual) Cancelled Metamyelocytes # (Man) Cancelled Myelocytes # (Manual) Cancelled Promyelocytes # (Man) Cancelled Blast Cells # (Man) Cancelled Plasma Cell # (Manual) Cancelled Other Cells # Cancelled Nucleated RBCs # (Man) Cancelled Hypersegmented Neuts Cancelled Hyposegmented Neuts Cancelled Hypogranular Neuts Cancelled Large Granular Lymphs Cancelled # Lrg Granular Lymphs Cancelled Hairy Cells Cancelled Smudge Cells Cancelled Toxic Granulation Cancelled Toxic Vacuolation Cancelled Dohle Bodies Cancelled Ashley Rods Cancelled Platelet Estimate Cancelled Hypogranular Platelets Cancelled Clumped Platelets Cancelled Giant Platelets Cancelled Platelet Satelliting Cancelled RBC Morphology Cancelled Polychromasia Cancelled Hypochromasia Cancelled Poikilocytosis Cancelled Basophilic Stippling Cancelled Anisocytosis Cancelled Microcytosis Cancelled Macrocytosis Cancelled Spherocytes Cancelled Pappenheimer Bodies Cancelled Sickle Cells Cancelled Target Cells Cancelled Tear Drop Cells Cancelled Ovalocytes Cancelled Stomatocytes Cancelled Kang-Gueydan Bodies Cancelled Echinocytes Cancelled Acanthocytes (Spur) Cancelled Rouleaux Cancelled RBC Agglutinates Cancelled Schistocytes Cancelled RBC Morph Comment Cancelled Sezary Cell Cancelled Specimen Type Sample Site Patient Temperature POC pH POC pCO2 POC pO2 POC HCO3 POC Total CO2 POC Base Excess O2 Sat Pulse Oximetry ABG pH ABG pCO2 ABG pO2 ABG HCO3 POC ABG O2 Sat ABG O2 Saturation ABG Base Excess Doroteo Test Barometric Pressure Oxygen Given O2 Delivery Device Vent Mode Vent Setting POC FiO2 End Tidal CO2 PEEP Sodium Potassium Chloride Carbon Dioxide Anion Gap BUN Creatinine Est Cr Clr Drug Dosing Est GFR ( Amer) Est GFR (Non-Af Amer) BUN/Creatinine Ratio Glucose POC Glucose 78 96 Calcium Total Bilirubin AST ALT Alkaline Phosphatase Total Protein Albumin Globulin Albumin/Globulin Ratio 10/27/18 10/27/18 10/27/18 04:46 04:46 04:54 WBC RBC Hgb Hct MCV MCH MCHC RDW Std Deviation RDW Coeff of Anh Plt Count MPV Immature Gran % (Auto) Neut % (Auto) Lymph % (Auto) Morrill % (Auto) Eos % (Auto) Baso % (Auto) Immature Gran # (Auto) Neut # (Auto) Lymph # (Auto) [place]rill # (Auto) Eos # (Auto) Baso # (Auto) Absolute Nucleated RBC Nucleated RBC % (auto) Neutrophils % (Manual) Band Neutrophils % Lymphocytes % (Manual) Prolymphocyte % Reactive Lymphs % (Man) Monocytes % (Manual) Eosinophils % (Manual) Basophils % (Manual) Metamyelocytes % (Man) Myelocytes % (Man) Promyelocytes % (Man) Blast Cells % (Manual) Plasma Cell % (Manual) Other Cells % Nucleated RBC % Neutrophils # (Manual) Band Neutrophils # Total Absolute Neuts Lymphocytes # (Manual) Prolymphocyte # Reactive Lymphs # Total Abs Lymphocytes Monocytes # (Manual) Eosinophils # (Manual) Basophils # (Manual) Metamyelocytes # (Man) Myelocytes # (Manual) Promyelocytes # (Man) Blast Cells # (Man) Plasma Cell # (Manual) Other Cells # Nucleated RBCs # (Man) Hypersegmented Neuts Hyposegmented Neuts Hypogranular Neuts Large Granular Lymphs # Lrg Granular Lymphs Hairy Cells Smudge Cells Toxic Granulation Toxic Vacuolation Dohle Bodies Ashley Rods Platelet Estimate Hypogranular Platelets Clumped Platelets Giant Platelets Platelet Satelliting RBC Morphology Polychromasia Hypochromasia Poikilocytosis Basophilic Stippling Anisocytosis Microcytosis Macrocytosis Spherocytes Pappenheimer Bodies Sickle Cells Target Cells Tear Drop Cells Ovalocytes Stomatocytes Kang-Gueydan Bodies Echinocytes Acanthocytes (Spur) Rouleaux RBC Agglutinates Schistocytes RBC Morph Comment Sezary Cell Specimen Type Sample Site Patient Temperature POC pH POC pCO2 POC pO2 POC HCO3 POC Total CO2 POC Base Excess O2 Sat Pulse Oximetry ABG pH ABG pCO2 ABG pO2 ABG HCO3 POC ABG O2 Sat ABG O2 Saturation ABG Base Excess Doroteo Test Barometric Pressure Oxygen Given O2 Delivery Device Vent Mode Vent Setting POC FiO2 End Tidal CO2 PEEP Sodium Cancelled Potassium Cancelled Chloride Cancelled Carbon Dioxide Cancelled Anion Gap Cancelled BUN Cancelled Creatinine Cancelled Est Cr Clr Drug Dosing Cancelled Est GFR ( Amer) Cancelled Est GFR (Non-Af Amer) Cancelled BUN/Creatinine Ratio Cancelled Glucose Cancelled POC Glucose 89 Calcium Cancelled Total Bilirubin Cancelled AST Cancelled ALT Cancelled Alkaline Phosphatase Cancelled Total Protein Cancelled Albumin Cancelled Globulin Cancelled Albumin/Globulin Ratio Cancelled 10/27/18 10/27/18 10/27/18 05:37 05:37 05:37 WBC 8.93 RBC 3.68 L Hgb 11.8 L Hct 34.0 L MCV 92.4 MCH 32.1 MCHC 34.7 RDW Std Deviation 47.5 H RDW Coeff of Anh 14.0 Plt Count 145 MPV 9.8 Immature Gran % (Auto) 0.3 Neut % (Auto) 79.6 Lymph % (Auto) 10.9 Morrill % (Auto) 9.0 Eos % (Auto) 0.1 Baso % (Auto) 0.1 Immature Gran # (Auto) 0.03 H Neut # (Auto) 7.11 H Lymph # (Auto) 0.97 L Morrill # (Auto) 0.80 H Eos # (Auto) 0.01 Baso # (Auto) 0.01 Absolute Nucleated RBC Nucleated RBC % (auto) Neutrophils % (Manual) Band Neutrophils % Lymphocytes % (Manual) Prolymphocyte % Reactive Lymphs % (Man) Monocytes % (Manual) Eosinophils % (Manual) Basophils % (Manual) Metamyelocytes % (Man) Myelocytes % (Man) Promyelocytes % (Man) Blast Cells % (Manual) Plasma Cell % (Manual) Other Cells % Nucleated RBC % Neutrophils # (Manual) Band Neutrophils # Total Absolute Neuts Lymphocytes # (Manual) Prolymphocyte # Reactive Lymphs # Total Abs Lymphocytes Monocytes # (Manual) Eosinophils # (Manual) Basophils # (Manual) Metamyelocytes # (Man) Myelocytes # (Manual) Promyelocytes # (Man) Blast Cells # (Man) Plasma Cell # (Manual) Other Cells # Nucleated RBCs # (Man) Hypersegmented Neuts Hyposegmented Neuts Hypogranular Neuts Large Granular Lymphs # Lrg Granular Lymphs Hairy Cells Smudge Cells Toxic Granulation Toxic Vacuolation Dohle Bodies Ashley Rods Platelet Estimate Hypogranular Platelets Clumped Platelets Giant Platelets Platelet Satelliting RBC Morphology Polychromasia Hypochromasia Poikilocytosis Basophilic Stippling Anisocytosis Microcytosis Macrocytosis Spherocytes Pappenheimer Bodies Sickle Cells Target Cells Tear Drop Cells Ovalocytes Stomatocytes Kang-Gueydan Bodies Echinocytes Acanthocytes (Spur) Rouleaux RBC Agglutinates Schistocytes RBC Morph Comment Sezary Cell Specimen Type Sample Site Patient Temperature POC pH POC pCO2 POC pO2 POC HCO3 POC Total CO2 POC Base Excess O2 Sat Pulse Oximetry ABG pH 7.49 H ABG pCO2 29 L ABG pO2 65 L ABG HCO3 22 POC ABG O2 Sat ABG O2 Saturation 94.1 ABG Base Excess -0.9 Doroteo Test Pos Barometric Pressure 733.4 Oxygen Given 2 L O2 Delivery Device Vent Mode Vent Setting POC FiO2 End Tidal CO2 PEEP Sodium 140 Potassium 3.3 L D Chloride 109 H Carbon Dioxide 23 Anion Gap 8.0 BUN 16 Creatinine 0.82 Est Cr Clr Drug Dosing 93.4 Est GFR ( Amer) 109.8 Est GFR (Non-Af Amer) 94.8 BUN/Creatinine Ratio 19.9 Glucose 127 H POC Glucose Calcium 8.1 L Total Bilirubin 0.7 AST 120 H ALT 99 H Alkaline Phosphatase 58 Total Protein 5.7 L Albumin 2.5 L Globulin 3.2 Albumin/Globulin Ratio 0.8 L Medications Administered Current Inpatient Medications Albuterol (Ventolin 0.083% 2.5mg/3ml) 2.5 mg INH Q2H PRN PRN Reason: SOB/WHEEZE Stop: 11/23/18 04:24 Aspirin (Aspirin Chew) 81 mg PO [facility] Stop: 11/23/18 08:59 Last Admin: 10/27/18 09:33 Dose: 81 mg Documented by: Atorvastatin Calcium (Lipitor) 80 mg PO [facility] Stop: 11/23/18 08:59 Last Admin: 10/27/18 09:33 Dose: 80 mg Documented by: Dextrose (Dextrose 50%) 25 - 50 ml IV UD PRN; Protocol PRN Reason: Hypoglycemia Protocol Stop: 11/23/18 05:59 Last Admin: 10/26/18 11:47 Dose: 50 ml Documented by: Enoxaparin Sodium (Lovenox) 40 mg SQ QAM [facility] Stop: 11/23/18 08:59 Last Admin: 10/27/18 09:33 Dose: 40 mg Documented by: Glucagon (Glucagen) 1 mg IM UD PRN; Protocol PRN Reason: Hypoglycemia Protocol Stop: 11/23/18 05:59 Glucose (Glucose 40%) 15 - 30 gm PO UD PRN; Protocol PRN Reason: Hypoglycemia Protocol Stop: 11/23/18 05:59 Glucose (Dex4 Glucose) 4 - 8 tabs PO UD PRN; Protocol PRN Reason: Hypoglycemia Protocol Stop: 11/23/18 05:59 Famotidine 20 mg/ Syringe 5 mls @ 2.5 mls/min IV BID [facility] Stop: 11/24/18 08:59 Last Admin: 10/27/18 09:35 Dose: 2.5 mls/min Documented by: Acetaminophen (Ofirmev) 1,000 mg in 100 mls @ 400 mls/hr IV Q8H PRN PRN Reason: Fever Stop: 11/25/18 19:11 Last Infusion: 10/26/18 21:50 Dose: Infused Documented by: Metoprolol Tartrate (Lopressor) 25 mg PO BID [facility] Stop: 11/24/18 20:59 Last Admin: 10/27/18 09:33 Dose: 25 mg Documented by: Miscellaneous (Carbohydrates For Hypoglycemia) 15 - 30 gm PO PRN PRN PRN Reason: Hypoglycemia Treatment Stop: 11/23/18 05:59 Ticagrelor (Brilinta) 90 mg PO BID [facility] Stop: 11/23/18 10:29 Last Admin: 10/27/18 09:33 Dose: 90 mg Documented by:
--- NOTE | 2018-10-27 15:41 | Cardiology Progress Note ---
Date of Service October 27, 2018 Assessment & Plan (1) Cardiac arrest: He underwent hypothermia protocol and has been re-warmed. Cardiac arrest likely secondary to ventricular arrhythmia in the setting of circumflex STEMI. Neurologically, he continues to improve. Continue to monitor closely. No ventricular arrhythmia noted on telemetry. (2) STEMI (ST elevation myocardial infarction): LV systolic function remains normal with inferolateral wall motion abnormality on echo. He is status post circumflex PCI. Continue aspirin 81 mg daily indefinitely. Continue Brilinta for at least 1 year. Continue high- intensity statin therapy. Continue beta-jayshree with titration to 50 mg twice daily. Lisinopril 5 mg once daily starting tomorrow. Blood pressure has been mostly mildly hypertensive. (3) CAD (coronary artery disease), solomon coronary artery: Continue medical therapy following PCI of circumflex. Continue aspirin 81 mg daily indefinitely. Continue Brilinta for at least 1 year. Continue high- intensity statin therapy. Continue beta-jayshree with adjustment as above. DOUGLAS- inhibitor tomorrow (blood pressure has mostly been mildly elevated). (4) Stented coronary artery: Anti-platelet therapy as above. (5) Dyslipidemia, goal to be determined: Continue high-intensity statin therapy. LDL was elevated and he now has documented CAD. (6) Disposition: Cardiology will continue to follow. Dr. Tucker is his primary general ophthalmologist. Subjective He is now extubated. He denies chest pain, shortness of breath, syncope, near- syncope, palpitations. He does not have any recall of his presentation, as expected. His son was present at the bedside and states that his father appears to be back to baseline in regards to personality. Nursing staff has noted that throughout the course of the day, he has become more oriented. They have noted improvement in his mental status as the day progresses. Review of systems: As above. Physical Exam Physical Exam: Gen.: No acute distress. Alert and oriented to self and place. He did not know the year. HEENT: Anicteric sclera. Neck: No JVD. Cardiac: Regular. Normal S1-S2. No murmurs, rubs, or gallops. Pulmonary: Clear to auscultation bilaterally without wheezes, rales, or rhonchi. Abdomen: Soft, nontender, nondistended, with normoactive bowel sounds. No bruits noted. Extremities: No pitting edema or cyanosis. Results & Data Vital Signs (Past 12 Hours) Vital Signs Temp Pulse Pulse Resp BP BP BP 10/27/18 12:01 37.4 C 73 14 127/87 10/27/18 12:00 77 15 10/27/18 11:00 84 18 139/77 10/27/18 10:00 76 21 143/80 H 10/27/18 09:00 79 22 10/27/18 08:01 80 21 149/95 H 10/27/18 06:00 37.6 C H 77 18 149/65 H 150/81 H 10/27/18 05:00 79 18 133/65 139/80 10/27/18 04:00 37.5 C 78 18 155/56 H Pulse Ox 10/27/18 12:01 94 10/27/18 12:00 94 10/27/18 11:00 91 10/27/18 10:00 92 10/27/18 09:00 92 10/27/18 08:01 96 10/27/18 06:00 98 10/27/18 05:00 97 10/27/18 04:00 100 Intake & Output 10/25/18 10/26/18 10/27/18 10/28/18 06:59 06:59 06:59 06:59 Intake Total 2068.729 / 2068.729 2129.183 / 2129.183 553.1 / 553.1 150 / 150 Output Total 1717 / 1717 1208 / 1208 1200 / 1200 975 / 975 Balance 351.729 / 351.729 921.183 / 921.183 -646.9 / -646.9 -825 / -825 Weight 74.8 kg 75.3 kg 75.4 kg Laboratory Results Laboratory Results - last 24 hr 10/26/18 10/26/18 10/26/18 12:09 14:26 15:51 WBC RBC Hgb Hct MCV MCH MCHC RDW Std Deviation RDW Coeff of Anh Plt Count MPV Immature Gran % (Auto) Neut % (Auto) Lymph % (Auto) [place] % (Auto) Eos % (Auto) Baso % (Auto) Immature Gran # (Auto) Neut # (Auto) Lymph # (Auto) [place] # (Auto) Eos # (Auto) Baso # (Auto) Absolute Nucleated RBC Nucleated RBC % (auto) Neutrophils % (Manual) Band Neutrophils % Lymphocytes % (Manual) Prolymphocyte % Reactive Lymphs % (Man) Monocytes % (Manual) Eosinophils % (Manual) Basophils % (Manual) Metamyelocytes % (Man) Myelocytes % (Man) Promyelocytes % (Man) Blast Cells % (Manual) Plasma Cell % (Manual) Other Cells % Nucleated RBC % Neutrophils # (Manual) Band Neutrophils # Total Absolute Neuts Lymphocytes # (Manual) Prolymphocyte # Reactive Lymphs # Total Abs Lymphocytes Monocytes # (Manual) Eosinophils # (Manual) Basophils # (Manual) Metamyelocytes # (Man) Myelocytes # (Manual) Promyelocytes # (Man) Blast Cells # (Man) Plasma Cell # (Manual) Other Cells # Nucleated RBCs # (Man) Hypersegmented Neuts Hyposegmented Neuts Hypogranular Neuts Large Granular Lymphs # Lrg Granular Lymphs Hairy Cells Smudge Cells Toxic Granulation Toxic Vacuolation Dohle Bodies Ashley Rods Platelet Estimate Hypogranular Platelets Clumped Platelets Giant Platelets Platelet Satelliting RBC Morphology Polychromasia Hypochromasia Poikilocytosis Basophilic Stippling Anisocytosis Microcytosis Macrocytosis Spherocytes Pappenheimer Bodies Sickle Cells Target Cells Tear Drop Cells Ovalocytes Stomatocytes Kang-Nys[place] Bodies Echinocytes Acanthocytes (Spur) Rouleaux RBC Agglutinates Schistocytes RBC Morph Comment Sezary Cell Specimen Type Arterial Sample Site Art Line Patient Temperature 37.1 POC pH 7.34 L POC pCO2 37 POC pO2 96 H POC HCO3 20 POC Total CO2 21 L POC Base Excess -6.0 O2 Sat Pulse Oximetry 98 ABG pH ABG pCO2 ABG pO2 ABG HCO3 POC ABG O2 Sat 97.0 H ABG O2 Saturation ABG Base Excess Doroteo Test Not Performed Barometric Pressure Oxygen Given O2 Delivery Device Ventilator Vent Mode PSV Vent Setting 5 POC FiO2 35 End Tidal CO2 36 PEEP 5 Sodium Potassium Chloride Carbon Dioxide Anion Gap BUN Creatinine Est Cr Clr Drug Dosing Est GFR ( Amer) Est GFR (Non-Af Amer) BUN/Creatinine Ratio Glucose POC Glucose 172 H 77 Calcium Total Bilirubin AST ALT Alkaline Phosphatase Total Protein Albumin Globulin Albumin/Globulin Ratio 10/26/18 10/26/18 10/27/18 17:42 21:11 04:46 WBC Cancelled RBC Cancelled Hgb Cancelled Hct Cancelled MCV Cancelled MCH Cancelled MCHC Cancelled RDW Std Deviation Cancelled RDW Coeff of Anh Cancelled Plt Count Cancelled MPV Cancelled Immature Gran % (Auto) Cancelled Neut % (Auto) Cancelled Lymph % (Auto) Cancelled [place] % (Auto) Cancelled Eos % (Auto) Cancelled Baso % (Auto) Cancelled Immature Gran # (Auto) Cancelled Neut # (Auto) Cancelled Lymph # (Auto) Cancelled [place] # (Auto) Cancelled Eos # (Auto) Cancelled Baso # (Auto) Cancelled Absolute Nucleated RBC Cancelled Nucleated RBC % (auto) Cancelled Neutrophils % (Manual) Cancelled Band Neutrophils % Cancelled Lymphocytes % (Manual) Cancelled Prolymphocyte % Cancelled Reactive Lymphs % (Man) Cancelled Monocytes % (Manual) Cancelled Eosinophils % (Manual) Cancelled Basophils % (Manual) Cancelled Metamyelocytes % (Man) Cancelled Myelocytes % (Man) Cancelled Promyelocytes % (Man) Cancelled Blast Cells % (Manual) Cancelled Plasma Cell % (Manual) Cancelled Other Cells % Cancelled Nucleated RBC % Cancelled Neutrophils # (Manual) Cancelled Band Neutrophils # Cancelled Total Absolute Neuts Cancelled Lymphocytes # (Manual) Cancelled Prolymphocyte # Cancelled Reactive Lymphs # Cancelled Total Abs Lymphocytes Cancelled Monocytes # (Manual) Cancelled Eosinophils # (Manual) Cancelled Basophils # (Manual) Cancelled Metamyelocytes # (Man) Cancelled Myelocytes # (Manual) Cancelled Promyelocytes # (Man) Cancelled Blast Cells # (Man) Cancelled Plasma Cell # (Manual) Cancelled Other Cells # Cancelled Nucleated RBCs # (Man) Cancelled Hypersegmented Neuts Cancelled Hyposegmented Neuts Cancelled Hypogranular Neuts Cancelled Large Granular Lymphs Cancelled # Lrg Granular Lymphs Cancelled Hairy Cells Cancelled Smudge Cells Cancelled Toxic Granulation Cancelled Toxic Vacuolation Cancelled Dohle Bodies Cancelled Ashley Rods Cancelled Platelet Estimate Cancelled Hypogranular Platelets Cancelled Clumped Platelets Cancelled Giant Platelets Cancelled Platelet Satelliting Cancelled RBC Morphology Cancelled Polychromasia Cancelled Hypochromasia Cancelled Poikilocytosis Cancelled Basophilic Stippling Cancelled Anisocytosis Cancelled Microcytosis Cancelled Macrocytosis Cancelled Spherocytes Cancelled Pappenheimer Bodies Cancelled Sickle Cells Cancelled Target Cells Cancelled Tear Drop Cells Cancelled Ovalocytes Cancelled Stomatocytes Cancelled Kang-[place] Bodies Cancelled Echinocytes Cancelled Acanthocytes (Spur) Cancelled Rouleaux Cancelled RBC Agglutinates Cancelled Schistocytes Cancelled RBC Morph Comment Cancelled Sezary Cell Cancelled Specimen Type Sample Site Patient Temperature POC pH POC pCO2 POC pO2 POC HCO3 POC Total CO2 POC Base Excess O2 Sat Pulse Oximetry ABG pH ABG pCO2 ABG pO2 ABG HCO3 POC ABG O2 Sat ABG O2 Saturation ABG Base Excess [place] Test Barometric Pressure Oxygen Given O2 Delivery Device Vent Mode Vent Setting POC FiO2 End Tidal CO2 PEEP Sodium Potassium Chloride Carbon Dioxide Anion Gap BUN Creatinine Est Cr Clr Drug Dosing Est GFR ( Amer) Est GFR (Non-Af Amer) BUN/Creatinine Ratio Glucose POC Glucose 78 96 Calcium Total Bilirubin AST ALT Alkaline Phosphatase Total Protein Albumin Globulin Albumin/Globulin Ratio 10/27/18 10/27/18 10/27/18 04:46 04:46 04:54 WBC RBC Hgb Hct MCV MCH MCHC RDW Std Deviation RDW Coeff of Anh Plt Count MPV Immature Gran % (Auto) Neut % (Auto) Lymph % (Auto) [place] % (Auto) Eos % (Auto) Baso % (Auto) Immature Gran # (Auto) Neut # (Auto) Lymph # (Auto) [place] # (Auto) Eos # (Auto) Baso # (Auto) Absolute Nucleated RBC Nucleated RBC % (auto) Neutrophils % (Manual) Band Neutrophils % Lymphocytes % (Manual) Prolymphocyte % Reactive Lymphs % (Man) Monocytes % (Manual) Eosinophils % (Manual) Basophils % (Manual) Metamyelocytes % (Man) Myelocytes % (Man) Promyelocytes % (Man) Blast Cells % (Manual) Plasma Cell % (Manual) Other Cells % Nucleated RBC % Neutrophils # (Manual) Band Neutrophils # Total Absolute Neuts Lymphocytes # (Manual) Prolymphocyte # Reactive Lymphs # Total Abs Lymphocytes Monocytes # (Manual) Eosinophils # (Manual) Basophils # (Manual) Metamyelocytes # (Man) Myelocytes # (Manual) Promyelocytes # (Man) Blast Cells # (Man) Plasma Cell # (Manual) Other Cells # Nucleated RBCs # (Man) Hypersegmented Neuts Hyposegmented Neuts Hypogranular Neuts Large Granular Lymphs # Lrg Granular Lymphs Hairy Cells Smudge Cells Toxic Granulation Toxic Vacuolation Dohle Bodies Ashley Rods Platelet Estimate Hypogranular Platelets Clumped Platelets Giant Platelets Platelet Satelliting RBC Morphology Polychromasia Hypochromasia Poikilocytosis Basophilic Stippling Anisocytosis Microcytosis Macrocytosis Spherocytes Pappenheimer Bodies Sickle Cells Target Cells Tear Drop Cells Ovalocytes Stomatocytes Kang-[place] Bodies Echinocytes Acanthocytes (Spur) Rouleaux RBC Agglutinates Schistocytes RBC Morph Comment Sezary Cell Specimen Type Sample Site Patient Temperature POC pH POC pCO2 POC pO2 POC HCO3 POC Total CO2 POC Base Excess O2 Sat Pulse Oximetry ABG pH ABG pCO2 ABG pO2 ABG HCO3 POC ABG O2 Sat ABG O2 Saturation ABG Base Excess [place] Test Barometric Pressure Oxygen Given O2 Delivery Device Vent Mode Vent Setting POC FiO2 End Tidal CO2 PEEP Sodium Cancelled Potassium Cancelled Chloride Cancelled Carbon Dioxide Cancelled Anion Gap Cancelled BUN Cancelled Creatinine Cancelled Est Cr Clr Drug Dosing Cancelled Est GFR ( Amer) Cancelled Est GFR (Non-Af Amer) Cancelled BUN/Creatinine Ratio Cancelled Glucose Cancelled POC Glucose 89 Calcium Cancelled Total Bilirubin Cancelled AST Cancelled ALT Cancelled Alkaline Phosphatase Cancelled Total Protein Cancelled Albumin Cancelled Globulin Cancelled Albumin/Globulin Ratio Cancelled 10/27/18 10/27/18 10/27/18 05:37 05:37 05:37 WBC 8.93 RBC 3.68 L Hgb 11.8 L Hct 34.0 L MCV 92.4 MCH 32.1 MCHC 34.7 RDW Std Deviation 47.5 H RDW Coeff of Anh 14.0 Plt Count 145 MPV 9.8 Immature Gran % (Auto) 0.3 Neut % (Auto) 79.6 Lymph % (Auto) 10.9 [place] % (Auto) 9.0 Eos % (Auto) 0.1 Baso % (Auto) 0.1 Immature Gran # (Auto) 0.03 H Neut # (Auto) 7.11 H Lymph # (Auto) 0.97 L [place] # (Auto) 0.80 H Eos # (Auto) 0.01 Baso # (Auto) 0.01 Absolute Nucleated RBC Nucleated RBC % (auto) Neutrophils % (Manual) Band Neutrophils % Lymphocytes % (Manual) Prolymphocyte % Reactive Lymphs % (Man) Monocytes % (Manual) Eosinophils % (Manual) Basophils % (Manual) Metamyelocytes % (Man) Myelocytes % (Man) Promyelocytes % (Man) Blast Cells % (Manual) Plasma Cell % (Manual) Other Cells % Nucleated RBC % Neutrophils # (Manual) Band Neutrophils # Total Absolute Neuts Lymphocytes # (Manual) Prolymphocyte # Reactive Lymphs # Total Abs Lymphocytes Monocytes # (Manual) Eosinophils # (Manual) Basophils # (Manual) Metamyelocytes # (Man) Myelocytes # (Manual) Promyelocytes # (Man) Blast Cells # (Man) Plasma Cell # (Manual) Other Cells # Nucleated RBCs # (Man) Hypersegmented Neuts Hyposegmented Neuts Hypogranular Neuts Large Granular Lymphs # Lrg Granular Lymphs Hairy Cells Smudge Cells Toxic Granulation Toxic Vacuolation Dohle Bodies Ashley Rods Platelet Estimate Hypogranular Platelets Clumped Platelets Giant Platelets Platelet Satelliting RBC Morphology Polychromasia Hypochromasia Poikilocytosis Basophilic Stippling Anisocytosis Microcytosis Macrocytosis Spherocytes Pappenheimer Bodies Sickle Cells Target Cells Tear Drop Cells Ovalocytes Stomatocytes Kang-[place] Bodies Echinocytes Acanthocytes (Spur) Rouleaux RBC Agglutinates Schistocytes RBC Morph Comment Sezary Cell Specimen Type Sample Site Patient Temperature POC pH POC pCO2 POC pO2 POC HCO3 POC Total CO2 POC Base Excess O2 Sat Pulse Oximetry ABG pH 7.49 H ABG pCO2 29 L ABG pO2 65 L ABG HCO3 22 POC ABG O2 Sat ABG O2 Saturation 94.1 ABG Base Excess -0.9 [place]o Test Pos Barometric Pressure 733.4 Oxygen Given 2 L O2 Delivery Device Vent Mode Vent Setting POC FiO2 End Tidal CO2 PEEP Sodium 140 Potassium 3.3 L D Chloride 109 H Carbon Dioxide 23 Anion Gap 8.0 BUN 16 Creatinine 0.82 Est Cr Clr Drug Dosing 93.4 Est GFR ( Amer) 109.8 Est GFR (Non-Af Amer) 94.8 BUN/Creatinine Ratio 19.9 Glucose 127 H POC Glucose Calcium 8.1 L Total Bilirubin 0.7 AST 120 H ALT 99 H Alkaline Phosphatase 58 Total Protein 5.7 L Albumin 2.5 L Globulin 3.2 Albumin/Globulin Ratio 0.8 L Diagnostic Findings telemetry personally reviewed: Sinus rhythm. No arrhythmia. Medications Administered Current Inpatient Medications Albuterol (Ventolin 0.083% 2.5mg/3ml) 2.5 mg INH Q2H PRN PRN Reason: SOB/WHEEZE Stop: 11/23/18 04:24 Aspirin (Aspirin Chew) 81 mg PO QAM [facility] Stop: 11/23/18 08:59 Last Admin: 10/27/18 09:33 Dose: 81 mg Documented by: Atorvastatin Calcium (Lipitor) 80 mg PO QAM [facility] Stop: 11/23/18 08:59 Last Admin: 10/27/18 09:33 Dose: 80 mg Documented by: Dextrose (Dextrose 50%) 25 - 50 ml IV UD PRN; Protocol PRN Reason: Hypoglycemia Protocol Stop: 11/23/18 05:59 Last Admin: 10/26/18 11:47 Dose: 50 ml Documented by: [facility]oxaparin S[facility] ([facility]oven[facility]) [facility] [place]: 11/23/18 08:59 Last Admin: 10/27/18 09:33 Dose: 40 mg Documented by: Glucagon (Glucagen) 1 mg IM UD PRN; Protocol PRN Reason: Hypoglycemia Protocol Stop: 11/23/18 05:59 Glucose (Glucose 40%) 15 - 30 gm PO UD PRN; Protocol PRN Reason: Hypoglycemia Protocol Stop: 11/23/18 05:59 Glucose (Dex4 Glucose) 4 - 8 tabs PO UD PRN; Protocol PRN Reason: Hypoglycemia Protocol Stop: 11/23/18 05:59 Famotidine 20 mg/ Syringe 5 mls @ 2.5 mls/min IV BID [facility] Stop: 11/24/18 08:59 Last Admin: 10/27/18 09:35 Dose: 2.5 mls/min Documented by: Acetaminophen (Ofirmev) 1,000 mg in 100 mls @ 400 mls/hr IV Q8H PRN PRN Reason: Fever Stop: 11/25/18 19:11 Last Infusion: 10/26/18 21:50 Dose: Infused Documented by: Lisinopril (Zestril) 5 mg PO QAM [facility] Stop: 11/27/18 08:59 Metoprolol Tartrate (Lopressor) 50 mg PO BID [facility] Stop: 11/26/18 20:59 Miscellaneous (Carbohydrates For Hypoglycemia) 15 - 30 gm PO PRN PRN PRN Reason: Hypoglycemia Treatment Stop: 11/23/18 05:59 Ticagrelor (Brilinta) 90 mg PO BID [facility] Stop: 11/23/18 10:29 Last Admin: 10/27/18 09:33 Dose: 90 mg Documented by:
[2018-10-27] MEDS ORDERED: Nursing to Pharmacy Communication ONE (17:45)
[2018-10-27] MEDS: METOPROLOL TARTRATE 50 MG TAB PO SCH (19:33)
[2018-10-28 05:40] LABS: Basophils # (auto) 0.02 K/uL (0-0.2); Basophils % (auto) 0.2 %; Eosinophils # (auto) 0.03 K/uL (0-0.5); Eosinophils % (auto) 0.3 %; Hematocrit (blood only) 35.4 % (42-52); Hemoglobin 12.6 g/dL (14.0-18.0); Immature Granulocytes # (auto) 0.04 K/uL (0.00-0.02); Immature Granulocytes % (auto) 0.4 %; Lymphocytes # (auto) 1.61 K/uL (1.2-3.4); Lymphocytes % (auto) 15.1 %; Mean Corpuscular Hgb Conc 35.6 g/dL (32-36); Mean Corpuscular Volume 89.8 fL (80-100); Mean Platelet Volume 9.5 fL (7.4-10.4); Monocytes # (auto) 1.32 K/uL (0.11-0.59); Monocytes % (auto) 12.4 %; Neutrophils # (auto) 7.66 K/uL (1.4-6.5); Neutrophils % (auto) 71.6 %; Platelet Count 189 K/uL (130-400); RDW Coefficient of Variation 13.5 % (11.5-14.5); RDW Standard Deviation 44.7 fL (36.4-46.3); Red Blood Count 3.94 M/uL (4.7-6.1); White Blood Count 10.68 K/uL (4.8-10.8)
[2018-10-28 05:43] LABS: HCO3 ABG 19 mmol/L (19-24); Oxygen Saturation ABG 94.7 % (90-95); PCO2 ABG 24 mmHg (35-46); PO2 ABG 68 mm/Hg (80-95)
[2018-10-28 06:01] LABS: Albumin Level 2.7 gm/dl (3.4-5.0); BUN Creatinine Ratio 18.1 (10-20); Calcium 8.1 mg/dl (8.5-10.1); Creatinine Clr Calc Pharmacy 94.6 ml/min; Est GFR (African American) 110.4; Est GFR (Non-African American) 95.3
[2018-10-28 06:04] LABS: Albumin Globulin Ratio 0.8 (0.9-2); Bilirubin,Total 0.9 mg/dl (0.2-1); Globulin 3.3 gm/dl (2.5-4.0)
[2018-10-28 06:45] LABS: Allen Test Pos (Pos); pH ABG 7.51 (7.35-7.45)
[2018-10-28] MEDS: POTASSIUM CHLORIDE 20 MEQ TABCR PO SCH ×3 (08:36→21:18)
[2018-10-28] MEDS: TICAGRELOR 90 MG TAB PO SCH ×2 (08:36→21:19)
[2018-10-28] MEDS: ASPIRIN 81 MG CHEW PO SCH (08:36)
[2018-10-28] MEDS: ATORVASTATIN 40 MG TAB PO SCH (08:37)
[2018-10-28] MEDS: ENOXAPARIN INJ 40 MG/0.4 ML SYR SQ SCH (08:37)
[2018-10-28] MEDS: METOPROLOL TARTRATE 50 MG TAB PO SCH ×2 (08:37→21:19)
[2018-10-28] MEDS: LISINOPRIL 5 MG TAB PO SCH (08:37)
[2018-10-28] MEDS: FAMOTIDINE 20 MG in SYRINGE 3 ML IV SCH (08:43)
--- NOTE | 2018-10-28 09:57 | Cardiology Progress Note ---
Date of Service October 28, 2018 Assessment & Plan (1) Cardiac arrest: He underwent hypothermia protocol and has been re-warmed. Cardiac arrest likely secondary to ventricular arrhythmia in the setting of circumflex STEMI. Neurologically, he still has certain difficulties recalling things, but hopefully this continues to improve over time. Continue to monitor closely. No ventricular arrhythmia noted on telemetry. (2) STEMI (ST elevation myocardial infarction): LV systolic function was normal with inferolateral wall motion abnormality on echo. He is status post circumflex PCI. Continue aspirin 81 mg daily indefinitely. Continue Brilinta for at least 1 year. Anti-platelet therapy discussed with he and his . Continue high-intensity statin therapy. Continue beta-jayshree. Lisinopril 5 mg once daily was started today. Blood pressure has been mostly normotensive. (3) CAD (coronary artery disease), lime coronary artery: Continue medical therapy following PCI of circumflex. Continue aspirin 81 mg daily indefinitely. Continue Brilinta for at least 1 year. Continue high- intensity statin therapy. Continue beta-jayshree and DOUGLAS-inhibitor. (4) Stented coronary artery: Anti-platelet therapy as above. (5) Dyslipidemia, goal to be determined: Continue high-intensity statin therapy. LDL was elevated and he now has documented CAD. (6) Disposition: Cardiology will continue to follow. Dr. Tucker is his primary card folder. Recommend physical therapy. Cardiac rehabilitation after discharge. Subjective He denies chest pain, shortness of breath, syncope, near-syncope, palpitations, or edema. His and brother were present at the bedside. He remains weak. Review of systems: As above. Physical Exam Physical Exam: Gen.: No acute distress. Alert . Oriented to year, place and self. He did not know the president. HEENT: Anicteric sclera. Neck: No JVD. Cardiac: Regular. Normal S1-S2. No murmurs, rubs, or gallops. Pulmonary: Clear to auscultation bilaterally without wheezes, rales, or rhonchi. Abdomen: Soft, nontender, nondistended, with normoactive bowel sounds. No bruits noted. Extremities: No edema or cyanosis. Psychiatric: Affect appears appropriate. Results & Data Vital Signs (Past 12 Hours) Vital Signs Temp Pulse Pulse Resp BP Pulse Ox 10/28/18 07:15 36.8 C 67 17 144/65 H 96 10/28/18 04:18 37.0 C 77 18 134/76 95 10/27/18 23:02 37.2 C 71 21 129/70 92 10/27/18 22:20 69 Intake & Output 10/26/18 10/27/18 10/28/18 10/29/18 06:59 06:59 06:59 06:59 Intake Total 2129.183 / 2129.183 553.1 / 553.1 400 / 400 Output Total 1208 / 1208 1200 / 1200 1501 / 1501 Balance 921.183 / 921.183 -646.9 / -646.9 -1101 / -1101 Weight 75.3 kg 75.4 kg 74.9 kg Laboratory Results Laboratory Results - last 24 hr 10/26/18 10/28/18 10/28/18 14:26 05:24 05:24 WBC 10.68 RBC 3.94 L Hgb 12.6 L Hct 35.4 L MCV 89.8 MCH 32.0 MCHC 35.6 RDW Std Deviation 44.7 RDW Coeff of Anh 13.5 Plt Count 189 MPV 9.5 Immature Gran % (Auto) 0.4 Neut % (Auto) 71.6 Lymph % (Auto) 15.1 [place] % (Auto) 12.4 Eos % (Auto) 0.3 Baso % (Auto) 0.2 Immature Gran # (Auto) 0.04 H Neut # (Auto) 7.66 H Lymph # (Auto) 1.61 [place] # (Auto) 1.32 H Eos # (Auto) 0.03 Baso # (Auto) 0.02 Specimen Type Arterial Sample Site Art Line Patient Temperature 37.1 POC pH 7.34 L POC pCO2 37 POC pO2 96 H POC HCO3 20 POC Total CO2 21 L POC Base Excess -6.0 O2 Sat Pulse Oximetry 98 ABG pH ABG pCO2 ABG pO2 ABG HCO3 POC ABG O2 Sat 97.0 H ABG O2 Saturation ABG Base Excess [place]o Test Not Performed Barometric Pressure Oxygen Given O2 Delivery Device Ventilator Vent Mode PSV Vent Setting 5 POC FiO2 35 End Tidal CO2 36 PEEP 5 Sodium 144 Potassium 3.0 L Chloride 114 H Carbon Dioxide 21 Anion Gap 9.0 BUN 15 Creatinine 0.81 Est Cr Clr Drug Dosing 94.6 Est GFR ( Amer) 110.4 Est GFR (Non-Af Amer) 95.3 BUN/Creatinine Ratio 18.1 Glucose 79 Calcium 8.1 L Total Bilirubin 0.9 AST 85 H ALT 86 H Alkaline Phosphatase 63 Total Protein 6.0 L Albumin 2.7 L Globulin 3.3 Albumin/Globulin Ratio 0.8 L 10/28/18 05:24 WBC RBC Hgb Hct MCV MCH MCHC RDW Std Deviation RDW Coeff of Anh Plt Count MPV Immature Gran % (Auto) Neut % (Auto) Lymph % (Auto) [place] % (Auto) Eos % (Auto) Baso % (Auto) Immature Gran # (Auto) Neut # (Auto) Lymph # (Auto) [place] # (Auto) Eos # (Auto) Baso # (Auto) Specimen Type Sample Site Patient Temperature POC pH POC pCO2 POC pO2 POC HCO3 POC Total CO2 POC Base Excess O2 Sat Pulse Oximetry ABG pH 7.51 H* ABG pCO2 24 L ABG pO2 68 L ABG HCO3 19 POC ABG O2 Sat ABG O2 Saturation 94.7 ABG Base Excess -2.7 [place] Test Pos Barometric Pressure 733.0 Oxygen Given 15L O2 Delivery Device Vent Mode Vent Setting POC FiO2 End Tidal CO2 PEEP Sodium Potassium Chloride Carbon Dioxide Anion Gap BUN Creatinine Est Cr Clr Drug Dosing Est GFR ( Amer) Est GFR (Non-Af Amer) BUN/Creatinine Ratio Glucose Calcium Total Bilirubin AST ALT Alkaline Phosphatase Total Protein Albumin Globulin Albumin/Globulin Ratio Diagnostic Findings Telemetry personally reviewed: Sinus rhythm. Medications Administered Current Inpatient Medications Albuterol (Ventolin 0.083% 2.5mg/3ml) 2.5 mg INH Q2H PRN PRN Reason: SOB/WHEEZE Stop: 11/23/18 04:24 Aspirin (Aspirin Chew) 81 mg PO [facility] Stop: 11/23/18 08:59 Last Admin: 10/28/18 08:36 Dose: 81 mg Documented by: Atorvastatin Calcium (Lipitor) [facility] [place]: 11/23/18 08:59 Last Admin: 10/28/18 08:37 Dose: 80 mg Documented by: Dextrose (Dextrose 50%) 25 - 50 ml IV UD PRN; Protocol PRN Reason: Hypoglycemia Protocol Stop: 11/23/18 05:59 Last Admin: 10/26/18 11:47 Dose: 50 ml Documented by: Enoxaparin Sodium (Lovenox) 40 mg SQ QAM [facility] Stop: 11/23/18 08:59 Last Admin: 10/28/18 08:37 Dose: 40 mg Documented by: Glucagon (Glucagen) 1 mg IM UD PRN; Protocol PRN Reason: Hypoglycemia Protocol Stop: 11/23/18 05:59 Glucose (Glucose 40%) 15 - 30 gm PO UD PRN; Protocol PRN Reason: Hypoglycemia Protocol Stop: 11/23/18 05:59 Glucose (Dex4 Glucose) 4 - 8 tabs PO UD PRN; Protocol PRN Reason: Hypoglycemia Protocol Stop: 11/23/18 05:59 Famotidine 20 mg/ Syringe 5 mls @ 2.5 mls/min IV BID [facility] Stop: 11/24/18 08:59 Last Admin: 10/28/18 08:43 Dose: 2.5 mls/min Documented by: Acetaminophen (Ofirmev) 1,000 mg in 100 mls @ 400 mls/hr IV Q8H PRN PRN Reason: Fever Stop: 11/25/18 19:11 Last Infusion: 10/26/18 21:50 Dose: Infused Documented by: Lisinopril (Zestril) 5 mg PO QAM [facility] Stop: 11/27/18 08:59 Last Admin: 10/28/18 08:37 Dose: 5 mg Documented by: Metoprolol Tartrate (Lopressor) 50 mg PO BID [facility] Stop: 11/26/18 20:59 Last Admin: 10/28/18 08:37 Dose: 50 mg Documented by: Miscellaneous (Carbohydrates For Hypoglycemia) 15 - 30 gm PO PRN PRN PRN Reason: Hypoglycemia Treatment Stop: 11/23/18 05:59 Potassium Chloride (Klor-Con M20) 20 meq PO TID [facility] Stop: 11/27/18 08:59 Last Admin: 10/28/18 08:36 Dose: 20 meq Documented by: Ticagrelor (Brilinta) 90 mg PO BID [facility] Stop: 11/23/18 10:29 Last Admin: 10/28/18 08:36 Dose: 90 mg Documented by:
--- NOTE | 2018-10-28 15:33 | Hospitalist Progress Note ---
Date of Service October 28, 2018 Assessment & Plan (1) Cardiac arrest: This patient is a 63yo male with history of HLP, Asthma presenting s/p cardiac arrest with ROSC, cath with occlusion of circumflex s/p KALA placement now status post cooling protocol. 1. Neuro: patient with some decorticate posturing noted in ER and after cardiac cath. CT head negative. extubated on 10/26, breathing well, no evidence of posturing after sedation removed EEG on 10/26 with moderate encephalopathy, no seizure activity -completed cooling per protocol today he is following commands, oriented to person and place, not time cannot recall recent events, continues to struggle with short term memory no focal neurological deficits on exam 2. Pulm: extubated on 10/26. breathing well on room air today History of asthma, patient not presently on medications. Active smoker. -CXR with bibasilar atelectasis There was a question of aspiration pneumonia given vomiting upon admission. did have a low-grade temperature here. -Continue nebs PRN -Follow chest x-ray -On Zosyn in case of aspiration pneumonia 3. CV: s/p cardiac arrest with CPR and ROSC. S/p cardiac catheterization with placement of KALA to Cx. bradycardia resolved after cooling reversed Troponin peaked at 58. Echocardiogram with wall motion abnormality in the inferolateral region with preserved EF. 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 GI: With elevated LFTs AST and ALT only. Likely secondary to cardiac arrest and now improving. -Follow LFTs, AST and ALT minimally elevated -Continue Pepcid twice daily IV for prophylaxis tolerating regular diet today 5. : Mccray in place, Cr and electrolytes remain stable, is making urine - removed mccray on 10/27 6. Heme - patient with leukocytosis which is improving today down to 8k, most likely reactive but could be secondary to aspiration pneumonia. 7. ID -with questionable aspiration pneumonitis. With thick discharge from ETT previously Patient with large amount of vomit upon admission, coarse breath sounds improved but still remain Chest x-ray with bilateral basilar atelectasis versus pneumonitis Blood cultures no growth to date -Continue Zosyn as above, change to Augmentin tomorrow -Acetaminophen as needed for fever -Follow blood cultures-no growth to date 8. Endocrine -on ICU hyperglycemia protocol, insulin as needed, hemoglobin A1c 5.8% monitor for hypoglycemia Blood sugars more acceptable later in the day (2) STEMI (ST elevation myocardial infarction): treated with KALA to the distal circumflex continues to be hemodynamically stable and no chest pain/pressure continue on DAPT continue Lipitor continue metoprolol and lisinopril (3) Asthma: no wheezing on exam, breathing comfortably (4) High cholesterol: continue high intensity statin (5) Stented coronary artery: see above continue DAPT for at least a year (6) Smoker: provided counseling on quiting smoking (7) CAD (coronary artery disease), [place] coronary artery: found to have severe disease, KALA to the circumflex (8) Aspiration pneumonia: continue on Zosyn for now, no fever, WBC normal change to Augmentin tomorrow to complete a 7 day course (9) Anoxic brain injury: possible injury imaging of brain was normal having issues with short term memory however, 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 no focal motor or sensory deficits get formal PT/OT evaluations Subjective patient doing really well, vitals stable, no chest pain or pressure still with short term memory issues but prison memory completely intact updated family at the bedside he is eating today, got OOB to chair, will get formal therapy evaluations discussed with cardiology Review of Systems Review of Systems: All systems reviewed & are unremarkable except as noted in HPI & below Respiratory: no cough and no dyspnea Cardiovascular: no chest pain, no palpitations and no edema Gastrointestinal: no abdominal pain, no nausea, no vomiting, no constipation and no diarrhea/loose stools Neurologic: + confusion and + memory loss (short term) Physical Exam Constitutional: WD/WN, vitals as above + ill appearing, + altered mental status (sedated on vent) and + mechanically ventilated Eyes: PERRL, conjunctivae normal, anicteric sclerae ENMT: external ear and nose normal, oropharynx normal Neck: trachea midline, no thyromegaly Respiratory: normal respiratory effort, lungs clear to auscultation Cardiovascular: RRR, no murmur, no edema Gastrointestinal (Abdomen): normal bowel sounds, soft, nontender, no hepatosplenomegaly Musculoskeletal: Head/Neck/Chest: normocephalic and head atraumatic Extremities: extremities normal to inspection; no cyanosis and no clubbing Skin: no rashes, warm and dry Neurologic: patellar DTR's 2+ bilat, sensation intact and PERRL, EOMI, accommodation nl, no face palsy, no dysarthria + confused Psychiatric: Orientation: alert, oriented to person, oriented to place and cooperative; + not oriented to time Lymphatic: no cervical or axillary lymphadenopathy Results & Data Vital Signs (Past 12 Hours) Vital Signs Temp Pulse Pulse Resp BP BP Pulse Ox 10/28/18 15:25 36.7 C 64 18 113/70 96 10/28/18 11:23 36.7 C 62 18 127/65 95 10/28/18 08:15 79 10/28/18 07:15 36.8 C 67 17 144/65 H 96 10/28/18 04:18 37.0 C 77 18 134/76 95 Laboratory Results Laboratory Results - last 24 hr 10/28/18 10/28/18 10/28/18 05:24 05:24 05:24 WBC 10.68 RBC 3.94 L Hgb 12.6 L Hct 35.4 L MCV 89.8 MCH 32.0 MCHC 35.6 RDW Std Deviation 44.7 RDW Coeff of Anh 13.5 Plt Count 189 MPV 9.5 Immature Gran % (Auto) 0.4 Neut % (Auto) 71.6 Lymph % (Auto) 15.1 [place] % (Auto) 12.4 Eos % (Auto) 0.3 Baso % (Auto) 0.2 Immature Gran # (Auto) 0.04 H Neut # (Auto) 7.66 H Lymph # (Auto) 1.61 [place] # (Auto) 1.32 H Eos # (Auto) 0.03 Baso # (Auto) 0.02 ABG pH 7.51 H* ABG pCO2 24 L ABG pO2 68 L ABG HCO3 19 ABG O2 Saturation 94.7 ABG Base Excess -2.7 [place]o Test Pos Barometric Pressure 733.0 Oxygen Given 15L Sodium 144 Potassium 3.0 L Chloride 114 H Carbon Dioxide 21 Anion Gap 9.0 BUN 15 Creatinine 0.81 Est Cr Clr Drug Dosing 94.6 Est GFR ( Amer) 110.4 Est GFR (Non-Af Amer) 95.3 BUN/Creatinine Ratio 18.1 Glucose 79 Calcium 8.1 L Total Bilirubin 0.9 AST 85 H ALT 86 H Alkaline Phosphatase 63 Total Protein 6.0 L Albumin 2.7 L Globulin 3.3 Albumin/Globulin Ratio 0.8 L Medications Administered Current Inpatient Medications Albuterol (Ventolin 0.083% 2.5mg/3ml) 2.5 mg INH Q2H PRN PRN Reason: SOB/WHEEZE Stop: 11/23/18 04:24 Aspir[facility] ([facility]in Chew) [facility] Stop: 11/23/18 08:59 Last Admin: 10/28/18 08:36 Dose: 81 mg Documented by: Atorvastatin Calcium (Lipitor) [facility] Stop: 11/23/18 08:59 Last Admin: 10/28/18 08:37 Dose: 80 mg Documented by: Dextrose (Dextrose 50%) 25 - 50 ml IV UD PRN; Protocol PRN Reason: Hypoglycemia Protocol Stop: 11/23/18 05:59 Last Admin: 10/26/18 11:47 Dose: 50 ml Documented by: Enoxaparin Sodium (Lovenox) 40 mg SQ [facility] Stop: 11/23/18 08:59 Last Admin: 10/28/18 08:37 Dose: 40 mg Documented by: Famotidine (Pepcid) 20 mg PO BID [facility] Stop: 11/27/18 20:59 Glucagon (Glucagen) 1 mg IM UD PRN; Protocol PRN Reason: Hypoglycemia Protocol Stop: 11/23/18 05:59 Glucose (Glucose 40%) 15 - 30 gm PO UD PRN; Protocol PRN Reason: Hypoglycemia Protocol Stop: 11/23/18 05:59 Glucose (Dex4 Glucose) 4 - 8 tabs PO UD PRN; Protocol PRN Reason: Hypoglycemia Protocol Stop: 11/23/18 05:59 Acetaminophen (Ofirmev) 1,000 mg in 100 mls @ 400 mls/hr IV Q8H PRN PRN Reason: Fever Stop: 11/25/18 19:11 Last Infusion: 10/26/18 21:50 Dose: Infused Documented by: Lisinopril (Zestril) [facility] Stop: 11/27/18 08:59 Last Admin: 10/28/18 08:37 Dose: 5 mg Documented by: Metoprolol Tartrate (Lopressor) 50 mg PO BID [facility] Stop: 11/26/18 20:59 Last Admin: 10/28/18 08:37 Dose: 50 mg Documented by: Miscellaneous (Carbohydrates For Hypoglycemia) 15 - 30 gm PO PRN PRN PRN Reason: Hypoglycemia Treatment Stop: 11/23/18 05:59 Potassium Chloride (Klor-Con M20) 20 meq PO TID [facility] Stop: 11/27/18 08:59 Last Admin: 10/28/18 14:25 Dose: 20 meq Documented by: Ticagrelor (Brilinta) 90 mg PO BID [facility] Stop: 11/23/18 10:29 Last Admin: 10/28/18 08:36 Dose: 90 mg Documented by:
[2018-10-28] MEDS: FAMOTIDINE 20 MG TAB PO SCH (21:19)
[2018-10-29] MEDS: LISINOPRIL 5 MG TAB PO SCH (08:16)
[2018-10-29] MEDS: TICAGRELOR 90 MG TAB PO SCH (08:16)
[2018-10-29] MEDS: POTASSIUM CHLORIDE 20 MEQ TABCR PO SCH (08:16)
[2018-10-29] MEDS: ATORVASTATIN 40 MG TAB PO SCH (08:16)
[2018-10-29] MEDS: METOPROLOL TARTRATE 50 MG TAB PO SCH (08:16)
[2018-10-29] MEDS: FAMOTIDINE 20 MG TAB PO SCH (08:17)
[2018-10-29] MEDS: ENOXAPARIN INJ 40 MG/0.4 ML SYR SQ SCH (08:17)
[2018-10-29] MEDS: ASPIRIN 81 MG CHEW PO SCH (08:31)
--- NOTE | 2018-10-29 10:08 | Discharge Summary ---
Date of Service October 29, 2018 Admission HPI Per Admitting Provider Luis Rudolph is a 63yo C male with history of HLP, asthma presenting as code heart. Per chart, patient was at work when he became blue and unresponsive, witnessed cardiac arrest. CPR was initiated in the field and patient was administered AED shock almost immediately with two subsequent shocks. EMS arrived and delivered an additional shock with ROSC. EKG with inferior ST elevations and ST depressions in V2-V4. Patient intubated in the field by paramedics and sedated. Patient was transported to [facility] as a "Code Heart" and was taken to the collaborating supervising physician upon arrival where he was found to have 100% occlusion of the distal circumflex. He had placement of KALA to distal circumflex to OM3. Patient following commands initially. Had cooling catheter placed via right CFV. Admission Exam Per Admitting Provider General: patient intubated and sedated Skin: warm, dry, intact, no rashes or lesions HEENT: NC/AT, left pupil slightly larger, round/reactive, anicteric sclera, conjunctiva without injection, external ear normal to inspection and nontender, nares patent, moist mucus membranes, ETT in place, trachea midline, no LAD, no thyromegaly, no JVD Heart: +S1/S2, regular, tachycardic, no m/r/g Lungs: equal air entry bilaterally, no rales/rhonchi/wheezes Abd: +BS, soft, NT/ND, no masses/organomegaly/ascites Ext: warm, 2+ pulses in UE/LE bilaterally, no clubbing/cyanosis or edema Neuro: sedated, shivering, decorticate posturing noted on return from collaborating supervising physician Principal Diagnosis STEMI Discharge Exam Constitutional WD/WN, vitals as above Eyes PERRL, conjunctivae normal, anicteric sclerae ENMT external ear and nose normal, oropharynx normal Neck trachea midline, no thyromegaly Respiratory normal respiratory effort, lungs clear to auscultation Cardiovascular RRR, no murmur, no edema Gastrointestinal (Abdomen) normal bowel sounds, soft, nontender, no hepatosplenomegaly Musculoskeletal Head/Neck/Chest: normocephalic and head atraumatic Extremities: extremities normal to inspection; no cyanosis and no clubbing Skin no rashes, warm and dry Neurologic patellar DTR's 2+ bilat, sensation intact and PERRL, EOMI, accommodation nl, no face palsy, no dysarthria + confused (just with short term memory) Psychiatric Orientation: alert, oriented to person, oriented to place and cooperative; + not oriented to time Lymphatic no cervical or axillary lymphadenopathy Discharge Data Allergies Allergy/AdvReac Type Severity Reaction Status Date / Time No Known Allergies Allergy Unverified 10/17/12 16:35 Consultations 10/23/18 23:12 Consult Case Management - Discharge Planning Routine 10/23/18 23:24 Consult Sand Digger Routine Procedures Performed Operation Date: 10/23/18 22:00 Actual Procedures s Cineradiography w/Routine Exam - Gerardo Tucker MD p Aspiration/PCI w/KALA for Stemi - Gerardo Tucker MD s Central Venous Cath Placement - Gerardo Tucker MD s Cath, Left with Cors and Vent - Gerardo Tucker MD s Ultrasound Vascular Access - Gerardo Tucker MD Ordered Studies 10/23/18 21:48 CL Cath Imgs for PACS use only Stat 10/23/18 22:51 CT head/brain wo con Urgent Hospital Course (1) Cardiac arrest: cardiac arrest in the field, performed CPR and AED fired brought to the ED, went to heart cath emergently with KALA placed in left circum flex went through cooling process and slowly warmed extubated did very well after being extubated and warmed, transferred to telemetry ambulating in the hallway, eating well no further chest pain or cardiac issues (2) STEMI (ST elevation myocardial infarction): treated with KALA to the distal circumflex continues to be hemodynamically stable and no chest pain/pressure continue aspirin and Brilinta continue Lipitor, high intensity continue metoprolol and lisinopril Nitro SL PRN follow up with cardiac rehab follow up with cardiology, Dr. Tucker (3) Asthma: no wheezing on exam, breathing comfortably (4) High cholesterol: continue high intensity statin (5) Stented coronary artery: see above continue DAPT for at least a year (6) Smoker: provided counseling on quiting smoking patient said he is committed to quitting (7) CAD (coronary artery disease), [place] coronary artery: found to have severe disease, KALA to the circumflex (8) Aspiration pneumonia: treated for 5 days with Zosyn afebrile, WBC normal, no further antibiotics needed on discharge (9) Anoxic brain injury: possible injury imaging of brain was normal having issues with short term memory however, 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 no focal motor or sensory deficits cleared for discharge by PT/OT discussed with patient and family that only time will tell about how much memory returns he feels fortunate to be doing as well as he is doing Total Time Total Time Spent Total Time Spent (In Minutes): 45 minutes Total Time Includes: Examination of the Patient, Discharge Planning, Medication Reconciliation, Communication With Other Providers and Other (discussed with family) Discharge Plan Discharge Items Patient Disposition: Home - Self-Care Reason For Visit: CARDIAC ARREST Discharge Diagnosis: Cardiac arrest STEMI (heart attack) Short term memory issues, related to cardiac arrest Condition: Good Discharge Goals: Improve disease control and Improve function Activity: Per 'Additional Instructions' section Lifting: None Bathing: No limitations Sexual Activity: Wait until after follow-up appointment Exercise/Sports: Wait until after follow-up appointment Driving/Machine Use: No limitations Non-emergency contact: Primary Care Provider and Stock Speculator Call non-emergency contact if: you have any medication questions, your symptoms worsen, your pain is not controlled and you have a fever Follow-up/Referrals: Santiago Alcazar III, MD [Primary Care Provider] - Diet: Heart Healthy Addtl Provider Instructions: Medications: - ASPIRIN: take 81 mg a day indefinitely, do not stop - BRILINTA: take 90mg twice a day for one year, do not stop until instructed to stop by director of bands - METOPROLOL: 50mg twice a day to control heart rate and blood pressure - LISINOPRIL: 5mg daily, for blood pressure and coronary disease - LIPITOR: 80mg daily, high intensity statin to help lower LDL cholesterol and stabilize plaques, clinically proven to prevent future heart attacks Cardiac arrest, STEMI treated with heart catheterization and stent to your circumflex artery completed hypothermic protocol in the ICU excellent recovery, labs and vitals stable short term memory issues likely related to cardiac arrest, transient anoxic injury to brain continue supportive care start cardiac rehab on discharge take all the above medications as prescribed, they will help your heart recover and will prevent future heart attacks FOLLOW UP - Dr. Alcazar within one week, call his office for appt - Dr. Filiberto Tucker in two weeks, call his office for appt, Prescriptions: New atorvastatin 40 mg Tablet 80 mg PO QAM 30 Days Qty: 60 RF: 3 metoprolol tartrate 50 mg Tablet 50 mg PO BID 30 Days Qty: 60 RF: 3 aspirin 81 mg Tablet,Chewable 81 mg PO QAM 30 Days Qty: 30 RF: 3 lisinopril [Zestril] 5 mg Tablet 5 mg PO QAM 30 Days Qty: 30 RF: 3 Brilinta 90 mg Tablet 90 mg PO BID 30 Days Qty: 60 RF: 3 Continued Ibuprofen Tab (ADVIL) 200 MG tablet 400 - 600 mg PO Q6H PRN (Reason: Pain) Qty: 0 RF: 0 Stand-Alone Forms: [facility], Work/School Release (Inpt) Lauryn/Other Patient Handouts: Atorvastatin Calcium Oral tablet, Ticagrelor Oral tablet, Metoprolol Tartrate Oral tablet, Lisinopril Oral tablet Discharge Orders: Discharge Order (Routine); Ordered 10/29/18 Ordered By: Johnny Vann Admission Data Admit Date/Time: 10/23/18 23:12 Attending Provider: Johnny Vann Admit Provider: Gerardo Tucker Primary Care Provider: Santiago Alcazar III Other Providers: Ivan Josue Service: Telemetry Other Interventions: Discharge Summary Assessment (RN) Last Done: 10/29/18 10:42 DC Date/Time DO NOT enter until pt leaves facility: 10/29/18 11:33
--- NOTE | 2018-10-29 10:45 | Cardiology Progress Note ---
Date of Service October 29, 2018 Assessment & Plan (1) Cardiac arrest: He underwent hypothermia protocol and has been re-warmed. Cardiac arrest likely secondary to ventricular arrhythmia in the setting of circumflex STEMI. His memory continues to improve. He remained in sinus rhythm. (2) STEMI (ST elevation myocardial infarction): LV systolic function was normal with inferolateral wall motion abnormality on echo. He is status post circumflex PCI. Continue aspirin 81 mg daily indefinitely. Continue Brilinta for at least 1 year. Anti-platelet therapy discussed with he and his once again today. Continue high-intensity statin therapy. Continue beta-jayshree. Continue lisinopril. Blood pressure is reasonably controlled. Cardiac rehabilitation discussed with him today and he is agreeable. (3) CAD (coronary artery disease), [place] coronary artery: Continue medical therapy following PCI of circumflex. Continue aspirin 81 mg daily indefinitely. Continue Brilinta for at least 1 year. Continue high- intensity statin therapy. Continue beta-jayshree and DOUGLAS-inhibitor. (4) Stented coronary artery: Anti-platelet therapy as above. (5) Dyslipidemia, goal to be determined: Continue high-intensity statin therapy. LDL was elevated and he now has documented CAD. (6) Disposition: Follow-up with Dr. Tucker in approximately 1 week. Cardiology office is scheduling this appointment for him. Recommend cardiac rehabilitation. Smoking cessation strongly stressed. Recommend p.r.n. nitroglycerin on discharge. Discharge cardiac medications were discussed with he and his . Patient care communicated with Dr. Vann of the primary hospitalist service. Subjective He denies any angina, shortness of breath, syncope, near-syncope, palpitations, edema, or bleeding. His and sister are present at the bedside. He is being discharged today. Review of systems: As above. Physical Exam Physical Exam: Gen.: No acute distress. Alert x 3. HEENT: Anicteric sclera. Neck: No JVD. Cardiac: Regular. Normal S1-S2. No murmurs, rubs, or gallops. Pulmonary: Clear to auscultation bilaterally without wheezes, rales, or rhonchi. Abdomen: Soft, nontender, nondistended, with normoactive bowel sounds. No bruits noted. Extremities: No edema or cyanosis. Psychiatric: Affect appears appropriate. Results & Data Vital Signs (Past 12 Hours) Vital Signs Temp Pulse Pulse Resp BP BP Pulse Ox 10/29/18 08:00 59 L 10/29/18 07:39 36.9 C 60 17 130/75 92 10/29/18 03:52 37.0 C 60 17 124/69 94 10/29/18 00:00 64 10/28/18 23:40 36.9 C 61 17 132/68 96 Laboratory Results Laboratory Results - last 72 hr 10/26/18 10/26/18 10/26/18 11:28 11:36 11:37 WBC RBC Hgb Hct MCV MCH MCHC RDW Std Deviation RDW Coeff of Anh Plt Count MPV Immature Gran % (Auto) Neut % (Auto) Lymph % (Auto) Grand % (Auto) Eos % (Auto) Baso % (Auto) Immature Gran # (Auto) Neut # (Auto) Lymph # (Auto) Grand # (Auto) Eos # (Auto) Baso # (Auto) Absolute Nucleated RBC Nucleated RBC % (auto) Neutrophils % (Manual) Band Neutrophils % Lymphocytes % (Manual) Prolymphocyte % Reactive Lymphs % (Man) Monocytes % (Manual) Eosinophils % (Manual) Basophils % (Manual) Metamyelocytes % (Man) Myelocytes % (Man) Promyelocytes % (Man) Blast Cells % (Manual) Plasma Cell % (Manual) Other Cells % Nucleated RBC % Neutrophils # (Manual) Band Neutrophils # Total Absolute Neuts Lymphocytes # (Manual) Prolymphocyte # Reactive Lymphs # Total Abs Lymphocytes Monocytes # (Manual) Eosinophils # (Manual) Basophils # (Manual) Metamyelocytes # (Man) Myelocytes # (Manual) Promyelocytes # (Man) Blast Cells # (Man) Plasma Cell # (Manual) Other Cells # Nucleated RBCs # (Man) Hypersegmented Neuts Hyposegmented Neuts Hypogranular Neuts Large Granular Lymphs # Lrg Granular Lymphs Hairy Cells Smudge Cells Toxic Granulation Toxic Vacuolation Dohle Bodies Ashley Rods Platelet Estimate Hypogranular Platelets Clumped Platelets Giant Platelets Platelet Satelliting RBC Morphology Polychromasia Hypochromasia Poikilocytosis Basophilic Stippling Anisocytosis Microcytosis Macrocytosis Spherocytes Pappenheimer Bodies Sickle Cells Target Cells Tear Drop Cells Ovalocytes Stomatocytes Kang-Fairchild Bodies Echinocytes Acanthocytes (Spur) Rouleaux RBC Agglutinates Schistocytes RBC Morph Comment Sezary Cell Specimen Type Sample Site Patient Temperature POC pH POC pCO2 POC pO2 POC HCO3 POC Total CO2 POC Base Excess O2 Sat Pulse Oximetry ABG pH ABG pCO2 ABG pO2 ABG HCO3 POC ABG O2 Sat ABG O2 Saturation ABG Base Excess [place]o Test Barometric Pressure Oxygen Given O2 Delivery Device Vent Mode Vent Setting POC FiO2 End Tidal CO2 PEEP Sodium Potassium Chloride Carbon Dioxide Anion Gap BUN Creatinine Est Cr Clr Drug Dosing Est GFR ( Amer) Est GFR (Non-Af Amer) BUN/Creatinine Ratio Glucose POC Glucose 51 L* 75 70 Calcium Total Bilirubin AST ALT Alkaline Phosphatase Total Protein Albumin Globulin Albumin/Globulin Ratio 10/26/18 10/26/18 10/26/18 12:09 14:26 15:51 WBC RBC Hgb Hct MCV MCH MCHC RDW Std Deviation RDW Coeff of Anh Plt Count MPV Immature Gran % (Auto) Neut % (Auto) Lymph % (Auto) Grand % (Auto) Eos % (Auto) Baso % (Auto) Immature Gran # (Auto) Neut # (Auto) Lymph # (Auto) Grand # (Auto) Eos # (Auto) Baso # (Auto) Absolute Nucleated RBC Nucleated RBC % (auto) Neutrophils % (Manual) Band Neutrophils % Lymphocytes % (Manual) Prolymphocyte % Reactive Lymphs % (Man) Monocytes % (Manual) Eosinophils % (Manual) Basophils % (Manual) Metamyelocytes % (Man) Myelocytes % (Man) Promyelocytes % (Man) Blast Cells % (Manual) Plasma Cell % (Manual) Other Cells % Nucleated RBC % Neutrophils # (Manual) Band Neutrophils # Total Absolute Neuts Lymphocytes # (Manual) Prolymphocyte # Reactive Lymphs # Total Abs Lymphocytes Monocytes # (Manual) Eosinophils # (Manual) Basophils # (Manual) Metamyelocytes # (Man) Myelocytes # (Manual) Promyelocytes # (Man) Blast Cells # (Man) Plasma Cell # (Manual) Other Cells # Nucleated RBCs # (Man) Hypersegmented Neuts Hyposegmented Neuts Hypogranular Neuts Large Granular Lymphs # Lrg Granular Lymphs Hairy Cells Smudge Cells Toxic Granulation Toxic Vacuolation Dohle Bodies Ashley Rods Platelet Estimate Hypogranular Platelets Clumped Platelets Giant Platelets Platelet Satelliting RBC Morphology Polychromasia Hypochromasia Poikilocytosis Basophilic Stippling Anisocytosis Microcytosis Macrocytosis Spherocytes Pappenheimer Bodies Sickle Cells Target Cells Tear Drop Cells Ovalocytes Stomatocytes Kang-Fairchild Bodies Echinocytes Acanthocytes (Spur) Rouleaux RBC Agglutinates Schistocytes RBC Morph Comment Sezary Cell Specimen Type Arterial Sample Site Art Line Patient Temperature 37.1 POC pH 7.34 L POC pCO2 37 POC pO2 96 H POC HCO3 20 POC Total CO2 21 L POC Base Excess -6.0 O2 Sat Pulse Oximetry 98 ABG pH ABG pCO2 ABG pO2 ABG HCO3 POC ABG O2 Sat 97.0 H ABG O2 Saturation ABG Base Excess Doroteo Test Not Performed Barometric Pressure Oxygen Given O2 Delivery Device Ventilator Vent Mode PSV Vent Setting 5 POC FiO2 35 End Tidal CO2 36 PEEP 5 Sodium Potassium Chloride Carbon Dioxide Anion Gap BUN Creatinine Est Cr Clr Drug Dosing Est GFR ( Amer) Est GFR (Non-Af Amer) BUN/Creatinine Ratio Glucose POC Glucose 172 H 77 Calcium Total Bilirubin AST ALT Alkaline Phosphatase Total Protein Albumin Globulin Albumin/Globulin Ratio 10/26/18 10/26/18 10/27/18 17:42 21:11 04:46 WBC Cancelled RBC Cancelled Hgb Cancelled Hct Cancelled MCV Cancelled MCH Cancelled MCHC Cancelled RDW Std Deviation Cancelled RDW Coeff of Anh Cancelled Plt Count Cancelled MPV Cancelled Immature Gran % (Auto) Cancelled Neut % (Auto) Cancelled Lymph % (Auto) Cancelled Grand % (Auto) Cancelled Eos % (Auto) Cancelled Baso % (Auto) Cancelled Immature Gran # (Auto) Cancelled Neut # (Auto) Cancelled Lymph # (Auto) Cancelled Grand # (Auto) Cancelled Eos # (Auto) Cancelled Baso # (Auto) Cancelled Absolute Nucleated RBC Cancelled Nucleated RBC % (auto) Cancelled Neutrophils % (Manual) Cancelled Band Neutrophils % Cancelled Lymphocytes % (Manual) Cancelled Prolymphocyte % Cancelled Reactive Lymphs % (Man) Cancelled Monocytes % (Manual) Cancelled Eosinophils % (Manual) Cancelled Basophils % (Manual) Cancelled Metamyelocytes % (Man) Cancelled Myelocytes % (Man) Cancelled Promyelocytes % (Man) Cancelled Blast Cells % (Manual) Cancelled Plasma Cell % (Manual) Cancelled Other Cells % Cancelled Nucleated RBC % Cancelled Neutrophils # (Manual) Cancelled Band Neutrophils # Cancelled Total Absolute Neuts Cancelled Lymphocytes # (Manual) Cancelled Prolymphocyte # Cancelled Reactive Lymphs # Cancelled Total Abs Lymphocytes Cancelled Monocytes # (Manual) Cancelled Eosinophils # (Manual) Cancelled Basophils # (Manual) Cancelled Metamyelocytes # (Man) Cancelled Myelocytes # (Manual) Cancelled Promyelocytes # (Man) Cancelled Blast Cells # (Man) Cancelled Plasma Cell # (Manual) Cancelled Other Cells # Cancelled Nucleated RBCs # (Man) Cancelled Hypersegmented Neuts Cancelled Hyposegmented Neuts Cancelled Hypogranular Neuts Cancelled Large Granular Lymphs Cancelled # Lrg Granular Lymphs Cancelled Hairy Cells Cancelled Smudge Cells Cancelled Toxic Granulation Cancelled Toxic Vacuolation Cancelled Dohle Bodies Cancelled Ashley Rods Cancelled Platelet Estimate Cancelled Hypogranular Platelets Cancelled Clumped Platelets Cancelled Giant Platelets Cancelled Platelet Satelliting Cancelled RBC Morphology Cancelled Polychromasia Cancelled Hypochromasia Cancelled Poikilocytosis Cancelled Basophilic Stippling Cancelled Anisocytosis Cancelled Microcytosis Cancelled Macrocytosis Cancelled Spherocytes Cancelled Pappenheimer Bodies Cancelled Sickle Cells Cancelled Target Cells Cancelled Tear Drop Cells Cancelled Ovalocytes Cancelled Stomatocytes Cancelled Kang-Fairchild Bodies Cancelled Echinocytes Cancelled Acanthocytes (Spur) Cancelled Rouleaux Cancelled RBC Agglutinates Cancelled Schistocytes Cancelled RBC Morph Comment Cancelled Sezary Cell Cancelled Specimen Type Sample Site Patient Temperature POC pH POC pCO2 POC pO2 POC HCO3 POC Total CO2 POC Base Excess O2 Sat Pulse Oximetry ABG pH ABG pCO2 ABG pO2 ABG HCO3 POC ABG O2 Sat ABG O2 Saturation ABG Base Excess [place] Test Barometric Pressure Oxygen Given O2 Delivery Device Vent Mode Vent Setting POC FiO2 End Tidal CO2 PEEP Sodium Potassium Chloride Carbon Dioxide Anion Gap BUN Creatinine Est Cr Clr Drug Dosing Est GFR ( Amer) Est GFR (Non-Af Amer) BUN/Creatinine Ratio Glucose POC Glucose 78 96 Calcium Total Bilirubin AST ALT Alkaline Phosphatase Total Protein Albumin Globulin Albumin/Globulin Ratio 10/27/18 10/27/18 10/27/18 04:46 04:46 04:54 WBC RBC Hgb Hct MCV MCH MCHC RDW Std Deviation RDW Coeff of Anh Plt Count MPV Immature Gran % (Auto) Neut % (Auto) Lymph % (Auto) Grand % (Auto) Eos % (Auto) Baso % (Auto) Immature Gran # (Auto) Neut # (Auto) Lymph # (Auto) Grand # (Auto) Eos # (Auto) Baso # (Auto) Absolute Nucleated RBC Nucleated RBC % (auto) Neutrophils % (Manual) Band Neutrophils % Lymphocytes % (Manual) Prolymphocyte % Reactive Lymphs % (Man) Monocytes % (Manual) Eosinophils % (Manual) Basophils % (Manual) Metamyelocytes % (Man) Myelocytes % (Man) Promyelocytes % (Man) Blast Cells % (Manual) Plasma Cell % (Manual) Other Cells % Nucleated RBC % Neutrophils # (Manual) Band Neutrophils # Total Absolute Neuts Lymphocytes # (Manual) Prolymphocyte # Reactive Lymphs # Total Abs Lymphocytes Monocytes # (Manual) Eosinophils # (Manual) Basophils # (Manual) Metamyelocytes # (Man) Myelocytes # (Manual) Promyelocytes # (Man) Blast Cells # (Man) Plasma Cell # (Manual) Other Cells # Nucleated RBCs # (Man) Hypersegmented Neuts Hyposegmented Neuts Hypogranular Neuts Large Granular Lymphs # Lrg Granular Lymphs Hairy Cells Smudge Cells Toxic Granulation Toxic Vacuolation Dohle Bodies Ashley Rods Platelet Estimate Hypogranular Platelets Clumped Platelets Giant Platelets Platelet Satelliting RBC Morphology Polychromasia Hypochromasia Poikilocytosis Basophilic Stippling Anisocytosis Microcytosis Macrocytosis Spherocytes Pappenheimer Bodies Sickle Cells Target Cells Tear Drop Cells Ovalocytes Stomatocytes Kang-Fairchild Bodies Echinocytes Acanthocytes (Spur) Rouleaux RBC Agglutinates Schistocytes RBC Morph Comment Sezary Cell Specimen Type Sample Site Patient Temperature POC pH POC pCO2 POC pO2 POC HCO3 POC Total CO2 POC Base Excess O2 Sat Pulse Oximetry ABG pH ABG pCO2 ABG pO2 ABG HCO3 POC ABG O2 Sat ABG O2 Saturation ABG Base Excess [place] Test Barometric Pressure Oxygen Given O2 Delivery Device Vent Mode Vent Setting POC FiO2 End Tidal CO2 PEEP Sodium Cancelled Potassium Cancelled Chloride Cancelled Carbon Dioxide Cancelled Anion Gap Cancelled BUN Cancelled Creatinine Cancelled Est Cr Clr Drug Dosing Cancelled Est GFR ( Amer) Cancelled Est GFR (Non-Af Amer) Cancelled BUN/Creatinine Ratio Cancelled Glucose Cancelled POC Glucose 89 Calcium Cancelled Total Bilirubin Cancelled AST Cancelled ALT Cancelled Alkaline Phosphatase Cancelled Total Protein Cancelled Albumin Cancelled Globulin Cancelled Albumin/Globulin Ratio Cancelled 10/27/18 10/27/18 10/27/18 05:37 05:37 05:37 WBC 8.93 RBC 3.68 L Hgb 11.8 L Hct 34.0 L MCV 92.4 MCH 32.1 MCHC 34.7 RDW Std Deviation 47.5 H RDW Coeff of Anh 14.0 Plt Count 145 MPV 9.8 Immature Gran % (Auto) 0.3 Neut % (Auto) 79.6 Lymph % (Auto) 10.9 Grand % (Auto) 9.0 Eos % (Auto) 0.1 Baso % (Auto) 0.1 Immature Gran # (Auto) 0.03 H Neut # (Auto) 7.11 H Lymph # (Auto) 0.97 L Grand # (Auto) 0.80 H Eos # (Auto) 0.01 Baso # (Auto) 0.01 Absolute Nucleated RBC Nucleated RBC % (auto) Neutrophils % (Manual) Band Neutrophils % Lymphocytes % (Manual) Prolymphocyte % Reactive Lymphs % (Man) Monocytes % (Manual) Eosinophils % (Manual) Basophils % (Manual) Metamyelocytes % (Man) Myelocytes % (Man) Promyelocytes % (Man) Blast Cells % (Manual) Plasma Cell % (Manual) Other Cells % Nucleated RBC % Neutrophils # (Manual) Band Neutrophils # Total Absolute Neuts Lymphocytes # (Manual) Prolymphocyte # Reactive Lymphs # Total Abs Lymphocytes Monocytes # (Manual) Eosinophils # (Manual) Basophils # (Manual) Metamyelocytes # (Man) Myelocytes # (Manual) Promyelocytes # (Man) Blast Cells # (Man) Plasma Cell # (Manual) Other Cells # Nucleated RBCs # (Man) Hypersegmented Neuts Hyposegmented Neuts Hypogranular Neuts Large Granular Lymphs # Lrg Granular Lymphs Hairy Cells Smudge Cells Toxic Granulation Toxic Vacuolation Dohle Bodies Ashley Rods Platelet Estimate Hypogranular Platelets Clumped Platelets Giant Platelets Platelet Satelliting RBC Morphology Polychromasia Hypochromasia Poikilocytosis Basophilic Stippling Anisocytosis Microcytosis Macrocytosis Spherocytes Pappenheimer Bodies Sickle Cells Target Cells Tear Drop Cells Ovalocytes Stomatocytes Kang-Fairchild Bodies Echinocytes Acanthocytes (Spur) Rouleaux RBC Agglutinates Schistocytes RBC Morph Comment Sezary Cell Specimen Type Sample Site Patient Temperature POC pH POC pCO2 POC pO2 POC HCO3 POC Total CO2 POC Base Excess O2 Sat Pulse Oximetry ABG pH 7.49 H ABG pCO2 29 L ABG pO2 65 L ABG HCO3 22 POC ABG O2 Sat ABG O2 Saturation 94.1 ABG Base Excess -0.9 Doroteo Test Pos Barometric Pressure 733.4 Oxygen Given 2 L O2 Delivery Device Vent Mode Vent Setting POC FiO2 End Tidal CO2 PEEP Sodium 140 Potassium 3.3 L D Chloride 109 H Carbon Dioxide 23 Anion Gap 8.0 BUN 16 Creatinine 0.82 Est Cr Clr Drug Dosing 93.4 Est GFR ( Amer) 109.8 Est GFR (Non-Af Amer) 94.8 BUN/Creatinine Ratio 19.9 Glucose 127 H POC Glucose Calcium 8.1 L Total Bilirubin 0.7 AST 120 H ALT 99 H Alkaline Phosphatase 58 Total Protein 5.7 L Albumin 2.5 L Globulin 3.2 Albumin/Globulin Ratio 0.8 L 10/28/18 10/28/18 10/28/18 05:24 05:24 05:24 WBC 10.68 RBC 3.94 L Hgb 12.6 L Hct 35.4 L MCV 89.8 MCH 32.0 MCHC 35.6 RDW Std Deviation 44.7 RDW Coeff of Anh 13.5 Plt Count 189 MPV 9.5 Immature Gran % (Auto) 0.4 Neut % (Auto) 71.6 Lymph % (Auto) 15.1 Grand % (Auto) 12.4 Eos % (Auto) 0.3 Baso % (Auto) 0.2 Immature Gran # (Auto) 0.04 H Neut # (Auto) 7.66 H Lymph # (Auto) 1.61 Grand # (Auto) 1.32 H Eos # (Auto) 0.03 Baso # (Auto) 0.02 Absolute Nucleated RBC Nucleated RBC % (auto) Neutrophils % (Manual) Band Neutrophils % Lymphocytes % (Manual) Prolymphocyte % Reactive Lymphs % (Man) Monocytes % (Manual) Eosinophils % (Manual) Basophils % (Manual) Metamyelocytes % (Man) Myelocytes % (Man) Promyelocytes % (Man) Blast Cells % (Manual) Plasma Cell % (Manual) Other Cells % Nucleated RBC % Neutrophils # (Manual) Band Neutrophils # Total Absolute Neuts Lymphocytes # (Manual) Prolymphocyte # Reactive Lymphs # Total Abs Lymphocytes Monocytes # (Manual) Eosinophils # (Manual) Basophils # (Manual) Metamyelocytes # (Man) Myelocytes # (Manual) Promyelocytes # (Man) Blast Cells # (Man) Plasma Cell # (Manual) Other Cells # Nucleated RBCs # (Man) Hypersegmented Neuts Hyposegmented Neuts Hypogranular Neuts Large Granular Lymphs # Lrg Granular Lymphs Hairy Cells Smudge Cells Toxic Granulation Toxic Vacuolation Dohle Bodies Ashley Rods Platelet Estimate Hypogranular Platelets Clumped Platelets Giant Platelets Platelet Satelliting RBC Morphology Polychromasia Hypochromasia Poikilocytosis Basophilic Stippling Anisocytosis Microcytosis Macrocytosis Spherocytes Pappenheimer Bodies Sickle Cells Target Cells Tear Drop Cells Ovalocytes Stomatocytes Kang-Fairchild Bodies Echinocytes Acanthocytes (Spur) Rouleaux RBC Agglutinates Schistocytes RBC Morph Comment Sezary Cell Specimen Type Sample Site Patient Temperature POC pH POC pCO2 POC pO2 POC HCO3 POC Total CO2 POC Base Excess O2 Sat Pulse Oximetry ABG pH 7.51 H* ABG pCO2 24 L ABG pO2 68 L ABG HCO3 19 POC ABG O2 Sat ABG O2 Saturation 94.7 ABG Base Excess -2.7 Doroteo Test Pos Barometric Pressure 733.0 Oxygen Given 15L O2 Delivery Device Vent Mode Vent Setting POC FiO2 End Tidal CO2 PEEP Sodium 144 Potassium 3.0 L Chloride 114 H Carbon Dioxide 21 Anion Gap 9.0 BUN 15 Creatinine 0.81 Est Cr Clr Drug Dosing 94.6 Est GFR ( Amer) 110.4 Est GFR (Non-Af Amer) 95.3 BUN/Creatinine Ratio 18.1 Glucose 79 POC Glucose Calcium 8.1 L Total Bilirubin 0.9 AST 85 H ALT 86 H Alkaline Phosphatase 63 Total Protein 6.0 L Albumin 2.7 L Globulin 3.3 Albumin/Globulin Ratio 0.8 L Diagnostic Findings Telemetry personally reviewed: No arrhythmia. Sinus rhythm. Medications Administered Current Inpatient Medications Albuterol (Ventolin 0.083% 2.5mg/3ml) 2.5 mg INH Q2H PRN PRN Reason: SOB/WHEEZE Stop: 11/23/18 04:24 Aspirin (Aspirin Chew) 81 mg PO QAM [facility] Stop: 11/23/18 08:59 Last Admin: 10/29/18 08:31 Dose: 81 mg Documented by: Atorvastatin Calcium (Lipitor) 80 mg PO QAM [facility] Stop: 11/23/18 08:59 Last Admin: 10/29/18 08:16 Dose: 80 mg Documented by: Dextrose (Dextrose 50%) 25 - 50 ml IV UD PRN; Protocol PRN Reason: Hypoglycemia Protocol Stop: 11/23/18 05:59 Last Admin: 10/26/18 11:47 Dose: 50 ml Documented by: Enoxaparin Sodium (Lovenox) 40 mg SQ QAM [facility] Stop: 11/23/18 08:59 Last Admin: 10/29/18 08:17 Dose: 40 mg Documented by: Famotidine (Pepcid) 20 mg PO BID [facility] Stop: 11/27/18 20:59 Last Admin: 10/29/18 08:17 Dose: 20 mg Documented by: Glucagon (Glucagen) 1 mg IM UD PRN; Protocol PRN Reason: Hypoglycemia Protocol Stop: 11/23/18 05:59 Glucose (Glucose 40%) 15 - 30 gm PO UD PRN; Protocol PRN Reason: Hypoglycemia Protocol Stop: 11/23/18 05:59 Glucose (Dex4 Glucose) 4 - 8 tabs PO UD PRN; Protocol PRN Reason: Hypoglycemia Protocol Stop: 11/23/18 05:59 Acetaminophen (Ofirmev) 1,000 mg in 100 mls @ 400 mls/hr IV Q8H PRN PRN Reason: Fever Stop: 11/25/18 19:11 Last Infusion: 10/26/18 21:50 Dose: Infused Documented by: [facility]op[facility]: 11/27/18 08:59 Last Admin: 10/29/18 08:16 Dose: 5 mg Documented by: Metoprolol Tartrate (Lopressor) 50 mg PO BID [facility] Stop: 11/26/18 20:59 Last Admin: 10/29/18 08:16 Dose: 50 mg Documented by: Miscellaneous (Carbohydrates For Hypoglycemia) 15 - 30 gm PO PRN PRN PRN Reason: Hypoglycemia Treatment Stop: 11/23/18 05:59 Potassium Chloride (Klor-Con M20) 20 meq PO TID [facility] Stop: 11/27/18 08:59 Last Admin: 10/29/18 08:16 Dose: 20 meq Documented by: Ticagrelor (Brilinta) 90 mg PO BID [facility] Stop: 11/23/18 10:29 Last Admin: 10/29/18 08:16 Dose: 90 mg Documented by:
== END 2018-10-29 11:33 | disposition home or self-care (01) | DRG 228 ==
LOC: ED 21:26 → CC 22:15 → SUATTDRO 23:12 → 1E 23:12 → 2S 10-27 18:51